=== PATIENT | female | born 1955 | race Caucasian/White ===

== ENCOUNTER 2018-06-07 00:45 | Outpatient (CLI) | payer BC, SELFPAY ==
--- NOTE | 2018-06-07 12:27 | DI.MAMMO_ITS ---
SYMPTOMS/DIAGNOSIS: SCREENING, Z12.31 MAMMOGRAM: Mammograms were interpreted according to the usual protocol including computer analysis with CAD system, tomosynthesis and C view imaging. The breast tissue is of moderate radiodensity. There is no dominant mass. On today's examination a soft tissue prominence is noted posteriorly in the lateral portion of the left breast. The finding appears to be adjacent to the chest wall and is only suggested on the craniocaudad compression spot film of the left breast. There is otherwise no evidence of a right or left breast mass. There are no suspicious calcifications. SUMMARY: When compared with the previous study, there is a question regarding interval development of a mass in the posterior portion of the left breast. The possibility of a malignancy could not be excluded in this patient and further evaluation with a craniocaudad compression spot film and ultrasound is recommended. Category 0. Breast density Category B. MQSA ASSESSMENT OF FINDINGS: Incomplete: Needs additional imaging evaluation. Category 0. Patient will receive a letter notifying them of these results. BI-RADS category B. There are scattered areas of fibroglandular density.
== END 2018-06-07 01:05 ==
PROVIDERS: PCP Family Medicine; Visit Provider Nurse Practitioner Family
DX: Z12.31 Encounter for screening mammogram for malignant neoplasm of breast (principal); R92.8 Other abnormal and inconclusive findings on diagnostic imaging of breast
CPT/HCPCS: 77063; 77067

== ENCOUNTER 2018-06-13 00:28 | Outpatient (CLI) | payer BC, SELFPAY ==
--- NOTE | 2018-06-13 14:04 | DI.COMBO_ITS ---
SYMPTOMS/DIAGNOSIS: F/U ABNORMAL MAMMO, ? DEVELOPMENT OF LEFT BREAST MASS ADDITIONAL VIEWS OF THE LEFT BREAST AND LEFT BREAST ULTRASOUND: Additional images are interpreted according to the usual protocol including tomosynthesis and 2D imaging. CC spot compression views were performed. The questioned mass appears to correspond to a portion of the pectoral muscle included on the film. Left breast ultrasound shows no evidence of a mass or cyst. Normal-appearing lymph node is noted in the left axilla. IMPRESSION: Category 1B, negative mammogram. Yearly screening mammography is recommended. SA ASSESSMENT OF FINDINGS: Negative. Category 1. Patient will receive a letter notifying them of these results. BI-RADS category B. There are scattered areas of fibroglandular density.
== END 2018-06-13 00:48 ==
PROVIDERS: PCP Nurse Practitioner Family; Visit Provider Nurse Practitioner Family
DX: Z12.31 Encounter for screening mammogram for malignant neoplasm of breast (principal); R92.8 Other abnormal and inconclusive findings on diagnostic imaging of breast; R59.0 Localized enlarged lymph nodes; N64.59 Other signs and symptoms in breast
CPT/HCPCS: 76642; 77063; 77067

== ENCOUNTER 2018-07-16 15:40 | Outpatient (REF) | payer BC, SELFPAY ==
--- NOTE | 2018-07-16 15:15 | ENDOMET_PTH ---
PATIENT: Adelaida Lundy LOC: [facility] U#:[id number] AGE/SX: 62/F ROOM: RE07/16/[address]: Ceferino Driver MD : [id number] BED: DIS: 07/16/2018 SPEC #: [id number] RECD: 07/16/18 17:58 STATUS: MELI REYamilka #: [id number] YOMAIRA: 07/16/18 15:[address]: Ceferino Driver DEPT: Surgical Specimen RECD BY: Kiara Barlow ENTERED: 07/16/18 17:59 SP TYPE: Endomet OTHR DR: Biju Adames MD Tissues: 1 - ENDOMETRIUM BX/CURRETTE 2 - CERVICAL BIOPSY Procedures: GROSS AND MICRO LEVEL 4 Comments: [id number]
== END 2018-07-16 16:00 ==
LOC: LBN 15:40
PROVIDERS: PCP Family Medicine; Visit Provider Obstetrics & Gynecology
DX: N89.8 Other specified noninflammatory disorders of vagina (principal); N85.8 Other specified noninflammatory disorders of uterus; N95.0 Postmenopausal bleeding
CPT/HCPCS: 88305; 87480; 87510; 87660

== ENCOUNTER 2018-08-06 09:27 | Outpatient (CLI) | payer BC, SELFPAY ==
[2018-08-06 13:29] LABS: HGB 13.7 g/dL (12.0-15.5); Mean Corp. HGB Concentration 34.3 g/dL (32.0-36.0); Mean Corpuscular Volume 87.5 fL (80-95); Mean Platelet Volume 9.7 fL (8.0-11.0); Platelet Count 430 x1000/uL (130-400); RBC 4.57 m/cumm (4.00-5.20); RBC Distribution Width 12.4 % (11.7-14.6); White Blood Cell Count 7.47 k/cumm (4.4-10.8)
[2018-08-06 13:36] LABS: Anion Gap 7.9 mmol/L (3-11); BUN 6 mg/dL (7-18); CO2 29.1 mmol/L (21.0-32.0); CREATININE 0.95 mg/dL (0.55-1.02); Calcium 9.3 mg/dL (8.5-10.1); Chloride 96 mmol/L (98-107); Glucose 101 mg/dL (70-100); Potassium 4.8 mmol/L (3.5-5.1); Sodium 133 mmol/L (136-145)
== END 2018-08-06 09:47 ==
PROVIDERS: PCP Family Medicine
DX: K57.92 Diverticulitis of intestine, part unspecified, without perforation or abscess without bleeding (principal); R10.9 Unspecified abdominal pain
CPT/HCPCS: 36415; 80048; 85027

== ENCOUNTER 2018-09-12 11:46 | Outpatient (CLI) | payer BC, SELFPAY ==
--- NOTE | 2018-09-12 13:10 | DI.RAD_ITS ---
SYMPTOMS/DIAGNOSIS: RECURRENT THORACIC BACK PAIN, M54.9 DORSAL SPINE: The vertebral bodies are intact. Mild degenerative changes are identified with no evidence of gross disc space narrowing. The posterior elements appear intact. The paravertebral soft tissues are unremarkable. SUMMARY: Mild DJD is demonstrated. The examination is otherwise unremarkable.
== END 2018-09-12 12:06 ==
DX: M54.6 Pain in thoracic spine (principal); M47.814 Spondylosis without myelopathy or radiculopathy, thoracic region
CPT/HCPCS: 72072

== ENCOUNTER 2019-07-08 16:48 | Outpatient (REF) | payer BC, SELFPAY ==
[2019-07-08 21:32] LABS: HCT 39.8 % (36.0-46.0); HGB 13.8 g/dL (12.0-15.5); Mean Corp. HGB Concentration 34.7 g/dL (32.0-36.0); Mean Corpuscular Hemoglobin 30.7 pg (27.0-33.0); Mean Corpuscular Volume 88.6 fL (80-95); Mean Platelet Volume 9.6 fL (8.0-11.0); Platelet Count 473 x1000/uL (130-400); RBC 4.49 m/cumm (4.00-5.20); RBC Distribution Width 12.5 % (11.7-14.6); White Blood Cell Count 6.93 k/cumm (4.4-10.8)
[2019-07-08 22:08] LABS: ALT 25 U/L (14-59); AST 28 U/L (15-37); Albumin 3.9 g/dL (3.4-5.0); Alkaline Phosphatase 50 U/L (46-116); Anion Gap 9.3 mmol/L (3-11); BUN 7 mg/dL (7-18); Bilirubin, Total 0.3 mg/dL (0.2-1.0); CO2 26.7 mmol/L (21.0-32.0); CREATININE 0.83 mg/dL (0.55-1.02); Calcium 9.1 mg/dL (8.5-10.1); Chloride 93 mmol/L (98-107); Glucose 78 mg/dL (74-106); Sodium 129 mmol/L (136-145); Total Protein 7.5 g/dL (6.4-8.2)
== END 2019-07-08 17:08 ==
LOC: NCHCN 16:48
PROVIDERS: PCP Internal Medicine; Visit Provider Internal Medicine
DX: R10.30 Lower abdominal pain, unspecified (principal)
CPT/HCPCS: 80053; 85027

== ENCOUNTER 2019-07-12 09:03 | Outpatient (REF) | payer BC, SELFPAY ==
[2019-07-12 14:44] LABS: TSH 2.92 uIU/mL (0.36-3.74)
[2019-07-12 14:49] LABS: Creatinine,Urine 52.06 mg/dL; Sodium, Urine 55 mmol/L
[2019-07-16 15:38] LABS: Osmolality Serum 283 mOsm/kg (275-295); Osmolality, Urine 260 mOsm/kg (150-1,150)
== END 2019-07-12 09:23 ==
LOC: NCHCN 09:03
PROVIDERS: PCP Internal Medicine; Visit Provider Internal Medicine
DX: E87.1 Hypo-osmolality and hyponatremia (principal); I10 Essential (primary) hypertension
CPT/HCPCS: 82533; 83935; 82565; 83930; 84300; 84443

== ENCOUNTER 2019-09-20 14:33 | Outpatient (REF) | payer BC, SELFPAY ==
[2019-09-20 21:11] LABS: ALT 29 U/L (14-59); AST 31 U/L (15-37); Albumin 4.2 g/dL (3.4-5.0); Alkaline Phosphatase 53 U/L (46-116); Anion Gap 8.7 mmol/L (3-11); BUN 10 mg/dL (7-18); Bilirubin, Total 0.5 mg/dL (0.2-1.0); CO2 28.3 mmol/L (21.0-32.0); CREATININE 0.98 mg/dL (0.55-1.02); Calcium 9.6 mg/dL (8.5-10.1); Chloride 99 mmol/L (98-107); Estimated GFR 57.51 (mL/min/1.73m2); Glucose 89 mg/dL (74-106); Potassium 5.5 mmol/L (3.5-5.1); Sodium 136 mmol/L (136-145); Total Protein 8.2 g/dL (6.4-8.2)
[2019-09-22 16:18] LABS: Beta-Hydroxybutyrate 0.5 mmol/L (<0.4)
[2019-09-25 15:34] LABS: Chlorpropamide Negative; Glimepiride Negative; Glipizide Negative; Glyburide Negative; Repaglinide Negative; Tolazamide Unable to assess ng/mL; Tolbutamide Negative
[2019-09-26 10:24] LABS: Insulin 6.1 uIU/mL (<29.0)
== END 2019-09-20 14:53 ==
LOC: NCHCN 14:33
PROVIDERS: PCP Internal Medicine; Visit Provider Nurse Practitioner Family
DX: E16.2 Hypoglycemia, unspecified (principal)
CPT/HCPCS: 80053; 80307; 82010; 83525; 84206

== ENCOUNTER 2020-12-01 12:08 | Outpatient (REF) | payer BC, SELFPAY ==
[2020-12-01 15:22] LABS: ALT 38 U/L (14-59); AST 33 U/L (15-37); Alkaline Phosphatase 55 U/L (46-116); Anion Gap 8.4 mmol/L (3-11); BUN 9 mg/dL (7-18); Bilirubin, Total 0.4 mg/dL (0.2-1.0); CO2 26.6 mmol/L (21.0-32.0); CREATININE 0.9 mg/dL (0.55-1.02); Calcium 9.4 mg/dL (8.5-10.1); Calculated LDL 125 mg/dL (<100); Chloride 100 mmol/L (98-107); Cholesterol 198 mg/dL (<200); Glucose 93 mg/dL (74-106); HDL Cholesterol 64 mg/dL (40-60); Potassium 5.5 mmol/L (3.5-5.1); Sodium 135 mmol/L (136-145); Total Protein 7.6 g/dL (6.4-8.2); Triglyceride 46 mg/dL (<150)
== END 2020-12-01 12:09 | disposition home or self-care (01) ==
LOC: NCHCN 12:08
PROVIDERS: PCP Internal Medicine; Visit Provider Nurse Practitioner Family
DX: I10 Essential (primary) hypertension (principal); E66.3 Overweight; Z00.00 Encounter for general adult medical examination without abnormal findings
CPT/HCPCS: 80053; 80061

== ENCOUNTER 2020-12-17 01:51 | Outpatient (CLI) | payer BC, SELFPAY ==
--- NOTE | 2020-12-17 11:45 | DI.MAMMO_ITS ---
Exam(s) MAMMO SCREENING EXAM: MAMMO SCREENING CLINICAL HISTORY: SCREENING, Z12.31 TECHNIQUE: Mammograms were interpreted according to the usual protocol including computer analysis w [employer] CAD system, tomosynthesis and C-view imaging. COMPARISON: 2010 through 2017 FINDINGS: The breasts are composed of mainly fatty density , Breast Density category A. No suspicious masses or suspicious microcalcifications are seen. No skin thickening or abnormal axillary lymph nodes are seen. There has been no significant change from prior exams. IMPRESSION: BI-RADS Category 1, Negative mammogram Yearly screening mammography is recommended. Breast Density - Category A, fatty density. A negative radiographic report should not delay biopsy if a dominant or clinically suspicious mass is present. Up to ten percent of cancers are not identified on mammography. A negative report may reinforce clinical impression. Adenosis and dense breasts may obscure an underlying neoplasm. False positive reports average 6 to 10%. Patient will receive a letter notifying them of these results.
== END 2020-12-17 02:11 ==
PROVIDERS: PCP Internal Medicine; Visit Provider Nurse Practitioner Family
DX: Z12.31 Encounter for screening mammogram for malignant neoplasm of breast (principal); R92.8 Other abnormal and inconclusive findings on diagnostic imaging of breast
CPT/HCPCS: 77063; 77067

== ENCOUNTER 2021-01-04 12:26 | Outpatient (REF) | payer BC, SELFPAY ==
[2021-01-04 21:02] LABS: Potassium 4.8 mmol/L (3.5-5.1)
== END 2021-01-04 12:27 | disposition home or self-care (01) ==
LOC: NCHCN 12:26
PROVIDERS: PCP Internal Medicine; Visit Provider Nurse Practitioner Family
DX: E87.5 Hyperkalemia (principal)
CPT/HCPCS: 84132

== ENCOUNTER 2021-03-31 11:18 | Outpatient (REF) | payer BC, SELFPAY ==
[2021-03-31 22:13] LABS: HCT 43.5 % (36.0-46.0); HGB 14.6 g/dL (11.2-15.7); MCH 30.2 pg (27.0-33.0); MCHC 33.6 % (32.0-36.0); MCV 89.9 fL (80-95); MPV 9.3 fL (8.0-11.0); Platelet Count 426 10^3/uL (130-400); RBC 4.84 10^6/uL (3.93-5.22); RDW 12.4 % (11.7-14.6); RDW-SD 40.7 fL; WBC 5.49 10^3/uL (4.4-10.8)
[2021-03-31 22:14] LABS: Potassium 4.8 mmol/L (3.5-5.1)
== END 2021-03-31 11:19 | disposition home or self-care (01) ==
LOC: NCHCN 11:18
PROVIDERS: PCP Internal Medicine; Visit Provider Nurse Practitioner Family
DX: E87.5 Hyperkalemia (principal); D47.3 Essential (hemorrhagic) thrombocythemia; F41.8 Other specified anxiety disorders; L40.9 Psoriasis, unspecified
CPT/HCPCS: 85027; 84132

== ENCOUNTER 2021-05-10 11:43 | Outpatient (REF) | payer BC, SELFPAY ==
[2021-05-12 12:50] LABS: COVID-19 RT-PCR UVMMC Result Negative (Negative)
== END 2021-05-10 11:44 | disposition home or self-care (01) ==
LOC: NCHCN 11:43
PROVIDERS: PCP Internal Medicine; Visit Provider Nurse Practitioner Family
DX: Z20.822 Contact with and (suspected) exposure to COVID-19 (principal); J06.9 Acute upper respiratory infection, unspecified
CPT/HCPCS: U0003

== ENCOUNTER 2021-05-17 13:56 | Outpatient (REF) | payer BC, SELFPAY ==
[2021-05-17 21:38] LABS: Abs Immature Grans 0.02 10^3/uL (0.0-0.06); Absolute Basophil Count 0.06 10^3/uL (0.0-0.2); Absolute Eosinophil Count 0.07 10^3/uL (0.0-0.7); Absolute Lymphocyte Count 1.42 10^3/uL (1.2-3.4); Absolute Monocyte Count 0.68 10^3/uL (0.1-0.8); Absolute Neutrophil Count 4.08 10^3/uL (1.2-6.7); Basophils % 0.9; Eosinophils % 1.1; HCT 42.2 % (36.0-46.0); HGB 14.3 g/dL (11.2-15.7); Immature Grans % 0.3; Lymphocytes % 22.4; MCH 30.2 pg (27.0-33.0); MCHC 33.9 % (32.0-36.0); MPV 9.6 fL (8.0-11.0); Monocytes % 10.7; Neutrophils % 64.6; Nucleated RBC 0 %; Platelet Count 419 10^3/uL (130-400); RBC 4.74 10^6/uL (3.93-5.22); RDW 12.8 % (11.7-14.6); RDW-SD 42.3 fL; WBC 6.33 10^3/uL (4.4-10.8)
[2021-05-17 21:58] LABS: Anion Gap 6.8 mmol/L (3-11); BUN 9 mg/dL (7-18); CO2 29.2 mmol/L (21.0-32.0); CREATININE 0.8 mg/dL (0.55-1.02); Chloride 97 mmol/L (98-107); Glucose 88 mg/dL (74-106); Potassium 5.1 mmol/L (3.5-5.1); Sodium 133 mmol/L (136-145)
== END 2021-05-17 13:57 | disposition home or self-care (01) ==
LOC: NCHCN 13:56
PROVIDERS: PCP Internal Medicine; Visit Provider Nurse Practitioner Family
DX: J02.9 Acute pharyngitis, unspecified (principal); R10.9 Unspecified abdominal pain; M25.551 Pain in right hip
CPT/HCPCS: 80048; 84443; 85025; 87086

== ENCOUNTER 2021-10-15 18:19 | Outpatient (REF) | payer MEDICARE, BC, SELFPAY ==
[2021-10-15 15:53] LABS: ALT 42 U/L (14-59); AST 34 U/L (15-37); Albumin 3.9 g/dL (3.4-5.0); Alkaline Phosphatase 57 U/L (46-116); Anion Gap 8.1 mmol/L (3-11); BUN 8 mg/dL (7-18); Bilirubin, Total 0.4 mg/dL (0.2-1.0); CO2 27.9 mmol/L (21.0-32.0); CREATININE 0.9 mg/dL (0.55-1.02); Calcium 8.9 mg/dL (8.5-10.1); Chloride 99 mmol/L (98-107); Glucose 95 mg/dL (74-106); Potassium 4.8 mmol/L (3.5-5.1); Sodium 135 mmol/L (136-145); Total Protein 7.5 g/dL (6.4-8.2)
== END 2021-10-15 18:20 | disposition home or self-care (01) ==
LOC: NCHCN 18:19
PROVIDERS: PCP Internal Medicine; Visit Provider Nurse Practitioner Family
DX: E22.2 Syndrome of inappropriate secretion of antidiuretic hormone (principal)
CPT/HCPCS: 80053

== ENCOUNTER 2021-10-21 19:04 | Outpatient (REF) | payer MEDICARE, BC, SELFPAY ==
[2021-10-21 20:48] LABS: Anion Gap 8.6 mmol/L (3-11); BUN 13 mg/dL (7-18); CO2 27.4 mmol/L (21.0-32.0); CREATININE 0.9 mg/dL (0.55-1.02); Calcium 9.3 mg/dL (8.5-10.1); Chloride 98 mmol/L (98-107); Glucose 87 mg/dL (74-106); Potassium 4.8 mmol/L (3.5-5.1); Sodium 134 mmol/L (136-145)
== END 2021-10-21 19:05 | disposition home or self-care (01) ==
LOC: NCHCN 19:04
PROVIDERS: PCP Internal Medicine; Visit Provider Nurse Practitioner Family
DX: E87.1 Hypo-osmolality and hyponatremia (principal)
CPT/HCPCS: 80048

== ENCOUNTER 2022-07-11 16:01 | Emergency (ER) | payer MEDICARE, BC, SELFPAY ==
[2022-07-11 16:05] VITALS: PULSE 71; RESP 18; TEMP 36.8; O2SAT 98
[2022-07-11 16:08] VITALS: BP 183/91
--- NOTE | 2022-07-11 16:30 | ED.GENADUL_ITS ---
Discharge Plan Disposition Patient Disposition: Home Condition: Improving Discharge Details Clinical Impression: Anterior shoulder dislocation Primary Care Provider: Guille James ED Provider: Nayeli Bender Home Meds and New Rx's Prescriptions: Continued melatonin 3 mg tablet 3 mg PO HS PRN ascorbate calcium (vitamin C) 500 mg tablet 500 mg PO DAILY Quercetin Complex 500-250-33 mg capsule PO ssuvzxs-uhoo-pdigr-oreg-capryl 100 mg-150 mg- 50 mg-150 mg capsule PO cholecalciferol (vitamin D3) 4,000 unit capsule 4,000 unit PO DAILY magnesium citrate 100 mg tablet 100 mg PO DAILY Probiotic 1 EACH capsule 1 ea PO DAILY gabapentin 300 mg capsule 300 mg PO HS Qty: 90 3RF bupropion HCl [Wellbutrin SR] 150 mg tablet sustained-release 12 hr 150 mg PO DAILY Qty: 90 4RF buspirone 10 mg tablet 10 mg PO BID Qty: 180 3RF Discharge Instructions Instructions: Oxycodone, Rapid Release (By mouth), Shoulder Dislocation (ED) Additional Instructions: He had a recurrent anterior shoulder dislocation of the left side. Please continue sling until reevaluated by orthopedics. Please encourage rest, ice, elevation. Use Tylenol as needed for discomfort. If this is insufficient, you may use the oxycodone as prescribed. Please do not drink alcohol or drive while using this medication and keep this in a safe place. Please call orthopedics tomorrow to schedule follow-up appointment, number listed below. Encourage hydration. You may find sleeping in a more upright position is more comfortable for you. If you develop any new or worsening symptoms please seek care urgently once again. As discussed, please limit your range of motion, in particular do not reach upward and do not lift anything. Referrals: Rich Julien MD [ [facility] STAFF PHYSICIAN] - Discharge Data Discharge Date/Time-TO BE ENTERED AT DEPARTURE: 07/11/22 19:45 Medical Decision Making Patient is a 66-year-old female, brought in by significant other, with chief complaint of left shoulder pain. She reports that yesterday she dislocated her shoulder and was able to put this back in. Had not had shoulder dislocation p rior to that. States that this evening when she was attempting to do her hair felt a large crack and felt that shoulder dislocated again. Since that time has been in excruciating pain. States that she is having some discomfort radiating into the rest of the arm but denies other injury in the arm. On exam, patient appears incredibly anxious. She is yelling and crying. is also clean anxious. Feels that she is going into shock. Patient is hemodynamically stable. Is not having any respiratory distress. She is 2+ distal pulses. No color changes noted, intact capillary refill. She does not want to move any of the arm making exam difficult. She is able to extend her fingers and flex them but movement beyond that is limited secondary to anxiety and pain. I do not note any clavicular pain or dislocation. While she feels that the shoulder is dislocated, I am not noting this on exam as there is no sulcus sign I am not able to palpate the humeral head. She indicates the h umeral neck is area of maximal discomfort. Questioning if maybe she has a fracture that is exacerbated by the provocative movement today. Will obtain x- ray imaging. Will give oxycodone to help with discomfort. I am hoping that once pain is better controlled I will be able to get a better exam on this patient. She has sensation intact over the deltoid. At this point, I do not see any indication of neurovascular compromise. Patient denies any improvement with oxycodone. We will give Tylenol and Toradol IM to help with discomfort. X-ray obtained and notable for an anterior inferior shoulder dislocation. Patient and I discussed risk/benefits, alternatives as well as expected procedural steps associated with procedural sedation and closed reduction. Dr. Conteh will be performing the procedure sedation. Patient and her voiced understanding and wished to proceed. Procedural consent was obtained. With patient on the monitor and RT at bedside, patient underwent procedural sedation with propofol the shoulder was able to be reduced with traction/countertraction. We will obtain post procedure x-ray. X-ray shows reduction of the glenohumeral joint. Neurovascular status was reevaluated. Patient has no sensory deficit over the deltoid, neurovascularly intact into the hand. Sling applied. We will give another dose of pain medication prior to discharge. Patient and I discussed that, particularly given her report of dislocations yesterday, she is at high risk of repeat injury. Advised seh continue with the sling. Encouraged LOUISA. Advised she f/u with PCP, she will call in mary AM to schedule f/u. Will continue with pain management. Advised on return precuations, particularly for neurological defict or repeat dislocation. Will continue with paihn managment, safe usage discussed. All of her questions and concerns were addressed, she is in agreement with this plan. HPI General Date/Time Provider Initiated Documentation: 07/11/22 16:15 . Limitations to Documentation: no limitations . Information obtained by: patient, family and RN notes reviewed . History of Present Illness 66 year old F presents to the emergency department with the chief complaint of left shoulder pain, described as severe and similar to prior episodes (states she injured herself in similar fashion yesterday), with intensity rated at 10. Quality is described as stabbing and aching, and is localized to the left and upper extremity. Patient extremity (toward left elbow). Patient started experiencing this minute(s) and it has been constant. Immobilization improves symptom(s), Movement worsens symptoms . Patient notes no other symptoms.. Patient did receive the following treatments prior to arrival, none Related Data Home Medications Medication Instructions Recorded Confirmed Lactobacillus acidophilus 10 1 ea PO DAILY 04/24/15 07/19/22 billion cell capsule (Probiotic) cholecalciferol (vitamin D3) 100 4,000 unit PO DAILY 05/24/18 07/19/22 mcg (4,000 unit) capsule magnesium citrate 100 mg tablet 100 mg PO DAILY 05/24/18 07/19/22 melatonin 3 mg tablet 3 mg PO HS PRN 08/06/18 07/19/22 gabapentin 300 mg capsule 300 mg PO HS #90 caps 12/04/18 07/19/22 bupropion HCl 150 mg tablet,12 hr 150 mg PO DAILY #90 tab-caps 03/18/19 07/19/22 sustained-release (Wellbutrin SR) buspirone 10 mg tablet 10 mg PO BID #180 tabs 03/18/19 07/19/22 ascorbate calcium (vitamin C) 500 500 mg PO DAILY 04/30/22 07/19/22 mg tablet tumeric 100 mg-luca 150 mg-olive cap PO 04/30/22 07/19/22 50 mg-oreg 150 mg-caprylate capsule vitamin C 500 mg-quercetin 250 cap PO 04/30/22 07/19/22 mg-bioflavonoids, citrus 33 mg capsule (Quercetin Complex) Previous Rx's Medication Instructions Recorded gabapentin 300 mg capsule 300 mg PO HS #90 caps 12/04/18 bupropion HCl 150 mg tablet,12 hr 150 mg PO DAILY #90 tab-caps 03/18/19 sustained-release (Wellbutrin SR) buspirone 10 mg tablet 10 mg PO BID #180 tabs 03/18/19 Allergies Allergy/AdvReac Type Severity Reaction Status Date / Time levofloxacin AdvReac Severe SEVERE Verified 07/19/22 15:15 MYALGIAS NSAIDS (Non-Steroidal AdvReac Mild GI Verified 07/19/22 15:15 Anti-Inflamma INTOLERANCE General Stated Complaint: Orthopedic SARAVANAN: 3 Review of Systems Constitutional Constitutional: Reports as per HPI, Denies fever(s) and Denies weakness Cardiovascular Cardiovascular: Reports as per HPI Respiratory Respiratory: Reports as per HPI and Denies cough Musculoskeletal Musculoskeletal: Reports as per HPI Integumentary/Breasts Skin/Breast: Reports as per HPI, Denies rash and Denies wounds Neurologic Neurologic: Reports as per HPI, Denies paresthesias and Denies weakness PFSH All Active Problems (Updated 07/19/22 @ 16:21 by Mat Barrera MD) Traumatic tear of right rotator cuff (Acute) Traumatic tear of left rotator cuff (Acute) Arthritis of right shoulder region (Acute) Neuropraxia of left upper extremity (Acute) Anterior shoulder dislocation (Acute 07/11/22) Foreign body finger (Acute) Tinnitus of left ear (Acute) Increased body mass index (BMI) (Chronic) GERD without esophagitis (Chronic) Abdominal pain (Chronic) Back pain (Chronic) Primary fibromyalgia syndrome (Chronic) Overweight (Chronic) Joint pain (Chronic) Intention tremor (Chronic 05/11/99) Headache (Chronic) [place]verticulosis of [place] (Chronic) [place] [facility] [place] disorder (Chronic) Anxiety (Chronic) Surgical History Cholecystectomy , Ectopic Family History Mother No problems noted. Father Seizure disorder Social History Smoking/Tobacco Use Status: Never Smoking risk assessment performed?: Yes Alcohol Intake: current Alcohol Intake frequency: 0-2 drinks per day Drug use: Never Household members: spouse Current gender identity: female What is your relationship status?: Panel score (0-1 are the most socially isolated patients): 1 Seatbelt use: always Do you feel safe at home: Yes Do you feel safe in your relationship?: Yes Female Reproductive History Menstrual Menopause type: natural History History 3 Para 2 Hx # Term Pregnancies Multiple births Hx # Pregnancies Ectopic pregnancies AB induced Hx Number of Living Children AB spontaneous Exam Const General: cooperative, healthy appearing, uncomfortable, well developed, well groomed and anxious (patient very upset, anxious, limits exam) Nutritional Appearance: average body habitus and well nourished Orientation: alert and awake Resp Effort & Inspection: normal respiratory effort, able to speak in complete sentences and no respiratory distress Cardio Rate: regular rate Rhythm: regular rhythm Skin General skin exam: no rashes or lesions noted Lesions: no lesions Rashes: no rashes Trauma: no lacerations or abrasions Neuro General: patient alert and patient awake Cognition: normal cognition Speech: speech normal Gait: normal gait Motor: muscle tone normal throughout Sensory Exam: no sensory deficits noted Extrem Left upper extremity: normal to inspection, normal capillary refill, sh oulder/upper arm Details: inspection abnormal (unable to completely palpate secondary to pain), tenderness (global pain, max anteriolateral), swelling, axillary nerve sensory function normal and abnormal ROM (unable to move at this time) Details: held in an abnormal fashion Details: in ADduction and in internal rotation; ROM limited, no lacerations, no ecchymosis, no crepitus, no penetrating wound, no deformity and no unsual warmth, elbow/forearm Details: normal to inspection, tenderness (pain from shoulder radiates down, unable to ROM or palpate well d/t pain) and distal pulses intact; no swelling, wrist Details: normal to inspection, normal vascular exam and radial pulse present; no tenderness, no swelling, ROM abnormal (will not range d/t pain, primarily in mary shoulder) and no unusual warmth and hand Details: normal to inspection, normal capillary refill, neuromotor exam normal and neurosensory exam normal; ROM limited (unable to range at this time) Psych Appearance: grossly normal and well kempt Mental Status: mental status grossly normal Speech and Movement: speech and movement normal Course Vital Signs Vital signs: Vital Signs Temperature 36.8 C 07/11/22 16:05 Pulse 71 07/11/22 16:05 Respiratory Rate 18 07/11/22 16:05 Pulse Oximetry 98 07/11/22 16:05 Temperature 36.8 C 07/11/22 16:05 Pulse 71 07/11/22 16:05 Respiratory Rate 18 07/11/22 16:05 Respiratory Effort Non-Labored 07/11/22 16:08 Blood Pressure 183/91 H 07/11/22 16:08 Pulse Oximetry 98 07/11/22 16:05 Oxygen Delivery Method Room Air 07/11/22 16:05 Oxygen Flow Rate 0 07/11/22 16:05 PAWSS Have you Been Recently Intoxicated or Drunk Within the Last 30 days?: No Have you Ever Experienced Previous Episodes of Alcohol Withdrawal?: No Have you ever Experienced Withdrawal Seizures?: No Have you ever Experienced Delirium Tremens(DT)s?: No Have you ever undergone Alcohol Rehabilitation Treatment (i.e, inpt ot outpatient treatment programs)?: No Have you ever Experienced Blackouts?: No Have you ever Combined Alcohol with other Downers within the last 90 days?: No Have you ever Combined Alcohol with any other Substance of Abuse during the last 90 days?: No Positive Blood Alcohol level on Presentation? [PCS.BAL]: No Evidence of Increased Autonomic Activity (i.e. HR>120, tremor, sweating, agitation, nausea)?: No Result: 0
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
--- NOTE | 2022-07-11 17:00 | DI.RAD_ITS ---
Exam(s) XR SHOULDER LT COMPLETE 2+V EXAM: XR SHOULDER LT COMPLETE 2+V CLINICAL HISTORY: FOSON. TECHNIQUE: 2D digital imaging was performed of the left shoulder. Three images were obtained. And Y views were obtained. COMPARISON: No exams were available for comparison FINDINGS: BONES: No acute fracture is present. No bony destructive lesion is seen. JOINTS: The left humerus is dislocated anteriorly and inferiorly relative to the glenoid. Degenerati ve changes are seen at the acromioclavicular joint. SOFT TISSUE: Normal. IMPRESSION: Anterior inferior glenohumeral dislocation. DATA REPOSITORY: RADIATION DOSE DELIVERED:
[2022-07-11] MEDS: oxyCODONE 5 MG TAB PO (17:10)
[2022-07-11] MEDS: Ketorolac 15 MG/ML VIAL IM (17:49)
[2022-07-11] MEDS: Acetaminophen 500 MG TAB 1000 MG PO (17:49)
--- NOTE | 2022-07-11 18:39 | DI.VRAD_ITS ---
PROCEDURE INFORMATION: Exam: XR Left Shoulder Exam date and time: 07/11/2022 5:58 PM Age: 66 years old Clinical indication: Other: Foosh injury TECHNIQUE: Imaging protocol: Radiologic exam of the Left shoulder. Views: 2 or more views. COMPARISON: No relevant prior studies available. FINDINGS: Bones/joints: The left humerus is dislocated anteriorly and inferiorly in relation to the glenoid. Slight deformity of the humeral head suggestive of a Hill-Sachs fracture. Degenerative Arthritis in the acromioclavicular joint. Soft tissues: Normal. IMPRESSION: Anteroinferior glenohumeral dislocation with probable Hill-Sachs impaction fracture Dictated and Authenticated by: Khushboo Napier MD. Ordering:BELINDA Tyler MD
--- NOTE | 2022-07-11 18:45 | DI.RAD_ITS ---
Exam(s) XR SHOULDER LT COMP POST REDUC EXAM: XR SHOULDER LT COMP POST REDUC CLINICAL HISTORY: post reduction shoulder. TECHNIQUE: 2D digital imaging was performed of the left shoulder. Images were obtained. AP and Y views were obtained. COMPARISON: CR,XR XR SHOULDER LT COMPLETE 2+V from 07/11/2022 FINDINGS: BONES: No acute fracture is present. No bony destructive lesion is seen. There does appear to be flat tening of the lateral aspect of the humeral head suggesting a Hill-Sachs deformity. JOINTS: There has been successful reduction of the left shoulder dislocation. Degenerative changes a re seen at the acromioclavicular joint. SOFT TISSUE: Normal. IMPRESSION: 1. Successful reduction of the left shoulder dislocation. 2. Findings of a Hill-Sachs deformity. DATA REPOSITORY: RADIATION DOSE DELIVERED:
[2022-07-11] MEDS: Propofol 200 MG/20 ML VIAL 100 MG IVP (18:54)
[2022-07-11 19:01] VITALS: BP 142/82; PULSE 64; RESP 14; O2SAT 98
--- NOTE | 2022-07-11 19:20 | DI.VRAD_ITS ---
PROCEDURE INFORMATION: Exam: XR Left Shoulder Exam date and time: 07/11/2022 6:43 PM Age: 66 years old Clinical indication: Other: Post reduction shoulder TECHNIQUE: Imaging protocol: Radiologic exam of the Left shoulder. Views: 2 or more views. COMPARISON: CR XR SHOULDER LT COMPLETE 2+V 07/11/2022 5:58 PM FINDINGS: Bones/joints: Near anatomic positioning of the glenohumeral joint. Hill-Sachs deformity redemonstrated Mild degenerative changes. Soft tissues: Normal. IMPRESSION: Near anatomic alignment. Hill-Sachs deformity redemonstrated Dictated and Authenticated by: Benigno Hummel MD. Ordering:BELINDA Tyler MD
[2022-07-11] MEDS: HYDROmorphone 2 MG/ML SYR 1 MG IVP (19:26)
[2022-07-11 19:29] VITALS: BP 126/75; PULSE 70; RESP 14; O2SAT 99
== END 2022-07-11 19:45 | disposition home or self-care (01) ==
PROVIDERS: Emergency Provider Physician Assistant; PCP Internal Medicine
DX: S43.005A Unspecified dislocation of left shoulder joint, initial encounter (principal); X58.XXXA Exposure to other specified factors, initial encounter; Y93.89 Activity, other specified
CPT/HCPCS: 23650; 73030; 96372; 96374; 96375; 99284; J1170; J1885; J2704

== ENCOUNTER 2022-07-19 15:49 | Outpatient (CLI) | payer MEDICARE, BC, SELFPAY ==
--- NOTE | 2022-07-19 15:15 | DI.RAD_ITS ---
Exam(s) XR SHOULDER RT COMPLETE 2+V EXAM: XR SHOULDER RT COMPLETE 2+V CLINICAL HISTORY: RIGHT SHOULDER PAIN. TECHNIQUE: 2D digital imaging was performed. COMPARISON: CR,XR XR SHOULDER LT COMP POST REDUC from 07/11/2022 FINDINGS: Two views: No evidence of acute fracture or dislocation or abnormal soft tissue calcifications. Subacromial spa ce does not appear diminished. AC joint exhibits mild degenerative changes. Glenohumeral joint mild degenerative changes. Bone density normal. No osseous lesions. IMPRESSION: Minimal findings. DATA REPOSITORY: RADIATION DOSE DELIVERED:
== END 2022-07-19 15:50 | disposition home or self-care (01) ==
LOC: DIORS 15:49
PROVIDERS: PCP Internal Medicine; Referring Provider Internal Medicine; Visit Provider Student in an Organized Health Care Education/Training Program
DX: M19.011 Primary osteoarthritis, right shoulder (principal); S44.92XA Injury of unspecified nerve at shoulder and upper arm level, left arm, initial encounter; S46.011A Strain of muscle(s) and tendon(s) of the rotator cuff of right shoulder, initial encounter; S46.012A Strain of muscle(s) and tendon(s) of the rotator cuff of left shoulder, initial encounter; W00.0XXA Fall on same level due to ice and snow, initial encounter
CPT/HCPCS: 99215; 73030

== ENCOUNTER 2022-08-04 01:01 | Outpatient (CLI) | payer MEDICARE, BC, SELFPAY ==
--- NOTE | 2022-08-04 14:30 | DI.DEXA_ITS ---
Exam(s) XR DEXA BONE DENSITY W/WO MUKUND EXAM: XR DEXA BONE DENSITY W/WO MUKUND CLINICAL HISTORY: MENOPAUSAL, Z78.0 TECHNIQUE: COMPARISON: No exams were available for comparison FINDINGS: Lateral Spine Image: Unremarkable. No compression deformities identified. Left hip: Total T-Score: -1.3 Total Z-Score: 0.0 T- and Z-scores: Findings are consistent with osteopenia. Lumbar Spine: Total T-Score: -1.6 Total Z-Score: 0.3 T- and Z-scores: Findings are consistent with osteopenia. IMPRESSION: No evidence of osteoporosis.
== END 2022-08-04 01:21 ==
LOC: DI 01:01
PROVIDERS: PCP Internal Medicine; Visit Provider Nurse Practitioner Family
DX: Z78.0 Asymptomatic menopausal state (principal); M85.88 Other specified disorders of bone density and structure, other site
CPT/HCPCS: 77080

== ENCOUNTER 2022-08-17 02:36 | Outpatient (RCR) | payer MEDICARE, BC, SELFPAY ==
[2022-08-17] MEDS: Cosyntropin 0.25 MG VIAL IJ (07:56)
[2022-08-17] MEDS: Normal Saline Flush 10 ML SYR IVP (07:57)
[2022-08-17 08:07] LABS: HCT 40.7 % (36.0-46.0); HGB 13.9 g/dL (11.2-15.7); MCH 30.5 pg (27.0-33.0); MCHC 34.2 % (32.0-36.0); MCV 89 fL (80-95); MPV 8.9 fL (8.0-11.0); Platelet Count 371 10^3/uL (130-400); RBC 4.56 10^6/uL (3.93-5.22); RDW 12.3 % (11.7-14.6); RDW-SD 40.5 fL; WBC 4.06 10^3/uL (4.4-10.8)
[2022-08-17 08:31] LABS: ALT 28 U/L (14-59); AST 30 U/L (15-37); Albumin 3.9 g/dL (3.4-5.0); Alkaline Phosphatase 54 U/L (46-116); Anion Gap 6.7 mmol/L (3-11); BUN 7 mg/dL (7-18); Bilirubin, Total 0.4 mg/dL (0.2-1.0); CO2 30.3 mmol/L (21.0-32.0); Calcium 9.2 mg/dL (8.5-10.1); Chloride 98 mmol/L (98-107); Estimated GFR 62.52 (mL/min/1.73m2); Glucose 85 mg/dL (74-106); Sodium 135 mmol/L (136-145); TSH (W/Ref FT4) 3.24 uIU/mL (0.36-3.74); Total Protein 7.8 g/dL (6.4-8.2); Uric Acid 3.9 mg/dL (2.6-6.0)
[2022-08-17 17:48] LABS: Cortisol (Baseline) 11 ug/dL (4-23)
== END 2022-09-09 23:59 | disposition home or self-care (01) ==
LOC: INF 02:36
PROVIDERS: Nurse Practitioner Family; PCP Internal Medicine; Visit Provider Internal Medicine
DX: E87.1 Hypo-osmolality and hyponatremia (principal)
CPT/HCPCS: 36415; 80053; 80400; 82533; 85027; 96374; 99215; 84443; 84550; J0834

== ENCOUNTER → 2022-08-17 14:11 | Outpatient (BNVA) | payer MEDICARE, BC, SELFPAY | PROVIDERS: PCP Internal Medicine; Referring Provider Internal Medicine; Visit Provider Student in an Organized Health Care Education/Training Program | DX: S46.011A Strain of muscle(s) and tendon(s) of the rotator cuff of right shoulder, initial encounter (principal); S46.012A Strain of muscle(s) and tendon(s) of the rotator cuff of left shoulder, initial encounter; S44.92XA Injury of unspecified nerve at shoulder and upper arm level, left arm, initial encounter; X58.XXXA Exposure to other specified factors, initial encounter; M24.412 Recurrent dislocation, left shoulder | CPT/HCPCS: 36415; 80053; 80400; 85027; 96374; 99215; 84443; 84550; J0834 ==

== ENCOUNTER → 2023-11-14 08:58 | Outpatient (BNVA) | payer MEDICARE, BC, SELFPAY | PROVIDERS: PCP Nurse Practitioner Family; Referring Provider Nurse Practitioner Family; Visit Provider Podiatrist | DX: G57.62 Lesion of plantar nerve, left lower limb (principal); M20.41 Other hammer toe(s) (acquired), right foot; B35.1 Tinea unguium; L60.3 Nail dystrophy; G57.61 Lesion of plantar nerve, right lower limb | CPT/HCPCS: 64455; 99214; J0702; J1100 ==

== ENCOUNTER 2023-11-21 22:13 | Outpatient (REF) | payer MEDICARE, BC, SELFPAY ==
[2023-11-21 22:00] LABS: HCT 42.9 % (36.0-46.0); HGB 14.3 g/dL (11.2-15.7); MCH 30.1 pg (27.0-33.0); MCHC 33.3 % (32.0-36.0); MCV 90 fL (80-95); MPV 9.3 fL (8.0-11.0); Platelet Count 412 10^3/uL (130-400); RBC 4.75 10^6/uL (3.93-5.22); RDW-SD 43.1 fL; WBC 5.64 10^3/uL (4.4-10.8)
[2023-11-21 22:12] LABS: ALT 30 U/L (14-59); AST 28 U/L (15-37); Albumin 4.2 g/dL (3.4-5.0); Alkaline Phosphatase 60 U/L (46-116); Anion Gap 5.9 mmol/L (3-11); BUN 8 mg/dL (7-18); Bilirubin, Total 0.5 mg/dL (0.2-1.0); CO2 30.1 mmol/L (21.0-32.0); CREATININE 0.9 mg/dL (0.55-1.02); Calcium 9.6 mg/dL (8.5-10.1); Calculated LDL 129 mg/dL (<100); Chloride 99 mmol/L (98-107); Cholesterol 222 mg/dL (<200); Estimated GFR 70.07 (mL/min/1.73m2); Glucose 86 mg/dL (74-106); HDL Cholesterol 84 mg/dL (40-60); Potassium 4.8 mmol/L (3.5-5.1); Sodium 135 mmol/L (136-145); Total Protein 7.7 g/dL (6.4-8.2); Triglyceride 49 mg/dL (<150)
== END 2023-11-21 22:14 | disposition home or self-care (01) ==
LOC: NCHCN 22:13
PROVIDERS: PCP Nurse Practitioner Family; Visit Provider Nurse Practitioner Family
DX: E87.5 Hyperkalemia (principal); D47.3 Essential (hemorrhagic) thrombocythemia; Z13.220 Encounter for screening for lipoid disorders
CPT/HCPCS: 80053; 80061; 85027

== ENCOUNTER → 2023-11-22 00:15 | Outpatient (CLI) | payer MEDICARE, BC, SELFPAY ==
--- NOTE | 2023-11-22 07:15 | DI.RAD_ITS ---
Exam(s) XR FOOT RT COMPLETE EXAM: XR FOOT RT COMPLETE CLINICAL HISTORY: R 3 jeramy,M20.41. TECHNIQUE: 2D digital imaging was performed. COMPARISON: CR XR FOOT LT COMPLETE from 11/22/2023 FINDINGS: 3 views No evidence of acute fracture or diastasis of the Lisfranc joint. There is Mingo valgus. Also mild-m oderate degenerative changes in the great toe metatarsophalangeal joint. No inferior calcaneal spur. No plantar fascia calcification. No in fights. IMPRESSION: Mild hallux valgus. DATA REPOSITORY: RADIATION DOSE DELIVERED:
--- NOTE | 2023-11-22 07:15 | DI.RAD_ITS ---
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 TECHNIQUE: 2D digital imaging was performed. COMPARISON: No exams were available for comparison FINDINGS: 3 views No evidence of fracture or diastasis of the Lisfranc joint. There are moderate degenerative changes in the great toe metatarsophalangeal joint. Also some degene rative change in the 2nd metatarsophalangeal joint. No evidence of avascular necrosis. Tarsometatar marleen joints appear unremarkable as do the other midfoot articulations. There is no inferior calcaneal spur. No enthesophytes. IMPRESSION: Degenerative changes in the 1st and 2nd metatarsophalangeal joints. DATA REPOSITORY: RADIATION DOSE DELIVERED:
== END ==
PROVIDERS: PCP Nurse Practitioner Family; Visit Provider Podiatrist
DX: M20.41 Other hammer toe(s) (acquired), right foot (principal); G57.62 Lesion of plantar nerve, left lower limb
CPT/HCPCS: 73630

== ENCOUNTER → 2023-11-29 02:53 | Outpatient (CLI) | payer MEDICARE, BC, SELFPAY ==
--- OUTSIDE RECORDS SUMMARY | 2023-11-29 02:57 | XMS_ITS | Continuity of Care Document ---
Author Name Unknown Organization [facility] Ambulatory Clinics Address [address] [place] [address] Care Team Providers Care Naval Gunfire Liaison Officer Name Role Phone EFRA ALBERTS Primary Care Physician [phone] Encounter [facility] NBR [id number] Date(s): 10/28/22 - 10/28/22 [facility] Ambulatory Clinics [address] [place], [place] [address] Encounter Diagnosis Right rotator cuff tear(Discharge Diagnosis) - 10/28/22 Anterior shoulder dislocation(Discharge Diagnosis) - 10/28/22 Left arm pain(Discharge Diagnosis) - 10/28/22 Discharge Disposition: Home or Self Care Attending Physician: Benitez Isbell MD, I Allergies, Adverse Reactions, Alerts Substance Reaction Severity Status NSAIDs Unknown Active metroNIDAZOLE Moderate Active levoFLOXacin Severe Active Functional Status 10/28/22 Other exposure to Infectious Disease Non e Medications Acidophilus Probiotic Blend 0 Refill(s) Start Date: 08/23/22 Status: Ordered buPROPion 150 mg/12 hours (SR) oral tablet, extended release 150 mg = 1 tab, Oral, Daily, 0 Refill(s) Start Date: 08/22/22 Status: Ordered busPIRone 10 mg oral tablet BID, 1 Unknown, 0 Refill(s) Start Date: 08/23/22 Status: Ordered gabapentin 300 mg oral capsule 300 mg = 1 cap, Oral, Daily, # 60 cap, 0 Refill(s) Start Date: 08/22/22 Status: Ordered magnesium citrate 125 mg oral capsule 1 Unknown, 0 Refill(s) Start Date: 08/23/22 Status: Ordered melatonin 3 mg oral tablet, disintegrating 3 mg = 1 tab, Oral, every night at bedtime, PRN as needed for insomnia, # 90 tab, 0 Refill(s) Start Date: 08/22/22 Status: Ordered MiraLax oral powder for reconstitution 0 Refill(s) Start Date: 08/23/22 Status: Ordered Turmeric 0 Refill(s) Start Date: 08/22/22 Status: Ordered Vitamin B Complex 100 0 Refill(s) Start Date: 08/23/22 Status: Ordered Vitamin C 500 mg oral tablet, chewable 500 mg = 1 tab, Chewed, Daily, # 30 tab, 0 Refill(s) Start Date: 08/22/22 Status: Ordered Vitamin D3 1000 intl units oral capsule 25 mcg = 1 cap, Oral, Daily, # 75 cap, 0 Refill(s) Start Date: 08/22/22 Status: Ordered Problem List Condition Confirmation Course Effective Dates Status H ealth Status Informant AK (actinic keratosis) Confirmed Active Anterior shoulder dislocation Confirmed Active Back pain Confirmed Active Diverticulitis of colon Confirmed Active Folliculitis Confirmed Active GERD without esophagitis Confirmed Active Headache Confirmed Active Intention tremor Confirmed Active Primary fibromyalgia syndrome Confirmed Active Right rotator cuff tear Confirmed Active Tinnitus of left ear Confirmed Active Procedures Procedure Date Related Diagnosis Body Site Status Cholecystectomy Completed Vital Signs Most recent to oldest [Reference Range]: 1 Peripheral Pulse Rate [60-100 bpm] 62 bp m (10/28/22 2:03 PM) Blood Pressure [90-140/60-90 mmHg] 144/8 0mmHg *HI* (10/28/22 2:03 PM) Weight 86.18 kg (10/28/22 2:03 PM) Weight Measured (lbs) 189.994 lb (10/28/22 2:03 PM) Height 160.02 cm (10/28/22 2:03 PM) Height/Length Measured (inches) 63 inch (10/28/22 2:03 PM) BSA Measured 1.96 m2 (10/28/22 2:03 PM) Body Mass Index 33.66 kg/m2 (10/28/22 2:03 PM) Social History Social History Type Response Tobacco Never tobacco user T obacco Use:. Sex Female Physician Outpatient Note * Akilah FERREIRA, Benitez Rodgers: PERFORM Event Display: Office Clinic Note Physician Authored Date: [id number] BRIGIDA PARIKH :1955 Age:67 years Sex:Female Visit Date:10/28/2022 Primary Care Physician: EFRA ALBERTS Chief Complaint BILATERAL SHOULDERS History of Present Illness Patient returns today, she has very complex shoulder issues.?? On the right shoulder she has a rotator cuff tear and subluxation long head of the biceps.?? We had thought about doing a repair??but the patient then sustained a dislocation of her left shoulder.?? Following a dislocation left shoulder? 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 According to the patient??she has seen some improvement??she seems to have some active motion now but still cannot raise her arm above her head??she also is now having a lot of pain in that extremity??in the deltoid bicep area.?? He is working on both strengthening and stretching the shoulder. Physical Exam Vitals & Measurements HR:??62??(Peripheral)?? BP:??144/80?? SpO2:??98%?? HT:??160.02??cm?? WT:??86.18??kg?? BMI:??33.66?? Pain Score:??3?? BSA:??1.96?? Examination left shoulder shows about 90 degrees of active elevation??I do see some firing of the deltoid with resisted abduction,??patient now has only about 150 degrees of passive elevation.?? Rotation strength is no worse than 4+ out of 5. Assessment/Plan 1.??Right rotator cuff tear??M75.101 Patient with a cuff tear on the right but at this point we can too much about this??into the left shoulder gets more functional. 2.??Anterior shoulder dislocation??S43.016A Patient with an axillary nerve palsy that does seem to be resolving,??still patient is pretty disabled??with not a lot of active elevation and with pain in the extremity,??I think at this point enough time is gone by??that we can repeat the EMGs??to be sure that there is some recovery of the nerve.?? If there is we will just have to continue to wait this out??if we do not see any recovery I wouldsend the patient to a neurosurgeon. I am also concerned that patient may be developing??a stiff left shoulder so we discussed??immediately starting to work on??stretching??so we do not get frozen shoulder. ?? Once patient gets her EMGs??I will call her on the phone??and do a TeleMed visit to discuss the next step. Referral Orders Referral Management, Medical Service: Neurology, Reason: EMG LEFT UPPER EXTREMITY, AXILLARY NERVE INJURY. DR. SAPP [facility], Start: 10/28/22 Problem List/Past Medical History Ongoing AK (actinic keratosis) Anterior shoulder dislocation Back pain Diverticulitis of colon Folliculitis GERD without esophagitis Headache Intention tremor Primary fibromyalgia syndrome Right rotator cuff tear Tinnitus of left ear Historical No qualifying data Procedure/Surgical History ???Cholecystectomy Medications Acidophilus Probiotic Blend buPROPion 150 mg/12 hours (SR) oral tablet, extended release, 150 mg= 1 tab, Oral, Daily busPIRone 10 mg oral tablet, BID gabapentin 300 mg oral capsule, 300 mg= 1 cap, Oral, Daily magnesium citrate 125 mg oral capsule melatonin 3 mg oral tablet, disintegrating, 3 mg= 1 tab, Oral, every night at bedtime, PRN MiraLax oral powder for reconstitution Turmeric Vitamin B Complex 100 Vitamin C 500 mg oral tablet, chewable, 500 mg= 1 tab, Chewed, Daily Vitamin D3 1000 intl units oral capsule, 25 mcg= 1 cap, Oral, Daily Allergies levoFLOXacin metroNIDAZOLE NSAIDs Social History Alcohol Current, Wine- Comments: GLASS OF WINE AT NIGHT Electronic Cigarette/Vaping Electronic Cigarette Use: Never. Tobacco Never tobacco user Tobacco Use:. Family History Father: History is unknown Mother: History is unknown Electronically Signed on 10/28/22 02:29 PM Benitez Isbell MD, I Patient Care team information Care Team Personnel Name: EFRA ALBERTS Position: No Access Member Role: Primary Care Physician Address: Address: [address] [address]- Care Team Related Persons Name: BENSON PARIKH Address: Home [address] [place], [place] [id number] [facility] Name: BENSON PARIKH Address: Home [address] [place], [place] [id number] [facility]
--- OUTSIDE RECORDS SUMMARY | 2023-11-29 02:57 | XMS_ITS | Continuity of Care Document ---
Author Name Unknown Organization [facility] Ambulatory Clinics Address [address] [place] [address] Care Team Providers Care Residential Support Worker Name Role Phone EFRA ALBERTS Primary Care Physician Encounter [facility] NBR [id number] Date(s): 08/09/22 - 08/09/22 [facility] Ambulatory Clinics [address] [place] [address] us Assessment and Plan Future Appointments Social History Social History Type Response Sex Female Patient Care team information Care Team Personnel Name: EFRA ALBERTS Position: No Access Member Role: Primary Care Physician Address: Address: [address] [address]- [place] Care Team Related Persons Name: BENSON PARIKH Address: Home [address] [place], [place] [id number] [facility] Name: BENSON PARIKH Address: [address] [place] [address] [facility]
--- OUTSIDE RECORDS SUMMARY | 2023-11-29 02:57 | XMS_ITS | Continuity of Care Document ---
Author Name Unknown Organization [facility] Ambulatory Clinics Address [address] [place] [address] Care Team Providers Care Front Counter Attendant Name Role Phone EFRA ALBERTS Primary Care Physician Encounter [facility] NBR [id number] Date(s): 11/08/22 - 11/08/22 [facility] Ambulatory Clinics [address] [place], [place] [address] Discharge Disposition: Home Allergies, Adverse Reactions, Alerts Substance Reaction Severity Status NSAIDs Unknown Active metroNIDAZOLE Moderate Active levoFLOXacin Severe Active Assessment and Plan Future Appointments Medications Acidophilus Probiotic Blend 0 Refill(s) Start [...] Related Diagnosis Body Site Status Cholecystectomy Completed Social History Social History Type Response Tobacco Never tobacco user T obacco Use:. Sex Female Patient Care team information Care Team Personnel Name: EFRA ALBERTS Position: No Access Member Role: Primary Care Physician Address: Address: [place] [address]- Care Team Related Persons Name: BENSON PARIKH Address: Home [address] [place] [place], [place] [id number] [facility] Name: BENSON PARIKH Address: Home [address] [place], [place] [id number] [facility]
--- OUTSIDE RECORDS SUMMARY | 2023-11-29 02:57 | XMS_ITS | Continuity of Care Document ---
Author Name Unknown Organization [facility] Ambulatory Clinics Address [address] [place] [address] Care Team Providers Care Fitter Placer Name Role Phone EFRA ALBERTS Primary Care Physician [id number] Date(s): 07/18/22 - 07/18/22 [facility] Ambulatory Clinics [address] [place] [address] [place] Assessment and Plan Future Appointments Social History Social History Type Response Sex Female Patient Care team information Personnel Name: EFRA ALBERTS Address: Address: [address] [address]
--- OUTSIDE RECORDS SUMMARY | 2023-11-29 02:57 | XMS_ITS | Continuity of Care Document ---
Author Name Unknown Organization [facility] Address [address] [place] [address] Care Team Providers Care Environmental Professional Name Role Phone EFRA ALBERTS Primary Care Physician Encounter [facility] NBR [id number] Date(s): 08/03/22 - 08/03/[address] [address]- Encounter Diagnosis Strain of muscle(s) and tendon(s) of the rotator cuff of left shoulder, initial encounter(Final) - Anterior dislocation of unspecified humerus, initial encounter(Final) - Strain of muscle(s) and tendon(s) of the rotator cuff of right shoulder, initial encounter(Final) - Discharge Disposition: Home or Self Care Attending Physician: MARTINA JON M.D. Admitting Physician: MARTINA JON M.D. Assessment and Plan Future Appointments Results Radiology Reports * Exam Date Time Procedure Performing Provider Status 08/03/22 4:10 PM MRI Shoulder w/o Contrast Left DomainU ser, Generated; Auth (Verified) Notes: (MRI Shoulder w/o Contrast Left) Reason For Exam: TRAUMATIC WEAKNESS PAIN DISLOCATION MRI Shoulder w/o Contrast Left EXAM DESCRIPTION: MRI Shoulder w/o Contrast Left 08/03/2022 INDICATION: TRAUMATIC WEAKNESS PAIN DISLOCATION TECHNIQUE: Multiplanar MRI examination of the left shoulder utilizing T1, PD and fat-suppressed T2 technique COMPARISON: None FINDINGS: Abnormal signal in the anterior aspect of the distal supraspinatus tendon near its greater tuberosity insertion consistent with tendinosis and probable partial articular surface tear involving at least 50% tendon thickness. Focal full-thickness tear in this region is difficult to exclude. No tendon retraction. No full-thickness infraspinatus or subscapularis tendon tear with intermediate signal abnormality in the distal subscapularis tendon consistent with tendinosis. Teres minor tendon insertion appears intact Mild supraspinatus muscle atrophy. No additional rotator cuff muscle atrophy or significant fatty infiltration Abnormal fluid in the subacromial/subdeltoid bursa AC joint osteoarthritic changes with joint space narrowing and inferiorly directed osteophytes. Mild fluid in the AC joint space. No significant downsloping of the acromion. Type 2 acromion. No os acromiale No significant glenohumeral joint arthritic changes. No glenohumeral joint effusion. Coracoacromial ligament appears intact. Impaction deformity involving the superolateral aspect of the humeral head with extensive regional marrow edema consistent with bone contusion and recent Hill-Sachs lesion. Additional marrow edema involving the anterior-inferior glenoid consistent with osseous Bankart lesion. Findings are suggestive of recent anterior glenohumeral joint dislocation. Glenohumeral joint alignment appears satisfactory currently Defect involving the anterior glenoid labrum suspicious for tear. Biceps anchor appears intact. Proximal aspect of the long head biceps tendon is normally situated in the bicipital groove. No intrasubstance signal abnormality to suggest tendinosis. Small amount of fluid in the proximal biceps tendon sheath. Short head biceps tendon origin appears intact. Mild edema in the supraspinatus myotendinous junction region with edema also noted involving the inferior aspect of the subscapularis muscle consistent with areas of muscle strain. IMPRESSION: Abnormal signal in the distal supraspinatus tendon near its greater tuberosity insertion consistent with tendinosis and probable partial articular surface tear. Small focal full-thickness tear without tendon retraction in this region is difficult to exclude. Mild supraspinatus muscle atrophy. Distal subscapularis tendinosis without evidence of tear. Abnormal fluid in the subacromial/subdeltoid bursa AC joint arthritic changes Hill-Sachs and Bankart lesions with regional marrow edema suggesting recent anterior glenohumeral joint dislocation. Glenohumeral joint alignment is satisfactory currently. Tear involving the anterior glenoid labrum Muscle edema consistent areas of muscle strain involving the supraspinatus myotendinous junction and inferior subscapularis muscle. JOB #: [id number] Final Signed by: Ceferino Jane MD Signed (Electronic Signature): 08/03/2022 5:03 pm * Exam Date Time Procedure Performing Provider Status 08/03/22 3:41 PM MRI Shoulder w/o Con trast Right DomainUser, Generated; Auth (Verified) Notes: (MRI Shoulder w/o Contrast Right) Reason For Exam: TRAUMATIC TEAR OF ROTATOR CUFF MRI Shoulder w/o Contrast Right EXAM DESCRIPTION: MRI Shoulder w/o Contrast Right 08/03/2022 INDICATION: TRAUMATIC TEAR OF ROTATOR CUFF TECHNIQUE: Multiplanar MRI examination of the right shoulder utilizing T1, PD and fat-suppressed T2 technique COMPARISON: None FINDINGS: Focal full-thickness tear of the supraspinatus tendon near its insertion with approximately 8 mm tendon retraction. Tear measures approximately 5 mm in AP dimension. Intermediate signal abnormality within additional portions of the supraspinatus tendon consistent with tendinosis. No full-thickness infraspinatus or subscapularis tendon tear. Thickening and intrasubstance signal abnormality in the distal subscapularis tendon consistent with tendinosis. Teres minor tendon insertion appears intact Mild supraspinatus muscle atrophy. No additional rotator cuff muscle atrophy or significant fatty infiltration Mild fluid in the subacromial/subdeltoid bursa. AC joint osteoarthritic changes with mild inferiorly directed osteophytes. Small amount of fluid in the AC joint space. No significant downsloping of the acromion. Type 1-2 acromion. No os acromiale No significant glenohumeral joint arthritic changes. No glenohumeral joint effusion. No regional marrow edema. Coracoacromial ligament appears intact Biceps anchor appears intact. Proximal aspect of the long head biceps tendon is normally situated in the bicipital groove with no intrasubstance signal abnormality to suggest tendinosis. Short head biceps tendon origin appears intact. Small defect involving the anterior glenoid labrum suspicious for tear. Glenoid labrum otherwise appears intact. No Hill-Sachs or Bankart lesion No regional muscle edema to suggest strain or myositis. IMPRESSION: Focal full-thickness tear involving the distal supraspinatus tendon with mild tendon retraction as detailed above. Findings consistent with tendinosis involving additional portions of the supraspinatus and distal subscapularis tendons. Mild supraspinatus muscle atrophy Small amount of fluid in the subacromial/subdeltoid bursa AC joint arthritic changes. Small tear involving the anterior glenoid labrum is suspected. JOB #: [id number] Final Signed by: Ceferino Jane MD Signed (Electronic Signature): 08/03/2022 3:51 pm Social History Social History Type Response Sex Female MR Shoulder - right WO contrast * Ceferino Jane MD: VERIFY, VERIFY Event Display: Report EXAM DESCRIPTION: MRI Shoulder w/o Contrast Right 08/03/2022 INDICATION: TRAUMATIC TEAR OF ROTATOR CUFF TECHNIQUE: Multiplanar MRI examination of the right shoulder utilizing T1, PD and fat-suppressed T2 technique COMPARISON: None FINDINGS: Focal full-thickness tear of the supraspinatus tendon near its insertion with approximately 8 mm tendon retraction. Tear measures approximately 5 mm in AP dimension. Intermediate signal abnormality within additional portions of the supraspinatus tendon consistent with tendinosis. No full-thickness infraspinatus or subscapularis tendon tear. Thickening and intrasubstance signal abnormality in the distal subscapularis tendon consistent with tendinosis. Teres minor tendon insertion appears intact Mild supraspinatus muscle atrophy. No additional rotator cuff muscle atrophy or significant fatty infiltration Mild fluid in the subacromial/subdeltoid bursa. AC joint osteoarthritic changes with mild inferiorly directed osteophytes. Small amount of fluid in the AC joint space. No significant downsloping of the acromion. Type 1-2 acromion. No os acromiale No significant glenohumeral joint arthritic changes. No glenohumeral joint effusion. No regional marrow edema. Coracoacromial ligament appears intact Biceps anchor appears intact. Proximal aspect of the long head biceps tendon is normally situated in the bicipital groove with no intrasubstance signal abnormality to suggest tendinosis. Short head biceps tendon origin appears intact. Small defect involving the anterior glenoid labrum suspicious for tear. Glenoid labrum otherwise appears intact. No Hill-Sachs or Bankart lesion No regional muscle edema to suggest strain or myositis. IMPRESSION: Focal full-thickness tear involving the distal supraspinatus tendon with mild tendon retraction as detailed above. Findings consistent with tendinosis involving additional portions of the supraspinatus and distal subscapularis tendons. Mild supraspinatus muscle atrophy Small amount of fluid in the subacromial/subdeltoid bursa AC joint arthritic changes. Small tear involving the anterior glenoid labrum is suspected. JOB #: [id number] Final Signed by: Ceferino Jane MD Signed (Electronic Signature): 08/03/2022 3:51 pm MR Shoulder - left WO contrast * Ceferino Jane MD: VERIFY, VERIFY Event Display: Report EXAM DESCRIPTION: MRI Shoulder w/o Contrast Left 08/03/2022 INDICATION: TRAUMATIC WEAKNESS PAIN DISLOCATION TECHNIQUE: Multiplanar MRI examination of the left shoulder utilizing T1, PD and fat-suppressed T2 technique COMPARISON: None FINDINGS: Abnormal signal in the anterior aspect of the distal supraspinatus tendon near its greater tuberosity insertion consistent with tendinosis and probable partial articular surface tear involving at least 50% tendon thickness. Focal full-thickness tear in this region is difficult to exclude. No tendon retraction. No full-thickness infraspinatus or subscapularis tendon tear with intermediate signal abnormality in the distal subscapularis tendon consistent with tendinosis. Teres minor tendon insertion appears intact Mild supraspinatus muscle atrophy. No additional rotator cuff muscle atrophy or significant fatty infiltration Abnormal fluid in the subacromial/subdeltoid bursa AC joint osteoarthritic changes with joint space narrowing and inferiorly directed osteophytes. Mild fluid in the AC joint space. No significant downsloping of the acromion. Type 2 acromion. No os acromiale No significant glenohumeral joint arthritic changes. No glenohumeral joint effusion. Coracoacromial ligament appears intact. Impaction deformity involving the superolateral aspect of the humeral head with extensive regional marrow edema consistent with bone contusion and recent Hill-Sachs lesion. Additional marrow edema involving the anterior-inferior glenoid consistent with osseous Bankart lesion. Findings are suggestive of recent anterior glenohumeral joint dislocation. Glenohumeral joint alignment appears satisfactory currently Defect involving the anterior glenoid labrum suspicious for tear. Biceps anchor appears intact. Proximal aspect of the long head biceps tendon is normally situated in the bicipital groove. No intrasubstance signal abnormality to suggest tendinosis. Small amount of fluid in the proximal biceps tendon sheath. Short head biceps tendon origin appears intact. Mild edema in the supraspinatus myotendinous junction region with edema also noted involving the inferior aspect of the subscapularis muscle consistent with areas of muscle strain. IMPRESSION: Abnormal signal in the distal supraspinatus tendon near its greater tuberosity insertion consistent with tendinosis and probable partial articular surface tear. Small focal full-thickness tear without tendon retraction in this region is difficult to exclude. Mild supraspinatus muscle atrophy. Distal subscapularis tendinosis without evidence of tear. Abnormal fluid in the subacromial/subdeltoid bursa AC joint arthritic changes Hill-Sachs and Bankart lesions with regional marrow edema suggesting recent anterior glenohumeral joint dislocation. Glenohumeral joint alignment is satisfactory currently. Tear involving the anterior glenoid labrum Muscle edema consistent areas of muscle strain involving the supraspinatus myotendinous junction and inferior subscapularis muscle. JOB #: [id number] Final Signed by: Ceferino Jane MD Signed (Electronic Signature): 08/03/2022 5:03 pm Patient Care team information Care Team Personnel Name: EFRA ALBERTS Position: No Access Member Role: Primary Care Physician Address: Address: [address] [address]- Care Team Related Persons Name: BENSON PARIKH Address: [address] [place] [address] [facility] Name: BENSON PARIKH Address: Home [address] [place] [id number] [facility]
--- OUTSIDE RECORDS SUMMARY | 2023-11-29 02:57 | XMS_ITS | Continuity of Care Document ---
Author Name Unknown Organization [facility] Ambulatory Clinics Address [address] [place] [address] Care Team Providers Care District Court Justice Name Role Phone EFRA ALBERTS Primary Care Physician [phone] Encounter [facility] [facility] NBR [id number] Date(s): 09/19/22 - 09/19/22 [facility] Ambulatory Clinics [address] [place], [place] [address] Encounter Diagnosis Neoplasm of skin(Discharge Diagnosis) - 09/15/22 AK (actinic keratosis)(Discharge Diagnosis) - 09/19/22 Folliculitis(Discharge Diagnosis) - 09/19/22 Discharge Disposition: Home or Self Care Attending Physician: Kraig Anton DO Referring Physician: EFRA ALBERTS Allergies, Adverse Reactions, Alerts Substance Reaction Severity Status NSAIDs Unknown Active metroNIDAZOLE Moderate Active levoFLOXacin Severe Active Assessment and Plan Future Appointments Medications Acidophilus Probiotic Blend 0 Refill(s) Start Date: 08/23/22 Status: Ordered buPROPion 150 mg/12 hours (SR) oral tablet, extended release 0 Refill(s) Start Date: 08/22/22 Status: Ordered [...] 0 Refill(s) Start Date: 08/23/22 Status: Ordered mupirocin 2% topical ointment 1 buck, Topical, TID, # 15 g, 0 Refill(s), Pharmacy: [id number] Start Date: 09/19/22 Status: Ordered Turmeric 0 Refill(s) Start Date: [...] Use:. Sex Female Physician Outpatient Note * Carla Kemp: MODIFY, MODIFY, MODIFY, MODIFY, MODIFY Kraig Anton, DO: PERFORM, MODIFY Kraig Anton, DO: MODIFY Event Display: Office Clinic Note Physician Authored Date: [id number] BRIGIDA PARIKH :1955 Age:66 years Sex:Female Visit Date:09/19/2022 Primary Care Physician: EFRA ALBERTS Chief Complaint Skin check History of Present Illness Patient was last seen in our office on 07/05/21 for chronic sore throat. Patient did have flexible scope done. Recommended that if her sore throat persisted for more than 3 months then we should consider CT imaging of the neck. She had neck pain as well but that was replicated in the office suggesting that it was most likely musculoskeletal. Patient did at the time want to hold off on CT. She is here today for skin check. Patient notes that about a year ago she had a horrible breakout on her lip, they thought it was shingles or herpes. She notes that it healed and then a few months later she had another breakout and she used Acyclovir. She notes that the lip is still sensitive. She does havea few spots on her back that she should like looked at. Patient does not have a family or personal history of skin cancer. Patient does have a history of sun exposure. Patient is prone to Shingles and she has had the vaccine. Review of Systems Fatigue?? Negative.?? Fever?? Negative.?? Weight Loss?? Negative.?? Snoring?? Negative.?? Hoarseness?? Negative.? Cough?? Negative.??Rashes?? Negative.?? Eczema?? Negative.?? Headaches?? Negative.?? Thyroid Problems?? Negative.? Environmental allergies?? Negative.?? Hay Fever?? Negative.?? Reflux?? Negative.?? Sleep apnea?? Negative.?? Physical Exam GENERAL APPEARANCE:??The patient is awake, alert, and oriented and in no acute distress, Appears nutritionally sound, Healthy in appearance, Voice is strong, with no stridor or stertor, Handling secretions without difficulty.?PSYCH:??affect normal, good eye contact, oriented to person, oriented to place, oriented to time.?NEURO:??CN's II-XII grossly intact, Gait is normal, The patient has endpoint nystagmus only.?HEENT:??The patient is normocephalic with a normal facies with cranial nerves 2 through 12 bilaterally equal and intact. Pupils are equal and reactive to light with extraocular movements bilaterally equal and intact. There is no proptosis or enophthalmos. ??Nasal exam within normal limits ?NECK:??There is no palpable lymphadenopathy.?HEART:??regular rate and rhythm.?LUNGS:??clear to auscultation bilaterally, no wheezes/rhonchi/rales.?SKIN:??Precancer??widespread on face??, the bright red lesions on the back represent benign,??no intranasal lesion appreciated today ?MUSCULOSKELETAL:??normal gait and station.?? Assessment/Plan 1.??Neoplasm of skin??D49.2 Ordered: mupirocin 2% topical ointment, 1 buck, Topical, TID, # 15 g, 0 Refill(s), Pharmacy: [id number] ?? 2.??AK (actinic keratosis)??L57.0 Patient and I discussed that she has many pre-cancer spots on her face that she should treat with Efudex. We discussed that these change at a very slow rate, so she can wait until fall after the sun to treat the lesions. Images were taken of the lesions and we will recheck and treat in the fall. ?? 3.??Folliculitis??L73.9 Likely recurrent of the left nasal soft triangle??with irritation, Bactroban will be provided Ordered: mupirocin 2% topical ointment, 1 buck, Topical, TID, # 15 g, 0 Refill(s), Pharmacy: [id number] ?? Follow Up Instructions Fall, [place] AK's/Efudex Problem List/Past Medical History Ongoing Anterior shoulder dislocation Back pain Diverticulitis of colon GERD without esophagitis Headache Intention tremor Primary fibromyalgia syndrome Right rotator cuff tear Tinnitus of left ear Historical No qualifying data Procedure/Surgical History ???Cholecystectomy Medications Acidophilus Probiotic Blend buPROPion 150 mg/12 hours (SR) oral tablet, extended release busPIRone 10 mg oral tablet, BID gabapentin [...] Mother: History is unknown Electronically Signed on 09/19/22 12:16 PM Kraig Anton, DO Patient Care team information Care Team Personnel Name: EFRA ALBERTS Position: No Access Member Role: Primary Care Physician Address: Address: [address] [address]- Care Team Related Persons Name: BENSON PARIKH Address: Home [address], [place] [id number] [facility] Name: BENSON PARIKH Address: Home [address], [place] [id number] [facility]
--- OUTSIDE RECORDS SUMMARY | 2023-11-29 02:57 | XMS_ITS | Continuity of Care Document ---
Author Name Unknown Organization [facility] Ambulatory Clinics Address [address] [place] [address] Care Team Providers Care Procedures Rn Name Role Phone EFRA ALBERTS Primary Care Physician Encounter [facility] [id number] Date(s): 08/23/22 - 08/23/22 [facility] Ambulatory Clinics [address] [place], [place] [address] Encounter Diagnosis Anterior shoulder dislocation(Discharge Diagnosis) - 08/23/22 Right rotator cuff tear(Discharge Diagnosis) - 08/23/22 Discharge Disposition: Home or Self Care Attending Physician: Benitez Isbell MD Allergies, Adverse Reactions, Alerts Substance Reaction Severity Status NSAIDs Unknown Active metroNIDAZOLE Moderate Active levoFLOXacin Severe Active Assessment and Plan Future Appointments Functional Status 08/23/22 Other exposure to Infectious Disease Non e [...] Effective Dates Status H ealth Status Informant Anterior shoulder dislocation Confirmed Active Back pain Confirmed Active Diverticulitis of colon Confirmed Active GERD without esophagitis Confirmed Active Headache Confirmed Active Intention tremor Confirmed Active Primary fibromyalgia syndrome Confirmed Active Right rotator cuff tear Confirmed Active Tinnitus of left ear Confirmed Active Vital Signs Most recent to oldest [Reference Range]: 1 Peripheral Pulse Rate [60-100 bpm] 71 bp m (08/23/22 12:41 PM) Blood Pressure [90-140/60-90 mmHg] 140/8 0mmHg (08/23/22 12:41 PM) Weight 86.18 kg (08/23/22 12:41 PM) Weight Measured (lbs) 189.994 lb (08/23/22 12:41 PM) Height 160.02 cm (08/23/22 12:41 PM) Height/Length Measured (inches) 63 inch (08/23/22 12:41 PM) BSA Measured 1.96 m2 (08/23/22 12:41 PM) Body Mass Index 33.66 kg/m2 (08/23/22 12:41 PM) Social History Social History Type Response Tobacco Never tobacco user T obacco Use:. Sex Female Physician Outpatient Note * Benitez Isbell MD: PERFORM Event Display: Office Clinic Note Physician Authored Date: [id number] BRIGIDA PARIKH :1955 Age:66 years Sex:Female Visit Date:08/23/2022 Primary Care Physician: EFRA ALBERTS Chief Complaint BILATERAL SHOULDER PAIN History of Present Illness Prior to the visit there was a 20-minute review of patient's prior medical records,??the MRI of theright shoulder, the MRI of the left shoulder, and her x- rays. ??The patient??is a 66-year-old female with??chief complaint of??both right and left shoulder pain and weakness. ?? With regard to the patient's right shoulder patient says she has a long history of??pain to the shoulder she says many years,??she??was told in the past she had a rotator cuff tear but did not treat this.?? She says however she continues to get pain with reaching and lifting,??she also notes some weakness to the shoulder??she has some therapy for the shoulder in the past. ?? With regard to the left shoulder the patient says??she never had a problem with the left shoulder until??the last week in June of this year,??she fell on some ice??she tried to break her fall with her left arm??had severe pain??and noted that her shoulder felt out of place,??she sat up??and try to reposition the shoulder and she says it did reduce on its own,??she??said at that point the shoulder felt much better so she did not seek medical attention??but the next day while trying to??do her hair with her left arm??the shoulder again dislocated this time she could not reduce that she had to go to the emergency department where she had a closed reduction and was placed in a sling.?? She then followed up with orthopedic department at??[facility] she had a good work-up there and ended up having??MRIs of her bilateral shoulders.?? 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 Ultimately??she wanted another opinion so she comes in today to see me,??of note sheis scheduled to have EMGs in about 3 weeks. Physical Exam Vitals & Measurements HR:??71??(Peripheral)?? BP:??140/80?? SpO2:??65%?? HT:??160.02??cm?? WT:??86.18??kg?? BMI:??33.66?? Pain Score:??2?? BSA:??1.96?? Review of studies:??MRI of the patient's right shoulder reviewed and shows a small tear of the supraspinatus and medial subluxation of long head of the biceps. MRI of the left shoulder is reviewed??and shows??what appears to be a nondisplaced bony Bankart lesion??that is quite small??question of a cartilaginous Bankart lesion??and a partial-thickness tear of the supraspinatus??as well as a questionable??medial subluxation of the long head of the biceps ? Both shoulders are examined. Range of motion of the shoulder is examined in the forward elevation, abduction, external rotation and internal rotation behind the back planes. External rotation is assessed both with the arm in neutral adduction and at 90 degrees of abduction. Similarly internal rotation is performed at 90 degrees of abduction and is compared with the contralateral side. Neer and Diego impingement signs are examined. Strength is assessed in forward elevation, abduction, externaland internal rotation planes.?Cross-arm adduction test is examined. The shoulder is systematically palpated anteriorlyin the region of the coracoid process, the anterior joint line and bicipital groove. The AC joint is palpated. The greater tuberosity is palpated. The posterior joint line is palpated. Bradford and active compression tests are performed. The supraspinatus and infraspinatus fossa are examined for signs of atrophy. Stability is test using the apprehension, relocation and Jerk Test. ? Focused exam the right shoulder shows 170 degrees of forward flexion,??there is positive Neer Diego impingement sign,??there is pain with supraspinatus isolation.?? 4+ out of 5 strength abduction, 4-5 strength external Tatian, 4+ out of 5 strength internal rotation,??no glenohumeral instability ?? Examination left shoulder does show there is some firing of the deltoid but??no question??there is some weakness to abduction,??there is 4-5 external rotation strength,??3-/5 abduction strength.??Passively I can elevate the patient 2 150 degrees but actively she can only elevate to about 80 degrees. 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 I think important the patient go through with her EMG so she will do so??and I will see her back following this??to check the status of her shoulder.?? In the meanwhile I recommend she start doing cuff strengthening with bands??to try to get some active elevation??she will avoid positions of apprehension. 2.??Right rotator cuff tear??M75.101 With regard to the right shoulder patient does have a symptomatic rotator cuff tear and subluxationlong head of the biceps??if this remains painful I think she is a good candidate??for rotator cuff repair and biceps tenodesis??but obviously she cannot do this until left shoulder is a bit more functional. Problem List/Past Medical History Ongoing Anterior shoulder dislocation Back pain Diverticulitis of colon GERD without esophagitis Headache Intention tremor Primary fibromyalgia syndrome Right rotator cuff tear Tinnitus of left ear Historical No qualifying data Medications Acidophilus Probiotic Blend buPROPion 150 mg/12 [...] Mother: History is unknown Electronically Signed on 08/23/22 01:33 PM Benitez Isbell MD Patient Care team information Care Team Personnel Name: EFRA ALBERTS Position: No Access Member Role: Primary Care Physician Address: Address: [place] [address]- Care Team Related Persons Name: BENSON PARIKH Address: Home [address], [place] [phone] [facility] Name: BENSON PARIKH Address: Home [address], [place] [phone] [facility]
--- OUTSIDE RECORDS SUMMARY | 2023-11-29 02:58 | XMS_ITS | Continuity of Care Document ---
Author Name Unknown Organization [facility] Ambulatory Clinics Address [address] [place] [address] Care Team Providers Care Platform Loader Name Role Phone EFRA ALBERTS Primary Care Physician Encounter [facility] [facility]BR [id number] Date(s): 09/16/22 - 09/16/22 [facility] Ambulatory Clinics [address] [place], [place] [address] Encounter Diagnosis Anterior shoulder dislocation(Discharge Diagnosis) - 09/16/22 Right rotator cuff tear(Discharge Diagnosis) - 09/16/22 Discharge Disposition: Home or Self Care Attending Physician: Benitez Isbell MD Allergies, Adverse Reactions, Alerts Substance Reaction Severity Status NSAIDs Unknown Active metroNIDAZOLE Moderate Active levoFLOXacin Severe Active Assessment and Plan Future Appointments Functional Status 09/16/22 Other exposure to Infectious Disease Non e [...] Range]: 1 Peripheral Pulse Rate [60-100 bpm] 65 bp m (09/16/22 2:09 PM) Blood Pressure [90-140/60-90 mmHg] 125/7 0mmHg (09/16/22 2:09 PM) Weight 86.18 kg (09/16/22 2:09 PM) Weight Measured (lbs) 189.994 lb (09/16/22 2:09 PM) Height 160.02 cm (09/16/22 2:09 PM) Height/Length Measured (inches) 63 inch (09/16/22 2:09 PM) BSA Measured 1.96 m2 (09/16/22 2:09 PM) Body Mass Index 33.66 kg/m2 (09/16/22 2:09 PM) Social History Social History Type Response Tobacco Never tobacco user T obacco Use:. Sex Female Physical therapy Note * Event Display: Physical Therapy Rehab Note Physician Outpatient Note * Benitez Isbell MD: PERFORM Event Display: Office Clinic Note Physician Authored Date: [id number] BRIGIDA PARIKH :1955 Age:66 years Sex:Female Visit Date:09/16/2022 Primary Care Physician: EFRA ALBERTS Chief Complaint BILATERAL SHOULDERS History of Present Illness Patient returns today, she has really complex shoulder issues,??on her right shoulder she has a small rotator cuff tear and subluxation of the long head of the biceps??that is??causing her symptoms. 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 In the interim she has gone to a neurologist??and had EMGs which confirmed the diagnosis. ??She really has not noted a lot of change she still cannot elevate the arm She has been going to physical therapy, she does say the right shoulder is still painful but not quite as bad.?? She remains very concerned about instability of the left shoulder Physical Exam Vitals & Measurements HR:??65??(Peripheral)?? BP:??125/70?? SpO2:??99%?? HT:??160.02??cm?? WT:??86.18??kg?? BMI:??33.66?? Pain Score:??2?? BSA:??1.96?? Studies:??The patient's EMG is reviewed and does show??axillary and musculocutaneous nerve neuropraxia. ?? Lamination left shoulder today shows patient can only elevate to about 80 degrees,??she has no worse than 4+ out of 5??internal and external rotation strength, her deltoid is firing but??is definitely weak. ?? 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 Once it does I am hopeful the patient??can just get back to her full activities without further instability??or pain??from her partial-thickness cuff tear.?? If however the nerve does not wakeup I might send her for a neurosurgery consult to see if there is??any other??options for her. 2.??Right rotator cuff tear??M75.101 With regard to the right shoulder patient's good candidate for cuff repair and biceps tenodesis??but we need to wait until left shoulder is functional. Problem List/Past Medical History Ongoing Anterior [...] Mother: History is unknown Electronically Signed on 09/16/22 02:51 PM Benitez Isbell MD Patient Care team information Care Team Personnel Name: EFRA ALBERTS Position: No Access Member Role: Primary Care Physician Address: Address: [address] [address]- Care Team Related Persons Name: BENSON PARIKH Address: Home [address], [place] [phone] [facility] Name: BENSON PARIKH Address: Home [address], [place] [phone] [facility]
--- NOTE | 2023-11-29 08:00 | DI.MAMMO_ITS ---
Exam(s) MAMMO SCREENING EXAM: MAMMO SCREENING CLINICAL HISTORY: SCREENING Z12.31 TECHNIQUE: Mammograms were interpreted according to the usual protocol including computer analysis w [employer] CAD system, tomosynthesis and C-view imaging. COMPARISON: 2014 through 2020 FINDINGS: The breasts are composed of mainly fatty density , Breast Density category A. No suspicious masses or suspicious microcalcifications are seen. No skin thickening or abnormal axillary lymph nodes are seen. There has been no significant change from prior exams. IMPRESSION: BI-RADS Category 1, Negative mammogram Yearly screening mammography is recommended. Breast Density - Category A, fatty density. A negative radiographic report should not delay biopsy if a dominant or clinically suspicious mass is present. Up to ten percent of cancers are not identified on mammography. A negative report may reinforce clinical impression. Adenosis and dense breasts may obscure an underlying neoplasm. False positive reports average 6 to 10%. Patient will receive a letter notifying them of these results.
== END ==
PROVIDERS: PCP Nurse Practitioner Family; Visit Provider Nurse Practitioner Family
DX: Z12.31 Encounter for screening mammogram for malignant neoplasm of breast (principal)
CPT/HCPCS: 77063; 77067

== ENCOUNTER → 2023-12-26 08:49 | Outpatient (BNVA) | payer MEDICARE, BC, SELFPAY | PROVIDERS: PCP Nurse Practitioner Family; Referring Provider Nurse Practitioner Family; Visit Provider Podiatrist | DX: L60.0 Ingrowing nail (principal); G57.62 Lesion of plantar nerve, left lower limb; M20.41 Other hammer toe(s) (acquired), right foot; B35.1 Tinea unguium; L60.3 Nail dystrophy | CPT/HCPCS: 99214 ==

== ENCOUNTER 2024-03-25 15:07 | Outpatient (REF) | payer MEDICARE, BC, SELFPAY ==
[2024-03-25 21:17] LABS: Abs Immature Grans 0.03 10^3/uL (0.0-0.06); Absolute Basophil Count 0.07 10^3/uL (0.0-0.2); Absolute Lymphocyte Count 1.18 10^3/uL (1.2-3.4); Absolute Monocyte Count 0.72 10^3/uL (0.1-0.8); Absolute Neutrophil Count 5.69 10^3/uL (1.2-6.7); Basophils % 0.9 %; Eosinophils % 1.3 %; HCT 41.4 % (36.0-46.0); Immature Grans % 0.4 %; Lymphocytes % 15.1 %; MCH 30.4 pg (27.0-33.0); MCHC 33.8 % (32.0-36.0); MCV 90 fL (80-95); MPV 9.2 fL (8.0-11.0); Monocytes % 9.2 %; Neutrophils % 73.1 %; Platelet Count 385 10^3/uL (130-400); RDW 13.1 % (11.7-14.6); RDW-SD 43.3 fL; WBC 7.79 10^3/uL (4.4-10.8)
[2024-03-25 21:28] LABS: ALT 29 U/L (14-59); AST 30 U/L (15-37); Alkaline Phosphatase 67 U/L (46-116); Anion Gap 7.1 mmol/L (3-11); BUN 9 mg/dL (7-18); Bilirubin, Total 0.39 mg/dL (0.2-1.0); CO2 29.9 mmol/L (21.0-32.0); CREATININE 0.8 mg/dL (0.55-1.02); Calcium 9.1 mg/dL (8.5-10.1); Chloride 100 mmol/L (98-107); Estimated GFR 80.71 (mL/min/1.73m2); Glucose 79 mg/dL (74-106); Potassium 4.5 mmol/L (3.5-5.1); Sodium 137 mmol/L (136-145); Total Protein 7.9 g/dL (6.4-8.2)
== END 2024-03-25 15:08 | disposition home or self-care (01) ==
LOC: LBN 15:07
PROVIDERS: PCP Nurse Practitioner Family; Visit Provider Nurse Practitioner Family
DX: K57.92 Diverticulitis of intestine, part unspecified, without perforation or abscess without bleeding (principal); R10.9 Unspecified abdominal pain
CPT/HCPCS: 80053; 85025

== ENCOUNTER 2024-04-28 14:50 | Outpatient (REF) | payer MEDICARE, BC, SELFPAY ==
--- OUTSIDE RECORDS SUMMARY | 2024-04-28 14:58 | XMS_ITS | Continuity of Care Document ---
Author Organization [facility] Address [address] [place] [address] Care Team Providers Care Canvas Repairer Name Role Phone EFRA ALBERTS Primary Care Physician Encounter [facility] NBR [id number] Date(s): 04/09/24 - 04/09/[address] [id number] Encounter Diagnosis Diverticulitis of large intestine without perforation or abscess without bleeding(Final) - Diarrhea, unspecified(Final) - Discharge Disposition: Home or Self Care Attending Physician: Donta Dyson MD Admitting Physician: Donta Dyson MD Referring Physician: Donta Dyson MD Allergies, Adverse Reactions, Alerts Substance Criticality Severity Reaction Reaction Severity Status quinolone antibiotics Unable to assess criticality Unknown Unknown Active NSAIDs Low criticality Mild Stomach upset Active metroNIDAZOLE Unable to assess criticality Unknown Active levoFLOXacin High criticality Moderate Myalgia Active Assessment and Plan Future Appointments Diagnostic Tests Pending * Celiac Disease Comprehensive 04/09/24 Medications Acidophilus Probiotic Blend 1 cap, Oral, Daily, 0 Refill(s) Start Date: 08/23/22 Status: Ordered buPROPion 150 mg/12 hours (SR) oral tablet, extended release 150 mg = 1 tab, Oral, Daily, 0 Refill(s) Start Date: 08/22/22 Status: Ordered busPIRone 10 mg oral tablet 10 mg = 1 tab, Oral, BID, 0 Refill(s) Start Date: 01/10/24 Status: Ordered Citrucel 2 g/19 g oral powder for reconstitution 2 g =, Oral, Daily, every afternoon, 0 Refill(s) Start Date: 01/10/24 Status: Ordered gabapentin 300 mg oral capsule 300 mg = 1 cap, Oral, every night at bedtime, # 30 cap, 0 Refill(s) Start Date: 03/26/24 Status: Ordered gabapentin 300 mg oral capsule 300 mg = 1 cap, Oral, every night at bedtime, 0 Refill(s) Start Date: 08/22/22 Status: Ordered magnesium citrate 125 mg oral capsule 125 mg = 1 cap, Oral, Daily, 0 Refill(s) Start Date: 08/23/22 Status: Ordered melatonin 3 mg oral tablet, disintegrating 3 mg = 1 tab, Oral, every night at bedtime, PRN as needed for insomnia, 0 Refill(s) Start Date: 08/22/22 Status: Ordered MiraLax oral powder for reconstitution 17 g, Oral, Daily, 0 Refill(s) Start Date: 01/10/24 Status: Ordered Turmeric 500 mg =, Oral, Daily, 0 Refill(s) Start Date: 08/22/22 Status: Ordered Vitamin B Complex 100 1 cap, Oral, Daily, 0 Refill(s) Start Date: 08/23/22 Status: Ordered Vitamin C 500 mg oral tablet, chewable 500 mg = 1 tab, Chewed, Daily, 0 Refill(s) Start Date: 08/22/22 Status: Ordered Vitamin D3 1000 intl units oral capsule 25 mcg = 1 cap, Oral, Daily, 0 Refill(s) Start Date: 08/22/22 Status: Ordered Problem List Condition Confirmation Course Effective Dates Status H ealth Status Informant Abdominal pain Confirmed Active AK (actinic keratosis) Confirmed Active Anterior shoulder dislocation 1 Confirmed Active Back pain Confirmed Active Bradycardia Confirmed Active Diarrhea Confirmed Active Diverticulitis of colon Confirmed Active Eczema Confirmed Active Essential thrombocythemia Confirmed Active Fibromyalgia Confirmed Active Folliculitis Confirmed Active GERD without esophagitis Confirmed Active Headache Confirmed Active History of kidney stone Confirmed Active HTN - Hypertension Confirmed Active IBS - Irritable bowel syndrome Confirmed Active Intention tremor Confirmed Active Lower abdominal pain Confirmed Active Primary fibromyalgia syndrome Confirmed Active Right rotator cuff tear Confirmed Active Tinnitus of left ear Confirmed Active 1bilat torn labrums etc Procedures Procedure Date Related Diagnosis Body Site Status Colonoscopy Biopsy 1 01/17/24 Comp leted Colonoscopy 06/21/15 Completed Anterior and posterior colporrhaphy Completed Cholecystectomy Completed Excision of ectopic ovarian Completed LASIK - laser assisted in si tu keratomileusis Completed 1auto-populated from documented surgical case Results Laboratory List Name Date GI Panel (BioFire) 04/09/24 Most recent to oldest [Reference Range]: 1 Adenovirus F GIP-BFire [Not Detect ed] Not Detected (04/09/24 11:40 AM) Astrovirus GIP-BFire [Not Detected] Not Detected (04/09/24 11:40 AM) Cyclospora cayetanensis GIP-BFire [Not D etected] Not Detected (04/09/24 11:40 AM) Clostridioides difficile toxin A/B -BFir [Not Detected] Not Detected (04/09/24 11:40 AM) Campylobacter GIP-BFire [Not Detected] N ot Detected (04/09/24 11:40 AM) Cryptosporidium GIP-BFire [Not Detected] Not Detected (04/09/24 11:40 AM) Entamoeba histolytica GIP-BFire [Not Det ected] Not Detected (04/09/24 11:40 AM) Enteroaggregative E. coli GIP-BFire [Not Detected] Not Detected (04/09/24 11:40 AM) Enteropathogenic E. coli GIP-BFire [Not Detected] Not Detected (04/09/24 11:40 AM) Enterotoxige E. coli LT/ST GIP-BFire [No t Detected] Not Detected (04/09/24 11:40 AM) Giardia lamblia GIP-BFire [Not Detected] Not Detected (04/09/24 11:40 AM) Norovirus GI/GII GIP-BFire [Not Detected ] Not Detected (04/09/24 11:40 AM) Plesiomonas shigelloides GIP-BFire [Not Detected] Not Detected (04/09/24 11:40 AM) Rotavirus A GIP-BioF [Not Detected] Not Detected (04/09/24 11:40 AM) Salmonella GIP-BFire [Not Detected] Not Detected (04/09/24 11:40 AM) Sapovirus GIP-BFire [Not Detected] Not D etected (04/09/24 11:40 AM) Shiga-toxin1/2-prod E.coli GIP-BFire [No t Detected] Not Detected (04/09/24 11:40 AM) Shigella/Enteroinv E. coli GIP-BFire [No t Detected] Not Detected (04/09/24 11:40 AM) Vibrio cholerae GIP-BFire [Not Detected] Not Detected (04/09/24 11:40 AM) Vibrio species GIP-BFire [Not Detected] Not Detected (04/09/24 11:40 AM) Yersinia enterocolitica GIP-BFire [Not D etected] Not Detected (04/09/24 11:40 AM) Social History Social History Type Response Tobacco Never tobacco user T obacco Use:. Sex Female Sex Representation Female (finding) Patient Care team information Care Team Personnel Name: EFRA ALBERTS Position: No Access Member Role: Primary Care Physician Address: [place] [address]- Care Team Related Persons Name: BENSON PARIKH Name: BENSON PARIKH Insurance Providers Guarantor name: BRIGIDA PARIKH Health Plan Information #: 2 Payer: [facility] Member Number: [id number] Policy Number: NA Health Plan Information #: 1 Payer: MEDICARE [facility] Member Number: [id number] Policy Number: NA
--- OUTSIDE RECORDS SUMMARY | 2024-04-28 14:58 | XMS_ITS | Encounter Summary ---
Author Organization [facility] Address [address] [place] [address] Care Team Providers Care Bench Chemist Name Role Phone Unknown, Provider Primary Care Provider Unava ilable Encounter Details Date Type Department Care Team (Late st Contact Info) Description 01/18/2024 Lab Requisition [facility] Pathology & Laboratory Medicine - [facility] [address] [place] [address] Donta Dyson MD [address] [place] [id number] Diarrhea, unspecified; Diverticulitis of large intestine without perforation or abscess without bleeding Social History Tobacco Use Types Packs/Day Years Used Date Smoking Tobacco: Never Assessed Interpersonal Safety Answer Date Record ed Physically Hurt Never 01/12/2020 Verbally Threaten Not on file 01/12/2020 Comments Unknown Sex and Gender Information Value Date Recorded Sex Assigned at Not on file Legal Sex Female 18:21 EST Gender Identity Not on file Sexual Orientation Not on file documented as of this encounter Plan of Treatment Not on file documented as of this encounter Procedures Procedure Name Priority Date/Time Associated Diagnosis Comments SURGICAL PATHOLOGY Today 01/17/2024 12 :43 EDT Diarrhea, unspecified Diverticulitis of large intestine without perforation or abscess without bleeding documented in this encounter Results * SURGICAL PATHOLOGY (01/17/2024 12:43 EDT) Note to Patient The following pathology results have been interpreted by your pathologist and may be available to you before your health provider has had the opportunity to review them. Please allow time for your provider to receive these results and explore management options, if applicable. 01/19/2024 16:43 [facility] Final Diagnosis A. COLON, RANDOM BIOPSIES: - Benign colonic mucosa with no significant pathologic change. - No evidence of microscopic colitis. 01/19/2024 16:43 [facility] Diagnosis Comment The technical component of the specimen processing was performed at the Pathology Department, [address] [place] [address] (CLIA [id number]). The professional component of the specimen evaluation (slide review and issuing of the final diagnosis) was performed at [facility], [address] [place] [address] (CLIA License Number [id number]). 01/19/2024 16:43 [facility] Attestation By the signature below, the attending physician certifies that they have 1) personally conducted a gross and/or microscopic examination of the described specimen(s), and/or personally interpreted the results of laboratory testing of the described specimen(s), and 2) personally rendered or confirmed the above diagnosis. 01/19/2024 16:43 [facility] at 1643 Clinical History Diverticulosis, IBS; clinical diagnosis code: K57.32, R19.7 01/19/2024 16:43 [facility] Gross Description A. Received in formalin labelled with proper patient identification (initials H, P) and random colon bx's are 4 adams tissues (0.2 x 0.1 x 0.1 cm to 0.5 x 0.1 x 0.1 cm). Entirely submitted in A1. SANCHEZ CLIFTON(ASCP) 01/18/2024 9:24 01/19/2024 16:43 [facility] Performing Lab [facility] 01/19/2024 16:43 [facility] Scanned Images 01/19/2024 16:43 [facility] Tissue COLON STRUCTURE / Unknown 01/17/2024 12:43 EDT 01/18/2024 8:13 EDT us Donta Dyson MD PATHOLOGY ORDERABLES Final Result [facility] [address] [place] [address] documented in this encounter Visit Diagnoses Diagnosis Diarrhea, unspecified Diverticulitis of large intestine without perforation or abscess without bleeding Diverticulitis of colon (without mention of hemorrhage) documented in this encounter Care Teams Bench Chemist Relationship Specialty Start Date End Date Unknown, Provider, PCP - General 04/16/15 documented as of this encounter
--- OUTSIDE RECORDS SUMMARY | 2024-04-28 14:58 | XMS_ITS | Referral Summary ---
Author Organization [facility] Address [address] [place] [address] Care Team Providers Care Employment Coach Name Role Phone Unknown, Provider Primary Care Provider Unava ilable Social History Tobacco Use Types Packs/Day Years Used Date Smoking Tobacco: Never Assessed Interpersonal Safety Answer Date Record ed Physically Hurt Never 01/12/2020 Verbally Threaten Not on file 01/12/2020 Comments Unknown Sex and Gender Information Value Date Recorded Sex Assigned at Not on file Legal Sex Female 18:21 EST Gender Identity Not on file Sexual Orientation Not on file Plan of Treatment Not on file Insurance MEDICARE [facility] Address: [facility] [address] [place] [address] Care Teams Employment Coach Relationship Specialty Start Date End Date Unknown, Provider, PCP - General 04/16/15
--- OUTSIDE RECORDS SUMMARY | 2024-04-28 14:58 | XMS_ITS | Continuity of Care Document ---
Author Organization [facility] Address [address] [place] [address] Care Team Providers Care Shot Core Drill Operator Name Role Phone LEXUS EFRA Primary Care Physician Encounter [facility] [facility] NBR [id number] Date(s): 01/15/24 - 01/15/24 [facility] [address] [place], [place] [address] Discharge Disposition: Home Allergies, Adverse Reactions, Alerts Substance Reaction Severity Status NSAIDs Stomach upset Mild Active metroNIDAZOLE Unknown Active levoFLOXacin Myalgia Moderate Active Assessment and Plan Future Appointments Medications Acidophilus Probiotic Blend 1 cap, Oral, [...] Date Related Diagnosis Body Site Status Colonoscopy 06/21/15 Completed Anterior and posterior colporrhaphy Completed Cholecystectomy Completed Excision of ectopic ovarian Completed LASIK - laser assisted in si tu keratomileusis Completed Social History Social History Type Response Tobacco Never tobacco user T obacco Use:. Sex Female Patient Care team information Care Team Personnel Name: EFRA ALBERTS Position: No Access Member Role: Primary Care Physician Address: Address: [id number] [place] [address] Care Team Related Persons Name: BENSON PARIKH Address: Home [address] [facility] [id number] Address: Mailing [address] [place] [id number] Name: BENSON PARIKH Address: Home [address] [place], [place] [phone] [facility]
--- OUTSIDE RECORDS SUMMARY | 2024-04-28 14:58 | XMS_ITS | Continuity of Care Document ---
Author Organization [facility] Address [address] [place] [address] Care Team Providers Care Cell Cleaner Name Role Phone EFRA HERMAN Primary Care Physician Encounter [facility] NBR [id number] Date(s): 12/19/23 - 12/19/23 [facility] [address] [place], [place] [address] Encounter Diagnosis GERD without esophagitis(Discharge Diagnosis) - 12/19/23 Diarrhea(Discharge Diagnosis) - 12/06/23 Diverticulitis of colon(Discharge Diagnosis) - 12/19/23 Discharge Disposition: Home or Self Care Attending Physician: Khushboo Vieira APRN Allergies, Adverse Reactions, Alerts Substance Reaction Severity Status NSAIDs Unknown Active metroNIDAZOLE Moderate Active levoFLOXacin Severe Active Assessment and Plan Extracted from: Title:Office Visit Limited-GI Author:Khushboo guadarrama APRN Date:12/19/23 1.??Diverticulitis of colon? ?K57.32 ??Recently for diverticulitis??with Augmentin. ??Her symptoms are improving. ??She is advancing diet as tolerated??add more fiber.?? Advised to continue the same.?? Schedule patient for colonoscopy for further evaluation to rule out colitis or neoplasia.?? See patient 2 weeks following to discuss findings and make further recommendations. Ordered: Follow-up Appointment Request [facility], *Est. 01/02/24 +/- 2 days, Future Order, after Colonoscopy, In Approximately, [facility] Booking Request [facility], 12/19/23 11:30:00 EDT, 01/17/24 10:00:00 EDT, d, diverticulitis, Diverticulitis of colon Diarrhea GERD without esophagitis, Outpatient, Colonoscopy, Primary Procedure, 30, General, 34, Donta Dyson MD, Consent to read: Colonoscopy 62627, 008... ?? 2.??Diarrhea??R19.7 ??Colonoscopy as above. ??GI bio fire ruled out??infectious source and calprotectin was normal . Ordered: Follow-up Appointment Request [facility], *Est. 01/02/24 +/- 2 days, Future Order, after Colonoscopy, In Approximately, [facility] Surgical Procedure Booking Request [facility], 12/19/23 11:30:00 EDT, 01/17/24 10:00:00 EDT, d, diverticulitis, Diverticulitis of colon Diarrhea GERD without esophagitis, Outpatient, Colonoscopy, Primary Procedure, 30, General, 34, Donta Dyson MD, Consent to read: Colonoscopy [id number], 008... ?? 3.??GERD without esophagitis??K21.9 ??Asymptomatic at this time. ??Continue to monitor. Ordered: Follow-up Appointment Request [facility], *Est. 01/02/24 +/- 2 days, Future Order, after Colonoscopy, In Approximately, [facility] Surgical Procedure Booking Request [facility], 12/19/23 11:30:00 EDT, 01/17/24 10:00:00 EDT, d, diverticulitis, Diverticulitis of colon Diarrhea GERD without esophagitis, Outpatient, Colonoscopy, Primary Procedure, 30, General, 34, Donta Dyson MD, Consent to read: Colonoscopy [id number], 008... ?? Voice recognition software utilized which may result in minor technician biological health error. Future Appointments Functional Status 12/19/23 Other exposure to Infectious Disease Non e Medications Acidophilus Probiotic Blend 0 Refill(s) Start Date: 08/23/22 Status: Ordered buPROPion 150 mg/12 hours (SR) oral tablet, extended release 150 mg = 1 tab, Oral, Daily, 0 Refill(s) Start Date: 08/22/22 Status: Ordered gabapentin 300 mg oral capsule [...] 0 Refill(s) Start Date: 08/22/22 Status: Ordered Turmeric 0 Refill(s) Start Date: [...] dislocation Confirmed Active Back pain Confirmed Active Diarrhea Confirmed Active Diverticulitis of colon Confirmed Active Folliculitis Confirmed Active GERD without esophagitis Confirmed Active Headache Confirmed Active Intention tremor Confirmed Active Lower abdominal pain Confirmed Active Primary fibromyalgia syndrome Confirmed Active Right rotator cuff tear Confirmed Active Tinnitus of left ear Confirmed Active Procedures Procedure Date Related Diagnosis Body Site Status Colonoscopy 06/21/15 Completed Cholecystectomy Completed Vital Signs Most recent to oldest [Reference Range]: 1 Temperature Temporal Artery [36-38 Deg C ] 36.5 Deg C (12/19/23 10:57 AM) Apical Heart Rate [60-100 bpm] 70 bpm (12/19/23 10:57 AM) Blood Pressure [90-140/60-90 mmHg] 114/7 1mmHg (12/19/23 10:57 AM) Mean Arterial Pressure, Cuff [65-140 mmH g] 85 mmHg (12/19/23 10:57 AM) Weight 87.5 kg (12/19/23 10:57 AM) Weight Measured (lbs) 192.904 lb (12/19/23 10:57 AM) Weight Dosing 87.500 kg (12/19/23 10:57 AM) Social History Social History Type Response Tobacco Never tobacco user T obacco Use:. Sex Female Physician Outpatient Note * Khushboo Vieira APRN: PERFORM Event Display: Office Clinic Note Physician Authored Date: [id number] BRIGIDA PARIKH :1955 Age:68 years Sex:Female Visit Date:12/19/2023 Primary Care Physician: EFRA HERMAN Chief Complaint diverticulosis follow up History of Present Illness Patient is a??68-year-old female follow-up??of Efra Herman??with a history of diverticulitis??over the last few years.?Colonoscopy she has had??at least 3 episodes??of diverticulitis??treated withAugmentin??which??generally respond within a few days.?Did complete course of Augmentin and feels better. ??Continues to have some gas and bloating. ??Has been advancing her diet??and adding more fiber. ??Stools are still??loose which is her baseline.?Denies melena or hematochezia.?? She has regained her weight loss.?? Denies any pyrosis or dyspepsia.?? Denies nausea or vomiting. ?? She is status post repair of rectocele and cystocele??[address] Valdez.? She is status post repair of rectocele and cystocele??[address] Valdez.? Labs: -12/05/2023??calprotectin 17, GI bio fire??normal. ?? Colonoscopy: -8 years ago??at [facility] on 06/22/2015 which showed left-sided diverticulosis.? Imaging:?? -CT??scan??of the abdomen pelvis with IV contrast on 12/02/2023??showed a small right lobe liver cyst. Status post??cholecystectomy with dilated right intrahepatic duct,??a left adrenal adenoma,??fluid-filled loops of small bowel without inflammatory changes??with air-fluid levels??with distended small bowel,??and the??sigmoid colon there is mural thickening and pericolonic inflammatory changes aswell as rectal prolapse.? The patient has no first-degree relatives with colorectal cancer??or inflammatory bowel disease Review of Systems General: Well-nourished well-developed female??in no acute distress. HEENT: Head is normocephalic, trachea midline, and no cervical lymphadenopathy. Respiratory: Respirations are even and unlabored. ??Lungs are clear to auscultation. Cardiovascular: Regular rate and rhythm with S1 and S2. Abdomen: Positive bowel sounds x4 quadrants, no masses, no guarding, no tenderness. ??No hepatosplenomegaly. ??Abdomen is soft. Skin: Warm, dry, and pink. Neurological: Alert and oriented x3, speech is clear and gait is steady. Psychological: Pleasant, calm and cooperative. Physical Exam Vitals & Measurements T:??36.5?C ??(Temporal Artery)?? HR:??70??(Apical)?? BP:??114/71?? SpO2:??98%?? WT:??87.5??kg?? General: Well-nourished well-developed female??in no acute distress. HEENT: Head is normocephalic, trachea midline, and no cervical lymphadenopathy. Respiratory: Respirations are even and unlabored. ??Lungs are clear to auscultation. Cardiovascular: Regular rate and rhythm with S1 and S2. Abdomen: Positive bowel sounds x4 quadrants, no masses, no guarding, no tenderness. ??No hepatosplenomegaly. ??Abdomen is soft. Skin: Warm, dry, and pink. Neurological: Alert and oriented x3, speech is clear and gait is steady. Psychological: Pleasant, calm and cooperative. Assessment/Plan 1.??Diverticulitis of colon??K57.32 ??Recently for diverticulitis??with Augmentin. ??Her symptoms are improving. ??She is advancing diet as tolerated??add more fiber.?? Advised to continue the same.?? Schedule patient for colonoscopy for further evaluation to rule out colitis or neoplasia.?? See patient 2 weeks following to discuss findings and make further recommendations. Ordered: Follow-up Appointment Request [facility], *Est. 01/02/24 +/- 2 days, Future Order, after Colonoscopy, In Approximately, [facility] Surgical Procedure Booking Request [facility], 12/19/23 11:30:00 EDT, 01/17/24 10:00:00 EDT, d, diverticulitis, Diverticulitis of colon Diarrhea GERD without esophagitis, Outpatient, Colonoscopy, Primary Procedure, 30, General, 34, Donta Dyson MD, Consent to read: Colonoscopy [id number], 008... ?? 2.??Diarrhea??R19.7 ??Colonoscopy as above. ??GI bio fire ruled out??infectious source and calprotectin was normal . Ordered: Follow-up Appointment Request [email or web address], *Est. 01/02/24 +/- 2 days, Future Order, after Colonoscopy, In [facility], [facility] Procedure Booking Request [facility], 12/19/23 11:30:00 EDT, 01/17/24 10:00:00 EDT, d, diverticulitis, Diverticulitis of colon Diarrhea GERD without esophagitis, Outpatient, Colonoscopy, Primary Procedure, 30, General, 34, Donta Dyson MD, Consent to read: Colonoscopy [id number], 008... ?? 3.??GERD without esophagitis??K21.9 ??Asymptomatic at this time. ??Continue to monitor. Ordered: Follow-up Appointment Request [email or web address], *Est. 01/02/24 +/- 2 days, Future Order, after Colonoscopy, In Approximately, [facility] Procedure Booking Request [facility], 12/19/23 11:30:00 EDT, 01/17/24 10:00:00 EDT, d, diverticulitis, Diverticulitis of colon Diarrhea GERD without esophagitis, Outpatient, Colonoscopy, Primary Procedure, , [facility], 34, Donta Dyson MD, Consent to read: Colonoscopy [id number], 008... ?? Voice recognition software utilized which may result in minor technician biological health error. Problem List/Past Medical History Ongoing Abdominal pain AK (actinic keratosis) Anterior shoulder dislocation Back pain Diarrhea Diverticulitis of colon Folliculitis GERD without esophagitis Headache Intention tremor Lower abdominal pain Primary fibromyalgia syndrome Right rotator cuff tear Tinnitus of left ear Historical No qualifying data Medications Acidophilus Probiotic Blend buPROPion 150 mg/12 hours (SR) oral tablet, extended release, 150 mg= 1 tab, Oral, Daily gabapentin 300 mg oral capsule, 300 mg= 1 cap, Oral, Daily magnesium citrate 125 mg oral capsule melatonin 3 mg oral tablet, disintegrating, 3 mg= 1 tab, Oral, every night at bedtime, PRN Turmeric Vitamin B Complex 100 Vitamin C 500 mg oral tablet, chewable, 500 mg= 1 tab, Chewed, Daily Vitamin D3 1000 intl units oral capsule, 25 mcg= 1 cap, Oral, Daily Allergies levoFLOXacin metroNIDAZOLE NSAIDs Electronically Signed on 12/19/2023 11:32 EDT Khushboo Vieira APRN Patient Care team information Care Team Personnel Name: EFRA HERMAN Position: No Access Member Role: Primary Care Physician Address: Address: [address] [address]- Care Team Related Persons Name: BENSON PARIKH Address: Home [address] [facility] [id number] Address: Mailing [address] [place], [place] [phone] Name: BENSON PARIKH Address: Home [address] [place], [place] [id number] [facility]
--- OUTSIDE RECORDS SUMMARY | 2024-04-28 14:58 | XMS_ITS | Continuity of Care Document ---
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 Encounter Diagnosis Abdominal pain(Discharge Diagnosis) - 04/23/24 Irregular bowel habits(Discharge Diagnosis) - 04/23/24 IBS - Irritable bowel syndrome(Discharge Diagnosis) - 04/23/24 Diverticulitis of colon(Discharge Diagnosis) - 04/23/24 Discharge Disposition: Home or Self Care Attending Physician: Khushboo Vieira APRN Allergies, Adverse Reactions, Alerts Substance Criticality Severity Reaction Reaction Severity Status quinolone antibiotics Unable to assess criticality Unknown Unknown Active NSAIDs Low criticality Mild Stomach upset Active metroNIDAZOLE Unable to assess criticality Unknown Active levoFLOXacin High criticality Moderate Myalgia Active Assessment and Plan Extracted from: Title:Office Visit Note-GI Author:Khushboo Vieira APRN Date:04/23/24 1.??Abdominal pain??R10.9 ??Patient given??assurance that GI BioFire, celiac panel, calprotectin and colonoscopy were??all unremarkable.?? She has been treated for??diverticulitis with Augmentin??seen on CTs.?? Given this and irregular bowels I suspect irritable bowel syndrome with mixed features. 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 ??We discussed??pathophysiology.?? Suggested trial of Cymbalta however patient has had side effects and did not want to try. ??Given her age??I would not recommend a tricyclic antidepressant.?? Dicyclomine was not beneficial.?? Will refer patient to [facility] [place] for??urgent evaluation if able??for further evaluation and treatment.?? Patient is agreeable with this plan of care??they are frustrated by the lack of??results??showing any significant findings??and her ongoing symptoms. 2.??Irregular bowel habits??R19.8 ??As above. ??Recommend high-fiber diet as??needed. ??Caution it can cause bloating.?? Continues a probiotic??as it may or may not be beneficial.?? Can use dicyclomine if needed.?? Can use MiraLAX 17 g 8 ounces of fluid daily for??constipation.?? Follow-up as needed. 3.??IBS - Irritable bowel syndrome??K58.9 ??As above. 4.??Diverticulitis of colon??K57.32 As above.?? Has had multiple episodes. ??Last was treated has ongoing symptoms despite normal??colonoscopy and colonoscopy ruling out colitis. ??Diverticulosis seen.?? Patient given reassurance.?? Suggest high-fiber diet as tolerated.?? Referral to [facility] [place] for further evaluation and treatment. This was a 45-minute visit spent discussing the clinical issues, counseling the patient, reviewing her medical records, answering multiple questions and preparing this??note. ?? Voice recognition software utilized which may result in minor head strength and conditioning coach error. ?? Future Appointments Medications Acidophilus Probiotic Blend 1 [...] 0 Refill(s) Start Date: 01/10/24 Status: Ordered dicyclomine 10 mg oral capsule 10 mg = 1 cap, Oral, BID, Take 1 capsule twice daily as needed for abdominal pain., # 60 cap, 0 Refill(s), Pharmacy: [facility], 159, cm, 04/09/24 9:37:00 EDT, Height, 86.8, kg, 04/09/24 9:38:00 EDT, Weight Dosing Start Date: 04/17/24 Stop Date: 05/17/24 Status: Ordered gabapentin 300 mg oral capsule [...] 0 Refill(s) Start Date: 01/10/24 Status: Ordered Vitamin B Complex 100 1 [...] ealth Status Informant Abdominal pain Confirmed Active Abdominal pain Confirmed Active AK (actinic keratosis) [...] syndrome Confirmed Active Intention tremor Confirmed Active Irregular bowel habits Confirmed Active Lower abdominal pain Confirmed Active [...] keratomileusis Completed 1auto-populated from documented surgical case Vital Signs Most recent to oldest [Reference Range]: 1 Peripheral Pulse Rate [60-100 bpm] 83 bp m (04/23/24 3:03 PM) Blood Pressure [90-120/60-80 mmHg] 132/8 8mmHg *HI* (04/23/24 3:03 PM) Mean Arterial Pressure, Cuff [65-140 mmH g] 103 mmHg (04/23/24 3:03 PM) Weight 86.0 kg (04/23/24 3:03 PM) Weight Measured (lbs) 189.597 lb (04/23/24 3:03 PM) Weight Dosing 86.000 kg (04/23/24 3:03 PM) [place] Body Weight Calculated 51.476 kg (04/23/24 3:03 PM) Height 159 cm (04/23/24 3:03 PM) Height/Length Measured (inches) 62.6 inc h (04/23/24 3:03 PM) BSA Measured 1.95 m2 (04/23/24 3:03 PM) Body Mass Index 34.02 kg/m2 (04/23/24 3:03 PM) Social History Social History Type Response Tobacco Never tobacco user T obacco Use:. Sex Female Sex Representation Female (finding) Physician Outpatient Note * Khushboo Vieira APRN: PERFORM Event Display: Office Clinic Note Physician Authored Date: [id number] BRIGIDA PARIKH :1955 Age:68 years Sex:Female Visit Date:04/23/2024 Primary Care Physician: EFRA HERMAN Chief Complaint following up diverticulitis and ongoing abdominal pain History of Present Illness Patient is a 68-year-old female here today at request of Efra Herman APRN??For history of diverticulitis??. ??She is an established patient today for follow-up of??Worsening abdominal pain??.??Patient has had a few episodes of diarrhea reticulitis of the last few years. ? er first episode of diverticulitis was in 2017 treated as an outpatient.?? Second episode was in 2018 and again treated as an outpatient.?? Third episode was??in November of this year. ??This was again treated as an outpatient with Augmentin??with resolution of symptoms after couple of days. ? Patient presents to the??[place] [facility] on 03/26/2024??complaining of a change in her usual pain.?? This episode the pain was more diffuse??but??patient reports??tenderness in the left lower quadrant when examined. ??She is found to have an elevated white count 11.3,??and CT scan showing??colonic thic kening??with??pericolonic stranding and diverticula??in the sigmoid colon. ??She was again treated with Augmentin for 7 days.?? Patient has not had??as speedy recovery.?? She has completed 10 days ofAugmentin??but still complains of??loose stools, [place] 7??with decreased abdominal pain. ??She ishaving nocturnal bowel movements.?? She denies fevers. ?? Patient called??a few days ago complaining of worsening abdominal pain. ??She was advised to stop dicyclomine 10 mg??up to 4 times daily as prescribed.?? She has tried this without relief.?? She continues to complain of??sensation of??her bowels stopping??after doing physical activity or during thenight she has to massage her middle abdomen and then??the remaining of her about her abdomen duringthe night??to relieve the pain.?? Usually is relieved??after massage and sitting on the toilet to pass flatulence.?? Her appetite is less.?? She states??that??when she has the pain is severe and causes her to have nausea and diaphoresis. ??Complains of bloating. ??She has tried a low FODMAP diet, high and low fiber diets without relief.?? She does not feel that anything seems to make this better or worse.?? Is moving her bowels daily. ??Sometimes she has constipation and sometimes she has diarrhea.?? Use the MiraLAX if needed.?? Is fearful that she will have an obstruction. ?? She has tried Cymbalta in the past for fibromyalgia pain??and states she had diarrhea,??changes in her skin and??dysphagia.?? She refuses to be on this again though it helped her mood. ?? She is frustrated by her GI symptoms. ?? Patient underwent cholecystectomy??in her 30s??and has??had loose stools intermittently since that time. ??She was diagnosed with irritable bowel syndrome with alternating constipation and diarrhea??even before her cholecystectomy.?? She reports??baseline??crampy abdominal pain during defecation but relieved following defecation.?? Patient has been on??fiber and MiraLAX??on the recommendation of Dr. Montes De Oca??since prior to her rectocele repair??3 years ago??and was advised??by Dr. Valdez to continue MiraLAX to avoid constipation.?? Patient is fearful of becoming constipated??and would prefer to have stools on the looser side. ?? /GILabs: -12/05/2023??calprotectin 17, GI bio fire??normal. ?? Imaging:?? -CT??scan??of the abdomen pelvis with IV contrast on 12/02/2023??showed a small right lobe liver cyst. Status post??cholecystectomy with dilated right intrahepatic duct,??a left adrenal adenoma,??fluid-filled loops of small bowel without inflammatory changes??with air-fluid levels??with distended small bowel,??and the??sigmoid colon there is mural thickening and pericolonic inflammatory changes aswell as rectal prolapse.?? -CT scan of the abdomen pelvis with IV contrast on 03/26/2024 showed??colonic mural thickening, diverticula in the sigmoid colon, and pericolonic stranding ?? Colonoscopy: - 01/17/2024 for recurrent diverticulitis??but the patient had return to??her??baseline.??This showedsigmoid diverticulosis without inflammatory changes.?? Biopsies of the right and left colon to exclude microscopic colitis.? The patient has no first-degree relatives with colorectal cancer??or inflammatory bowel disease Review of Systems Pertinent positives and negatives are discussed in HPI. Physical Exam Vitals & Measurements HR:??83??(Peripheral)?? BP:??132/88?? SpO2:??95%?? HT:??159??cm?? WT:??86.0??kg?? BMI:??34.02?? BSA:??1.95?? General: Well-nourished well-developed female??in no acute distress. HEENT: Head is normocephalic, trachea midline, and no cervical lymphadenopathy. Respiratory: Respirations are even and unlabored. ??Lungs are clear to auscultation. Cardiovascular: Regular rate and rhythm with S1 and S2. Abdomen: Positive bowel sounds x4 quadrants, no masses, no guarding, generalzied tenderness. ??No hepatosplenomegaly. ??Abdomen is soft. Skin: Warm, dry, and pink. Neurological: Alert and oriented x3, speech is clear and gait is steady. Psychological: Pleasant, calm and cooperative. Assessment/Plan 1.??Abdominal pain??R10.9 ??Patient given??assurance that GI BioFire, celiac panel, calprotectin and colonoscopy were??all unremarkable.?? She has been treated for??diverticulitis with Augmentin??seen on CTs.?? Given this andirregular bowels I suspect irritable bowel syndrome with mixed features. 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 ??We discussed??pathophysiology.?? Suggested trial of Cymbalta however patient has had side effects and did not want to try. ??Given her age??I would not recommend a tricyclic antidepressant.??Dicyclomine was not beneficial.?? Will refer patient to [facility] [place] [place] for??urgent evaluation if able??for further evaluation and treatment.?? Patient is agreeable with this plan of care??they are frustrated by the lack of??results??showing any significant findings??and her ongoing symptoms. 2.??Irregular bowel habits??R19.8 ??As above. ??Recommend high-fiber diet as??needed. ??Caution it can cause bloating.?? Continues a probiotic??as it may or may not be beneficial.?? Can use dicyclomine if needed.?? Can use MiraLAX 17g 8 ounces of fluid daily for??constipation.?? Follow-up as needed. 3.??IBS - Irritable bowel syndrome??K58.9 ??As above. 4.??Diverticulitis of colon??K57.32 As above.?? Has had multiple episodes. ??Last was treated has ongoing symptoms despite normal??colonoscopy and colonoscopy ruling out colitis. ??Diverticulosis seen.?? Patient given reassurance.?? Suggest high-fiber diet as tolerated.?? Referral to [facility] [place] [place] for further evaluation and treatment. This was a 45-minute visit spent discussing the clinical issues, counseling the patient, reviewing her medical records, answering multiple questions and preparing this??note. ?? Voice recognition software utilized which may result in minor head strength and conditioning coach error. Problem List/Past Medical History Ongoing Abdominal pain Abdominal pain AK (actinic keratosis) Anterior shoulder dislocation Back pain Bradycardia Diarrhea Diverticulitis of colon Eczema Essential thrombocythemia Fibromyalgia Folliculitis GERD without esophagitis Headache History of kidney stone HTN - Hypertension IBS - Irritable bowel syndrome Intention tremor Irregular bowel habits Lower abdominal pain Primary fibromyalgia syndrome Right rotator cuff tear Tinnitus of left ear Historical No qualifying data Procedure/Surgical History ???Colonoscopy Biopsy (01/17/2024)???Colonoscopy (06/22/2015)???Anterior and posterior colporrhaphy???Cholecystectomy???Excision of ectopic ovarian ???LASIK - laser assisted in situ keratomileusis Medications Acidophilus Probiotic Blend, 1 cap, Oral, Daily buPROPion 150 mg/12 hours (SR) oral tablet, extended release, 150 mg= 1 tab, Oral, Daily busPIRone 10 mg oral tablet, 10 mg= 1 tab, Oral, BID Citrucel 2 g/19 g oral powder for reconstitution, 2 g, Oral, Daily dicyclomine 10 mg oral capsule, 10 mg= 1 cap, Oral, BID gabapentin 300 mg oral capsule, 300 mg= 1 cap, Oral, every night at bedtime magnesium citrate 125 mg oral capsule, 125 mg= 1 cap, Oral, Daily melatonin 3 mg oral tablet, disintegrating, 3 mg= 1 tab, Oral, every night at bedtime, PRN MiraLax oral powder for reconstitution, 17 g, Oral, Daily Vitamin B Complex 100, 1 cap, Oral, Daily Vitamin C 500 mg oral tablet, chewable, 500 mg= 1 tab, Chewed, Daily Vitamin D3 1000 intl units oral capsule, 25 mcg= 1 cap, Oral, Daily Allergies levoFLOXacin??(Myalgia) NSAIDs??(Stomach upset) metroNIDAZOLE quinolone antibiotics??(Unknown) Social History Alcohol Current, Wine- Comments: GLASS OF WINE AT NIGHT Electronic Cigarette/Vaping Electronic Cigarette Use: Never. Substance Use Never Tobacco Never tobacco user Tobacco Use:. Family History Father: History is unknown Mother: History is unknown Electronically Signed on 04/23/2024 16:21 EST Khushboo Vieira APRN Patient Care team information Care Team Personnel Name: EFRA HERMAN Position: No Access Member Role: Primary Care Physician Address: [place] [address]- Care Team Related Persons Name: BENSON PARIKH Name: BENSON PARIKH Insurance Providers Guarantor name: BRIGIDA PARIKH Health Plan Information #: 1 Payer: [employer] [facility] Member Number: [id number] Policy Number: NA Health Plan Information #: 2 Payer: [facility] Member Number: [id number] Policy Number: NA
--- OUTSIDE RECORDS SUMMARY | 2024-04-28 14:58 | XMS_ITS | Continuity of Care Document ---
Author Organization [facility] Ambulatory Clinics Address [address] [place] [address] Care Team Providers Care Chef & Owner Name Role Phone EFRA HERMAN Primary Care Physician [phone] Encounter [facility] NBR [id number] Date(s): 04/09/24 - 04/09/24 [facility] Ambulatory [facility] [address] [place], [place] [address] Encounter Diagnosis Diverticulitis of colon(Discharge Diagnosis) - 04/09/24 Diarrhea(Discharge Diagnosis) - 04/09/24 Discharge Disposition: Home or Self Care Attending Physician: Donta Dyson MD Allergies, Adverse Reactions, Alerts Substance Criticality Severity Reaction Reaction Severity Status quinolone antibiotics Unable to assess criticality Unknown Unknown Active NSAIDs Low criticality Mild Stomach upset Active metroNIDAZOLE Unable to assess criticality Unknown Active levoFLOXacin High criticality Moderate Myalgia Active Assessment and Plan Extracted from: Title:Office Visit Note-gi Author:Donta soliz MD Date:04/09/24 1.??Diverticulitis of colon? ?K57.32 ??Patient has had a total of 4??episodes of diverticulitis.?? What is different is that she had 2 episodes??within??a 4-month period,??both of which treated as an outpatient.?? She has had a slower recovery??with??a change in her??abdominal pain which is more diffuse??and she continues to have??diarrhea.?? Question??antibiotic??associated diarrhea??from Augmentin??versus??C. difficile diarrhea.?? I will contact patient with stool results and recommendations.?? Patient is fearful of taking antidiarrheals??due to??fear of constipation. Ordered: Celiac Disease Comprehensive LC, Blood, Routine, 04/09/24, Once, Lab Collect, Diverticulitis of colon Diarrhea, Order for future visit GI Panel (BioFire), Stool, Routine Collect, 04/09/24, Once, Lab Collect, Diverticulitis of colon Diarrhea, Order for future visit ?? 2.??Diarrhea??R19.7 ??See above.?? I will contact patient with??stool results.?? Patient has not had??testing for celiac disease in the past.?? Check celiac panel today.?? Patient will follow-up in 4 weeks. Ordered: Celiac Disease Comprehensive LC, Blood, Routine, 04/09/24, Once, Lab Collect, Diverticulitis of colon Diarrhea, Order for future visit GI Panel (BioFire), Stool, Routine Collect, 04/09/24, Once, Lab Collect, Diverticulitis of colon Diarrhea, Order for future visit ?? Voice recognition software utilized which may result in minor metal sprayer protective coating errors. Future Appointments Medications Acidophilus Probiotic Blend 1 [...] Range]: 1 Peripheral Pulse Rate [60-100 bpm] 58 bp m *LOW* (04/09/24 9:37 AM) Blood Pressure [90-120/60-80 mmHg] 138/8 8mmHg *HI* (04/09/24 9:37 AM) Mean Arterial Pressure, Cuff [65-140 mmH g] 105 mmHg (04/09/24 9:37 AM) Weight 86.8 kg (04/09/24 9:37 AM) Weight Measured (lbs) 191.361 lb (04/09/24 9:37 AM) Weight Dosing 86.800 kg (04/09/24 9:37 AM) [place] Body Weight Calculated 51.476 kg (04/09/24 9:37 AM) Height 159 cm (04/09/24 9:37 AM) Height/Length Measured (inches) 62.6 inc h (04/09/24 9:37 AM) BSA Measured 1.96 m2 (04/09/24 9:37 AM) Body Mass Index 34.33 kg/m2 (04/09/24 9:37 AM) Social History Social History Type Response Tobacco Never tobacco user T obacco Use:. Sex Female Sex Representation Female (finding) Physician Outpatient Note * Donta Dyson MD: PERFORM Event Display: Office Clinic Note Physician Authored Date: [id number] BRIGIDA PARIKH :1955 Age:68 years Sex:Female Visit Date:04/09/2024 Primary Care Physician: EFRA HERMAN Chief Complaint Recurrent diverticulitis. History of Present Illness Follow-up visit for this??68-year-old female follow-up??of Efra Herman??with a history of diverticulitis??over the last few years.?Her first episode of diverticulitis was in 2016 treated as an outpatient.?? Second episode was in 2018 and again treated as an outpatient.?? Third episode was??in November of this year. ??This was again treated as an outpatient with Augmentin??with resolution of symptoms after couple of days. ??She underwent colonoscopy??on 01/17/2024 for recurrent diverticulitis??but the patient had return to??her??baseline.??This showed sigmoid diverticulosis without inflammatory changes.?? Biopsies of the right and left colon to exclude microscopic colitis.?? The patient presentsto the??[facility] on 03/26/2024??complaining of a change in her usual pain.?? This episode the pain was more diffuse??but??patient reports??tenderness in the left lower quadrant when examined. ??She is found to have an elevated white count 11.3,??and CT scan showing??colonic thickening??with??pericolonic stranding and diverticula??in the sigmoid colon. ??She was again treated with Augmentin for 7 days.?? Patient has not had??as speedy recovery.?? She has completed 10 days of Augmentin??but still complains of??loose stools, Stanton 7??with decreased abdominal pain. ??She is having nocturnalbowel movements.?? She denies fevers. ?? Patient underwent cholecystectomy??in her 30s??and has??had loose stools intermittently since that time. ??She was diagnosed with irritable bowel syndrome with alternating constipation and diarrhea??even before her cholecystectomy.?? She reports??baseline??crampy abdominal pain during defecationbut relieved following defecation.?? Patient has been on??fiber and MiraLAX??on the recommendation of Dr. Montes De Oca??since prior to her rectocele repair??3 years ago??and was advised??by Dr. Valdez to continue MiraLAX to avoid constipation.?? Patient is fearful of becoming constipated??and would prefer to have stools on the looser side. ? Labs: -12/05/2023??calprotectin 17, GI bio fire??normal. ? Imaging:?? -CT??scan??of the abdomen pelvis with IV contrast on 12/02/2023??showed a small right lobe liver cyst. Status post??cholecystectomy with dilated right intrahepatic duct,??a left adrenal adenoma,??fluid-filled loops of small bowel without inflammatory changes??with air-fluid levels??with distended small bowel,??and the??sigmoid colon there is mural thickening and pericolonic inflammatory changes aswell as rectal prolapse.? CT scan of the abdomen pelvis with IV contrast on 03/26/2024 showed??colonic mural thickening, diverticula in the sigmoid colon, and pericolonic stranding ?? The patient has no first-degree relatives with colorectal cancer??or inflammatory bowel disease Physical Exam Vitals & Measurements HR:??58??(Peripheral)?? BP:??138/88?? SpO2:??95%?? HT:??159??cm?? WT:??86.8??kg?? BMI:??34.33?? BSA:??1.96?? Well-developed well-nourished white female no acute distress Lungs: Clear to auscultation bilaterally Heart: Regular rhythm S1-S2 Abdomen: Normoactive bowel sounds, soft, nontender, no mass organomegaly Assessment/Plan 1.??Diverticulitis of colon??K57.32 ??Patient has had a total of 4??episodes of diverticulitis.?? What is different is that she had 2 episodes??within??a 4-month period,??both of which treated as an outpatient.?? She has had a slower recovery??with??a change in her??abdominal pain which is more diffuse??and she continues to have??diarrhea.?? Question??antibiotic??associated diarrhea??from Augmentin??versus??C. difficile diarrhea.??I will contact patient with stool results and recommendations.?? Patient is fearful of taking antidiarrheals??due to??fear of constipation. Ordered: Celiac Disease Comprehensive LC, Blood, Routine, 04/09/24, Once, Lab Collect, Diverticulitis of colon Diarrhea, Order for future visit GI Panel (BioFire), Stool, Routine Collect, 04/09/24, Once, Lab Collect, Diverticulitis of colon Diarrhea, Order for future visit ?? 2.??Diarrhea??R19.7 ??See above.?? I will contact patient with??stool results.?? Patient has not had??testing for celiac disease in the past.?? Check celiac panel today.?? Patient will follow-up in 4 weeks. Ordered: Celiac Disease Comprehensive LC, Blood, Routine, 04/09/24, Once, Lab Collect, Diverticulitis of colon Diarrhea, Order for future visit GI Panel (BioFire), Stool, Routine Collect, 04/09/24, Once, Lab Collect, Diverticulitis of colon Diarrhea, Order for future visit ?? Voice recognition software utilized which may result in minor metal sprayer protective coating errors. Future Orders Celiac Disease Comprehensive LC, Blood, Routine, 04/09/24, Once, Lab Collect, Diverticulitis of colon Diarrhea, Order for future visit GI Panel (BioFire), Stool, Routine Collect, 04/09/24, Once, Lab Collect, Diverticulitis of colon Diarrhea, Order for future visit Problem List/Past Medical History Ongoing Abdominal pain AK (actinic keratosis) Anterior shoulder dislocation Back pain Bradycardia Diarrhea Diverticulitis of colon Eczema Essential thrombocythemia Fibromyalgia Folliculitis GERD without esophagitis Headache History of kidney stone HTN - Hypertension IBS - Irritable bowel syndrome Intention tremor Lower abdominal pain Primary fibromyalgia [...] powder for reconstitution, 2 g, Oral, Daily gabapentin 300 mg oral capsule, 300 mg= 1 cap, Oral, every night at bedtime gabapentin 300 mg oral capsule, 300 mg= 1 cap, Oral, every night at bedtime magnesium citrate 125 mg oral capsule, 125 mg= 1 cap, Oral, Daily melatonin 3 mg oral tablet, disintegrating, 3 mg= 1 tab, Oral, every night at bedtime, PRN MiraLax oral powder for reconstitution, 17 g, Oral, Daily Turmeric, 500 mg, Oral, Daily Vitamin B Complex 100, 1 [...] Mother: History is unknown Electronically Signed on 04/09/2024 10:09 EDT Donta Dyson MD Patient Care team information Care Team Personnel Name: EFRA HERMAN Position: No Access Member Role: Primary Care Physician Address: [address] Care Team Related Persons Name: BENSON PARIKH Name: BENSON PARIKH Insurance Providers Guarantor name: BRIGIDA PARIKH Health Plan Information #: 1 Payer: MEDICARE [employer]ESS [facility] Member Number: [id number] Policy Number: NA Health Plan Information #: 2 Payer: [facility] Member Number: [id number] Policy Number: NA
--- OUTSIDE RECORDS SUMMARY | 2024-04-28 14:58 | XMS_ITS | Clinical Summary ---
Author Organization [facility] Address [address] [place] [id number] Care Team Providers Care Transmitter Operator Name Role Phone Unknown, Provider Primary Care [...] Orientation Not on file Plan of Treatment Health Maintenance Due Date Last Done Comments Hepatitis C Screen 1955 Fall Risk Screening 2021 COVID-19 Vaccine (2023-25 season) 2024 RSV Immunization ( o r 60+ Years) (1 - 1-dose 75+ series) 10/06/2031 [place] [id number] [facility] Care Teams Transmitter Operator Relationship Specialty Start Date End Date Unknown, Provider, PCP - General 04/16/15
--- OUTSIDE RECORDS SUMMARY | 2024-04-28 14:58 | XMS_ITS | Continuity of Care Document ---
Author Organization [facility] Address [address] [place] [address] Care Team Providers Care Cylinder Inspector And Tester Name Role Phone EFRA ALBERTS Primary Care Physician Encounter [facility] NBR [id number] Date(s): 03/26/24 - 03/26/[address] [address] Encounter Diagnosis Sigmoid diverticulitis(Discharge Diagnosis) - 03/26/24 Diverticulitis of large intestine without perforation or abscess without bleeding(Final) - Discharge Disposition: Home f/u External Provider Attending Physician: Radha Barnett MD Admitting Physician: Radha Barnett MD Allergies, Adverse Reactions, Alerts Substance Criticality Severity Reaction Reaction Severity Status quinolone antibiotics Unable to assess criticality Unknown Unknown Active NSAIDs Low criticality Mild Stomach upset Active metroNIDAZOLE Unable to assess criticality Unknown Active levoFLOXacin High criticality Moderate Myalgia Active Assessment and Plan Extracted from: Title:ED Provider Note Author:Nicho Croft Date:03/26/24 Assessment/Plan 1.??Sigmoid diverticulitis??K57.32 ??Patient is offered ongoing pain management however she has declined this at this time. She will continue her antibiotics as prescribed by urgent care She will follow-up??with??her primary care and her GI specialist as needed. ??If she has any question concerns or new symptoms she will return to the emergency department. ?? Orders: Discharge Patient, 03/26/24 19:57:00 EDT, Home Independently Patient Education Diverticulitis Follow Up With When Contact Information Follow-up with your primary care Within 1 week Additional Instructions: Follow-up with your primary care as needed, they will be able to reevaluate if necessary Return to ED if concerns ?? Medications Acidophilus Probiotic Blend 1 cap, Oral, Daily, 0 Refill(s) Start Date: 08/23/22 Status: Ordered amoxicillin-clavulanate 875 mg-125 mg oral tablet 1 tab, Oral, every 12 hr, X 7 days, # 14 tab, 0 Refill(s), 04/02/24 5:27:00 PM CDT Start Date: 03/26/24 Stop Date: 04/02/24 Status: Ordered buPROPion 150 mg/12 hours (SR) [...] 0 Refill(s) Start Date: 08/22/22 Status: Ordered Mental Status 03/26/24 Eye Opening Response [place] Spontaneous ly Best Motor Response [place] Obeys comman ds Problem List Condition Confirmation Course Effective Dates [...] surgical case Results Laboratory List Name Date CBC w/ Diff 03/26/24 Comprehensive Metabolic Panel (CMP) 03/12 11/02 Automated Diff 03/26/24 Most recent to oldest [Reference Range]: 1 WBC [4.8-10.8 K/mcL] 11.3 K/mcL *HI* (03/26/24 6:54 PM) RBC [4.20-5.40 Million/mcL] 4.73 Million /mcL (03/26/24 6:54 PM) Neutro Auto [42.2-75.2 %] 76.4 % *HI* (03/26/24 6:54 PM) Lymph Auto [20.5-51.1 %] 11.8 % *LOW* (03/26/24 6:54 PM) Thurston Auto [1.7-9.3 %] 10.5 % *HI* (03/26/24 6:54 PM) Basophil Auto [0.0-0.8 %] 0.5 % (03/26/24 6:54 PM) BUN [7-25 mg/dL] 7 mg/dL (03/26/24 6:54 PM) Glucose Level [70-109 mg/dL] 106 mg/dL (03/26/24 6:54 PM) Potassium Level [3.5-5.1 mmol/L] 4.0 mmo l/L (03/26/24 6:54 PM) Baso Absolute [0.0-0.2 K/mcL] 0.1 K/mcL (03/26/24 6:54 PM) MCV [81.0-99.0 fL] 90.5 fL (03/26/24 6:54 PM) AST [13-39 IntlUnit/L] 27 IntlUnit/L (03/26/24 6:54 PM) ALT [7-52 IntlUnit/L] 16 IntlUnit/L 1 (03/26/24 6:54 PM) MCHC [32.0-37.0 g/dL] 33.6 g/dL (03/26/24 6:54 PM) Osmolality [275-295 mOsm/kg] 257 mOsm/kg *LOW* (03/26/24 6:54 PM) Sodium Level [136-145 mmol/L] 129 mmol/L *LOW* (03/26/24 6:54 PM) Lymph Absolute [1.2-3.4 K/mcL] 1.3 K/mcL (03/26/24 6:54 PM) Hct [37.0-47.0 %] 42.9 % (03/26/24 6:54 PM) Calcium Level [8.6-10.3 mg/dL] 9.4 mg/dL (03/26/24 6:54 PM) Thurston Absolute [0.1-0.6 K/mcL] 1.2 K/mcL *HI* (03/26/24 6:54 PM) Albumin Level [3.5-5.7 g/dL] 4.5 g/dL (03/26/24 6:54 PM) Protein Total [6.4-8.9 g/dL] 8.4 g/dL (03/26/24 6:54 PM) MCH [27.0-31.0 pg] 30.4 pg (03/26/24 6:54 PM) Neutro Absolute [1.4-6.5 K/mcL] 8.6 K/mc L *HI* (03/26/24 6:54 PM) Bilirubin Total [0.3-1.0 mg/dL] 0.8 mg/d L (03/26/24 6:54 PM) Hgb [12.0-16.0 g/dL] 14.4 g/dL (03/26/24 6:54 PM) Alk Phos [34-104 IntlUnit/L] 56 IntlUnit /L (03/26/24 6:54 PM) MPV [7.4-10.4 fL] 7.4 fL (03/26/24 6:54 PM) Platelets [130-400 K/mcL] 391 K/mcL (03/26/24 6:54 PM) CO2 [21-31 mmol/L] 27 mmol/L (03/26/24 6:54 PM) Eos Absolute [0.0-0.2 K/mcL] 0.1 K/mcL (03/26/24 6:54 PM) Chloride Level [98-107 mmol/L] 96 mmol/L *LOW* (03/26/24 6:54 PM) RDW-CV [11.5-14.5 %] 13.3 % (03/26/24 6:54 PM) A/G Ratio [1.0-2.5 g/dL] 1.2 g/dL (03/26/24 6:54 PM) BUN/Creat Ratio [8.0-20.0] 8.8 (03/26/24 6:54 PM) Globulin [2.3-3.5 g/dL] 3.9 g/dL *HI* (03/26/24 6:54 PM) Creatinine Level [0.60-1.20 mg/dL] 0.80 mg/dL (03/26/24 6:54 PM) Anion Gap [3.0-12.0] 6.0 (03/26/24 6:54 PM) Eos, Auto [0.00-3.00 %] 0.80 % (03/26/24 6:54 PM) eGFR CKD-EPI [>=60 mL/min/1.73 m2] 81 mL /min/1.73 m2 (03/26/24 6:54 PM) 1Result Comment: SLIGHT HEMOLYSIS Radiology Reports * Exam Date Time Procedure Performing Provider Status 03/26/24 7:[address] Abdomen and Pelvi s w/ Contrast Rudy Virk (Verified) Notes: (CT Abdomen and Pelvis w/ Contrast) Reason For Exam: abd pain CT Abdomen and Pelvis w/ Contrast PROCEDURE INFORMATION: Exam: CT Abdomen And Pelvis With Contrast Exam date and time: 03/26/2024 6:58 PM Age: 68 years old Clinical indication: Abdominal pain; Generalized; Additional info: Abd pain TECHNIQUE: Imaging protocol: Computed tomography of the abdomen and pelvis with contrast. Radiation optimization: All CT scans at this facility use at least one of these dose optimization techniques: automated exposure control; mA and/or kV adjustment per patient size (includes targeted exams where dose is matched to clinical indication); or iterative reconstruction. Contrast material: ISOVUE 300; Contrast volume: 100 ml; Contrast route: INTRAVENOUS (IV); COMPARISON: CT ABD/PELVIS W CONTRAST 12/02/2023 12:47 AM FINDINGS: Liver: Normal. No mass. Gallbladder and biliary ducts: Gallbladder is absent Pancreas: Normal. No ductal dilation. Spleen: Normal. No splenomegaly. Adrenal glands: Normal. No mass. Kidneys and ureters: Normal. No hydronephrosis. Stomach and bowel: Again seen is colonic wall thickening with diverticuli in stranding of pericolonic fat in sigmoid colon. Appendix: No evidence of appendicitis. Intraperitoneal space: Unremarkable. No free air. No significant fluid collection. Vasculature: Unremarkable. No abdominal aortic aneurysm. Lymph nodes: Unremarkable. No enlarged lymph nodes. Urinary bladder: Unremarkable as visualized. Reproductive: Unremarkable as visualized. Bones/joints: Unremarkable. No acute fracture. Soft tissues: Unremarkable. IMPRESSION: Recurrent or residual distal sigmoid colonic diverticulitis again noted THIS DOCUMENT HAS BEEN ELECTRONICALLY SIGNED BY MIGUEL ÁNGEL SHRE MD on 03/26/2024 07:46 PM Final Signed by: Miguel Ángel Sher MD Signed (Electronic Signature): 03/26/2024 7:46 pm Vital Signs Most recent to oldest [Reference Range]: 1 2 Temperature Tympanic [36.6-38.1 Deg C] 3 6.5 Deg C *LOW* (03/26/24 6:21 PM) Peripheral Pulse Rate [60-100 bpm] 67 bp m (03/26/24 7:30 PM) 75 bpm (03/26/24 6:21 PM) Respiratory Rate [12-24 br/min] 18 br/mi n (03/26/24:30 PM) 18 br/min (03/26/24:21 PM) Blood Pressure [90-120/60-80 mmHg] 142/7 8mmHg *HI* (03/26/24:30 PM) 165/78mmHg *HI* (03/26/24: PM) Mean Arterial Pressure, Cuff [65-140 mmH g] 99 mmHg (03/26/24:30 PM) 107 mmHg (03/26/24:21 PM) Weight 86 kg (03/26/24: PM) Weight Dosing 86.000 kg (03/26/24: PM) Height 159 cm (03/26/24: PM) Body Mass Index 34.02 kg/m2 (03/26/24: PM) Social History Social History Type Response Tobacco Never tobacco user T obacco Use:. Sex Female Sex Representation Female (finding) Hospital Discharge Instructions Patient Education 03/26/2024 18:58:08 Diverticulitis Diverticulitis Diverticulitis is infection or inflammation of small pouches (diverticula) in the colon that form due to a condition called diverticulosis. Diverticula can trap stool (feces) and bacteria, causing infection and inflammation. Diverticulitis may cause severe stomach pain and diarrhea. It may lead to tissue damage in the colon that causes bleeding or blockage. The diverticula may also burst (rupture) and cause infected stool to enter other areas of the abdomen. What are the causes? This condition is caused by stool becoming trapped in the diverticula, which allows bacteria to grow in the diverticula. This leads to inflammation and infection. What increases the risk? You are more likely to develop this condition if you have diverticulosis. The risk increases if you: ??? Are overweight or obese. ??? Do not get enough exercise. ??? Drink alcohol. ??? Use tobacco products. ??? Eat a diet that has a lot of red meat such as beef, pork, or dimas. ??? Eat a diet that does not include enough fiber. High-fiber foods include fruits, vegetables, beans, nuts, and whole grains. ??? Are over 40 years of age. What are the signs or symptoms? Symptoms of this condition may include: ??? Pain and tenderness in the abdomen. The pain is normally located on the left side of the abdomen, but it may occur in other areas. ??? Fever and chills. ??? Nausea. ??? Vomiting. ??? Cramping. ??? Bloating. ??? Changes in bowel routines. ??? Blood in your stool. How is this diagnosed? This condition is diagnosed based on: ??? Your medical history. ??? A physical exam. ??? Tests to make sure there is nothing else causing your condition. These tests may include: ??? Blood tests. ??? Urine tests. ??? CT scan of the abdomen. How is this treated? Most cases of this condition are mild and can be treated at home. Treatment may include: ??? Taking vpvc-jro-qtfslcc pain medicines. ??? Following a clear liquid diet. ??? Taking antibiotic medicines by mouth. ??? Resting. More severe cases may need to be treated at a hospital. Treatment may include: ??? Not eating or drinking. ??? Taking prescription pain medicine. ??? Receiving antibiotic medicines through an IV. ??? Receiving fluids and nutrition through an IV. ??? Surgery. When your condition is under control, your health care provider may recommend that you have a colonoscopy. This is an exam to look at the entire large intestine. During the exam, a lubricated, bendable tube is inserted into the anus and then passed into the rectum, colon, and other parts of the large intestine. A colonoscopy can show how severe your diverticula are and whether something else may be causing your symptoms. Follow these instructions at home: Medicines ??? Take kdjx-nos-zqxsuow and prescription medicines only as told by your health care provider. These include fiber supplements, probiotics, and stool softeners. ??? If you were prescribed an antibiotic medicine, take it as told by your health care provider. Donot stop taking the antibiotic even if you start to feel better. ??? Ask your health care provider if the medicine prescribed to you requires you to avoid driving or using machinery. Eating and drinking ??? Follow a full liquid diet or another diet as directed by your health care provider. ??? After your symptoms improve, your health care provider may tell you to change your diet. He or she may recommend that you eat a diet that contains at least 25 grams (25 g) of fiber daily. Fiber makes it easier to pass stool. Healthy sources of fiber include: ??? Berries. One cup contains 4???8 grams of fiber. ??? Beans or lentils. One-half cup contains 5???8 grams of fiber. ??? Green vegetables. One cup contains 4 grams of fiber. ??? Avoid eating red meat. General instructions ??? Do not use any products that contain nicotine or tobacco, such as cigarettes, e-cigarettes, andchewing tobacco. If you need help quitting, ask your health care provider. ??? Exercise for at least 30 minutes, 3 times each week. You should exercise hard enough to raise your heart rate and break a sweat. ??? Keep all follow-up visits as told by your health care provider. This is important. You may needto have a colonoscopy. Contact a health care provider if: ??? Your pain does not improve. ??? Your bowel movements do not return to normal. Get help right away if: ??? Your pain gets worse. ??? Your symptoms do not get better with treatment. ??? Your symptoms suddenly get worse. ??? You have a fever. ??? You vomit more than one time. ??? You have stools that are bloody, black, or tarry. Summary ??? Diverticulitis is infection or inflammation of small pouches (diverticula) in the colon that form due to a condition called diverticulosis. Diverticula can trap stool (feces) and bacteria, causing infection and inflammation. ??? You are at higher risk for this condition if you have diverticulosis and you eat a diet that does not include enough fiber. ??? Most cases of this condition are mild and can be treated at home. More severe cases may need bridget treated at a hospital. ??? When your condition is under control, your health care provider may recommend that you have an exam called a colonoscopy. This exam can show how severe your diverticula are and whether something else may be causing your symptoms. ??? Keep all follow-up visits as told by your health care provider. This is important. This information is not intended to replace advice given to you by your health care provider. Make sure you discuss any questions you have with your health care provider. Document Revised: 03/09/2020 Document Reviewed: 03/09/2020 [employer] Patient Education ?? 2022 [employer] Follow Up Care 03/26/2024 18:12:03 With:Follow-up with your primary care Address: When:1 week Comments:Follow-up with your primary care as needed, they will be able to reevaluate if necessaryReturn to ED if concerns Physician Emergency department Note * SANCHEZ Croft: PERFORM Event Display: ED Note Physician Authored Date: [id number] BRIGIDA PARIKH :1955 Age:68 years Sex:Female Visit Date:03/26/2024 Primary Care Physician: EFRA ALBERTS Basic Information Time Seen: SANCHEZ Croft / 03/26/2024 18:12 Chief Complaint pt here with 2 days LLQ abd pain with now diffused abd pain 02/19. Pt states hx diverticulitis. pt states she saw urgent care yesterday and was places on augmentin. pt states she is not feeling better. several bouts of diarrhea. denies blood in stool. History Of Present Illness: Patient is a 68-year-old female presents to the emergency department having been seen yesterday??atthe express care in [place] and given Augmentin for presumed diverticulitis. ??She has had this multiple times and feels that it was the same.?? Over the timeframe of yesterday to today she has had increasing pain??and it has spread now to the bilateral pelvic region and she feels that she needs a imaging to rule out abscess or further??issue. ??Patient has had no fever??but has had some chills. ??She has been??nauseous without vomiting is having limited bowel movements but notes that this is her normal is having no difficulty with urination. Review of Systems: See HPI Physical Exam Vitals & Measurements T:??36.5?C ??(Tympanic)?? HR:??67??(Peripheral)?? RR:??18?? BP:??142/78?? SpO2:??100%?? HT:??159??cm?? WT:??86??kg?? BMI:??34.02?? Pain Score:??9?? O2 Therapy:??Room air?? Patient alert oriented age-appropriate well-nourished nontoxic Normocephalic atraumatic Neck supple nontender EOM intact, PERRLA, sclera nonicteric Clear to auscultation bilaterally Regular rate and rhythm no murmurs Abdominal exam reveals normal bowel sounds, mild lower abdominal tenderness,??negative rebound, negative CVA tenderness Appropriate mood and affect Medical Decision Making: While here in the emergency department he??labs were repeated there is a??slight elevation of her white count of 11.6. ??Her sodium is slightly low 129. ??She would like to do nothing about either ofthese.?? Her CT scan shows persistent??diverticulitis without abscess or concern Patient will be discharged as below. Procedure No Qualifying Data Assessment/Plan 1.??Sigmoid diverticulitis??K57.32 ??Patient is offered ongoing pain management however she has declined this at this time. She will continue her antibiotics as prescribed by urgent care She will follow-up??with??her primary care and her GI specialist as needed. ??If she has any question concerns or new symptoms she will return to the emergency department. Orders: Discharge Patient, 03/26/24 19:57:00 EDT, Home Independently Patient Education Diverticulitis Follow Up With When Contact Information Follow-up with your primary care Within 1 week Additional Instructions: Follow-up with your primary care as needed, they will be able to reevaluate if necessary Return to ED if concerns Medication Reconciliation Changed buPROPion (buPROPion 150 mg/12 hours (SR) oral tablet, extended release)1 tab Oral (given by mouth)every day. ?? busPIRone (busPIRone 10 mg oral tablet)1 tab Oral (given by mouth) 2 times a day. ?? Unchanged amoxicillin-clavulanate (amoxicillin-clavulanate 875 mg-125 mg oral tablet)1 tab Oral (given by mouth) every 12 hours for 7 Days. ?? ascorbic acid (Vitamin C 500 mg oral tablet, chewable)1 tab Chewed every day. ?? cholecalciferol (Vitamin D3 1000 intl units oral capsule)1 Capsules Oral (given by mouth) every day. ?? gabapentin (gabapentin 300 mg oral capsule)1 Capsules Oral (given by mouth) every night at bedtime. ?? gabapentin (gabapentin 300 mg oral capsule)1 Capsules Oral (given by mouth) every night at bedtime. ?? lactobacillus acidophilus (Acidophilus Probiotic Blend)1 Capsules Oral (given by mouth) every day. ?? magnesium citrate (magnesium citrate 125 mg oral capsule)1 Capsules Oral (given by mouth) every day. ?? melatonin (melatonin 3 mg oral tablet, disintegrating)1 tab Oral (given by mouth) every night at bedtime as needed as needed for insomnia. ?? methylcellulose (Citrucel 2 g/19 g oral powder for reconstitution)2 Gram Oral (given by mouth) every day. every afternoon. ?? multivitamin (Vitamin B Complex 100)1 Capsules Oral (given by mouth) every day. ?? polyethylene glycol 3350 (MiraLax oral powder for reconstitution)17 Gram Oral (given by mouth) every day. ?? turmeric (Turmeric)500 Milligrams Oral (given by mouth) every day. 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 Substance Use Never Tobacco Never tobacco user Tobacco Use:. Family History Father: History is unknown Mother: History is unknown Diagnostic Results CT Abdomen and Pelvis w/ Contrast 03/26/2024 19:[address] Abdomen and Pelvis w/ Contrast ?? 03/26/24 18:58:22 PROCEDURE INFORMATION: Exam: CT Abdomen And Pelvis With Contrast Exam date and time: 03/26/2024 6:58 PM Age: 68 years old Clinical indication: Abdominal pain; Generalized; Additional info: Abd pain ?? TECHNIQUE: Imaging protocol: Computed tomography of the abdomen and pelvis with contrast. Radiation optimization: All CT scans at this facility use at least one of these dose optimization techniques: automated exposure control; mA and/or kV adjustment per patient size (includes targeted exams where dose is matched to clinical indication); or iterative reconstruction. Contrast material: ISOVUE 300; Contrast volume: 100 ml; Contrast route: INTRAVENOUS (IV); ?? COMPARISON: CT ABD/PELVIS W CONTRAST 12/02/2023 12:47 AM ?? FINDINGS: Liver: Normal. No mass. Gallbladder and biliary ducts: Gallbladder is absent Pancreas: Normal. No ductal dilation. Spleen: Normal. No splenomegaly. Adrenal glands: Normal. No mass. Kidneys and ureters: Normal. No hydronephrosis. Stomach and bowel: Again seen is colonic wall thickening with diverticuli in stranding of pericolonic fat in sigmoid colon. Appendix: No evidence of appendicitis. ?? Intraperitoneal space: Unremarkable. No free air. No significant fluid collection. Vasculature: Unremarkable. No abdominal aortic aneurysm. Lymph nodes: Unremarkable. No enlarged lymph nodes. Urinary bladder: Unremarkable as visualized. Reproductive: Unremarkable as visualized. Bones/joints: Unremarkable. No acute fracture. Soft tissues: Unremarkable. ?? IMPRESSION: Recurrent or residual distal sigmoid colonic diverticulitis again noted ? THIS DOCUMENT HAS BEEN ELECTRONICALLY SIGNED BY MIGUEL ÁNGEL SHER MD on 03/26/2024 07:46 PM ?? Signed By: Miguel Ángel Sher MD Lab Results CBC and Differential?? LATEST RESULTS?? HISTORICAL RESULTS?? WBC?? 03/26/24 18:54?? 11.3 ??High?? 12/02/23?? 9.8?? RBC?? 03/26/24 18:54?? 4.73?? 12/02/23?? 4.34?? Hgb?? 03/26/24 18:54?? 14.4?? 12/02/23?? 13.6?? Hct?? 03/26/24 18:54?? 42.9?? 12/02/23?? 38.9?? MCV?? 03/26/24 18:54?? 90.5?? 12/02/23?? 89.7?? MCH?? 03/26/24 18:54?? 30.4?? 12/02/23?? 31.3 ??High?? MCHC?? 03/26/24 18:54?? 33.6?? 12/02/23?? 34.9?? RDW-CV?? 03/26/24 18:54?? 13.3?? 12/02/23?? 13.3?? Platelets?? 03/26/24 18:54?? 391?? 12/02/23?? 359?? MPV?? 03/26/24 18:54?? 7.4?? 12/02/23?? 7.2 ??Low?? Neutro Auto?? 03/26/24 18:54?? 76.4 ??High?? 12/02/23?? 74.7?? Lymph Auto?? 03/26/24 18:54?? 11.8 ??Low?? 12/02/23?? 12.9 ??Low?? Thurston Auto?? 03/26/24 18:54?? 10.5 ??High?? 12/02/23?? 10.4 ??High?? Eos, Auto?? 03/26/24 18:54?? 0.80?? 12/02/23?? 1.30?? Basophil Auto?? 03/26/24 18:54?? 0.5?? 12/02/23?? 0.7?? Neutro Absolute?? 03/26/24 18:54?? 8.6 ??High?? 12/02/23?? 7.3 ??High?? Lymph Absolute?? 03/26/24 18:54?? 1.3?? 12/02/23?? 1.3?? Thurston Absolute?? 03/26/24 18:54?? 1.2 ??High?? 12/02/23?? 1.0 ??High?? Eos Absolute?? 03/26/24 18:54?? 0.1?? 12/02/23?? 0.1?? Baso Absolute?? 03/26/24 18:54?? 0.1?? 12/02/23?? 0.1? Routine Chemistry?? LATEST RESULTS?? HISTORICAL RESULTS?? Sodium Level?? 03/26/24 18:54?? 129 ??Low?? 12/02/23?? 132 ??Low?? Potassium Level?? 03/26/24 18:54?? 4.0?? 12/02/23?? 3.7?? Chloride Level?? 03/26/24 18:54?? 96 ??Low?? 12/02/23?? 98?? CO2?? 03/26/24 18:54?? 27?? 12/02/23?? 27?? Alk Phos?? 03/26/24 18:54?? 56?? 12/02/23?? 46?? AST?? 03/26/24 18:54?? 27?? 12/02/23?? 23?? ALT?? 03/26/24 18:54?? 16?? 12/02/23?? 16?? BUN?? 03/26/24 18:54?? 7?? 12/02/23?? 7?? Glucose Level?? 03/26/24 18:54?? 106?? 12/02/23?? 101?? Creatinine Level?? 03/26/24 18:54?? 0.80?? 12/02/23?? 0.80?? BUN/Creat Ratio?? 03/26/24 18:54?? 8.8?? 12/02/23?? 8.8?? eGFR CKD-EPI?? 03/26/24 18:54?? 81?? 12/02/23?? 81?? Calcium Level?? 03/26/24 18:54?? 9.4?? 12/02/23?? 9.3?? Protein Total?? 03/26/24 18:54?? 8.4?? 12/02/23?? 7.7?? Albumin Level?? 03/26/24 18:54?? 4.5?? 12/02/23?? 4.1?? Globulin?? 03/26/24 18:54?? 3.9 ??High?? 12/02/23?? 3.6 ??High?? A/G Ratio?? 03/26/24 18:54?? 1.2?? 12/02/23?? 1.1?? Bilirubin Total?? 03/26/24 18:54?? 0.8?? 12/02/23?? 0.8?? Anion Gap?? 03/26/24 18:54?? 6.0?? 12/02/23?? 7.0?? Osmolality?? 03/26/24 18:54?? 257 ??Low?? 12/02/23?? 263 ??Low? Electronically Signed on 03/26/2024 21:35 EDT SANCHEZ Croft Emergency department Discharge instructions * SANCHEZ Croft: PERFORM Event Display: ED Discharge Information Authored Date: [id number] BRIGIDA PARIKH :1955 Age:68 years Sex:Female Visit Date:03/26/2024 Primary Care Physician: EFRA ALBERTS Discharge Instructions We would like to thank you for allowing us to assist you with your healthcare needs. The following includes patient education materials and information regarding your injury/illness. Diagnosis from Today's Visit Sigmoid diverticulitis Discharge Vitals Temperature??(Tympanic) 97.7 ??F (36.5 ??C) Heart Rate??(Peripheral) 67 Respiratory Rate?? 18 Blood Pressure?? 142/78?? SpO2?? 100% Height?? 62.60 in (159 cm) Weight?? 189.63 lb (86 kg) BMI?? 34.02 Allergies levoFLOXacin??(Myalgia) NSAIDs??(Stomach upset) metroNIDAZOLE quinolone antibiotics??(Unknown) What to Do Next Instructions from Your Care Team Take medications as prescribed Follow-up with your GI specialist as needed Return for any nausea vomiting??fever or other concerning findings You Need to Schedule the Following Appointments Follow Up with??Follow-up with your primary care When:??Within 1 week Why: Follow-up with your primary care as needed, they will be able to reevaluate if necessary Return to ED if concerns You were treated today on an emergency basis; it may be rucker to contact your primary care provider to notify them of your visit today. You may have been referred to your regular doctor or a specialist, please follow up as instructed. If your condition worsens or you can't get in to see the doctor, contact the Emergency Department. Medications What How Much When Instructions Next Dose Changed buPROPion (buPROPion 150 mg/ 12 hours (SR) oral tablet, extended release) 1 tab Oral (given by mouth) Every day Changed busPIRone (busPIRone 10 mg oral tablet) 1 tab Oral (given by mouth) 2 times a day Unchanged amoxicillin-clavulanate (amoxicillin-clavulanate 875 mg-125 mg oral tablet) 1 tab Oral (given by mouth) Every 12 hours Duration: 7 Days Unchanged ascorbic acid (Vitamin C 500 mg oral tablet, chewable) 1 tab Chewed Every day Unchanged cholecalciferol (Vitamin D3 1000 intl units oral capsule) 1 Capsules Oral (given by mouth) Every day Unchanged gabapentin (gabapentin 300 mg oral capsule) 1 Capsules Oral (given by mouth) Every night at bedtime Unchanged gabapentin (gabapentin 300 mg oral capsule) 1 Capsules Oral (given by mouth) Every night at bedtime Unchanged lactobacillus acidophilus (Acidophilus Probiotic Blend) 1 Capsules Oral (given by mouth) Every day Unchanged magnesium citrate (magnesium citrate 125 mg oral capsule) 1 Capsules Oral (given by mouth) Every day Unchanged melatonin (melatonin 3 mg oral tablet, disintegrating) 1 tab Oral (given by mouth) Every night at bedtime as needed for as needed for insomnia Unchanged methylcellulose (Citrucel 2 g/ 19 g oral powder for reconstitution) 2 Gram Oral (given by mouth) Every day every afternoon ?? Unchanged multivitamin (Vitamin B Complex 100) 1 Capsules Oral (given by mouth) Every day Unchanged polyethylene glycol 3350 (MiraLax oral powder for reconstitution) 17 Gram Oral (given by mouth) Every day Unchanged turmeric (Turmeric) 500 Milligrams Oral (given by mouth) Every day [employer] Diverticulitis Diverticulitis is infection or inflammation of small pouches (diverticula) in the colon that form due to a condition called diverticulosis. Diverticula can trap stool (feces) and bacteria, causing infection and inflammation. Diverticulitis may cause severe stomach pain and diarrhea. It may lead to tissue damage in the colon that causes bleeding or blockage. The diverticula may also burst (rupture) and cause infected stool to enter other areas of the abdomen. What are the causes? This condition is caused by stool becoming trapped in the diverticula, which allows bacteria to grow in the diverticula. This leads to inflammation and infection. What increases the risk? You are more likely to develop this condition if you have diverticulosis. The risk increases if you: ? Are overweight or obese. ? Do not get enough exercise. ? Drink alcohol. ? Use tobacco products. ? Eat a diet that has a lot of red meat such as beef, pork, or dimas. ? Eat a diet that does not include enough fiber. High-fiber foods include fruits, vegetables, beans, nuts, and whole grains. ? Are over 40 years of age. What are the signs or symptoms? Symptoms of this condition may include: ? Pain and tenderness in the abdomen. The pain is normally located on the left side of the abdomen, but it may occur in other areas. ? Fever and chills. ? Nausea. ? Vomiting. ? Cramping. ? Bloating. ? Changes in bowel routines. ? Blood in your stool. How is this diagnosed? This condition is diagnosed based on: ? Your medical history. ? A physical exam. ? Tests to make sure there is nothing else causing your condition. These tests may include: ? Blood tests. ? Urine tests. ? CT scan of the abdomen. How is this treated? Most cases of this condition are mild and can be treated at home. Treatment may include: ? Taking [id number] pain medicines. ? Following a clear liquid diet. ? Taking antibiotic medicines by mouth. ? Resting. More severe cases may need to be treated at a hospital. Treatment may include: ? Not eating or drinking. ? Taking prescription pain medicine. ? Receiving antibiotic medicines through an IV. ? Receiving fluids and nutrition through an IV. ? Surgery. When your condition is under control, your health care provider may recommend that you have a colonoscopy. This is an exam to look at the entire large intestine. During the exam, a lubricated, bendable tube is inserted into the anus and then passed into the rectum, colon, and other parts of the large intestine. A colonoscopy can show how severe your diverticula are and whether something else may be causing your symptoms. Follow these instructions at home: Medicines ? Take cwhi-wec-rrnvjdb and prescription medicines only as told by your health care provider. These include fiber supplements, probiotics, and stool softeners. ? If you were prescribed an antibiotic medicine, take it as told by your health care provider. Do notstop taking the antibiotic even if you start to feel better. ? Ask your health care provider if the medicine prescribed to you requires you to avoid driving or using machinery. Eating and drinking ? Follow a full liquid diet or another diet as directed by your health care provider. ? After your symptoms improve, your health care provider may tell you to change your diet. He or she may recommend that you eat a diet that contains at least 25 grams (25 g) of fiber daily. Fiber makesit easier to pass stool. Healthy sources of fiber include: ? Berries. One cup contains 4???8 grams of fiber. ? Beans or lentils. One-half cup contains 5???8 grams of fiber. ? Green vegetables. One cup contains 4 grams of fiber. ? Avoid eating red meat. General instructions ? Do not use any products that contain nicotine or tobacco, such as cigarettes, e- cigarettes, and chewing tobacco. If you need help quitting, ask your health care provider. ? Exercise for at least 30 minutes, 3 times each week. You should exercise hard enough to raise your heart rate and break a sweat. ? Keep all follow-up visits as told by your health care provider. This is important. You may need to have a colonoscopy. Contact a health care provider if: ? Your pain does not improve. ? Your bowel movements do not return to normal. Get help right away if: ? Your pain gets worse. ? Your symptoms do not get better with treatment. ? Your symptoms suddenly get worse. ? You have a fever. ? You vomit more than one time. ? You have stools that are bloody, black, or tarry. Summary ? Diverticulitis is infection or inflammation of small pouches (diverticula) in the colon that form due to a condition called diverticulosis. Diverticula can trap stool (feces) and bacteria, causing infection and inflammation. ? You are at higher risk for this condition if you have diverticulosis and you eat a diet that does not include enough fiber. ? Most cases of this condition are mild and can be treated at home. More severe cases may need to be treated at a hospital. ? When your condition is under control, your health care provider may recommend that you have an examcalled a colonoscopy. This exam can show how severe your diverticula are and whether something elsemay be causing your symptoms. ? Keep all follow-up visits as told by your health care provider. This is important. This information is not intended to replace advice given to you by your health care provider. Make sure you discuss any questions you have with your health care provider. Document Revised: 03/09/2020 Document Reviewed: 03/09/2020 [employer] Patient Education ?? 2022 [employer] Tests Performed Radiology CT Abdomen and Pelvis w/ Contrast 03/26/2024 19:47 EDT Lab Test Name Test Result Date/Time WBC 11.3 K/mcL 03/26/2024 18:54 EDT RBC 4.73 Million/mcL 03/26/2024 18:54 EDT Hgb 14.4 g/dL 03/26/2024 18:54 EDT Hct 42.9 % 03/26/2024 18:54 EDT MCV 90.5 fL 03/26/2024 18:54 EDT MCH 30.4 pg 03/26/2024 18:54 EDT MCHC 33.6 g/dL 03/26/2024 18:54 EDT RDW-CV 13.3 % 03/26/2024 18:54 EDT Platelets 391 K/mcL 03/26/2024 18:54 EDT MPV 7.4 fL 03/26/2024 18:54 EDT Neutro Auto 76.4 % 03/26/2024 18:54 EDT Lymph Auto 11.8 % 03/26/2024 18:54 EDT Thurston Auto 10.5 % 03/26/2024 18:54 EDT Eos, Auto 0.80 % 03/26/2024 18:54 EDT Basophil Auto 0.5 % 03/26/2024 18:54 EDT Neutro Absolute 8.6 K/mcL 03/26/2024 18:54 EDT Lymph Absolute 1.3 K/mcL 03/26/2024 18:54 EDT [place] Absolute 1.2 K/mcL 03/26/2024 18:54 EDT Eos Absolute 0.1 K/mcL 03/26/2024 18:54 EDT Baso Absolute 0.1 K/mcL 03/26/2024 18:54 EDT Sodium Level 129 mmol/L 03/26/2024 18:54 EDT Potassium Level 4.0 mmol/L 03/26/2024 18:54 EDT Chloride Level 96 mmol/L 03/26/2024 18:54 EDT CO2 27 mmol/L 03/26/2024 18:54 EDT Alk Phos 56 IntlUnit/L 03/26/2024 18:54 EDT AST 27 IntlUnit/L 03/26/2024 18:54 EDT ALT 16 IntlUnit/L 03/26/2024 18:54 EDT BUN 7 mg/dL 03/26/2024 18:54 EDT Glucose Level 106 mg/dL 03/26/2024 18:54 EDT Creatinine Level 0.80 mg/dL 03/26/2024 18:54 EDT BUN/Creat Ratio 8.8 03/26/2024 18:54 EDT eGFR CKD-EPI 81 mL/min/1.73 m2 03/26/2024 18:54 EDT Calcium Level 9.4 mg/dL 03/26/2024 18:54 EDT Protein Total 8.4 g/dL 03/26/2024 18:54 EDT Albumin Level 4.5 g/dL 03/26/2024 18:54 EDT Globulin 3.9 g/dL 03/26/2024 18:54 EDT A/G Ratio 1.2 g/dL 03/26/2024 18:54 EDT Bilirubin Total 0.8 mg/dL 03/26/2024 18:54 EDT Anion Gap 6.0 03/26/2024 18:54 EDT Osmolality 257 mOsm/kg 03/26/2024 18:54 EDT Patient/Personal Computer Specialist Signature Patient Name:BRIGIDA PARIKH I have received this information and my questions have been answered. Patient/Personal Computer Specialist Name: Patient/Personal Computer Specialist Signature: Relationship to Patient: Witness Name/Signature: Date: Electronically Signed on: 03/26/2024 19:58 EDTSigned by: Patient Care team information Care Team Personnel Name: EFRA ALBERTS Position: No Access Member Role: Primary Care Physician Address: [address] Care Team Related Persons Name: BENSON PARIKH Name: BENSON PARIKH Insurance Providers Guarantor name: BRIGIDA PARIKH Health Plan Information #: 2 Payer: [employer] [facility] Member Number: [id number] Policy Number: NA Health Plan Information #: 1 Payer[facility] Member Number: [id number] Policy Number: [id number]
--- OUTSIDE RECORDS SUMMARY | 2024-04-28 14:58 | XMS_ITS | Continuity of Care Document ---
Author Organization [facility] Address [address] [place] [id number] Care Team Providers Care Computer Engineering Technologist Name Role Phone EFRA ALBERTS Primary Care Physician Encounter [facility]TT[facility]_[id number] FIN NBR [id number] Date(s): 01/17/24 - 01/17/[address] [phone] [phone] Encounter Diagnosis Diverticulitis of colon(Discharge Diagnosis) - 01/17/24 Diarrhea(Discharge Diagnosis) - 01/17/24 Discharge Disposition: Home f/u Internal Provider Attending Physician: Donta Dyson MD Admitting Physician: Donta Dyson MD Referring Physician: Donta Dyson MD Allergies, Adverse Reactions, Alerts Substance Reaction Severity Status NSAIDs Stomach upset Mild Active metroNIDAZOLE Unknown Active levoFLOXacin Myalgia Moderate Active Assessment and Plan Extracted from: Title:H & P Author:Donta Dyson MD Terence e:01/17/24 1.??Diverticulitis of colon? ?K57.32 ??Colonoscopy today. 2.??Diarrhea??R19.7 ??Rule out colitis. Orders: sodium chloride 0.9% flush, 10 mL, IV Flush, Injection, every 8 hr, First Dose: 01/17/24 7:00:00 EDT, Routine sodium chloride 0.9% flush, 10 mL, IV Flush, Injection, As Directed, First Dose: 01/17/24 6:48:00 EDT, Physician Stop, Routine Sodium Chloride 0.9% 1,000 mL, Total Volume (mL): 1,000, 1,000 mL, Soln-IV, IV, 50 mL/hr, Start Date: 01/17/24 6:48:00 EDT, 86 kg, Populate Charting Weight From Order, 1.96, m2 Blood Glucose Monitoring POC RE, 01/17/24 6:48:00 EDT, Stop date 01/17/24 6:48:00 EDT Diet Order, 01/17/24 6:48:00 EDT, Regular Discharge Patient, 01/17/24 6:48:00 EDT, Discharge when stable per anesthesia criteria Discharge Patient, 01/17/24 6:48:00 EDT, Discharge when stable per SDS criteria Discharge Patient Instructions, Call or come to emergency department if vomiting blood or having black bowel movements, rectal bleeding or passing blood clots Discharge Patient Instructions, Call or come to emergency department if having unusual pain or severe abdominal pain Discharge Patient Instructions, Avoid alcohol, tranquilizers, sleeping pills, or cold medicines for 24 hours Discharge Patient Instructions, You should not be responsible for the care of others Discharge Patient Instructions, You may experience some gas cramps and abdominal bloating Discharge Patient Instructions, Do not sign any contracts, make any major decisions, or drive or operate machinery for 24 hours Discharge Patient Instructions, Passing gas rectally and belching is normal Discharge Patient Instructions, Cramping and abdominal bloating should subside in 1 hour or so Discharge Patient Instructions, Call with any additional questions or concerns Discharge Patient Instructions, Call or come to emergency department for fever greater than 100 ??F Discharge Patient Instructions, Call or come to emergency department chest pain, or shortness of breath Discharge Patient Instructions, Call or come to emergency department for dizziness Discharge Patient Instructions, It is important that a responsible adult drive you home today Discharge Patient Instructions, You may resume your normal activity in 24 hours Discharge Patient Instructions, A light first meal may feel better in your stomach Obtain consent, 01/17/24 6:48:00 EDT, Constant Order, 01/17/24 6:48:00 EDT Peripheral IV Insertion, 01/17/24 6:48:00 EDT Saline Lock Convert From IV, 01/17/24 6:48:00 EDT, Stop date 01/17/24 6:48:00 EDT Vital Signs, 01/17/24 6:48:00 EDT, Stop date 01/17/24 6:48:00 EDT, As needed Vital Signs, 01/17/24 6:48:00 EDT, Once, Stop date 01/17/24 6:48:00 EDT Vital Signs, 01/17/24 6:48:00 EDT, Stop date 01/17/24 6:48:00 EDT, Routine Future Appointments Medications Acidophilus Probiotic Blend 1 [...] recent to oldest [Reference Range]: 1 2 3 Temperature Temporal Artery [36-38 Deg C] 36.3 Deg C (01/17/24 12:54 PM) 36.1 Deg C (01/17/24 12:09 PM) Temperature Temporal Artery (DegF) [97.3-100 Deg F] 97.34 Deg F (01/17/24 12:54 PM) Peripheral Pulse Rate [60-100 bpm] 57 bpm *LOW* (01/17/24 1:16 PM) 65 bpm (01/17/24 1:15 PM) 64 bpm (01/17/24 1:00 PM) Respiratory Rate [12-24 br/min] 16 br/min (01/17/24 1:16 PM) 16 br/min (01/17/24 1:15 PM) 16 br/min (01/17/24 12:54 PM) Blood Pressure [90-140/60-90 mmHg] 108/64mmHg (01/17/24 1:15 PM) 107/69mmHg (01/17/24 1:00 PM) 99/66mmHg (01/17/24 12:54 PM) Mean Arterial Pressure, Cuff [65-140 mmHg] 79 mmHg (01/17/24 1:15 PM) 82 mmHg (01/17/24 1:00 PM) 77 mmHg (01/17/24 12:54 PM) Mean Arterial Pressure Cuff 81 mmHg (01/17/24 1:00 PM) 78 mmHg (01/17/24 12:54 PM) Blood Pressure Location Left arm (01/17/24 1:16 PM) Left arm (01/17/24 1:15 PM) Left arm (01/17/24 12:54 PM) Blood Pressure Method Automatic (01/17/24 1:16 PM) Automatic (01/17/24 1:15 PM) Automatic (01/17/24 12:54 PM) Weight 86 kg (01/10/24 4:20 PM) Weight Dosing 86.000 kg (01/10/24 4:20 PM) Height 160 cm (01/10/24 4:20 PM) Social History Social History Type Response Tobacco Never tobacco user T obacco Use:. Sex Female Hospital Discharge Instructions Patient Education 01/17/2024 12:01:29 Diverticulosis Diverticulosis Diverticulosis is a condition that develops when small pouches (diverticula) form in the wall of the large intestine (colon). The colon is where water is absorbed and stool (feces) is formed. The pouches form when the inside layer of the colon pushes through weak spots in the outer layers of the colon. You may have a few pouches or many of them. The pouches usually do not cause problems unless they become inflamed or infected. When this happens, the condition is called diverticulitis. What are the causes? The cause of this condition is not known. What increases the risk? The following factors may make you more likely to develop this condition: ??? Being older than age 60. Your risk for this condition increases with age. Diverticulosis is rare among people younger than age 30. By age 80, many people have it. ??? Eating a low-fiber diet. ??? Having frequent constipation. ??? Being overweight. ??? Not getting enough exercise. ??? Smoking. ??? Taking futf-abg-dildkhw pain medicines, like aspirin and ibuprofen. ??? Having a family history of diverticulosis. What are the signs or symptoms? In most people, there are no symptoms of this condition. If you do have symptoms, they may include: ??? Bloating. ??? Cramps in the abdomen. ??? Constipation or diarrhea. ??? Pain in the lower left side of the abdomen. How is this diagnosed? Because diverticulosis usually has no symptoms, it is most often diagnosed during an exam for othercolon problems. The condition may be diagnosed by: ??? Using a flexible scope to examine the colon (colonoscopy). ??? Taking an X-ray of the colon after dye has been put into the colon (barium enema). ??? Having a CT scan. How is this treated? You may not need treatment for this condition. Your health care provider may recommend treatment toprevent problems. You may need treatment if you have symptoms or if you previously had diverticulitis. Treatment may include: ??? Eating a high-fiber diet. ??? Taking a fiber supplement. ??? Taking a live bacteria supplement (probiotic). ??? Taking medicine to relax your colon. Follow these instructions at home: Medicines ??? Take owmr-xfy-qoydqzu and prescription medicines only as told by your health care provider. ??? If told by your health care provider, take a fiber supplement or probiotic. Constipation prevention Your condition may cause constipation. To prevent or treat constipation, you may need to: ??? Drink enough fluid to keep your urine pale yellow. ??? Take qraw-ead-mlcqjwp or prescription medicines. ??? Eat foods that are high in fiber, such as beans, whole grains, and fresh fruits and vegetables. ??? Limit foods that are high in fat and processed sugars, such as fried or sweet foods. General instructions ??? Try not to strain when you have a bowel movement. ??? Keep all follow-up visits as told by your health care provider. This is important. Contact a health care provider if you: ??? Have pain in your abdomen. ??? Have bloating. ??? Have cramps. ??? Have not had a bowel movement in 3 days. Get help right away if: ??? Your pain gets worse. ??? Your bloating becomes very bad. ??? You have a fever or chills, and your symptoms suddenly get worse. ??? You vomit. ??? You have bowel movements that are bloody or black. ??? You have bleeding from your rectum. Summary ??? Diverticulosis is a condition that develops when small pouches (diverticula) form in the wall of the large intestine (colon). ??? You may have a few pouches or many of them. ??? This condition is most often diagnosed during an exam for other colon problems. ??? Treatment may include increasing the fiber in your diet, taking supplements, or taking medicines. This information is not intended to replace advice given to you by your health care provider. Make sure you discuss any questions you have with your health care provider. Document Revised: 12/26/2019 Document Reviewed: 12/26/2019 [employer] Patient Education ?? 2022 [employer] 01/17/2024 12:01:28 Colonoscopy, Adult, Care After Colonoscopy, Adult, Care After The following information offers guidance on how to care for yourself after your procedure. Your health care provider may also give you more specific instructions. If you have problems or questions, contact your health care provider. What can I expect after the procedure? After the procedure, it is common to have: ??? A small amount of blood in your stool for 24 hours after the procedure. ??? Some gas. ??? Mild cramping or bloating of your abdomen. Follow these instructions at home: Eating and drinking ??? Drink enough fluid to keep your urine pale yellow. ??? Follow instructions from your health care provider about eating or drinking restrictions. ??? Resume your normal diet as told by your health care provider. Avoid heavy or fried foods that are hard to digest. Activity ??? Rest as told by your health care provider. ??? Avoid sitting for a long time without moving. Get up to take short walks every 1???2 hours. This is important to improve blood flow and breathing. Ask for help if you feel weak or unsteady. ??? Return to your normal activities as told by your health care provider. Ask your health care provider what activities are safe for you. Managing cramping and bloating ??? Try walking around when you have cramps or feel bloated. ??? If directed, apply heat to your abdomen as told by your health care provider. Use the heat source that your health care provider recommends, such as a moist heat pack or a heating pad. ??? Place a towel between your skin and the heat source. ??? Leave the heat on for 20???30 minutes. ??? Remove the heat if your skin turns bright red. This is especially important if you are unable to feel pain, heat, or cold. You have a greater risk of getting burned. General instructions ??? If you were given a sedative during the procedure, it can affect you for several hours. Do not drive or operate machinery until your health care provider says that it is safe. ??? For the first 24 hours after the procedure: ??? Do not sign important documents. ??? Do not drink alcohol. ??? Do your regular daily activities at a slower pace than normal. ??? Eat soft foods that are easy to digest. ??? Take ehfb-odq-ygqhjvv and prescription medicines only as told by your health care provider. ??? Keep all follow-up visits. This is important. Contact a health care provider if: ??? You have blood in your stool 2???3 days after the procedure. Get help right away if: ??? You have more than a small spotting of blood in your stool. ??? You have large blood clots in your stool. ??? You have swelling of your abdomen. ??? You have nausea or vomiting. ??? You have a fever. ??? You have increasing pain in your abdomen that is not relieved with medicine. These symptoms may be an emergency. Get help right away. Call 911. ??? Do not wait to see if the symptoms will go away. ??? Do not drive yourself to the hospital. Summary ??? After the procedure, it is common to have a small amount of blood in your stool. You may also have mild cramping and bloating of your abdomen. ??? If you were given a sedative during the procedure, it can affect you for several hours. Do not drive or operate machinery until your health care provider says that it is safe. ??? Get help right away if you have a lot of blood in your stool, nausea or vomiting, a fever, or increased pain in your abdomen. This information is not intended to replace advice given to you by your health care provider. Make sure you discuss any questions you have with your health care provider. Document Revised: 01/19/2022 Document Reviewed: 01/19/2022 Else[employer] Patient Education ?? 2022 [employer] Discharge instructions * Aimee Lucero: PERFORM Event Display: Discharge Instructions Authored Date: [id number] BRIGIDA PARIKH :1955 Age:68 years Sex:Female Visit Date:01/17/2024 Primary Care Physician: EFRA ALBERTS [facility] Discharge Instructions We would like to thank you for allowing us to assist you with your healthcare needs. The following includes patient education materials and information regarding your injury/illness. Your Next Steps Discharge Orders Discharge Patient Instructions, You may experience some gas cramps and abdominal bloating Discharge Patient Instructions, Cramping and abdominal bloating should subside in 1 hour or so Discharge Patient Instructions, Passing gas rectally and belching is normal Discharge Patient Instructions, A light first meal may feel better in your stomach Discharge Patient Instructions, You may resume your normal activity in 24 hours Discharge Patient Instructions, It is important that a responsible adult drive you home today Discharge Patient Instructions, Do not sign any contracts, make any major decisions, or drive or operate machinery for 24 hours Discharge Patient Instructions, You should not be responsible for the care of others Discharge Patient Instructions, Avoid alcohol, tranquilizers, sleeping pills, or cold medicines for24 hours Discharge Patient Instructions, Call or come to emergency department if having unusual pain or severe abdominal pain Discharge Patient Instructions, Call or come to emergency department if vomiting blood or having black bowel movements, rectal bleeding or passing blood clots Discharge Patient Instructions, Call or come to emergency department for dizziness Discharge Patient Instructions, Call or come to emergency department chest pain, or shortness of breath Discharge Patient Instructions, Call or come to emergency department for fever greater than 100 ??F Discharge Patient Instructions, Call with any additional questions or concerns Scheduled Future Appointments Monday 1:30 PM EDT ?? With: Khushboo Vieira APRN Where: [facility] Gastroenterology Status: Confirmed Medications What How Much When Instructions Next Dose Unchanged ascorbic acid (Vitamin C 500 mg oral tablet, chewable) 1 tab Chewed Every day Unchanged buPROPion (buPROPion 150 mg/ 12 hours (SR) oral tablet, extended release) 1 tab Oral (given by mouth) Every day Unchanged busPIRone (busPIRone 10 mg oral tablet) 1 tab Oral (given by mouth) 2 times a day Unchanged cholecalciferol (Vitamin D3 1000 intl [...] Milligrams Oral (given by mouth) Every day Your Summary Your Care Team Admitting Physician - Donta Dyson MD Attending Physician - Donta Dyson MD Primary Care Physician - EFRA ALBERTS Referring Physician - Donta Dyson MD Your Diagnosis Diverticulitis of colon Diarrhea Problems Ongoing - Any problem that you are currently receiving treatment for. Abdominal pain AK (actinic keratosis) Anterior shoulder dislocation Back pain Bradycardia Diarrhea Diverticulitis of colon Eczema Essential thrombocythemia Fibromyalgia Folliculitis GERD without esophagitis Headache History of kidney stone HTN - Hypertension IBS - Irritable bowel syndrome Intention tremor Lower abdominal pain Primary fibromyalgia syndrome Right rotator cuff tear Tinnitus of left ear Procedures Performed ???Colonoscopy Biopsy (01/17/2024)???Anterior and posterior colporrhaphy???Excision of ectopic ovarian ???LASIK - laser assisted in situ keratomileusis Discharge Vitals Temperature??(Temporal Artery) 97.3 ??F (36.3 ??C) Heart Rate??(Peripheral) 64 Respiratory Rate?? 16 Blood Pressure?? 107/69?? SpO2?? 100% Allergies levoFLOXacin??(Myalgia) NSAIDs??(Stomach upset) metroNIDAZOLE Education [employer] Diverticulosis Diverticulosis is a condition that develops when small pouches (diverticula) form in the wall of the large intestine (colon). The colon is where water is absorbed and stool (feces) is formed. The pouches form when the inside layer of the colon pushes through weak spots in the outer layers of the colon. You may have a few pouches or many of them. The pouches usually do not cause problems unless they become inflamed or infected. When this happens, the condition is called diverticulitis. What are the causes? The cause of this condition is not known. What increases the risk? The following factors may make you more likely to develop this condition: ? Being older than age 60. Your risk for this condition increases with age. Diverticulosis is rare among people younger than age 30. By age 80, many people have it. ? Eating a low-fiber diet. ? Having frequent constipation. ? Being overweight. ? Not getting enough exercise. ? Smoking. ? Taking okkv-ejm-hjgzdre pain medicines, like aspirin and ibuprofen. ? Having a family history of diverticulosis. What are the signs or symptoms? In most people, there are no symptoms of this condition. If you do have symptoms, they may include: ? Bloating. ? Cramps in the abdomen. ? Constipation or diarrhea. ? Pain in the lower left side of the abdomen. How is this diagnosed? Because diverticulosis usually has no symptoms, it is most often diagnosed during an exam for othercolon problems. The condition may be diagnosed by: ? Using a flexible scope to examine the colon (colonoscopy). ? Taking an X-ray of the colon after dye has been put into the colon (barium enema). ? Having a CT scan. How is this treated? You may not need treatment for this condition. Your health care provider may recommend treatment toprevent problems. You may need treatment if you have symptoms or if you previously had diverticulitis. Treatment may include: ? Eating a high-fiber diet. ? Taking a fiber supplement. ? Taking a live bacteria supplement (probiotic). ? Taking medicine to relax your colon. Follow these instructions at home: Medicines ? Take jtos-owu-sinmkmm and prescription medicines only as told by your health care provider. ? If told by your health care provider, take a fiber supplement or probiotic. Constipation prevention Your condition may cause constipation. To prevent or treat constipation, you may need to: ? Drink enough fluid to keep your urine pale yellow. ? Take clwr-owu-phjygpx or prescription medicines. ? Eat foods that are high in fiber, such as beans, whole grains, and fresh fruits and vegetables. ? Limit foods that are high in fat and processed sugars, such as fried or sweet foods. General instructions ? Try not to strain when you have a bowel movement. ? Keep all follow-up visits as told by your health care provider. This is important. Contact a health care provider if you: ? Have pain in your abdomen. ? Have bloating. ? Have cramps. ? Have not had a bowel movement in 3 days. Get help right away if: ? Your pain gets worse. ? Your bloating becomes very bad. ? You have a fever or chills, and your symptoms suddenly get worse. ? You vomit. ? You have bowel movements that are bloody or black. ? You have bleeding from your rectum. Summary ? Diverticulosis is a condition that develops when small pouches (diverticula) form in the wall of the large intestine (colon). ? You may have a few pouches or many of them. ? This condition is most often diagnosed during an exam for other colon problems. ? Treatment may include increasing the fiber in your diet, taking supplements, or taking medicines. This information is not intended to replace advice given to you by your health care provider. Make sure you discuss any questions you have with your health care provider. Document Revised: 12/26/2019 Document Reviewed: 12/26/2019 [employer] Patient Education ?? 2023 [employer]. Colonoscopy, Adult, Care After The following information offers guidance on how to care for yourself after your procedure. Your health care provider may also give you more specific instructions. If you have problems or questions, contact your health care provider. What can I expect after the procedure? After the procedure, it is common to have: ? A small amount of blood in your stool for 24 hours after the procedure. ? Some gas. ? Mild cramping or bloating of your abdomen. Follow these instructions at home: Eating and drinking ? Drink enough fluid to keep your urine pale yellow. ? Follow instructions from your health care provider about eating or drinking restrictions. ? Resume your normal diet as told by your health care provider. Avoid heavy or fried foods that are hard to digest. Activity ? Rest as told by your health care provider. ? Avoid sitting for a long time without moving. Get up to take short walks every 1???2 hours. This isimportant to improve blood flow and breathing. Ask for help if you feel weak or unsteady. ? Return to your normal activities as told by your health care provider. Ask your health care provider what activities are safe for you. Managing cramping and bloating ? Try walking around when you have cramps or feel bloated. ? If directed, apply heat to your abdomen as told by your health care provider. Use the heat source that your health care provider recommends, such as a moist heat pack or a heating pad. ? Place a towel between your skin and the heat source. ? Leave the heat on for 20???30 minutes. ? Remove the heat if your skin turns bright red. This is especially important if you are unable to feel pain, heat, or cold. You have a greater risk of getting burned. General instructions ? If you were given a sedative during the procedure, it can affect you for several hours. Do not drive or operate machinery until your health care provider says that it is safe. ? For the first 24 hours after the procedure: ? Do not sign important documents. ? Do not drink alcohol. ? Do your regular daily activities at a slower pace than normal. ? Eat soft foods that are easy to digest. ? Take ibri-lmg-tnsmpkm and prescription medicines only as told by your health care provider. ? Keep all follow-up visits. This is important. Contact a health care provider if: ? You have blood in your stool 2???3 days after the procedure. Get help right away if: ? You have more than a small spotting of blood in your stool. ? You have large blood clots in your stool. ? You have swelling of your abdomen. ? You have nausea or vomiting. ? You have a fever. ? You have increasing pain in your abdomen that is not relieved with medicine. These symptoms may be an emergency. Get help right away. Call 911. ? Do not wait to see if the symptoms will go away. ? Do not drive yourself to the hospital. Summary ? After the procedure, it is common to have a small amount of blood in your stool. You may also have mild cramping and bloating of your abdomen. ? If you were given a sedative during the procedure, it can affect you for several hours. Do not drive or operate machinery until your health care provider says that it is safe. ? Get help right away if you have a lot of blood in your stool, nausea or vomiting, a fever, or increased pain in your abdomen. This information is not intended to replace advice given to you by your health care provider. Make sure you discuss any questions you have with your health care provider. Document Revised: 01/19/2022 Document Reviewed: 01/19/2022 [employer] Patient Education ?? 2022 [employer] Patient/Endband Sizer Signature Patient Name:BRIGIDA PARIKH I have received this information and my questions have been answered. Patient/Endband Sizer Name: Patient/Endband Sizer Signature: Relationship to Patient: Witness Name/Signature: Date: Electronically Signed on: 01/17/2024 13:09 EDTSigned by:PARESH History and physical note * Donta Dyson MD: PERFORM Event Display: History and Physical Authored Date: [id number] BRIGIDA PARIKH :1955 Age:68 years Sex:Female Visit Date:01/17/2024 Primary Care Physician: EFRA ALBERTS History of Present Illness 68-year-old female??at average risk for colorectal cancer??with??chronic intermittent diarrhea attributed to IBS,??and??3 episodes of diverticulitis??in the last??few years. ??She is currently at [facility]. Physical Exam Obese white female no acute distress Lungs: Clear to auscultation bilaterally Heart: Regular rhythm S1-S2 Abdomen: Soft nontender Assessment/Plan 1.??Diverticulitis of colon??K57.32 ??Colonoscopy today. 2.??Diarrhea??R19.7 ??Rule out colitis. Orders: sodium chloride 0.9% flush, 10 mL, IV Flush, Injection, every 8 hr, First Dose: 01/17/24 7:00:00 EDT, Routine sodium chloride 0.9% flush, 10 mL, IV Flush, Injection, As Directed, First Dose: 01/17/24 6:48:00 EDT, Physician Stop, Routine Sodium Chloride 0.9% 1,000 mL, Total Volume (mL): 1,000, 1,000 mL, Soln-IV, IV, 50 mL/hr, Start Date: 01/17/24 6:48:00 EDT, 86 kg, Populate Charting Weight From Order, 1.96, m2 Blood Glucose Monitoring POC RE, 01/17/24 6:48:00 EDT, Stop date 01/17/24 6:48:00 EDT Diet Order, 01/17/24 6:48:00 EDT, Regular Discharge Patient, 01/17/24 6:48:00 EDT, Discharge when stable per anesthesia criteria Discharge Patient, 01/17/24 6:48:00 EDT, Discharge when stable per SDS criteria Discharge Patient Instructions, Call or come to emergency department if vomiting blood or having black bowel movements, rectal bleeding or passing blood clots Discharge Patient Instructions, Call or come to emergency department if having unusual pain or severe abdominal pain Discharge Patient Instructions, Avoid alcohol, tranquilizers, sleeping pills, or cold medicines for24 hours Discharge Patient Instructions, You should not be responsible for the care of others Discharge Patient Instructions, You may experience some gas cramps and abdominal bloating Discharge Patient Instructions, Do not sign any contracts, make any major decisions, or drive or operate machinery for 24 hours Discharge Patient Instructions, Passing gas rectally and belching is normal Discharge Patient Instructions, Cramping and abdominal bloating should subside in 1 hour or so Discharge Patient Instructions, Call with any additional questions or concerns Discharge Patient Instructions, Call or come to emergency department for fever greater than 100 ??F Discharge Patient Instructions, Call or come to emergency department chest pain, or shortness of breath Discharge Patient Instructions, Call or come to emergency department for dizziness Discharge Patient Instructions, It is important that a responsible adult drive you home today Discharge Patient Instructions, You may resume your normal activity in 24 hours Discharge Patient Instructions, A light first meal may feel better in your stomach Obtain consent, 01/17/24 6:48:00 EDT, Constant Order, 01/17/24 6:48:00 EDT Peripheral IV Insertion, 01/17/24 6:48:00 EDT Saline Lock Convert From IV, 01/17/24 6:48:00 EDT, Stop date 01/17/24 6:48:00 EDT Vital Signs, 01/17/24 6:48:00 EDT, Stop date 01/17/24 6:48:00 EDT, As needed Vital Signs, 01/17/24 6:48:00 EDT, Once, Stop date 01/17/24 6:48:00 EDT Vital Signs, 01/17/24 6:48:00 EDT, Stop date 01/17/24 6:48:00 EDT, Routine Problem List/Past Medical History Ongoing Abdominal pain [...] Historical No qualifying data Procedure/Surgical History ???Colonoscopy (06/22/2015)???Anterior and posterior colporrhaphy???Cholecystectomy???Excision of ectopic ovarian ???LASIK - laser assisted in situ keratomileusis Medications Inpatient Sodium Chloride 0.9% 1,000 mL, 1000 mL, IV sodium chloride 0.9% flush, 10 mL, IV Flush, every 8 hr sodium chloride 0.9% flush, 10 mL, IV Flush, As Directed Home Acidophilus Probiotic Blend, 1 cap, Oral, Daily [...] Oral, Daily Allergies levoFLOXacin??(Myalgia) NSAIDs??(Stomach upset) metroNIDAZOLE Social History Alcohol Current, Wine- Comments: GLASS OF WINE AT NIGHT Electronic Cigarette/Vaping Electronic Cigarette Use: Never. Substance Use Never Tobacco Never tobacco user Tobacco Use:. Family History Father: History is unknown Mother: History is unknown Electronically Signed on 01/17/2024 12:02 EDT Donta Dyson MD Patient Care team information Care Team Personnel Name: EFRA ALBERTS Position: No Access Member Role: Primary Care Physician Address: Address: [id number] [place] [address] Care Team Related Persons Name: BENSON PARIKH Address: Home [address] [id number] Address: Mailing [address] [place] [phone] Name: BENSON PARIKH Address: Home [address] [place], [place] [phone] [facility]
--- OUTSIDE RECORDS SUMMARY | 2024-04-28 14:58 | XMS_ITS | Continuity of Care Document ---
Author Organization [facility] Address [address] [place] [id number] Care Team Providers Care Emg Technician Name Role Phone EFRA ALBERTS Primary Care Physician Encounter [facility] NBR [id number] Date(s): 12/05/23 - 12/05/[address] [address]- Encounter Diagnosis Diverticulitis of large intestine without perforation or abscess without bleeding(Final) - Discharge Disposition: Home or Self Care Attending Physician: Donta Dyson MD Admitting Physician: Donta Dyson MD Allergies, Adverse Reactions, Alerts Substance Reaction Severity Status NSAIDs Unknown Active metroNIDAZOLE Moderate Active levoFLOXacin Severe Active Assessment and Plan Future Appointments Diagnostic Tests Pending * Calprotectin, Fecal LC 12/05/23 Medications Acidophilus Probiotic Blend 0 Refill(s) Start Date: 08/23/22 Status: Ordered buPROPion 150 mg/12 hours (SR) oral tablet, extended release 150 mg = 1 tab, Oral, Daily, 0 Refill(s) Start Date: 08/22/22 Status: Ordered dicyclomine 10 mg oral capsule 10 mg = 1 cap, Oral, QID, Take 1 tablet by mouth 30 minutes before meals and before bed as needed for diarrhea and abdominal pain, # 120 cap, 1 Refill(s), Pharmacy: [facility] #[id number], 160, cm, 12/02/23 0:28:00 EDT, Height, 88.2, kg, 12/05/23 14:01:00 EDT, Weight Dosing Start Date: 12/06/23 Stop Date: 02/04/24 Status: Ordered gabapentin 300 mg oral capsule [...] Site Status Colonoscopy 06/21/15 Completed Cholecystectomy Completed Results Laboratory List Name Date GI Panel ([facility]) 12/05/23 Most recent to oldest [Reference Range]: 1 Adenovirus F 40/41 GIP-[facility] [Not Detect ed] Not Detected (12/05/23 4:00 PM) Astrovirus GIP-[facility] [Not Detected] Not Detected (12/05/23 4:00 PM) Cyclospora cayetanensis GIP-[facility] [Not D etected] Not Detected (12/05/23 4:00 PM) Clostridioides difficile toxin A/B -BFir [Not Detected] Not Detected (12/05/23 4:00 PM) Campylobacter GIP-[facility] [Not Detected] N ot Detected (12/05/23 4:00 PM) Cryptosporidium GIP-[facility] [Not Detected] Not Detected (12/05/23 4:00 PM) Entamoeba histolytica [facility]IP[facility] [Not Det ected] Not Detected (12/05/23 4:00 PM) Enteroaggregative E. coli GIP-[facility] [Not Detected] Not Detected (12/05/23 4:00 PM) Enteropathogenic E. coli GIP-[facility] [Not Detected] Not Detected (12/05/23 4:00 PM) Enterotoxige E. coli LT/ST [facility]IP-[facility] [No t Detected] Not Detected (12/05/23 4:00 PM) Giardia lamblia GIP-[facility] [Not Detected] Not Detected (12/05/23 4:00 PM) Norovirus GI/GII [facility]IP-[facility] [Not Detected ] Not Detected (12/05/23 4:00 PM) Plesiomonas shigelloides GIP-[facility] [Not Detected] Not Detected (12/05/23 4:00 PM) Rotavirus A GIP-BioF [Not Detected] Not Detected (12/05/23 4:00 PM) Salmonella GIP-BFire [Not Detected] Not Detected (12/05/23 4:00 PM) Sapovirus GIP-[facility] [Not Detected] Not D etected (12/05/23 4:00 PM) Shiga-toxin1/2-prod E.coli GIP-[facility] [No t Detected] Not Detected (12/05/23 4:00 PM) Shigella/Enteroinv E. coli GIP-[facility] [No t Detected] Not Detected (12/05/23 4:00 PM) Vibrio cholerae GIP-[facility] [Not Detected] Not Detected (12/05/23 4:00 PM) Vibrio species GIP-[facility] [Not Detected] Not Detected (12/05/23 4:00 PM) Yersinia enterocolitica GIP-[facility] [Not D etected] Not Detected (12/05/23 4:00 PM) Social History Social History Type Response Tobacco Never tobacco user T obacco Use:. Sex Female Patient Care team information Care Team Personnel Name: EFRA ALBERTS Position: No Access Member Role: Primary Care Physician Address: Address: [address] [address]- [place] Care Team Related Persons Name: BENSON PARIKH Address: Home [address] [place] [phone] Address: Mailing [address] [place] [phone] Name: BENSON PARIKH Address: Home [address] [place] [phone] [facility]
--- OUTSIDE RECORDS SUMMARY | 2024-04-28 14:58 | XMS_ITS | Continuity of Care Document ---
Author Organization [facility] Ambulatory Clinics Address [address] [place] [address] Care Team Providers Care Heavy Duty Custodian Name Role Phone EFRA HERMAN Primary Care Physician Encounter [facility] NBR [id number] Date(s): 12/05/23 - 12/05/23 [facility] Ambulatory Clinics [address] [place], [place] [address] Encounter Diagnosis Diverticulitis of colon(Discharge Diagnosis) - 12/05/23 Diarrhea(Discharge Diagnosis) - 12/05/23 Lower abdominal pain(Discharge Diagnosis) - 12/05/23 Discharge Disposition: Home or Self Care Attending Physician: Donta Dyson MD Referring Physician: EFRA HERMAN Allergies, Adverse Reactions, Alerts Substance Reaction Severity Status NSAIDs Unknown Active metroNIDAZOLE Moderate Active levoFLOXacin Severe Active Assessment and Plan Extracted from: Title:Office Visit Note-gi Author:Donta soliz MD Date:12/05/23 1.??Diverticulitis of colon? ?K57.32 ??Question diverticulitis??versus??left-sided colitis.?? Rule out infectious etiologies.?? Continue Augmentin 875 mg for now.?? I will contact patient with stool study results and recommendations.?? If negative??for infection??continue??Augmentin??to complete the intended course??for??diverticulitis.?? Colonoscopy to be scheduled??to exclude colitis versus neoplasm??given that??her last colonoscopy??was in 2016??at which time she was asymptomatic.?? Episodes of diverticulitis??have been over the last??3 years. Ordered: Calprotectin, Fecal LC, Stool, Routine Collect, 12/05/23, Once, Lab Collect, Print Label, Diverticulitis of colon Diarrhea Lower abdominal pain, Order for future visit GI Panel (BioFire), Stool, Routine Collect, 12/05/23, Once, Lab Collect, Print Label, Diverticulitis of colon Diarrhea Lower abdominal pain, Order for future visit ?? 2.??Diarrhea??R19.7 ??See above. Ordered: Calprotectin, Fecal LC, Stool, Routine Collect, 12/05/23, Once, Lab Collect, Print Label, Diverticulitis of colon Diarrhea Lower abdominal pain, Order for future visit GI Panel (BioFire), Stool, Routine Collect, 12/05/23, Once, Lab Collect, Print Label, Diverticulitis of colon Diarrhea Lower abdominal pain, Order for future visit ?? 3.??Lower abdominal pain??R10.30 ??Patient advised to avoid??anticholinergic agents such as??antidiarrheal agents??given the possibility of??infectious gastroenteritis.?? She is currently holding??Citrucel.?? No need for MiraLAX at this time.?? Patient may use a heating pad as needed. Ordered: Calprotectin, Fecal LC, Stool, Routine Collect, 12/05/23, Once, Lab Collect, Print Label, Diverticulitis of colon Diarrhea Lower abdominal pain, Order for future visit GI Panel (BioFire), Stool, Routine Collect, 12/05/23, Once, Lab Collect, Print Label, Diverticulitis of colon Diarrhea Lower abdominal pain, Order for future visit ?? Voice recognition software utilized which may result in minor securities clerk errors. Future Appointments Functional Status 12/05/23 Recent Travel History No recent travel Other exposure to Infectious Disease Non e [...] pain, # 120 cap, 1 Refill(s), Pharmacy: [facility] #[id number], 160, cm, 12/02/23 0:28:00 EDT, Height, [...] Condition Confirmation Course Effective Dates Status H ealt Status Informant AK (actinic keratosis) Confirmed Active [...] Most recent to oldest [Reference Range]: 1 Apical Heart Rate [60-100 bpm] 66 bpm (12/05/23 1:54 PM) Blood Pressure [90-140/60-90 mmHg] 140/9 0mmHg (12/05/23 1:54 PM) Mean Arterial Pressure, Cuff [65-140 mmH g] 107 mmHg (12/05/23 1:54 PM) Weight 88.2 kg (12/05/23 1:54 PM) Weight Measured (lbs) 194.447 lb (12/05/23 1:54 PM) Weight Dosing 88.200 kg (12/05/23 1:54 PM) Social History Social History Type Response Tobacco Never tobacco user T obacco Use:. Sex Female Physician Outpatient Note * Donta Dyson MD: PERFORM Event Display: Office Clinic Note Physician Authored Date: [id number] BRIGIDA PARIKH Jayden :1955 Age:68 years Sex:Female Visit Date:12/05/2023 Primary Care Physician: EFRA HERMAN Chief Complaint Atypical episode of diverticulitis History of Present Illness Initial visit for this 68-year-old female patient??of Efra Herman??with a history of diverticulitis??over the last few years.?? The patient has no first-degree relatives with colorectal cancer??or inflammatory bowel disease??and underwent??screening colonoscopy 8 years ago??at [facility] on 06/22/2015which showed left-sided diverticulosis.?? Since that time she has had at least 3 episodes??of diverticulitis??treated with Augmentin??which??generally respond within a few days.?For that reason she has been taking MiraLAX and Citrucel on a daily basis??to facilitate bowel movements. ??She reports??baseline??stool appears??small,??pencil??shaped??formed stool. ??Last week patient had??lower abdominal pain??that was??involving??a wider area??than??her typical symptoms.?? Patient also had??nonbloody??watery stools??multiple times throughout the day and night.?? CT scan??of the abdomen pelvis with IV contrast on 12/02/2023??showed a small right lobe liver cyst, status post??cholecystectomy with dilated right intrahepatic duct,??a left adrenal adenoma,??fluid-filled loops of small bowel without inflammatory changes??with air-fluid levels??with distended small bowel,??and the??sigmoid colonthere is mural thickening and pericolonic inflammatory changes as well as rectal prolapse.?? She isstatus post repair of rectocele and cystocele??[address] Valdez.?? Her last bowel movement this morning was??loose??and urgent.?? She feels distended.?? She denies fevers or chills.?? She is accompanied by her .?? In the emergency room her CBC was normal??as were her liver enzymes.??Patient states that this episode feels different than prior episodes. ??She was initially treated with Augmentin 875 mg 3 times daily??which??was reduced to??twice daily??when the patient called her primary care physician for clarification??of the dose.?? Patient states that she is usually asymptomatic by this time??but continues to feel bloated??and has the above symptoms. Review of Systems Pertinent positives and negatives documented in the HPI. Physical Exam Vitals & Measurements HR:??66??(Apical)?? BP:??140/90?? SpO2:??98%?? WT:??88.2??kg?? Well-developed well-nourished white female no acute distress Lungs: Clear to auscultation bilaterally Heart: Regular rhythm S1-S2 Abdomen: Hypoactive bowel sounds,??nondistended,??mild diffuse tenderness??without peritoneal signs, no masses??organomegaly Assessment/Plan 1.??Diverticulitis of colon??K57.32 ??Question diverticulitis??versus??left-sided colitis.?? Rule out infectious etiologies.?? ContinueAugmentin 875 mg for now.?? I will contact patient with stool study results and recommendations.?? If negative??for infection??continue??Augmentin??to complete the intended course??for??diverticulitis.?? Colonoscopy to be scheduled??to exclude colitis versus neoplasm??given that??her last colonoscopy??was in 2016??at which time she was asymptomatic.?? Episodes of diverticulitis??have been over the last??3 years. Ordered: Calprotectin, Fecal LC, Stool, Routine Collect, 12/05/23, Once, Lab Collect, Print Label, Diverticulitis of colon Diarrhea Lower abdominal pain, Order for future visit GI Panel (Bio[facility]), Stool, Routine Collect, 12/05/23, Once, Lab Collect, Print Label, Diverticulitis of colon Diarrhea Lower abdominal pain, Order for future visit ?? 2.??Diarrhea??R19.7 ??See above. Ordered: Calprotectin, Fecal LC, Stool, Routine Collect, 12/05/23, Once, Lab Collect, Print Label, Diverticulitis of colon Diarrhea Lower abdominal pain, Order for future visit GI Panel (BioFire), Stool, Routine Collect, 12/05/23, Once, Lab Collect, Print Label, Diverticulitis of colon Diarrhea Lower abdominal pain, Order for future visit ?? 3.??Lower abdominal pain??R10.30 ??Patient advised to avoid??anticholinergic agents such as??antidiarrheal agents??given the possibility of??infectious gastroenteritis.?? She is currently holding??Citrucel.?? No need for MiraLAX at this time.?? Patient may use a heating pad as needed. Ordered: Calprotectin, Fecal LC, Stool, Routine Collect, 12/05/23, Once, Lab Collect, Print Label, Diverticulitis of colon Diarrhea Lower abdominal pain, Order for future visit GI Panel (BioFire), Stool, Routine Collect, 12/05/23, Once, Lab Collect, Print Label, Diverticulitis of colon Diarrhea Lower abdominal pain, Order for future visit ?? Voice recognition software utilized which may result in minor securities clerk errors. Future Orders Calprotectin, Fecal LC, Stool, Routine Collect, 12/05/23, Once, Lab Collect, Print Label, Diverticulitis of colon Diarrhea Lower abdominal pain, Order for future visit GI Panel (BioFire), Stool, Routine Collect, 12/05/23, Once, Lab Collect, Print Label, Diverticulitis of colon Diarrhea Lower abdominal pain, Order for future visit Problem List/Past Medical History Ongoing AK (actinic keratosis) Anterior shoulder dislocation Back pain Diarrhea Diverticulitis of colon Folliculitis GERD without esophagitis Headache Intention tremor Lower abdominal pain Primary fibromyalgia syndrome Right rotator cuff tear Tinnitus of left ear Historical No qualifying data Procedure/Surgical History ???Colonoscopy (06/22/2015)???Cholecystectomy Medications Acidophilus Probiotic Blend buPROPion 150 mg/12 [...] Mother: History is unknown Electronically Signed on 12/05/2023 14:32 EDT Donta Dyson MD Patient Care team information Care Team Personnel Name: EFRA HERMAN Position: No Access Member Role: Primary Care Physician Address: Address: [id number] [place] [address] Care Team Related Persons Name: BENSON PARIKH Address: Home [address] [facility] [phone] Address: Mailing [address] [place] [phone] Name: BENSON PARIKH Address: Home [address] [place], [place] [phone] [facility]
--- OUTSIDE RECORDS SUMMARY | 2024-04-28 14:58 | XMS_ITS | Continuity of Care Document ---
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 Name Role Phone EFRA ALBERTS Primary Care Physician Encounter [facility] FIN NBR [id number] Date(s): 12/02/23 - 12/02/[address] [phone]- [place] Encounter Diagnosis Acute diverticulitis(Discharge Diagnosis) - 12/02/23 Discharge Disposition: Home or Self Care Attending Physician: Donta Soriano DO Admitting Physician: Donta Soriano DO Referring Physician: Donta Soriano DO Allergies, Adverse Reactions, Alerts Substance Reaction Severity Status NSAIDs Unknown Active metroNIDAZOLE Moderate Active levoFLOXacin Severe Active Medications Acidophilus Probiotic Blend 0 Refill(s) Start [...] Start Date: 08/22/22 Status: Ordered Mental Status 12/02/23 Eye Opening Response Celine Spontaneous ly Best Verbal Response Grubbs Oriented Best Motor Response Grubbs Obeys comman ds Grubbs Coma Score 15 Problem List Condition Confirmation Course Effective Dates [...] Related Diagnosis Body Site Status Cholecystectomy Completed Results Laboratory List Name Date CBC w/ Diff 12/02/23 Comprehensive Metabolic Panel (CMP) 12/01 Lipase Level 12/02/23 Urinalysis Microscopic 12/02/23 Urinalysis with Micro if Indicated and C ulture if Indicated 12/02/23 Automated Diff 12/02/23 Most recent to oldest [Reference Range]: 1 WBC [4.8-10.8 K/mcL] 9.8 K/mcL (12/02/23 12:43 AM) RBC [4.20-5.40 Million/mcL] 4.34 Million /mcL (12/02/23 12:43 AM) Neutro Auto [42.2-75.2 %] 74.7 % (12/02/23 12:43 AM) Lymph Auto [20.5-51.1 %] 12.9 % *LOW* (12/02/23 12:43 AM) Meade Auto [1.7-9.3 %] 10.4 % *HI* (12/02/23 12:43 AM) Basophil Auto [0.0-0.8 %] 0.7 % (12/02/23 12:43 AM) BUN [7-25 mg/dL] 7 mg/dL (12/02/23 12:43 AM) UA Color [Yellow] Yellow (12/02/23 12:43 AM) UA WBC [0-3] 4-6 *ABN* (12/02/23 12:43 AM) Glucose Level [70-109 mg/dL] 101 mg/dL (12/02/23 12:43 AM) Potassium Level [3.5-5.1 mmol/L] 3.7 mmo l/L (12/02/23 12:43 AM) Baso Absolute [0.0-0.2 K/mcL] 0.1 K/mcL (12/02/23 12:43 AM) MCV [81.0-99.0 fL] 89.7 fL (12/02/23 12:43 AM) UA Urobilinogen [0.2] 0.2 (12/02/23 12:43 AM) UA Bili [Negative] Negative (12/02/23 12: AM) UA Ketones [Negative] Negative (12/02/23 12:43 AM) AST [13-39 IntlUnit/L] 23 IntlUnit/L (12/02/23:43 AM) ALT [7-52 IntlUnit/L] 16 IntlUnit/L (12/02/23 12:43 AM) MCHC [32.0-37.0 g/dL] 34.9 g/dL (12/02/23 12:43 AM) Osmolality [275-295 mOsm/kg] 263 mOsm/kg *LOW* (12/02/23 12:43 AM) Sodium Level [136-145 mmol/L] 132 mmol/L *LOW* (12/02/23 12:43 AM) UA RBC [0-3] None Seen (12/02/23:43 AM) UA Leuk Est [Negative] Small *ABN* (12/02/23 12:43 AM) Lymph Absolute [1.2-3.4 K/mcL] 1.3 K/mcL (12/02/23 12:43 AM) UA Nitrite [Negative] Negative (12/02/23 12:43 AM) UA Glucose [Negative] Negative (12/02/23 12:43 AM) Hct [37.0-47.0 %] 38.9 % (12/02/23 12:43 AM) UA Bacteria [None Seen] 1+ *ABN* (12/02/23 12:43 AM) Lipase Level [11-82 unit/L] 30 unit/L 1 (12/02/23 12:43 AM) Calcium Level [8.6-10.3 mg/dL] 9.3 mg/dL (12/02/23 12:43 AM) Meade Absolute [0.1-0.6 K/mcL] 1.0 K/mcL *HI* (12/02/23 12:43 AM) Albumin Level [3.5-5.7 g/dL] 4.1 g/dL (12/02/23 12:43 AM) Protein Total [6.4-8.9 g/dL] 7.7 g/dL (12/02/23 12:43 AM) UA Protein [Negative] Negative (12/02/23:43 AM) MCH [27.0-31.0 pg] 31.3 pg *HI* (12/02/23 12:43 AM) Neutro Absolute [1.4-6.5 K/mcL] 7.3 K/mc L *HI* (12/02/23 12:43 AM) Bilirubin Total [0.3-1.0 mg/dL] 0.8 mg/d L (12/02/23 12:43 AM) Hgb [12.0-16.0 g/dL] 13.6 g/dL (12/02/23 12:43 AM) Alk Phos [34-104 IntlUnit/L] 46 IntlUnit /L (12/02/23 12:43 AM) UA Blood [Negative] Negative (12/02/23 12:43 AM) MPV [7.4-10.4 fL] 7.2 fL *LOW* (12/02/23 12:43 AM) UA Spec Grav [1.001-1.030] 1.010 (12/02/23 12:43 AM) Platelets [130-400 K/mcL] 359 K/mcL (12/02/23 12:43 AM) CO2 [21-31 mmol/L] 27 mmol/L (12/02/23 12:43 AM) Eos Absolute [0.0-0.2 K/mcL] 0.1 K/mcL (12/02/23 12:43 AM) UA Squam Epithelial [0-3] 0-3 (12/02/23 12:43 AM) UA pH [5.00-9.00] 7.00 (12/02/23 12:43 AM) UA Renal Epithelial [None Seen] 0-3 *ABN* (12/02/23 12:43 AM) UA Appear [Clear] Clear (12/02/23 12:43 AM) Chloride Level [98-107 mmol/L] 98 mmol/L (12/02/23 12:43 AM) RDW-CV [11.5-14.5 %] 13.3 % (12/02/23 12:43 AM) A/G Ratio [1.0-2.5 g/dL] 1.1 g/dL (12/02/23 12:43 AM) BUN/Creat Ratio [8.0-20.0] 8.8 (12/02/23 12:43 AM) Globulin [2.3-3.5 g/dL] 3.6 g/dL *HI* (12/02/23 12:43 AM) Slide Review Not Indicated (12/02/23 12:43 AM) UA Culture Ind?. [No] Yes (12/02/23 12:43 AM) Urine Srce Clean Catch (12/02/23 12:43 AM) Creatinine Level [0.60-1.20 mg/dL] 0.80 mg/dL (12/02/23 12:43 AM) Anion Gap [3.0-12.0] 7.0 (12/02/23 12:43 AM) Eos, Auto [0.00-3.00 %] 1.30 % (12/02/23 12:43 AM) eGFR CKD-EPI [>=60 mL/min/1.73 m2] 81 mL /min/1.73 m2 (12/02/23 12:43 AM) 1Interpretive Data: N-voksmf-k-benzoquinone imine (meabolite of Acetaminophen) will generate erroneously low lipase results in samples for patients that have taken toxic doses of acetaminophen. Orders for Microbiology Reports Name Date Urine Culture 12/02/23 Microbiology Reports TEST:Urine Culture STATUS:Order in Progress BODY SITE: SOURCE:Urine COLLECTED DATE/TIME:12/02/23 12:43 AM PRELIMINARY REPORT No growth first am read Radiology Reports * Exam Date Time Procedure Performing Provider Status 12/02/23 12:[address] Abdomen and Pelvi s w/ Contrast Sobia Merrill; Auth (Verified) Notes: (CT Abdomen and Pelvis w/ Contrast) Reason For Exam: LLQ Abdominal Pain CT Abdomen and Pelvis w/ Contrast PROCEDURE INFORMATION: Exam: CT Abdomen And Pelvis With Contrast Exam date and time: 12/02/2023 12:47 AM Age: 68 years old Clinical indication: Abdominal pain; Localized; Left lower quadrant (llq); Additional info: Llq abdominal pain TECHNIQUE: Imaging protocol: Computed tomography of the abdomen and pelvis with contrast. Radiation optimization: All CT scans at this facility use at least one of these dose optimization techniques: automated exposure control; mA and/or kV adjustment per patient size (includes targeted exams where dose is matched to clinical indication); or iterative reconstruction. Contrast material: [id number]; Contrast volume: 100 ml; Contrast route: INTRAVENOUS (IV); COMPARISON: CT ABD/PELVIS W CONTRAST 07/10/2019 5:23 PM FINDINGS: Lungs: The lungs are normal. Pleural spaces: There is no evidence of pneumothorax. There are no pleural effusions present. Heart: The cardiac structures are normal. Liver: Low-attenuation lesion within the right liver lobe likely represents a small hepatic cyst. Gallbladder and biliary ducts: There has been a cholecystectomy Mild right intrahepatic biliary dilatation present. Pancreas: The pancreas is normal. Spleen: The spleen is normal. Adrenal glands: Small 6 mm low-attenuation mass within the lateral limb of the left adrenal gland likely representing a small adenoma. The adrenal glands are otherwise normal. Kidneys and ureters: Nonobstructing calculus present within lower pole of the left kidney. Stomach and bowel: There are diffuse fluid filled loops of small bowel and colon with scattered air fluid levels. The bowel loops are mildly distended. No associated bowel wall thickening or inflammatory changes. No evidence of obstruction. Findings most consistent with diffuse enterocolitis. There is more focal moderate to severe inflammatory bowel wall thickening involving the sigmoid colon. There is bowel wall edema. There is adjacent inflammatory change seen within the peritoneal fat and mesentery. This likely represents acute colitis. An underlying mass is not excluded. There appears to be a bnuo-vr-kivwrquf degree of rectal prolapse. Appendix: There is no evidence of appendicitis. Intraperitoneal space: Small amount of free fluid present within the dependent portion of the pelvis. No evidence of free air within the abdomen or pelvis. Vasculature: The abdominal aorta and iliac arteries are tortuous which may represent long-standing hypertension.The aorta demonstrates mild atherosclerotic calcification. The arterial peripheral vasculature demonstrates diffuse mild atherosclerotic calcification. The inferior venacava appears normal.The portal, mesenteric and splenic veins are patent. Lymph nodes: Unremarkable. No enlarged lymph nodes. Urinary bladder: The bladder is normal. Reproductive: The uterus is normal. Bones/joints: The skeletal structures and soft tissues show no evidence of fracture or other acute processes. The thoracolumbar spine demonstrates moderate degenerative changes at multiple levels. Soft tissues: The extra-abdominal soft tissues are normal. IMPRESSION: 1. There is a more focal moderate to severe inflammatory bowel wall thickening involving the sigmoid colon. There is bowel wall edema. There is adjacent inflammatory change seen within the peritoneal fat and mesentery. This likely represents acute colitis. An underlying mass is not excluded. 2. There are diffuse fluid filled loops of small bowel and colon with scattered air fluid levels. The bowel loops are mildly distended. No associated bowel wall thickening or inflammatory changes. No evidence of obstruction. Findings most consistent with diffuse enterocolitis. 3. Small amount of free fluid present within the dependent portion of the pelvis. 4. There appears to be a dkqv-ns-urozozre degree of rectal prolapse. COMMENTS: Consistent with the [employer]'s Incidental Findings Committee white paper (J Am Kg Radiol 2017): Any incidental adrenal lesion less than 1 cm is likely benign. No follow-up imaging is recommended for these lesions per consensus recommendations based on imaging criteria. Further lab evaluation could be pursued if warranted based on clinical findings. THIS DOCUMENT HAS BEEN ELECTRONICALLY SIGNED BY NAHOMY BORJA MD on 12/02/2023 02:33 AM Final Signed by: Nahomy Borja MD Signed (Electronic Signature): 12/02/2023 2:33 am Vital Signs Most recent to oldest [Reference Range]: 1 2 3 Temperature Temporal Artery [36-38 Deg C] 36 Deg C (12/02/23 12:28 AM) Peripheral Pulse Rate [60-100 bpm] 63 bpm (12/02/23 2:30 AM) 67 bpm (12/02/23 2:00 AM) 63 bpm (12/02/23 1:30 AM) Respiratory Rate [12-24 br/min] 18 br/min (12/02/23 12:28 AM) Blood Pressure [90-140/60-90 mmHg] 137/75mmHg (12/02/23 2:30 AM) 137/69mmHg (12/02/23 2:00 AM) 151/73mmHg *HI* (12/02/23 1:30 AM) Mean Arterial Pressure, Cuff [65-140 mmHg] 96 mmHg (12/02/23 2:30 AM) 108 mmHg (12/02/23 12:28 AM) Weight 86 kg (12/02/23 12:28 AM) Weight Dosing 86.000 kg (12/02/23 12:28 AM) Height 160 cm (12/02/23 12:28 AM) Body Mass Index 33.59 kg/m2 (12/02/23 12:28 AM) Social History Social History Type Response Tobacco Never tobacco user T obacco Use:. Sex Female Hospital Discharge Instructions Patient Education 12/02/2023 03:16:57 Diverticulitis Diverticulitis Diverticulitis is infection or inflammation [...] at home. Treatment may include: ??? Taking qclf-jaf-orunwzh pain medicines. ??? Following a clear liquid [...] these instructions at home: Medicines ??? Take tycm-deq-zuleyed and prescription medicines only as told by [...] provider. Document Revised: 03/09/2020 Document Reviewed: 03/09/2020 [employer] Patient Education ?? 2022 [employer]. Follow Up Care 12/02/2023 00:10:13 With:Prashant Yeager MD Address: [facility] [address] [place], [place] [id number]- When:1 to 2 weeks Comments:Thank you for visiting the emergency department today. ??Based on our evaluation it has been determined??that you have acute diverticulitis.?? Here are some instructions to help manage the condition at home:1. ??Hydration: Drink plenty of clear fluids such as water, oral rehydration solutions??(Body Armor drink line, Pedialyte, water-mixed??with Gatorade), clear broths, and electrolyte drinks through the dehydration.?? Small frequent sips are recommended especially if vomiting is present.2. ??Diet:??Begin with??bland, rret-pj-qmpuxe foods??such as rice, bananas, toast, applesauce (brat diet)??for the next??48-hours. ??Avoid??fatty, spicy or heavy foods for the next??several days.3. ??Rest:??Get plenty of rest to aid in the recovery process.4. ??Medications:?continue the Augmentin as previously prescribed twice daily for the next 10 days. ??Encouraged to take this medication with probiotics.?? For pain control I recommend Tylenol 1000 mg every 4 hours not to exceed 4000 mg in 24 hoursAs well as 800 mg ibuprofen every 6 hours??with food.5. ??Isolation:??If the patient is a child??keep him home from school or daycare until symptoms have resolved for at least 24 hours to help prevent spreading the infection to others. ??If the patient??is an adult??it is similarly important??to??stay away from contact with others until symptoms have resolved for least 24 hours??to help prevent spreading infection to others.6. ??Infection control:??Practice good hand hygiene, and disinfect surfaces and items that may have come into contact with a virus to prevent spreading infection to others .7.?? Follow-up: If symptoms persist or worsen??or if you have concerns about dehydration please seek medical attention promptly. ??Follow-up with your??primary care provider??within a week as necessary.Please feel free to contact us or your primary care health professional if you have any additional questions or concerns.?? Wishing you a speedy recovery. Emergency department Discharge instructions * Donta Soriano DO: PERFORM Event Display: ED Discharge Information Authored Date: [id number] BRIGIDA PARIKH :1955 Age:68 years Sex:Female Visit Date:12/02/2023 Primary Care Physician: EFRA ALBERTS Discharge Instructions We would like to thank you for allowing us to assist you with your healthcare needs. The following includes patient education materials and information regarding your injury/illness. Diagnosis from Today's Visit Acute diverticulitis Discharge Vitals Temperature??(Temporal Artery) 96.8 ??F (36 ??C) Heart Rate??(Peripheral) 63 Respiratory Rate?? 18 Blood Pressure?? 137/75?? SpO2?? 96% Height?? 62.99 in (160 cm) Weight?? 189.63 lb (86 kg) BMI?? 33.59 Allergies levoFLOXacin metroNIDAZOLE NSAIDs What to Do Next You Need to Schedule the Following Appointments Follow Up with??Prashant Yeager MD When:??Within 1 to 2 weeks Why: Thank you for visiting the emergency department today. ??Based on our evaluation it has been determined??that you have acute diverticulitis.?? Here are some instructions to help manage the condition at home: ?? 1. ??Hydration: Drink plenty of clear fluids such as water, oral rehydration solutions??(Body Armordrink line, Pedialyte, water-mixed??with Gatorade), clear broths, and electrolyte drinks through the dehydration.?? Small frequent sips are recommended especially if vomiting is present. ?? 2. ??Diet:??Begin with??bland, nyfa-mw-nfztsa foods??such as rice, bananas, toast, applesauce (bratdiet)??for the next??48-hours. ??Avoid??fatty, spicy or heavy foods for the next??several days. ?? 3. ??Rest:??Get plenty of rest to aid in the recovery process. ?? 4. ??Medications:?continue the Augmentin as previously prescribed twice daily for the next 10 days. ??Encouraged to take this medication with probiotics.?? For pain control I recommend Tylenol 1000 mg every 4 hours not to exceed 4000 mg in 24 hours As well as 800 mg ibuprofen every 6 hours??with food. ?? 5. ??Isolation:??If the patient is a child??keep him home from school or daycare until symptoms have resolved for at least 24 hours to help prevent spreading the infection to others. ??If the patient??is an adult??it is similarly important??to??stay away from contact with others until symptoms haveresolved for least 24 hours??to help prevent spreading infection to others. ?? 6. ??Infection control:??Practice good hand hygiene, and disinfect surfaces and items that may havecome into contact with a virus to prevent spreading infection to others. ?? 7.?? Follow-up: If symptoms persist or worsen??or if you have concerns about dehydration please seek medical attention promptly. ??Follow-up with your??primary care provider??within a week as necessary. ?? Please feel free to contact us or your primary care health professional if you have any additional questions or concerns.?? Wishing you a speedy recovery. Where: [facility] [address] [place] [address]- You were treated today on an emergency [...] Oral (given by mouth) Every day Unchanged cholecalciferol (Vitamin D3 1000 intl units oral capsule) 1 Capsules Oral (given by mouth) Every day Unchanged gabapentin (gabapentin 300 mg oral capsule) 1 Capsules Oral (given by mouth) Every day Unchanged lactobacillus acidophilus (Acidophilus Probiotic Blend) Unchanged magnesium citrate (magnesium citrate 125 mg oral capsule) 1 Unknown ?? Unchanged melatonin (melatonin 3 mg oral tablet, disintegrating) 1 tab Oral (given by mouth) Every night at bedtime as needed for as needed for insomnia Unchanged multivitamin (Vitamin B Complex 100) Unchanged polyethylene glycol 3350 (MiraLax oral powder for reconstitution) Unchanged turmeric (Turmeric) Education Materials Diverticulitis Diverticulitis is infection or [...] at home. Treatment may include: ? Taking dzco-wcg-zkcaipf pain medicines. ? Following a clear liquid [...] these instructions at home: Medicines ? Take wmcx-xxy-egvijde and prescription medicines only as told by [...] provider. Document Revised: 03/09/2020 Document Reviewed: 03/09/2020 [employer] Patient Education ?? 2022 [employer] Tests Performed Radiology CT Abdomen and Pelvis w/ Contrast 12/02/2023 02:33 EDT Medications and Immunizations Administered Given Sodium Chloride 0.9%, 1000 mL, Medication Bolus acetaminophen, 1000 mg, IV Piggyback ondansetron, 4 mg, IV Push Lab Test Name Test Result Date/Time WBC 9.8 K/mcL 12/02/2023 00:43 EDT RBC 4.34 Million/mcL 12/02/2023 00:43 EDT Hgb 13.6 g/dL 12/02/2023 00:43 EDT Hct 38.9 % 12/02/2023 00:43 EDT MCV 89.7 fL 12/02/2023 00:43 EDT MCH 31.3 pg 12/02/2023 00:43 EDT MCHC 34.9 g/dL 12/02/2023 00:43 EDT RDW-CV 13.3 % 12/02/2023 00:43 EDT Platelets 359 K/mcL 12/02/2023 00:43 EDT MPV 7.2 fL 12/02/2023 00:43 EDT Neutro Auto 74.7 % 12/02/2023 00:43 EDT Lymph Auto 12.9 % 12/02/2023 00:43 EDT Meade Auto 10.4 % 12/02/2023 00:43 EDT Eos, Auto 1.30 % 12/02/2023 00:43 EDT Basophil Auto 0.7 % 12/02/2023 00:43 EDT Neutro Absolute 7.3 K/mcL 12/02/2023 00:43 EDT Lymph Absolute 1.3 K/mcL 12/02/2023 00:43 EDT Meade Absolute 1.0 K/mcL 12/02/2023 00:43 EDT Eos Absolute 0.1 K/mcL 12/02/2023 00:43 EDT Baso Absolute 0.1 K/mcL 12/02/2023 00:43 EDT Slide Review Not Indicated 12/02/2023 00:43 EDT Sodium Level 132 mmol/L 12/02/2023 00:43 EDT Potassium Level 3.7 mmol/L 12/02/2023 00:43 EDT Chloride Level 98 mmol/L 12/02/2023 00:43 EDT CO2 27 mmol/L 12/02/2023 00:43 EDT Alk Phos 46 IntlUnit/L 12/02/2023 00:43 EDT AST 23 IntlUnit/L 12/02/2023 00:43 EDT ALT 16 IntlUnit/L 12/02/2023 00:43 EDT BUN 7 mg/dL 12/02/2023 00:43 EDT Glucose Level 101 mg/dL 12/02/2023 00:43 EDT Creatinine Level 0.80 mg/dL 12/02/2023 00:43 EDT BUN/Creat Ratio 8.8 12/02/2023 00:43 EDT eGFR CKD-EPI 81 mL/min/1.73 m2 12/02/2023 00:43 EDT Calcium Level 9.3 mg/dL 12/02/2023 00:43 EDT Protein Total 7.7 g/dL 12/02/2023 00:43 EDT Albumin Level 4.1 g/dL 12/02/2023 00:43 EDT Globulin 3.6 g/dL 12/02/2023 00:43 EDT A/G Ratio 1.1 g/dL 12/02/2023 00:43 EDT Bilirubin Total 0.8 mg/dL 12/02/2023 00:43 EDT Anion Gap 7.0 12/02/2023 00:43 EDT Lipase Level 30 unit/L 12/02/2023 00:43 EDT Osmolality 263 mOsm/kg 12/02/2023 00:43 EDT Urine Srce Clean Catch 12/02/2023 00:43 EDT UA Color YELLOW. 12/02/2023 00:43 EDT UA Appear CLEAR. 12/02/2023 00:43 EDT UA Glucose NEGATIVE 12/02/2023 00:43 EDT UA Bili NEGATIVE 12/02/2023 00:43 EDT UA Ketones NEGATIVE 12/02/2023 00:43 EDT UA Spec Grav 1.010 12/02/2023 00:43 EDT UA Blood NEGATIVE 12/02/2023 00:43 EDT UA pH 7.00 12/02/2023 00:43 EDT UA Protein NEGATIVE 12/02/2023 00:43 EDT UA Urobilinogen 0.2 12/02/2023 00:43 EDT UA Nitrite NEGATIVE 12/02/2023 00:43 EDT UA Leuk Est SMALL Clinitek 12/02/2023 00:43 EDT UA Culture Ind?. Yes 12/02/2023 00:43 EDT UA WBC 4-6 12/02/2023 00:43 EDT UA RBC None Seen 12/02/2023 00:43 EDT UA Squam Epithelial 0-3 12/02/2023 00:43 EDT UA Renal Epithelial 0-3 12/02/2023 00:43 EDT UA Bacteria 1+ 12/02/2023 00:43 EDT Patient/Certified Addiction Counselor Signature Patient Name:BRIGIDA PARIKH I have received this information and my questions have been answered. Patient/Certified Addiction Counselor Name: Patient/Certified Addiction Counselor Signature: Relationship to Patient: Witness Name/Signature: Date: Electronically Signed on: 12/02/2023 04:27 EDTSigned by:CLARK Soriano, DO: PERFORM Event Display: ED Discharge Information Authored Date: [id number] BRIGIDA PARIKH :1955 Age:68 years Sex:Female Visit Date:12/02/2023 Primary Care Physician: EFRA ALBERTS Discharge Instructions We would like to thank you for allowing us to assist you with your healthcare needs. The following includes patient education materials and information regarding your injury/illness. Diagnosis from Today's Visit Acute diverticulitis Discharge Vitals Temperature??(Temporal Artery) 96.8 ??F (36 ??C) Heart Rate??(Peripheral) 63 Respiratory Rate?? 18 Blood Pressure?? 137/75?? SpO2?? 96% Height?? 62.99 in (160 cm) Weight?? 189.63 lb (86 kg) BMI?? 33.59 Allergies levoFLOXacin metroNIDAZOLE NSAIDs What to Do Next You Need to Schedule the Following Appointments Follow Up with??PCP - DIVERTICULITIS When:??Within 1 to 2 weeks, only if needed Why: Thank you for visiting the emergency department today. ??Based on our evaluation it has been determined??that you have acute diverticulitis.?? Here are some instructions to help manage the condition at home: ?? 1. ??Hydration: Drink plenty of clear fluids such as water, oral rehydration solutions??(Body Armordrink line, Pedialyte, water-mixed??with Gatorade), clear broths, and electrolyte drinks through the dehydration.?? Small frequent sips are recommended especially if vomiting is present. ?? 2. ??Diet:??Begin with??bland, citl-mx-jlkcdl foods??such as rice, bananas, toast, applesauce (bratdiet)??for the next??48-hours. ??Avoid??fatty, spicy or heavy foods for the next??several days. ?? 3. ??Rest:??Get plenty of rest to aid in the recovery process. ?? 4. ??Medications:?continue the Augmentin as previously prescribed twice daily for the next 10 days. ??Encouraged to take this medication with probiotics.?? For pain control I recommend Tylenol 1000 mg every 4 hours not to exceed 4000 mg in 24 hours As well as 800 mg ibuprofen every 6 hours??with food. ? 5. ??Isolation:??If the patient is a child??keep him home from school or daycare until symptoms have resolved for at least 24 hours to help prevent spreading the infection to others. ??If the patient??is an adult??it is similarly important??to??stay away from contact with others until symptoms haveresolved for least 24 hours??to help prevent spreading infection to others. ?? 6. ??Infection control:??Practice good hand hygiene, and disinfect surfaces and items that may havecome into contact with a virus to prevent spreading infection to others. ?? 7.?? Follow-up: If symptoms persist or worsen??or if you have concerns about dehydration please seek medical attention promptly. ??Follow-up with your??primary care provider??within a week as necessary. ?? Please feel free to contact us or your primary care health professional if you have any additional questions or concerns.?? Wishing you a speedy recovery. You were treated today on an emergency [...] Oral (given by mouth) Every day Unchanged cholecalciferol (Vitamin D3 1000 intl units oral capsule) 1 Capsules Oral (given by mouth) Every day Unchanged gabapentin (gabapentin 300 mg oral capsule) 1 Capsules Oral (given by mouth) Every day Unchanged lactobacillus acidophilus (Acidophilus Probiotic Blend) Unchanged magnesium citrate (magnesium citrate 125 mg oral capsule) 1 Unknown ?? Unchanged melatonin (melatonin 3 mg oral tablet, disintegrating) 1 tab Oral (given by mouth) Every night at bedtime as needed for as needed for insomnia Unchanged multivitamin (Vitamin B Complex 100) Unchanged polyethylene glycol 3350 (MiraLax oral powder for reconstitution) Unchanged turmeric (Turmeric) Education Materials Diverticulitis Diverticulitis is infection or [...] at home. Treatment may include: ? Taking [id number] pain medicines. ? Following a clear liquid [...] these instructions at home: Medicines ? Take [id number] and prescription medicines only as told by [...] provider. Document Revised: 03/09/2020 Document Reviewed: 03/09/2020 [employer] Patient Education ?? 2022 [employer] Tests Performed Radiology CT Abdomen and Pelvis w/ Contrast 12/02/2023 02:33 EDT Medications and Immunizations Administered Given Sodium Chloride 0.9%, 1000 mL, Medication Bolus acetaminophen, 1000 mg, IV Piggyback ondansetron, 4 mg, IV Push Lab Test Name Test Result Date/Time WBC 9.8 K/mcL 12/02/2023 00:43 EDT RBC 4.34 Million/mcL 12/02/2023 00:43 EDT Hgb 13.6 g/dL 12/02/2023 00:43 EDT Hct 38.9 % 12/02/2023 00:43 EDT MCV 89.7 fL 12/02/2023 00:43 EDT MCH 31.3 pg 12/02/2023 00:43 EDT MCHC 34.9 g/dL 12/02/2023 00:43 EDT RDW-CV 13.3 % 12/02/2023 00:43 EDT Platelets 359 K/mcL 12/02/2023 00:43 EDT MPV 7.2 fL 12/02/2023 00:43 EDT Neutro Auto 74.7 % 12/02/2023 00:43 EDT Lymph Auto 12.9 % 12/02/2023 00:43 EDT Meade Auto 10.4 % 12/02/2023 00:43 EDT Eos, Auto 1.30 % 12/02/2023 00:43 EDT Basophil Auto 0.7 % 12/02/2023 00:43 EDT Neutro Absolute 7.3 K/mcL 12/02/2023 00:43 EDT Lymph Absolute 1.3 K/mcL 12/02/2023 00:43 EDT Meade Absolute 1.0 K/mcL 12/02/2023 00:43 EDT Eos Absolute 0.1 K/mcL 12/02/2023 00:43 EDT Baso Absolute 0.1 K/mcL 12/02/2023 00:43 EDT Slide Review Not Indicated 12/02/2023 00:43 EDT Sodium Level 132 mmol/L 12/02/2023 00:43 EDT Potassium Level 3.7 mmol/L 12/02/2023 00:43 EDT Chloride Level 98 mmol/L 12/02/2023 00:43 EDT CO2 27 mmol/L 12/02/2023 00:43 EDT Alk Phos 46 IntlUnit/L 12/02/2023 00:43 EDT AST 23 IntlUnit/L 12/02/2023 00:43 EDT ALT 16 IntlUnit/L 12/02/2023 00:43 EDT BUN 7 mg/dL 12/02/2023 00:43 EDT Glucose Level 101 mg/dL 12/02/2023 00:43 EDT Creatinine Level 0.80 mg/dL 12/02/2023 00:43 EDT BUN/Creat Ratio 8.8 12/02/2023 00:43 EDT eGFR CKD-EPI 81 mL/min/1.73 m2 12/02/2023 00:43 EDT Calcium Level 9.3 mg/dL 12/02/2023 00:43 EDT Protein Total 7.7 g/dL 12/02/2023 00:43 EDT Albumin Level 4.1 g/dL 12/02/2023 00:43 EDT Globulin 3.6 g/dL 12/02/2023 00:43 EDT A/G Ratio 1.1 g/dL 12/02/2023 00:43 EDT Bilirubin Total 0.8 mg/dL 12/02/2023 00:43 EDT Anion Gap 7.0 12/02/2023 00:43 EDT Lipase Level 30 unit/L 12/02/2023 00:43 EDT Osmolality 263 mOsm/kg 12/02/2023 00:43 EDT Urine Srce Clean Catch 12/02/2023 00:43 EDT UA Color YELLOW. 12/02/2023 00:43 EDT UA Appear CLEAR. 12/02/2023 00:43 EDT UA Glucose NEGATIVE 12/02/2023 00:43 EDT UA Bili NEGATIVE 12/02/2023 00:43 EDT UA Ketones NEGATIVE 12/02/2023 00:43 EDT UA Spec Grav 1.010 12/02/2023 00:43 EDT UA Blood NEGATIVE 12/02/2023 00:43 EDT UA pH 7.00 12/02/2023 00:43 EDT UA Protein NEGATIVE 12/02/2023 00:43 EDT UA Urobilinogen 0.2 12/02/2023 00:43 EDT UA Nitrite NEGATIVE 12/02/2023 00:43 EDT UA Leuk Est SMALL Clinitek 12/02/2023 00:43 EDT UA Culture Ind?. Yes 12/02/2023 00:43 EDT UA WBC 4-6 12/02/2023 00:43 EDT UA RBC None Seen 12/02/2023 00:43 EDT UA Squam Epithelial 0-3 12/02/2023 00:43 EDT UA Renal Epithelial 0-3 12/02/2023 00:43 EDT UA Bacteria 1+ 12/02/2023 00:43 EDT Patient/Certified Addiction Counselor Signature Patient Name:BRIGIDA PARIKH I have received this information and my questions have been answered. Patient/Certified Addiction Counselor Name: Patient/Certified Addiction Counselor Signature: Relationship to Patient: Witness Name/Signature: Date: Electronically Signed on: 12/02/2023 04:18 EDTSigned by:CLARK Patient Care team information Care Team Personnel Name: EFRA ALBERTS Position: No Access Member Role: Primary Care Physician Address: Address: [address] [address]- [place] Care Team Related Persons Name: BENSON PARIKH Address: Home [address] [place], [place] [id number] [facility] Name: BENSON PARIKH Address: Home [address] [place], [id number] Address: [address] [place], [place] [id number]
--- OUTSIDE RECORDS SUMMARY | 2024-04-28 14:59 | XMS_ITS | Encounter Summary ---
Author Organization [place] [address] Care Team Providers Care Certified Driver Examiner Name Role Phone Bakari Delgado MD Primary Care Provider [phone] Reason for Visit * Reason Comments Post Lasik 8 months s/p LASIK O U Encounter Details Date Type Department Care Team (Late st Contact Info) Description 12/20/2010 10:45 AM EDT Office Visit [facility] [place] [address] Shun Canales MD [facility] [place] [address] Myopia (Primary Dx); Vitreous floaters Discharge Disposition: Home Social History Tobacco Use Types Packs/Day Years Used Date Smoking Tobacco: Never Assessed Sex and Gender Information Value Date Recorded Sex Assigned at Not on file Gender Identity Not on file Sexual Orientation Not on file documented as of this encounter Progress Notes * Shun Canales MD - 12/20/2010 11:42 AM EDT Adelaida Lundy is 8 months status post LASIK OU. Doing well. Floater OS, no signs macular or peripheral retinal pathology - Artificial tears prn - Safety reviewed - Follow up 4 months final LASIK check/refract documented in this encounter Nursing Notes * 12/20/2010 10:45 AM EDT >> MEHREEN HERNADEZ, ELIZABETH Mon Dec 20, 2010 11:22 AM Description:Patient presents with: Post Lasik - 8 months s/p LASIK OU Location: left eye Duration: 3 months Rapidity of Onset:unknown Condition:No Change Pain:none Associated Symptoms: Pt states vision very good. Since the spring has become aware of a dot with acircle around it similar to a bulls eye, OS only. States not a floater, does not move. Always noticed above and right of center vision States very distinct, does not come and go. Denies any photopsia documented in this encounter Plan of Treatment Upcoming Encounters Date Type Department Care Team (Late st Contact Info) Description 04/29/2024 12:00 PM EST TH Visit (TeleHealth) [place] [address] Lesli Rodriguez PA [facility] [place] [address] documented as of this encounter Visit Diagnoses Diagnosis Myopia- Primary Vitreous floaters Other vitreous opacities documented in this encounter Care Teams Certified Driver Examiner Relationship Specialty Start Date End Date Bakari Delgado MD [address] [place] [address] PCP - General 05/04/10 06/18/15 documented as of this encounter
--- OUTSIDE RECORDS SUMMARY | 2024-04-28 14:59 | XMS_ITS | Encounter Summary ---
Author Organization [facility] Address [address] [place] [address] Care Team Providers Care Legislative Advocate Name Role Phone Unavailable Primary Care Provider Unavailabl e Encounter Details Date Type Department Care Team (Late st Contact Info) Description 07/30/2002 Results Only [facility] [address] [place] [address] Annie Tran, [address] [place] [address] Social History Tobacco Use Types Packs/Day Years Used Date Smoking Tobacco: Never Assessed Comments Unknown Sex and Gender Information Value Date Recorded Sex Assigned at Not on file Legal Sex Female 18:21 EST Gender Identity Not on file Sexual Orientation Not on file documented as of this encounter Plan of Treatment Not on file documented as of this encounter Procedures Procedure Name Priority Date/Time Associated Diagnosis Comments CYTOPATHOLOGY Routine 07/30/2002 0:00 EST documented in this encounter Results * CYTOPATHOLOGY (07/30/2002 0:00 EST) Pathology Report: CYTOPATHOLOGY REPORT Reports generated via electronic interface contain original data; however they are lacking the format of the original report. Caution should be taken when reading/interpreti ng unformatted reports. Name: ? ADELAIDA LUNDY ? Accession #: ? [id number] : ? 1955 (Age: 46) ??F ?Collect Date: ? 07/30/2002 Location: ? [facility] ? Receive Date: ? 08/01/2002 Provider: ?ANNIE TRAN TABLE GAMES DUAL RATE SUPERVISOR Copy to: ? Specimen/Source: ?ThinPrep Pap Test, Cervix/Endocervix Last Menstrual Period: ? 07/01/02 Previous Gynecologic Pathology: ? ASC-US: ? SPECIMEN ADEQUACY ? Satisfactory for Evaluation - transformation zone component present GENERAL CATEGORIZATION ? Negative for Intraepithelial Lesion or Malignancy ? Document reviewed and electronically signed by: ? Dee Lentz, SCT(ASCP) ? Report Date: ??08/02/2002 16:35 End of Report [facility] 07/30/2002 08/01/2002 us Annie Tran TABLE GAMES DUAL RATE SUPERVISOR PATHOLOGY ORDERABLES Final R esult [facility] GAR[facility] [address] [place] [address] documented in this encounter Visit Diagnoses Not on filedocumented in this encounter
--- OUTSIDE RECORDS SUMMARY | 2024-04-28 14:59 | XMS_ITS | Encounter Summary ---
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 Name Role Phone Yadi Steel MD Primary Care Provider [phone] Reason for Referral * Consultation (Routine) - Authorized Specialty Diagnoses / Procedures Referred By Christin herbert Referred To Contact General Surgery Diagnoses Diverticulitis of large intestine without perforation or abscess without bleeding Titus Sagastume MD [facility] [place] [address] [facility] [place], [place] Gen Surgery [address] [place] [address] Referral ID Status Reason Start Date Expiration Date Visits Requested Visits Authorized [id number] Authorized Consult, Test & Treat 04/28/2024 04/28/2025 1 1 Reason for Visit * Reason Comments Abdominal Pain Encounter Details Date Type Department Care Team (Late st Contact Info) Description 04/27/2024 7:28 PM EST - 04/28/2024 3:23 AM EST [place] [address] Titus Sagastume MD [facility] [place] [address] Lower abdominal pain; Diverticulitis of large intestine without perforation or abscess without bleeding Discharge Disposition: Home Social History Tobacco Use Types Packs/Day Years Used Date Smoking Tobacco: Never Smokeless Tobacco: Never Alcohol Use Standard Drinks/Week Comments Yes 14 (1 standard drink = 0.6 oz pu re alcohol) DH IPV Inpatient Questions Answer Date Recorded Does Anyone Try to Keep You From Having Contact with Others or Doing Things Outside Your Home? no 04/28/2024 Feels Threatened by Someone no 04/12 Feels Unsafe at Home or Work/School no 04/28/2024 Physical Signs of Abuse Present no 04/28/2024 Sex and Gender Information Value Date Recorded Sex Assigned at Not on file Gender Identity Not on file Sexual Orientation Not on file documented as of this encounter Last Filed Vital Signs Vital Sign Reading Time Taken Comments Blood Pressure 118/47 04/28/2024 1:00 AM EST Pulse 91 04/27/2024 7:25 PM EST Temperature 36.6 ??C (97.9 ??F) 04/28/2024 1:00 AM ES T Respiratory Rate 17 04/28/2024 1:00 AM EST Oxygen Saturation 95% 04/28/2024 1:00 AM EST Inhaled Oxygen Concentration - - Weight 83.9 kg (185 lb) 04/27/2024 7:25 PM EST Height 160 cm (5' 3) 04/27/2024 7:25 PM EST Body Mass Index 32.77 04/27/2024 7:25 PM EST documented in this encounter Discharge Instructions * Discharge Instructions* Titus Sagastume MD - 04/28/2024 1:21 AM EST You were seen in the emergency department for crampy severe abdominal pain. Our workup was consistent with diverticulitis. We had the surgical team evaluate you and they did not think that there was any kind of acute intervention that was warranted. In your situation, we would typically treat this with 2 weeks of antibiotics and a clear liquid diet followed by a low residue diet advancing as tolerated. You already have an appointment with [facility] gastroenterology tomorrow which you should keep. I have put in a referral to the colorectal surgery team and they should see you in the general surgery clinic on a date to be determined. I would expect your pain to continue for the next few days as the inflammation goes down. You can take acetaminophen or ibuprofen as directed on the bottle. Wediscussed opiates and both agreed that we would like to try to avoid those. However, if your pain is excruciating and you need to be reevaluated either here or at an emergency department closer to your house to get your pain under control then please do so. * Attachments The following attachments cannot be sent through Care Everywhere. * Diverticulitis (Pakistani) * Clear Liquid Diet: General Info (Pakistani) * Low-Fiber Diet (Pakistani) documented in this encounter Medications at Time of Discharge Medication Sig Dispensed Refills Start Date End Date amoxicillin-clavulanat e (Augmentin) 875-125 mg tablet Take 1 tablet by mouth 3 times daily for 14 days. 42 tablet 04/28/2024 05/12/2024 baclofen (LIORESAL) 5 mg Tablet Take 5 mg by mouth as needed. 12/27/2018 buPROPion SR (Wellbutrin SR) 150 mg tablet sustained-release 12 hr Take 150 mg by mouth Daily. 11/04/2018 busPIRone (BUSPAR) 10 mg Tablet Take 10 mg by mouth Twice daily. 12/21/2018 gabapentin (Neurontin) 300 mg Capsule Take 300 mg by mouth nightly. 12/04/2018 melatonin 1 mg Tablet Take 3 mg by mouth nightly. methocarbamoL (Robaxin) 500 mg Tablet Take 500 mg by mouth as needed. 06/18/2019 polyethylene glycol (Miralax) 17 gram/dose Powder Take 17 g by mouth Daily. lactobacillus rhamnosus, GG, (CULTURELLE) 10 billion cell Capsule Take 1 capsule by mouth Daily. magnesium citrate 125 mg Capsule Take 150 mg by mouth daily. cholecalciferol, Vitamin D3, 25 mcg (1,000 unit) Capsule Take 1,000 Units by mouth daily. acarbose (PRECOSE) 25 mg Tablet Take 1 tablet with breakfast as needed. 30 tablet 10/08/2019 documented as of this encounter ED Notes * Shila Byrd RN - 04/28/2024 1:42 AM EST Discharged in improved / stable condition. Cannula removed, procedure tolerated, and completeness checked. AVS given. Encouraged to ask questions and seek clarifications. Reviewed doctor's advise with the the pt. Reiterated follow-up to ED if symptoms persist or worsen. Left ED ambulatory * Titus Sagastume MD - 04/28/2024 1:26 AM EST Obtained in signout with a plan to follow-up general surgery recommendations. They recommended no acute surgical intervention. I had a long discussion with the patient regarding her plan and after much [id number] we came up with a plan to attempt a prolonged course of outpatient Augmentin, 14 days, which is longer than her previous course that she says was unsuccessful at treating her last bout of diverticulitis. Unfortunately, she has a significant intolerance to metronidazole so I was unable to give her any other regimens that include that. She was worried about recurrence of her abdominal pain but willing to attempt discharge with follow-up tomorrow with GI, an appointment that had already been set up. I put an order to colorectal surgery and recommended she go to both the GI appointment and the colorectal surgery appointment when it gets scheduled. All questions answered. Titus Sagastume MD 04/28/24 0516 * Jose Espinoza PA - 04/27/2024 7:39 PM EST ED Provider Note HPI: Adelaida Lundy is a 68 y.o. female with history of irregular bowel habits, IBS, diverticulitis, who presents to the Emergency Department for evaluation of diffuse lower abdominal pain. Patient reports that she has had 3 years of difficulties with her bowels after having rectocele and vaginocele repair surgery. Patient reports that this summer for the past few months she has been having worsening progressive symptoms. Patient reports that she is having frequent sensation of needing to have a bowel movement and only being able to pass a small amount of stool. Patient reports that she was recently diagnosed with diverticulitis which was recurrent and was on Augmentin. Patient reports that she has been following extensively with outpatient GI but over the past month she has had progressive worsening symptoms including worsening abdominal pain, occultly having bowel movements, body aches, fatigue, subjective fevers and chills. Patient states that over the past 9 days her symptoms have been debilitating. Patient reports that she has had an extensive GI workup without clear etiology and was referred to GI here and has an appointment on Monday but could not take her symptoms any longer so presented here today for evaluation. Patient reports that she has been taking MiraLAX Bentyl without relief. Patient has been trying high-fiber brat diet. Patient had normal colonoscopy. Patient had GI BioFire, celiac panel, calprotectin and colonoscopy which were all unremarkable. Patient deniesany nausea, vomiting, melena, bright red blood in her stool. Patient History is obtained by patient, chart review. ROS as per HPI Vitals: ED Triage Vitals [04/27/241924] BP: (!) 150/94 Heart Rate: 91 Resp: n/a Temp: 37.8 ??C (100 ??F) Temp src: Tympanic SpO2: 100 % O2 Device: RA O2 Flow Rate (L/min): n/a Physical Exam Vitals and nursing note reviewed. Constitutional: General: She is not in acute distress. Appearance: She is well-developed. She is not diaphoretic. HENT: Head: Normocephalic and atraumatic. Nose: Nose normal. Mouth/Throat: Mouth: Mucous membranes are moist. Eyes: General: Right eye: No discharge. Left eye: No discharge. Conjunctiva/sclera: Conjunctivae normal. Neck: Trachea: Phonation normal. Cardiovascular: Rate and Rhythm: Normal rate and regular rhythm. Heart sounds: Normal heart sounds. No murmur heard. Pulmonary: Effort: Pulmonary effort is normal. No respiratory distress. Breath sounds: Normal breath sounds. No wheezing or rales. Abdominal: Palpations: Abdomen is soft. Tenderness: There is generalized abdominal tenderness and tenderness in the left lower quadrant. There is guarding (Voluntary). There is no rebound. Musculoskeletal: Cervical back: Full passive range of motion without pain, normal range of motion and neck supple. Skin: General: Skin is warm and dry. Neurological: Mental Status: She is alert and oriented to person, place, and time. Ddx: Gastritis, PUD, GERD, Colitis, Inflammatory Bowel Disease, Food borne Illness, Diverticulitis,Pancreatitis, Gallbladder Disease, Bowel Obstruction, Ischemia, Kidney Stone, Appendicitis ED Course: I have reviewed labs and imaging, images and available reports, and they are significant for: CT Abdomen & Pelvis w Contrast Final Result 1. Long segment sigmoid diverticulitis and proctitis without perforation nor abscess. 2. Mural heterogeneous enhancement and nodular thickening at the low rectum is concerning for a mass lesion and consideration for direct visualization to rule out malignancy is recommended. 3. Ascending colitis. Thank you for letting us participate in the care of this patient. If you are a health care provider and have any questions regarding this report, please contact the number below. For patients who have questions please contact the health palliative care specialist that requested your imaging first. Electronically signed by: Elba Kitchen MD, [facility] ([phone]), at 04/27/2024 10:02 PM ED Course as of 04/27/242215 Sat Apr 27, 20242022 White Blood Cell(!): 14.89 2022 Hemoglobin: 14.2 2022 Platelet(!): 386 2051 Magnesium(!): 0.68 2051 Albumin: 4.0 2051 Aspartate Aminotransferase: 19 2051 Alanine Aminotransferase: 13 2051 Bilirubin, Total: 0.5 2051 Bilirubin, Direct: <0.2 2051 Glucose: 91 2051 Creatinine(!): 0.67 2051 Sodium(!): 133 2051 Potassium: 3.8 2051 Chloride(!): 95 2051 Carbon Dioxide: 27 2051 Calcium: 9.[address] Abdomen & Pelvis w Contrast IMPRESSION 1. Long segment sigmoid diverticulitis and proctitis without perforation nor abscess. 2. Mural heterogeneous enhancement and nodular thickening at the low rectum is concerning for a mass lesion and consideration for direct visualization to rule out malignancy is recommended. 3. Ascending colitis. Procedures Assessment and Plan: 68 y.o. female with recurrent diverticulitis. Patient slightly hypertensive, borderline febrile, not tachycardic, not hypoxic. Patient with diffuse lower abdominal tenderness to palpation with voluntary guarding. Patient appears somewhat unwell. Reviewed outpatient GI workup in the media tab which has been reassuring patient has been previously treated for diverticulitis on but has not had any symptom improvement. Blood work here shows leukocytosis of 14.89, slight hypomagnesemia, patient given IV fluids, Toradol. CT abdomen pelvis here shows long segment sigmoid diverticulitis and proctitis without perforation or abscess. There is some enhancement concerning for mass lesion with recommendation for direct visualization. There is ascending colitis. Given that patient is having recurrent diverticulitis feel that she needs additional workup and management will discuss with general surgery. Patient signed out to the evening attending pending general surgery evaluation and final disposition. Did this case involve critical care? No Jose Espinoza PA 04/27/242215 documented in this encounter Plan of Treatment Upcoming Encounters Date Type Department Care Team (Late st Contact Info) Description 04/29/2024 12:00 PM EST TH Visit (TeleHealth) [place] [address] Lesli Rodriguez PA [facility] [place] [address] Scheduled Referrals Name Type Priority Associated Diagnoses Orde r Schedule Referral to Colorectal Surgery Outpatient Referral Routine Diverticulitis of large intestine without perforation or abscess without bleeding Ordered: 04/28/2024 documented as of this encounter Procedures Procedure Name Priority Date/Time Associated Diagnosis Comments URINALYSIS WITH REFLEX CULTURE STAT 04/28/2024 12:30 AM EST LACTATE, WHOLE BLOOD POC Routine 04/27/2024 11:[address] ABDOMEN AND PELVIS W CONTRAST STAT 04/27/2024 9:04 PM EST SCAN, PERIPHERAL BLOOD STAT 04/27/2024 7:43 PM EST CBC (WITH DIFF) STAT 04/27/2024 7:43 PM EST MAGNESIUM STAT Add-On 04/27/2024 7:43 PM EST LIPASE STAT Add-On 04/27/2024 7:43 PM EST HEPATIC FUNCTION PANEL STAT Add-On 04/27/2024 7:43 PM EST BASIC METABOLIC PANEL STAT 04/27/2024 7:43 PM EST documented in this encounter Results * (ABNORMAL) Urinalysis with reflex Culture (04/28/2024 12:30 AM EST) Glucose, Urine Dipstick Negative Negative 04/28/2024 12:46 AM [facility] Protein, Urine Dipstick Negative Negative 04/28/2024 12:46 AM [facility] Bilirubin, Urine Dipstick Negative Negative 04/28/2024 12:46 AM [facility] Comment:Clinical correlation required for positive Urine Bilirubin results as false positive may occur with some drugs and drug related products. If a false positive is suspected a serum total bilirubin should be considered if clinically indicated. Urobilinogen, Urine Dipstick Normal Normal, 0.2 mg/dL, 1.0 mg/dL 04/28/2024 12:46 AM [facility] pH, Urine (dipstick) 7.0 5.0 - 8.0 04/28/2024 12:46 AM [facility] Blood, Urine Dipstick Negative Negative 04/28/2024 12:46 AM [facility] Ketone, Urine Dipstick 15 mg/dL(A) Negative 04/28/2024 12:46 AM [facility] Nitrite, Urine Dipstick Negative Negative 04/28/2024 12:46 AM [facility] Leukocytes, Urine Dipstick Negative Negative 04/28/2024 12:46 AM [facility] Specific [place]cas Urine Automated >=1.030(H) 1.005 - 1.030 04/28/2024 12:46 AM [facility] Appearance, Urine Dipstick Clear Clear 04/28/2024 12:46 AM [facility] Color, Urine Dipstick Yellow Yellow, Dark Yellow 04/28/2024 12:46 AM [facility] CULTURE ADDED? 04/28/2024 12:46 AM EST [facility] Urine URINE SPECIMEN OBTAINED BY CLEAN CATCH PROCEDURE / Unknown Non Blood Collection / Unknown 04/28/2024 12:30 AM EST 04/28/2024 12:39 AM EST Titus Sagastume MD URINE ORDERABLES Performing Organization Address [facility]/ZIP Co de Phone Number [facility] [place] [address] * Lactate Whole Blood POC (04/27/2024 11:32 PM EST) Lactate, Whole Blood 1.0 0.5 - 2.2 mmol/L 04/27/2024 11:33 PM EST [facility] Blood VENOUS BLOOD SPECIMEN / Unknown 04/27/2024 11:32 PM EST 04/27/2024 11:33 PM EST Titus Sagastume MD POINT OF CARE TEST O RDERABLES Performing Organization Address [facility]/ZIP Co de Phone Number [facility] [place] [address] * CT Abdomen & Pelvis w Contrast (04/27/2024 9:04 PM EST) WORKSTATION ID [id number] RAD Anatomical Region Laterality Modality Abdomen, Pelvis Computed Tomogra phy Impressions 04/27/2024 10:02 PM EST 1. ??Long segment sigmoid diverticulitis and proctitis without perforation nor abscess. 2. ??Mural heterogeneous enhancement and nodular thickening at the low rectum is concerning for a mass lesion and consideration for direct visualization to rule out malignancy is recommended. 3. ??Ascending colitis. Thank you for letting us participate in the care of this patient. ??If you are a health care provider and have any questions regarding this report, please contact the number below. ??For patients who have questions please contact the health palliative care specialist that requested your imaging first. ? Electronically signed by: Elba Kitchen MD, [facility] ([phone]), at 04/27/2024 10:02 PM Narrative 04/27/2024 10:02 PM EST EXAMINATION: CT ABDOMEN AND PELVIS W CONTRAST CLINICAL HISTORY: abdominal pain, concern for diverticulitis TECHNIQUE: Helical CT of the abdomen and pelvis following the intravenous administration of contrast. 108 cc Omnipaque 350. Oral contrast was not administered. COMPARISON: July 10, 2019 FINDINGS: Lower chest: No consolidation or pleural effusion Liver: 8mm right liver lobe cyst. Focal fatty infiltration at the falciform ligament Bile ducts: Stable mild intrahepatic biliary dilation not unanticipated status post cholecystectomy Gallbladder: Absent Pancreas: Normal attenuation without ductal dilatation. Spleen: Normal. Adrenals: Normal. Kidneys: Normal. Urinary Bladder: Normal. Vasculature: No abdominal aortic aneurysm. Patent renal, portal and hepatic veins. Lymph Nodes: No enlarged lymph nodes. Bowel: Stomach collapsed. Normal caliber small bowel. Thickened cecum and ascending colon. Diverticulosis. Long segment recto sigmoid mural thickening and heterogeneous enhancement with mural heterogeneous enhancement and nodular thickening at the low rectum. Peritoneum and retroperitoneum: No free air. Pericolonic congestion at the rectosigmoid colon. No ascites. Abdominal wall: No muscular asymmetry Reproductive organs: Normal contours Osseous structures: No suspicious lesions. Procedure Note Elba Kitchen MD - 04/27/2024 EXAMINATION: CT ABDOMEN AND PELVIS W CONTRAST CLINICAL HISTORY: abdominal pain, concern for diverticulitis TECHNIQUE: Helical CT of the abdomen and pelvis following theintravenous administration of contrast. 108 cc Omnipaque 350. Oral contrast was not administered. COMPARISON: July 10, 2019 FINDINGS: Lower chest: No consolidation or pleural effusion Liver: 8mm right liver lobe cyst. Focal fatty infiltration at thefalciform ligament Bile ducts: Stable mild intrahepatic biliary dilation not unanticipatedstatus post cholecystectomy Gallbladder: Absent Pancreas: Normal attenuation without ductal dilatation. Spleen: Normal. Adrenals: Normal. Kidneys: Normal. Urinary Bladder: Normal. Vasculature: No abdominal aortic aneurysm. Patent renal, portal andhepatic veins. Lymph Nodes: No enlarged lymph nodes. Bowel: Stomach collapsed. Normal caliber small bowel. Thickened cecumand ascending colon. Diverticulosis. Long segment recto sigmoid muralthickening and heterogeneous enhancement with mural heterogeneous enhancement andnodular thickening at the low rectum. Peritoneum and retroperitoneum: No free air. Pericolonic congestion atthe rectosigmoid colon. No ascites. Abdominal wall: No muscular asymmetry Reproductive organs: Normal contours Osseous structures: No suspicious lesions. IMPRESSION 1. Long segment sigmoid diverticulitis and proctitis without perforationnor abscess. 2. Mural heterogeneous enhancement and nodular thickening at the lowrectum is concerning for a mass lesion and consideration for direct visualization torule out malignancy is recommended. 3. Ascending colitis. Thank you for letting us participate in the care of this patient. If youare a health care provider and have any questions regarding this report,please contact the number below. For patients who have questions please contactthe health palliative care specialist that requested your imaging first. Electronically signed by: Elba Kitchen MD, [facility]([phone]), at 04/27/2024 10:02 PM Curtis [place] III, MD IM CT ORDERABLES * (ABNORMAL) Scan, Peripheral Blood (04/27/2024 7:43 PM EST) RBC Morphology Normal 04/27/2024 8:43 PM [facility] Platelet Estimate Increased( A) Normal 04/27/2024 8:43 PM [facility] Platelet Clumps Present(A) (none) 04/27/2024 8:43 PM [facility] WBC MORPHOLOGY See Comment(A) (none) 04/27/2024 8:43 PM [facility] Comment:Vacuolated Grans Blood VENOUS BLOOD SPECIMEN / Unknown Venipuncture / Unknown 04/27/2024 7:43 PM EST 04/27/2024 7:47 PM EST Titus Sagastume MD HEMATOLOGY ORDERABLE S [facility] [place] [address] * (ABNORMAL) Magnesium (04/27/2024 7:43 PM EST) Magnesium 0.68(L) 0.69 - 1.07 mMol/L 04/27/2024 8:32 PM EST [facility] Blood VENOUS BLOOD SPECIMEN / Unknown Venipuncture / Unknown 04/27/2024 7:43 PM EST 04/27/2024 7:47 PM EST Curtis [place] III, MD CHEMISTRY ORDERABL ES Performing Organization Address City/[facility]/ZIP Co de Phone Number [facility] [place] [address] * Hepatic Function Panel (04/27/2024 7:43 PM EST) Albumin 4.0 3.2 - 5.2 g/dL 04/27/2024 8:32 PM EST [facility] Aspartate Aminotransferase 19 <=30 unit/L 04/27/2024 8:32 PM [facility] Alanine Aminotransferase 13 0 - 30 unit/L 04/27/2024 8:32 PM EST [facility] Alkaline Phosphatase 58 35 - 105 unit/L 04/27/2024 8:32 PM [facility] Bilirubin, Total 0.5 <=1.3 mg/dL 04/27/2024 8:32 PM EST [facility] Bilirubin, Direct <0.2 0.0 - 0.3 mg/dL 04/27/2024 8:32 PM EST [facility] Protein, Total 7.7 6.1 - 8.0 g/dL 04/27/2024 8:32 PM EST [facility] Blood VENOUS BLOOD SPECIMEN / Unknown Venipuncture / Unknown 04/27/2024 7:43 PM EST 04/27/2024 7:47 PM EST Curtis [place] III, MD CHEMISTRY ORDERABL ES Performing Organization Address City/[facility]/ZIP Co de Phone Number [facility] [place] [address] * Lipase (04/27/2024 7:43 PM EST) Lipase 23 0 - 60 unit/L 04/27/2024 8:32 PM [facility] Blood VENOUS BLOOD SPECIMEN / Unknown Venipuncture / Unknown 04/27/2024 7:43 PM EST 04/27/2024 7:47 PM EST Curtis [place] III, MD CHEMISTRY ORDERABL ES Performing Organization Address [facility] Co de Phone Number [facility] [place] [address] * (ABNORMAL) Basic Metabolic Panel (04/27/2024 7:43 PM EST) Glucose 91 65 - 199 mg/dL 04/27/2024 8:32 PM [facility] Comment:Glucose Concentratio n >=200 mg/dL plus symptoms is consistent with Diabetes Mellitus. Blood Urea Nitrogen 4(L) 8 - 18 mg/dL 04/27/2024 8:32 PM [facility] Creatinine 0.67(L) 0.70 - 1.20 mg/dL 04/27/2024 8:32 PM [facility] Sodium 133(L) 135 - 145 mMol/L 04/27/2024 8:32 PM [facility] Potassium 3.8 3.5 - 5.0 mMol/L 04/27/2024 8:32 PM [facility] Chloride 95(L) 98 - 107 mMol/L 04/27/2024 8:32 PM [facility] Carbon Dioxide 27 22 - 31 mMol/L 04/27/2024 8:32 PM [facility] Anion Gap 11 5 - 15 mMol/L 04/27/2024 8:32 PM EST [facility] Calcium 9.1 8.5 - 10.5 mg/dL 04/27/2024 8:32 PM EST [facility] Est Glomerular Filtration Rate - Female 96 mL/min/1. 73 m?? 04/27/2024 8:32 PM EST [facility] Comment: This patient's estimated GFR was calculated using the 2020 CKD-EPI equation. The estimated GFR can vary from the measured GFR by up to 30% in the absence of rapidly changing kidney function. Assessment of the estimated GFR is not appropriate when creatinine concentrations are rapidly changing. For clinical situations in which a more precise estimate of GFR is necessary, consider alternative methods of GFR estimation such as a 24-hour urine creatinine clearance. Assignment of CKD stage 1 - 5 for patients with an eGFR near the transition point between stages may be based on clinical assessment of muscle mass and symptoms in addition to eGFR. Link: eGFR Calculator [employer] Blood VENOUS BLOOD SPECIMEN / Unknown Venipuncture / Unknown 04/27/2024 7:43 PM EST 04/27/2024 7:47 PM EST Titus Sagastume MD CHEMISTRY ORDERABLES [facility] [place] [address] * (ABNORMAL) CBC (with Diff) (04/27/2024 7:43 PM EST) White Blood Cell 14.89(H) 4.00 - 9.50 x10(3)/mc L 04/27/2024 8:43 PM EST [facility] Red Blood Cell 4.74 4.00 - 5.21 x10(6)/mc L 04/27/2024 8:43 PM [facility] Hemoglobin 14.2 11.7 - 15.5 g/dL 04/27/2024 8:43 PM [facility] Hematocrit 40.9 35.7 - 45.8 % 04/27/2024 8:43 PM [facility] Mean Cell Volume 86.3 82.6 - 94.4 fL 04/27/2024 8:43 PM [facility] Mean Cell Hemoglobin 30.0 27.1 - 32.0 pg 04/27/2024 8:43 PM [facility] Mean Cell Hemoglobin Concentration 34.7 31.7 - 35.0 g/dL 04/27/2024 8:43 PM [facility] Platelet 386(H) 145 - 357 x10(3)/mc L 04/27/2024 8:43 PM [facility] Mean Platelet Volume 9.1 7.6 - 12.9 fL 04/27/2024 8:43 PM [facility] RDW Standard Deviation 39.1 37.0 - 46.0 fL 04/27/2024 8:43 PM [facility] RDW coefficient of variation 12.3 11.5 - 14.1 % 04/27/2024 8:43 PM [facility] NRBC% auto 0.0 % 04/27/2024 8:43 PM [facility] NRBC Absolute <0.01 <0.01 x10(3)/mc L 04/27/2024 8:43 PM [facility] Neutrophil % 78.1 % 04/27/2024 8:43 PM [facility] Comment:This is an appended report. These results have been appended to a previously preliminary verified report. Neutrophil Absolute (ANC) - Automated 11.63(H) 1.70 - 6.10 x10(3)/mc L 04/27/2024 8:43 PM [facility] Comment:This is an appended report. These results have been appended to a previously preliminary verified report. Lymph % 7.1 % 04/27/2024 8:43 PM [facility] Comment:This is an appended report. These results have been appended to a previously preliminary verified report. Lymph Absolute 1.05 0.90 - 3.20 x10(3)/mc L 04/27/2024 8:43 PM [facility] Comment:This is an appended report. These results have been appended to a previously preliminary verified report. Monocyte % 12.4 % 04/27/2024 8:43 PM [facility] Comment:This is an appended report. These results have been appended to a previously preliminary verified report. Monocyte Absolute 1.85(H) 0.30 - 0.90 x10(3)/mc L 04/27/2024 8:43 PM [facility] Comment:This is an appended report. These results have been appended to a previously preliminary verified report. Eos % 1.7 % 04/27/2024 8:43 PM [facility] Comment:This is an appended report. These results have been appended to a previously preliminary verified report. Eos Absolute 0.25 0.00 - 0.40 x10(3)/mc L 04/27/2024 8:43 PM [facility] Comment:This is an appended report. These results have been appended to a previously preliminary verified report. Basophil % 0.4 % 04/27/2024 8:43 PM [facility] Comment:This is an appended report. These results have been appended to a previously preliminary verified report. Baso Absolute 0.06 0.00 - 0.10 x10(3)/mc L 04/27/2024 8:43 PM [facility] Comment:This is an appended report. These results have been appended to a previously preliminary verified report. Immature Gran % 0.3 % 8:43 PM [facility] Comment:This is an appended report. These results have been appended to a previously preliminary verified report. Immature Gran Absolute 0.05(H) 0.00 - 0.04 x10(3)/mc L 04/27/2024 8:43 PM [facility] Comment:This is an appended report. These results have been appended to a previously preliminary verified report. Blood VENOUS BLOOD SPECIMEN / Unknown Venipuncture / Unknown 04/27/2024 7:43 PM EST 04/27/2024 7:47 PM EST Titus Sagastume MD [place] [address] documented in this encounter Visit Diagnoses Diagnosis Lower abdominal pain Abdominal pain, other specified site Diverticulitis of large intestine without perforation or abscess without bleeding Diverticulitis of colon (without mention of hemorrhage) Diverticulitis of large intestine without perforation or abscess without bleeding Diverticulitis of colon (without mention of hemorrhage) documented in this encounter Administered Medications Inactive Administered Medications - up to 3 most recent administrations Medication Order MAR Action Action Date Dose Rate Site acetaminophen (Ofirmev) (1,000 mg/100 mL) infusion 1,000 mg 1,000 mg, Intravenous, at 400 mL/hr, Administer over 15 Minutes, ONCE, 1 dose, On 04/28/24 at 0005, - Maximum dose of acetaminophen is 4,000 mg from all sources in 24 hours. - Unless otherwise specified, when ordered PRN for pain, acetaminophen should be given first if other PRN pain medications are ordered., STAT, Is ketorolac (Toradol) IV contraindicated? Yes / Already had it, Can this patient tolerate oral medications or suppositories? No Given 04/28/2024 12:05 AM EST 1,000 mg 400 mL/hr iohexoL (Omnipaque) (350 mg/mL) solution 0-200 mL 0-200 mL, Intravenous, ONCE PRN, 1 dose, Starting on 04/27/24 at 2104, Until 04/27/24 at 2104, Per Protocol, Warning Vesicant/Irritant Medication , Radiology Contrast, Routine Given 04/27/2024 9:04 PM EST 108 mLs ketorolac (Toradol) (15 mg/mL) injection 15 mg 15 mg, Intravenous, ONCE, 1 dose, On 04/27/24 at 1945, STAT Given 04/27/2024 7:45 PM EST 15 mg lactated Ringers 1,000 mL IV bolus Intravenous, ONCE, 1 dose, On 04/27/24 at 1955 New Bag 04/27/2024 7:55 PM EST magnesium sulfate 2 g in sterile water 50 mL infusion 2 g, Intravenous, ONCE, 1 dose, On 04/27/24 at 2105, Administer over 120 Minutes New Bag 04/27/2024 10:41 PM EST 2 g 25 mL/hr piperacillin-tazobactam (Zosyn) 4.5 g vial attach to sodium chloride 0.9% 100 mL Mini-Bag Plus 4.5 g, Intravenous, ONCE, 1 dose, On 04/27/24 at 2220, Administer over 0.5 Hours, Warning Vesicant/Irritant Medication Per coke oven mason labeling, do not administer or Y-site with lactated ringers., Indication for (Active or Suspected): GI/Intra-abdominal New Bag 04/28/2024 12:07 AM EST 4.5 g 200 mL/hr documented in this encounter Active and Recently Administered Medications Times are shown in EST. Scheduled Medication Order 04/26/2024 04/27/2024 04/28/2024 acetaminophen (Ofirmev) (1,000 mg/100 mL) infusion 1,000 mg (COMPLETED) 1,000 mg, Intravenous, at 400 mL/hr, Administer over 15 Minutes, ONCE, 1 dose, On 04/28/24 at 0005, - Maximum dose of acetaminophen is 4,000 mg from all sources in 24 hours. - Unless otherwise specified, when ordered PRN for pain, acetaminophen should be given first if other PRN pain medications are ordered., STAT, Is ketorolac (Toradol) IV contraindicated? Yes / Already had it, Can this patient tolerate oral medications or suppositories? No 0005 (Given - Provid er: Shila Byrd RN) ketorolac (Toradol) (15 mg/mL) injection 15 mg (COMPLETED) 15 mg, Intravenous, ONCE, 1 dose, On 04/27/24 at 1945, STAT 1945 (Given - Provider: Trace Garduno NRP) lactated Ringers 1,000 mL IV bolus (COMPLETED) Intravenous, ONCE, 1 dose, On 04/27/24 at 1955 1954 (New Bag - Provider: Tracee Cortez RN) 0028 (Stopped - Provider: Shila Byrd RN) magnesium sulfate 2 g in sterile water 50 mL infusion (COMPLETED) 2 g, Intravenous, ONCE, 1 dose, On 04/27/24 at 2105, Administer over 120 Minutes 2241 (New Bag - Provider: Tracee Cortez, FACUNDO) 0041 (Stopped - Provider: Shila Byrd, FACUNDO) piperacillin-tazobactam (Zosyn) 4.5 g vial attach to sodium chloride 0.9% 100 mL Mini-Bag Plus (COMPLETED) 4.5 g, Intravenous, ONCE, 1 dose, On 04/27/24 at 2220, Administer over 0.5 Hours, Warning Vesicant/Irritant Medication Per coke oven mason labeling, do not administer or Y-site with lactated ringers., Indication for (Active or Suspected): GI/Intra-abdominal 0007 (New Bag - Provider: Tracee Cortez, FACUNDO)0037 (Stopped - Provider: Tracee Cortez RN) PRN Medication Order 04/26/2024 04/27/2024 04/28/2024 iohexoL (Omnipaque) (350 mg/mL) solution 0-200 mL (COMPLETED) 0-200 mL, Intravenous, ONCE PRN, 1 dose, Starting on 04/27/24 at 2104, Until 04/27/24 at 2104, Per Protocol, Warning Vesicant/Irritant Medication , Radiology Contrast, Routine 2103 (Given - Provider: Alexia Valdivia) documented in this encounter Care Teams Deer Farmer Relationship Specialty Start Date End Date Yadi Steel MD [address] [place] [address] PCP - General Family Medicine 12/04/23 documented as of this encounter
--- OUTSIDE RECORDS SUMMARY | 2024-04-28 14:59 | XMS_ITS | Encounter Summary ---
Author Organization [facility] Address [facility] [place] [address] Care Team Providers Care Pocket Closer Name Role Phone Bakari Delgado MD Primary Care Provider [phone] Encounter Details Date Type Department Care Team (Late st Contact Info) Description 08/19/2010 11:00 AM EST Office Visit [facility] [place] [address] Shun Canales MD [facility] [place] [address] Discharge Disposition: Home Social History Tobacco Use Types Packs/Day Years Used Date Smoking Tobacco: Never Assessed Sex and Gender Information Value Date Recorded Sex Assigned at Not on file Gender Identity Not on file Sexual Orientation Not on file documented as of this encounter Plan of Treatment Upcoming Encounters Date Type Department Care Team (Late st Contact Info) Description 04/29/2024 12:00 PM EST TH Visit (TeleHealth) [place] [address] Lesli Rodriguez PA [facility] [place] [address] documented as of this encounter Visit Diagnoses Not on filedocumented in this encounter Care Teams Pocket Closer Relationship Specialty Start Date End Date Bakari Delgado MD [address] [place] [address] PCP - General 05/04/10 06/18/15 documented as of this encounter
--- OUTSIDE RECORDS SUMMARY | 2024-04-28 14:59 | XMS_ITS | Encounter Summary ---
Author Organization [facility] Address [facility] [place] [address] Care Team Providers Care Licensed Midwife Name Role Phone Bakari Delgado MD Primary Care Provider [phone] Encounter Details Date Type Department Care Team (Late st Contact Info) Description 05/17/2010 11:15 AM EST Office Visit [facility] [place] [address] Shun Canales MD [facility] [place] [address] Discharge Disposition: Home Social History Tobacco Use [...] PM EST TH Visit (TeleHealth) [place] [address] Lesli Rodriguez PA [facility] [place] [address] documented as of this encounter Visit Diagnoses Not on filedocumented in this encounter Care Teams Licensed Midwife Relationship Specialty Start Date End Date Bakari Delgado MD [address] [place] [address] PCP - General 05/04/10 06/18/15 documented as of this encounter
--- OUTSIDE RECORDS SUMMARY | 2024-04-28 14:59 | XMS_ITS | Encounter Summary ---
Author Organization [facility] Address [address] [place] [address] Care Team Providers Care Photonics Technician Name Role Phone Unknown, Provider Primary Care Provider Unava ilable Encounter Details Date Type Department Care Team (Late st Contact Info) Description 07/12/2019 Lab Requisition [facility] Pathology & Laboratory Medicine - [address] [address] Unknown, Provider, Social History Tobacco Use Types Packs/Day Years [...] Procedure Name Priority Date/Time Associated Diagnosis Comments HOLD SST Routine 07/12/2019 21:44 EST HOLD SST Routine 07/12/2019 21:44 EST OSMOLALITY Routine 07/12/2019 8:15 EST CORTISOL Routine 07/12/2019 8:15 EST documented in this encounter Results * HOLD SST (07/12/2019 21:44 EST) Hold Hold 07/12/2019 22:45 EST [facility] Blood VENOUS BLOOD / Unknown 07/12/2019 21:44 EST 07/12/2019 21:44 EST us Provider Unknown LAB INFO SERVICE AND SUPPORT & PHONE RESULT Final Result [facility] [address] [place] [address] * HOLD SST (07/12/2019 21:44 EST) Hold Hold 07/12/2019 22:45 EST [facility] Blood VENOUS BLOOD / Unknown 07/12/2019 21:44 EST 07/12/2019 21:44 EST us Provider Unknown MD LAB INFO SERVICE AND SUPPORT & PHONE RESULT Final Result Performing Organization Address [facility]/ZIP Co de Phone Number [facility] [address] [place] [address] * OSMOLALITY (07/12/2019 8:15 EST) Osmolality, Serum 07/16/2019 15:45 EST [facility] Comment: Disregard previous result. ??Result was from a urine sample labeled as as serum. This is a corrected result. Previous result was 264 mOsm/kg on 07/12/2019 at 2220 EST Blood VENOUS BLOOD / Unknown 07/12/2019 8:15 EST 07/12/2019 21:41 EST us Provider Unknown CHEMISTRY & BLOOD GAS ORDERA BLES Edited Result - Final Performing Organization Address [facility] Co de Phone Number [facility] [address] [place] [address] * CORTISOL (07/12/2019 8:15 EST) Cortisol 07/16/2019 15:45 EST [facility] Comment: Disregard previous result. ??Result was from a urine sample labeled as as serum. This is a corrected result. Previous result was 25 ug/dL on 07/12/2019 at 2230 EST Blood VENOUS BLOOD / Unknown 07/12/2019 8:15 EST 07/12/2019 21:41 EST us Provider Unknown CHEMISTRY & BLOOD GAS ORDERA BLES Edited Result - Final Performing Organization Address [facility] Co de Phone Number [facility] [address] [place] [address] documented in this encounter Visit Diagnoses Not on filedocumented in this encounter Care Teams Photonics Technician Relationship Specialty Start Date End Date Unknown, Provider, PCP - General 04/16/15 documented as of this encounter
--- OUTSIDE RECORDS SUMMARY | 2024-04-28 14:59 | XMS_ITS | Encounter Summary ---
Author Organization [facility] [place] [address] Care Team Providers Care Manager Monitoring Name Role Phone Bakari Delgado MD Primary Care Provider [phone] Encounter Details Date Type Department Care Team (Latest Contact Info) Description 04/10/2013 9:55 AM EDT - 04/10/2013 11:59 PM EDT Hospital Encounter XRay at [address] [place] [address] CL[address], DR [facility] Discharge Disposition: Home Social History Tobacco Use Types Packs/Day Years Used Date Smoking Tobacco: Never Assessed Sex and Gender Information Value Date Recorded Sex Assigned at Not on file Gender Identity Not on file Sexual Orientation Not on file documented as of this encounter Medications at Time of Discharge Medication Sig Dispensed Refills Start Date End Date DULOXETINE HCL (CYMBALTA ORAL) 08/27/2010 06/22/2015 documented as of this encounter Plan of Treatment Upcoming Encounters Date Type Department Care Team (Late st Contact Info) Description 04/29/2024 12:00 PM EST TH Visit (TeleHealth) [place] [phone] Lesli Rodriguez PA [facility] [place] [address] documented as of this encounter Visit Diagnoses Not on filedocumented in this encounter Care Teams Manager Monitoring Relationship Specialty Start Date End Date Bakari Delgado MD [address] [place] [address] PCP - General 05/04/10 06/18/15 documented as of this encounter
--- OUTSIDE RECORDS SUMMARY | 2024-04-28 14:59 | XMS_ITS | Encounter Summary ---
Author Organization [facility] Address [facility] [place] [address] Care Team Providers Care Employee Operations Examiner Name Role Phone Catracho Perea MD Primary Care Provider [phone] Reason for Visit * Auth/Cert - Closed Specialty Diagnoses / Procedures Referred By Christin t Referred To Contact Diagnoses 10 yr surv from 2003 Procedures PRO COLONOSCOPY, DIAGNOSTIC COLONOSCOPY, DIAGNOSTIC Referral ID Status Reason Start Date Expiration Date Visits Re quested Visits Authorized [id number] Closed 1 1 Encounter Details Date Type Department Care Team (Late st Contact Info) Description 06/22/2015 11:00 AM EST - 06/22/2015 11:45 AM EST [place] [address] Venice Meyer MD [facility] [place] [address] COLONOSCOPY, DIAGNOSTIC (WRVU 3.26) Social History Tobacco Use Types Packs/Day Years Used Date Smoking Tobacco: Never Smokeless Tobacco: Never Alcohol Use Standard Drinks/Week Comments Yes 14 (1 standard drink = 0.6 oz pu re alcohol) Sex and Gender Information Value Date Recorded Sex Assigned at Not on file Gender Identity Not on file Sexual Orientation Not on file documented as of this encounter Last Filed Vital Signs Vital Sign Reading Time Taken Comments Blood Pressure 113/67 06/22/2015 11:59 AM EST Pulse 62 06/22/2015 11:59 AM EST Temperature - - Respiratory Rate 18 06/22/2015 11:59 AM EST Oxygen Saturation 95% 06/22/2015 11:59 AM EST Inhaled Oxygen Concentration - - Weight 102.1 kg (225 lb) 06/22/2015 10:13 AM EST Height 162.6 cm (5' 4) 06/22/2015 10:13 AM EST Body Mass Index 38.62 06/22/2015 10:13 AM EST documented in this encounter Discharge Instructions * Discharge Instructions* Gina Tapia RN - 06/22/2015 11:59 AM EST Please call [phone] before 5pm with problems, questions or concerns, after 5pm call the Hospital at [phone] and ask to speak to the Sign Poster account consultant and the contour band saw operator vertical will contact that person for you. Discharge instructions reviewed with patient who expresses understanding. You may have received medications before and/or during your procedure which effects your judgement and reaction time. Do not drive, operate machinery, drink alcoholic beverages or make important decisions for 24 hours. Be careful on stairs as you may be unsteady on your feet. You may eat a regular diet as tolerated. Do not smoke if you are alone. IV site: Slight redness or tenderness is normal, you can use a warm compress if you would like. If tenderness and/or redness increase or if foul drainage occurs, please contact your Doctor. * Attachments The following attachments cannot be sent through Care Everywhere. * COLONOSCOPY : POST-OP (WOLOF) documented in this encounter Medications at Time of Discharge Medication Sig Dispensed Refills Start Date End Date Red Yeast Rice Extract 600 mg Capsule Take by mouth daily. 10/07 lactobacillus rhamnosus, GG, (CULTURELLE) 10 billion cell Capsule Take 1 capsule by mouth daily. 10/08/2019 documented as of this encounter H&P Notes * Venice Meyer MD - 06/22/2015 11:27 AM EST Gastroenterology and Hepatology Pre-Procedure History and Physical Exam Procedure: Colonoscopy: Indication: screening Patient Active Problem List Diagnosis Code ??? Myopia, left eye H52.10 ??? Astigmatism, unspecified left eye H52.209 EXAM: HEENT: Airway examined, oropharynx clear Mallampati Score: II (soft palate, uvula, fauces visible) LUNGS: Clear to auscultation HEART: Regular rate and rhythm, normal S1, S2 ABDOMEN: Normal bowel sounds, soft, non tender, non distended, A/P Proceed with the planned endoscopic procedure. ASA 2 - Patient with mild systemic disease with no functional limitations Sedation Plan: moderate (conscious sedation) Risks and benefits of the procedure explained to the patient. Consent signed. documented in this encounter Plan of Treatment Upcoming Encounters Date Type Department Care Team (Late st Contact Info) Description 04/29/2024 12:00 PM EST TH Visit (TeleHealth) [place] [address] Lesli Rodriguez PA [facility] [place] [address] documented as of this encounter Procedures Procedure Name Priority Date/Time Associated Diagnosis Comments COLONOSCOPY, DIAGNOSTIC (WRVU 3.26) 06/22/2015 11:31 AM EST 10 yr surv from 2002 documented in this encounter Visit Diagnoses Not on filedocumented in this encounter Administered Medications Inactive Administered Medications - up to 3 most recent administrations Medication Order MAR Action Action Date Dose Rate Site fentaNYL 50 mcg/mL multi-dose injection ONCE PRN, Starting on Mon06/22/15 at 1133, Until Mon06/22/15 at 1226, Intra-Operative (Intra-Procedure), Routine Given 06/22/2015 11:36 AM EST 50 mcg Given 06/22/2015 11:33 AM EST 50 mcg lactated ringers infusion 100 mL/hr, Intravenous, CONTINUOUS, Starting on Mon06/22/15 at 1030, Until Mon06/22/15 at 1226, Endoscopy (Day of Procedure) New Bag 06/22/2015 10:25 AM EST 100 mL/hr 100 mL/hr midazolam (PF) (VERSED) 1 mg/mL multi-dose injection ONCE PRN, Starting on Mon06/22/15 at 1133, Until Mon06/22/15 at 1226, Intra-Operative (Intra-Procedure), Routine Given 06/22/2015 11:36 AM EST 1 mg Given 06/22/2015 11:33 AM EST 1 mg documented in this encounter Active and Recently Administered Medications Times are shown in EST. Continuous Medication Order 06/20/2015 06/21/2015 06/22/2015 lactated ringers infusion (CANCELED) 100 mL/hr, Intravenous, CONTINUOUS, Starting on Mon06/22/15 at 1030, Until Mon06/22/15 at 1226, Endoscopy (Day of Procedure) 1025 (New Bag - Prov ider: Hiram Angel, FACUNDO) PRN Medication Order 06/20/2015 06/21/2015 06/22/2015 fentaNYL 50 mcg/mL multi-dose injection (CANCELED) ONCE PRN, Starting on Mon06/22/15 at 1133, Until Mon06/22/15 at 1226, Intra-Operative (Intra-Procedure), Routine 1133 (Given - Provid er: Martina Estrada RN)1136 (Given - Provider: Martina Estrada RN) midazolam (PF) (VERSED) 1 mg/mL multi-dose injection (CANCELED) ONCE PRN, Starting on Mon06/22/15 at 1133, Until Mon06/22/15 at 1226, Intra-Operative (Intra-Procedure), Routine 1133 (Given - Provid er: Martina Estrada RN)1136 (Given - Provider: Martina Estrada RN) documented in this encounter Care Teams Employee Operations Examiner Relationship Specialty Start Date End Date Catracho Perea MD [address] [place] [address] PCP - General Family Medicine 06/19/15 07/09/19 documented as of this encounter
--- OUTSIDE RECORDS SUMMARY | 2024-04-28 14:59 | XMS_ITS | Encounter Summary ---
Author Organization [facility] Address [address] [place] [address] Care Team Providers Care Appraiser Boats And Marine Name Role Phone Unknown, Provider MD Primary Care Provider Unava ilable Encounter Details Date Type Department Care Team (Late st Contact Info) Description 07/16/2019 Lab Requisition [facility] Pathology & [place] [address] Unknown, Provider, Social History Tobacco Use Types [...] Procedure Name Priority Date/Time Associated Diagnosis Comments OSMOLALITY Routine 07/12/2019 8:15 EST OSMOLALITY, URINE Routine 07/12/2019 8:15 EST CORTISOL Routine 07/12/2019 8:15 EST documented in this encounter Results * OSMOLALITY, URINE (07/12/2019 8:15 EST) Osmolality, Urine 260 150-1,150 mOsm/kg 07/16/2019 15:34 EST [facility] Urine URINE SPECIMEN OBTAINED BY CLEAN CATCH PROCEDURE / Unknown 07/12/2019 8:15 EST 07/16/2019 14:27 EST us Provider Unknown MD URINALYSIS ORDERABLES Final Result [facility] [address] [place] [address] * OSMOLALITY (07/12/2019 8:15 EST) Osmolality, Serum 283 275 - 295 mOsm/kg 07/16/2019 15:34 EST [facility] Blood VENOUS BLOOD / Unknown 07/12/2019 8:15 EST 07/16/2019 14:27 EST us Provider Unknown CHEMISTRY & BLOOD GAS ORDERA BLES Final Result Performing Organization Address [facility] de Phone Number [facility] [address] [place] [address] * CORTISOL (07/12/2019 8:15 EST) Cortisol 11 See Note ug/dL 07/16/2019 16:24 EST [facility] Comment: NOTE: Reference Ranges (from OCD IFU): Collected Before 10:00 AM: ??4 - 23 ug/dL Collected After 5:00 PM: ?2 - 14 ug/dL The results of this assay can be falsely elevated due to the consumption of Biotin. Blood VENOUS BLOOD / Unknown 07/12/2019 8:15 EST 07/16/2019 14:27 EST us Provider Unknown CHEMISTRY & BLOOD GAS ORDERA BLES Final Result Performing Organization Address [facility] de Phone Number [facility] [address] [place] [address] documented in this encounter Visit Diagnoses Not on filedocumented in this encounter Care Teams Appraiser Boats And Marine Relationship Specialty Start Date End Date Unknown, Provider, PCP - General 04/16/15 documented as of this encounter
--- OUTSIDE RECORDS SUMMARY | 2024-04-28 14:59 | XMS_ITS | Encounter Summary ---
Author Organization [facility] [place] [address] [place] [address] Care Team Providers Care Analytical Lead Name Role Phone Bakari Delgado MD Primary Care Provider [phone] Encounter Details Date Type Department Care Team (Late st Contact Info) Description 08/27/2010 [place] [phone] Kraig Lorenz PA [address] [place] [address] Social History Tobacco Use Types Packs/Day Years [...] PM EST TH Visit (TeleHealth) [place] [address] Lesli Rodriguez PA [facility] [place] [address] documented as of this encounter Procedures Procedure Name Priority Date/Time Associated Diagnosis Comments XR CHEST PA AND LATERAL Routine 08/27/2010 10:18 AM EDT documented in this encounter Results * XR CHEST ROUTINE PA & LATERAL (08/27/2010 10:18 AM EDT) Anatomical Region Laterality Modality Chest N/A Radiographic Isadora ging 08/27/2010 10:1 8 AM EDT Impressions 08/27/2010 2:06 PM EDT IMPRESSION: No pneumonia or other significant abnormality. Narrative 08/27/2010 2:06 PM EDT PA AND LATERAL CHEST, AUGUST 27, 2010: ?? CLINICAL INDICATION: ??Shortness of breath, cough. Question pneumonia. ?? COMPARISON: ??No comparisons. ?? FINDINGS: ??The lungs are clear. The heart size is normal. No pleural effusion or other significant abnormality is seen. ?? Procedure Note Trace German MD - 08/27/2010 PA AND LATERAL CHEST, AUGUST 27, 2010: CLINICAL INDICATION: Shortness of breath, cough. Question pneumonia. COMPARISON: No comparisons. FINDINGS: The lungs are clear. The heart size is normal. No pleuraleffusion or other significant abnormality is seen. IMPRESSION IMPRESSION: No pneumonia or other significant abnormality. Kraig BRADFORD IMG DX ORDERABLES documented in this encounter Visit Diagnoses Not on filedocumented in this encounter Care Teams Analytical Lead Relationship Specialty Start Date End Date Bakari Delgado MD [address] [place] [address] PCP - General 05/04/10 06/18/15 documented as of this encounter
--- OUTSIDE RECORDS SUMMARY | 2024-04-28 14:59 | XMS_ITS | Encounter Summary ---
Author Organization [facility] Address [facility] [place] [address] Care Team Providers Care Continuous Still Operator Name Role Phone Jeannette Herman APRN Primary Care Provider [phone] Encounter Details Date Type Department Care Team (Late st Contact Info) Description 05/11/2006 Orders Only Dermatology at [place] [address] [facility] [place] [address] Blake Malave MD [address] [facility] [place] [address] Social History Tobacco Use Types Packs/Day Years [...] PM EST TH Visit (TeleHealth) [place] [address] Lesli Rodriguez PA [facility] [place] [address] documented as of this encounter Procedures Procedure Name Priority Date/Time Associated Diagnosis Comments SURGICAL PATHOLOGY REPORT Routine 05/11/2006 5:34 PM EST documented in this encounter Results * Surgical Pathology Report (05/11/2006 5:34 PM EST) Surgical Pathology Report [id number] ? Location: The signing pathologist has (i) examined the relevant preparation(s) for the specimen(s) and (ii) rendered or confirmed the diagnosis(es). . ?Pathology Surgical Pathology Final Report Clinical Information Specimen Submitted: A - Lt submandibular chin: ??excision. Clinical History: Mole. Clinical Diagnosis: Nevus. Gross Description Labeled/Fixative: ? Labeled with the patient's name, formalin. Qty/Size/Weight: ?One, 0.7 x 0.5 x 0.2 cm. Tissue Description: ?? Received is an ovoid, adams-brown skin excision with ?scant, black hair. Sections/Processi ng: ??Trisected. ??(T1) ??aje/RR Microscopic Description Slides reviewed, microscopic description not recorded. Diagnosis Skin, left submandibular chin, excision: 1 - Dermal nevus, focally involving peripheral margin 05/15/06 PAS 05/15/06 Verified by: ? Laura Emmanuel ?Pathologist/Jah matopathologist ?(Electronic Signature) The attending pathologist whose signature appears on this report has reviewed all diagnostic slides and has edited the gross and/or microscopic portion of the report in rendering the final pathologic diagnosis. [facility] 05/11/2006 5:34 PM EST Blake Malave MD PATHOLOGY/CYTOLOGY Susana [facility] documented in this encounter Visit Diagnoses Not on filedocumented in this encounter Care Teams Continuous Still Operator Relationship Specialty Start Date End Date Jeannette Herman APRN [address] [place] [address] PCP - General Family Medicine 09/14/22 12/03/23 documented as of this encounter
--- OUTSIDE RECORDS SUMMARY | 2024-04-28 14:59 | XMS_ITS | Encounter Summary ---
Author Organization [facility] Address [facility] [place] [address] Care Team Providers Care Oracle Drm Consultant Name Role Phone Yadi Steel MD Primary Care Provider [phone] Encounter Details Date Type Department Care Team (Latest Contact Info) Description 04/28/2024 Travel Social History Tobacco Use Types Packs/Day Years Used Date Smoking Tobacco: Never Smokeless Tobacco: Never Alcohol Use Standard Drinks/Week Comments Yes 14 (1 standard drink = 0.6 oz pu re alcohol) IPV Inpatient Questions Answer Date Recorded Does [...] PM EST TH Visit (TeleHealth) [place] [address] Lesli Rodriguez PA [facility] [address] documented as of this encounter Visit Diagnoses Not on filedocumented in this encounter Care Teams Oracle Drm Consultant Relationship Specialty Start Date End Date Yadi Steel MD [address] [place] [address] PCP - General Family Medicine 12/04/23 documented as of this encounter
--- OUTSIDE RECORDS SUMMARY | 2024-04-28 14:59 | XMS_ITS | Encounter Summary ---
Author Organization [facility] Address [address] [place] [address] Care Team Providers Care Plodder Operator Name Role Phone Unavailable Primary Care Provider Unavailabl e Encounter Details Date Type Department Care Team (Late st Contact Info) Description 08/09/2004 Results Only [facility] - Maple conversion [address] [place] [address] Annie Tran, [address] [place] [address] Social History Tobacco Use Types [...] Priority Date/Time Associated Diagnosis Comments CYTOPATHOLOGY Routine 08/09/2004 0:00 EST documented in this encounter Results * CYTOPATHOLOGY (08/09/2004 0:00 EST) Pathology Report: CYTOPATHOLOGY REPORT Reports generated via electronic interface contain original data; however they are lacking the format of the original report. Caution should be taken when reading/interpreti ng unformatted reports. Name: ? ADELAIDA LUNDY ? Accession #: ? [id number] : ? 1955 (Age: 48) ??F ?Collect Date: ? 08/09/2004 Location: ? [facility] ? Receive Date: ? 08/11/2004 Provider: ?ANNIE TRAN SOLAR ENERGY SYSTEMS DESIGNER Copy to: ? Specimen/Source: ?ThinPrep Pap Test, Cervix/Endocervix Last Menstrual Period: ? 07/19/04 Previous Gynecologic Pathology: ? ASC-US: Other: ? Additional clinical information: Paps negative in HPVA - HPV testing requested if ASC-US on the current ThinPrep Pap test. ? SPECIMEN ADEQUACY ? Satisfactory for Evaluation - transformation zone component present GENERAL CATEGORIZATION ? Negative for Intraepithelial Lesion or Malignancy ? Document reviewed and electronically signed by: ? SOSA Gordillo(ASCP) ? Report Date: ??08/16/2004 10:35 End of Report RUSH GARZA 08/09/2004 08/11/2004 us Annie Tran SOLAR ENERGY SYSTEMS DESIGNER PATHOLOGY ORDERABLES Final R esult RUSH GARZA [address] [place] [address] documented in this encounter Visit Diagnoses Not on filedocumented in this encounter
--- OUTSIDE RECORDS SUMMARY | 2024-04-28 14:59 | XMS_ITS | Encounter Summary ---
Author Organization [facility] Address [facility] [place] [address] Care Team Providers Care Cashier Wrapper Name Role Phone Bakari Delgado MD Primary Care Provider [phone] Encounter Details Date Type Department Care Team (Late st Contact Info) Description 12/17/2010 Abstract [place] [address] Radha Palmer RN Myopia, left eye; Astigmatism, unspecified left eye Social History Tobacco Use Types Packs/Day Years [...] PM EST TH Visit (TeleHealth) [place] [address] Lesli Rodriguez PA [facility] [place] [address] documented as of this encounter Visit Diagnoses Diagnosis Myopia, left eye Myopia Astigmatism, unspecified left eye Astigmatism, unspecified documented in this encounter Care Teams Cashier Wrapper Relationship Specialty Start Date End Date Bakari Delgado MD [address] [place] [address] PCP - General 05/04/10 06/18/15 documented as of this encounter
--- OUTSIDE RECORDS SUMMARY | 2024-04-28 14:59 | XMS_ITS | Encounter Summary ---
[place] [address] Care Team Providers Care Hot Mill Observer Name Role Phone Jeannette Herman APRN Primary Care Provider [phone] Reason for Referral * Consultation (Routine) - Closed Specialty Diagnoses / Procedures Referred By Christin herbert Referred To Contact Orthopaedics Diagnoses Shoulder pain, unspecified chronicity, unspecified laterality BILAT SHOULDER PAIN DISCUSS GUIDED INTRA ARTICULAR KETOROLAC INJECTIONS Jeannette Herman APRN [address] [place] [address] [facility] [address] [place] [phone] Referral ID Status Reason Start Date Expiration Date V isits Requested Visits Authorized [id number] Closed Consult, Test & Treat PCP Updated and/or Approved 08/02/2023 01/31/2024 6 6 Encounter Details Date Type Department Care Team (Latest Contact Info) Description 08/07/2023 Transcribe Orders eDH Incoming Referrals [phone] Jeannette Herman APRN [address] [place] [address] Shoulder pain, unspecified chronicity, unspecified laterality Social History Tobacco Use Types Packs/Day Years [...] PM EST TH Visit (TeleHealth) [place] [address] Lesli Rodriguez PA [facility] [address] Scheduled Referrals Name Type Priority Associated Diagnoses Orde r Schedule Referral to Orthopaedics Outpatient Referral Routine Shoulder pain, unspecified chronicity, unspecified laterality Ordered: 08/07/2023 documented as of this encounter Visit Diagnoses Diagnosis Shoulder pain, unspecified chronicity, unspecified laterality documented in this encounter Care Teams Hot Mill Observer Relationship Specialty Start Date End Date Jeannette Herman APRN [address] [place] [address] PCP - General Family Medicine 09/14/22 12/03/23 documented as of this encounter
--- OUTSIDE RECORDS SUMMARY | 2024-04-28 14:59 | XMS_ITS | Encounter Summary ---
Author Organization [facility] [address] [place] [address] Care Team Providers Care Clinical Account Specialist Name Role Phone Unknown Primary Care Provider Unavailabl e Encounter Details Date Type Department Care Team (Late st Contact Info) Description 08/03/2022 12:05 AM EST Ancillary Procedure Radiology Library at [facility], [place] [address] Zacarias Corrales MD [facility] [place] [address] Social History Tobacco Use Types Packs/Day Years [...] PM EST TH Visit (TeleHealth) Gastroenterology at [facility] [place] [address] Lesli Rodriguez PA [facility] [place] [address] documented as of this encounter Procedures Procedure Name Priority Date/Time Associated Diagnosis Comments FILM LIBRARY STORAGE ONLY MR SHOULDER Routine 08/03/2022 12:05 AM EST documented in this encounter Results * Film Library- Storage Only MR Shoulder (08/03/2022 12:05 AM EST) Narrative SOFÍA CHAVARRIA - 08/21/2023 9:59 PM EDT This exam is auto-finalizing. It's purpose is for storage only. Zacarias Corrales MD IMG FILM LIBRARY ORD ERABLES Performing Organization Address City/State/[facility] Co de Phone Number DEON [place], [place] documented in this encounter Visit Diagnoses Not on filedocumented in this encounter Care Teams Clinical Account Specialist Relationship Specialty Start Date End Date Unknown None PCP - General 12/15/20 09/13/22 documented as of this encounter
--- OUTSIDE RECORDS SUMMARY | 2024-04-28 14:59 | XMS_ITS | Encounter Summary ---
Author Organization [facility] Address [facility] [place] [address] Care Team Providers Care Mold Filler And Drainer Name Role Phone Bakari Delgado MD Primary Care Provider [phone] Encounter Details Date Type Department Care Team (Late st Contact Info) Description 08/27/2010 9:27 AM EDT - 08/27/2010 11:05 AM EDT [place] [address] Heladio Hameed MD [facility] [place] [address] Discharge Disposition: Home Social History Tobacco Use [...] PM EST TH Visit (TeleHealth) [place] [address] Lesli Rodriguez PA [facility] [place] [address] documented as of this encounter Visit Diagnoses Not on filedocumented in this encounter Care Teams Mold Filler And Drainer Relationship Specialty Start Date End Date Bakari Delgado MD [address] [place] [address] PCP - General 05/04/10 06/18/15 documented as of this encounter
--- OUTSIDE RECORDS SUMMARY | 2024-04-28 14:59 | XMS_ITS | Encounter Summary ---
[place] [address] Care Team Providers Care Safety Equipment Testing Specialist Name Role Phone Jeannette Herman APRN Primary Care Provider [phone] Reason for Referral * Consultation (Routine) - Denied Specialty Diagnoses / Procedures Referred By Christin herbert Referred To Contact Endocrinology Diagnoses Hyponatremia Hyperkalemia SIADH (syndrome of inappropriate ADH production) Jeannette Herman APRN [address] [place] [address] [facility] [address] [place] [phone] Referral ID Status Reason Start Date Expiration Date V isits Requested Visits Authorized [id number] Denied Consult, Test & Treat PCP Updated and/or Approved 09/14/2022 09/14/2023 12 0 Encounter Details Date Type Department Care Team (Latest Contact Info) Description 09/14/2022 Transcribe Orders eDH Incoming Referrals [phone] Jeannette Herman APRN [address] [place], [place] [id number] Hyponatremia; Hyperkalemia; SIADH (syndrome of inappropriate ADH production) Social History Tobacco Use Types Packs/Day Years [...] PM EST TH Visit (TeleHealth) [place] [address] Lesli Rodriguez PA [facility] [place] [address] Scheduled Referrals Name Type Priority Associated Diagnoses Orde r Schedule Referral to Endocrinology Outpatient Referral Routine Hyponatremia Hyperkalemia SIADH (syndrome of inappropriate ADH production) Ordered: 09/14/2022 documented as of this encounter Visit Diagnoses Diagnosis Hyponatremia Hyposmolality and/or hyponatremia Hyperkalemia Hyperpotassemia 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
--- OUTSIDE RECORDS SUMMARY | 2024-04-28 14:59 | XMS_ITS | Encounter Summary ---
Author Organization [facility] Address [facility] [place] [address] Care Team Providers Care Associate Name Role Phone Jeannette Herman APRN Primary Care Provider [phone] Encounter Details Date Type Department Care Team (Latest Contact Info) Description 09/08/2023 Travel Social History Tobacco Use Types Packs/Day [...] PM EST TH Visit (TeleHealth) [place] [address] Lesli Rodriguez PA [facility] [place] [address] documented as of this encounter Visit Diagnoses Not on filedocumented in this encounter Care Teams Associate Relationship Specialty Start Date End Date Jeannette Herman APRN [address] [place] [address] PCP - General Family Medicine 09/14/22 12/03/23 documented as of this encounter
--- OUTSIDE RECORDS SUMMARY | 2024-04-28 14:59 | XMS_ITS | Encounter Summary ---
Author Organization [facility] Address [address] [place] [address] Care Team Providers Care Plastic Surgery Manager Name Role Phone Unavailable Primary Care Provider Unavailabl e Encounter Details Date Type Department Care Team (Late st Contact Info) Description 03/27/2006 Results Only [facility] - Maple conversion [address] [place] [address] Annie Tran, [address] [place] [address] Social History Tobacco Use Types [...] Priority Date/Time Associated Diagnosis Comments CYTOPATHOLOGY Routine 03/27/2006 0:00 EDT documented in this encounter Results * CYTOPATHOLOGY (03/27/2006 0:00 EDT) Pathology Report: CYTOPATHOLOGY REPORT Reports generated via electronic interface contain original data; however they are lacking the format of the original report. Caution should be taken when reading/interpreti ng unformatted reports. Name: ? ADELAIDA LUNDY ? Accession #: ? [id number] : ? 1955 (Age: 50) ??F ?Collect Date: ? 03/27/2006 Location: ? [facility] ? Receive Date: ? 03/28/2006 Provider: ?ANNIE TRAN OVEN BAKER Copy to: ? Specimen/Source: ?ThinPrep Pap Test, Cervix/Endocervix, processed on [employer] ThinPrep Imaging System, with manual evaluation Last Menstrual Period: ? 03/12/06 Previous Gynecologic Pathology: ? ASC-US: Other: ? HPVA - HPV testing requested if ASC-US on the current ThinPrep Pap test. ? SPECIMEN ADEQUACY ? Satisfactory for Evaluation - transformation zone component present GENERAL CATEGORIZATION ? Negative for Intraepithelial Lesion or Malignancy ? Document reviewed and electronically signed by: ? Lola Lisa, SOSA(ASCP) ? Report Date: ??04/03/2006 07:40 End of Report RUSH GARZA 03/27/2006 03/28/2006 us Annie Tran OVEN BAKER PATHOLOGY ORDERABLES Final R esult RUSH GARZA [address] [place] [address] documented in this encounter Visit Diagnoses Not on filedocumented in this encounter
--- OUTSIDE RECORDS SUMMARY | 2024-04-28 14:59 | XMS_ITS | Encounter Summary ---
Author Organization [facility] Address [facility] [place] [address] Care Team Providers Care Furniture Technician Name Role Phone Bakari Delgado MD Primary Care Provider [phone] Encounter Details Date Type Department Care Team (Late st Contact Info) Description 05/11/2010 3:45 PM EST Office Visit [facility] [place] [address] Shun Canales MD [facility] [place] [address] Social History Tobacco Use Types Packs/Day Years [...] PM EST TH Visit (TeleHealth) [place] [address] Lesli Rodriguez PA [facility] [place] [address] documented as of this encounter Visit Diagnoses Not on filedocumented in this encounter Care Teams Furniture Technician Relationship Specialty Start Date End Date Bakari Delgado MD [address] [place] [address] PCP - General 05/04/10 06/18/15 documented as of this encounter
--- OUTSIDE RECORDS SUMMARY | 2024-04-28 14:59 | XMS_ITS | Encounter Summary ---
Author Organization [facility] [place] [address] Care Team Providers Care Case Operator Name Role Phone Yadi Steel MD Primary Care Provider [phone] Reason for Referral * Consultation (Urgent) - Authorized Specialty Diagnoses / Procedures Referred By Christin herbert Referred To Contact Gastroenterology Diagnoses Abdominal pain, unspecified abdominal location HX OF DIVERTICULITIS AND IBS. RECENT NORMAL CALPROTECTIN, COLO W/ COLITIS BX NEG, CELIAC PANEL NEG. DOES NOT TOLERATE CYMBALTA. ONGOING ABD PAIN AND IRREGULAR BOWELS. DICYCLOMINE HAS NOT BEEN EFFECTIVE. Khushboo Vieira APRN [address] [place] [address] [facility] [place] [address] [place] [address] Referral ID Status Reason Start Date Expiration Date Visits Requested Visits Authorized [id number] Authorized Consult, Test & Treat PCP Updated and/or Approved 10/21/2024 6 6 Encounter Details Date Type Department Care Team ([facility] st Contact Info) Description 04/24/2024 Transcribe Orders eDH Incoming Referrals [phone] Khushboo Vieira APRN [address] [place] [address] Abdominal pain, unspecified abdominal location Social History Tobacco Use Types Packs/Day Years [...] EST TH Visit (TeleHealth) [place] [address] Lesli Rodriguez PA [facility] [place] [address] Scheduled Referrals Name Type Priority Associated Diagnoses Order Schedule Referral to Gastroenterology Outpatient Referral Urgent Abdominal pain, unspecified abdominal location Ordered: 04/24/2024 documented as of this encounter Visit Diagnoses Diagnosis Abdominal pain, unspecified abdominal location documented in this encounter Care Teams Case Operator Relationship Specialty Start Date End Date Yadi Steel MD [address] [place] [address] PCP - General Family Medicine 12/04/23 documented as of this encounter
--- OUTSIDE RECORDS SUMMARY | 2024-04-28 14:59 | XMS_ITS | Encounter Summary ---
Author Organization [facility] Address [address] [place] [address] Care Team Providers Care Airline Pilot Name Role Phone Unavailable Primary Care Provider Unavailabl e Encounter Details Date Type Department Care Team (Late st Contact Info) Description 07/28/2009 Orders Only [facility] Laboratory Services - [facility] [place] [place] [address] [place], [place] [id number] Annie Tran, [facility] [address] [place] [address] [place] [address] Social History Tobacco Use Types [...] Procedure Name Priority Date/Time Associated Diagnosis Comments HPV DETECTION, HIGH RISK TYPES Routine 07/28/2009 8:37 EST CYTOPATHOLOGY Routine 07/28/2009 0:00 EST documented in this encounter Results * HUMAN PAPILLOMA VIRUS DNA TEST (07/28/2009 8:37 EST) Specimen Description Cervix, ThinPrep vial [facility] Result Negative for HPV types 16, 18, 31, 33, 35, 39, 45, 51, 52, 56, 58, 59, and 68. [facility] Report Status Final 08/04/2009 [facility] 07/28/2009 8:37 EST 07/31/2009 8:37 EST us Annie Tran PARTS AND SERVICE MANAGER MICROBIOLOGY - GENERAL ORDER HANNA Final Result [facility] [address] [place] [id number] * CYTOPATHOLOGY (07/28/2009 0:00 EST) Pathology Report: CYTOPATHOLOGY REPORT ? Reports generated via electronic interface contain original data; ? however they are lacking the format of the original report. ? Caution should be taken when reading/interpreti ng unformatted reports. ? Name: ? ADELAIDA LUNDY ? Accession #: ? [id number] ? : ? 1955 (Age: 53) ??F ?Collect Date: ? 07/28/2009 ? Location: ? [facility] ? Receive Date: ? 07/29/2009 ? Provider: ?ANNIE JAZZMINE PARTS AND SERVICE MANAGER ? Copy to: ? Specimen/Source: ?Pap Test, Cervix/Endocervix, ThinPrep Imaging System ? with manual evaluation ? Last Menstrual Period: ? 2/8/10 ? Previous Gynecologic Pathology: ? ASC-US: 7/98 ? Other: ? HPVDX - HPV testing requested regardless of diagnosis on current ThinPrep Pap ?? test. ? SPECIMEN ADEQUACY ? Satisfactory for Evaluation ? - transformation zone component present ? GENERAL CATEGORIZATION ? Negative for Intraepithelial Lesion or Malignancy ? Document reviewed and electronically signed by: ? Dee Lentz, SCT(ASCP) ? Report Date: ??07/30/2009 15:49 ? End of Report ? [facility] 07/28/2009 07/29/2009 us Annie Tran PARTS AND SERVICE MANAGER PATHOLOGY ORDERABLES Final R esult [facility] [address] [place] [address] documented in this encounter Visit Diagnoses Not on filedocumented in this encounter
--- OUTSIDE RECORDS SUMMARY | 2024-04-28 14:59 | XMS_ITS | Encounter Summary ---
Author Organization [facility] Address [facility] [place] [address] Care Team Providers Care Weigh Boss Name Role Phone Catracho Perea MD Primary Care Provider [phone] Reason for Visit * Auth/Cert - Closed Specialty Diagnoses / Procedures Referred By Christin t Referred To Contact Diagnoses 10 yr surv from 2003 Procedures PRO COLONOSCOPY, DIAGNOSTIC COLONOSCOPY, DIAGNOSTIC Referral ID Status Reason Start Date Expiration Date Visits Re quested Visits Authorized [id number] Closed 1 1 Encounter Details Date Type Department Care Team (Latest Contact Info) Description 06/22/2015 9:40 AM EST - 06/22/2015 12:26 PM EST Hospital En[place] [address] Venice Meyer MD [facility] [place] [address] Discharge Disposition: Home Social History Tobacco Use [...] - 06/22/2015 11:59 AM EST Please call [phone] before 5pm with problems, questions or concerns, after 5pm call the Hospital at [phone] and ask to speak to the Data Processing Operator neon tube pumper and the head up operator helper will contact that person for you. Discharge [...] through Care Everywhere. * COLONOSCOPY : POST-OP (UPPER SORBIAN) documented in this encounter Medications at Time [...] PM EST TH Visit (TeleHealth) [place] [address] Lesli Rodriguez PA [facility] [place] [address] documented as of this encounter Procedures Procedure Name Priority Date/Time Associated Diagnosis Comments COLONOSCOPY, DIAGNOSTIC (WRVU 3.26) 06/22/2015 11:31 AM EST 10 yr surv from 2002 documented in this encounter Visit Diagnoses Not on filedocumented in this encounter Administered Medications Inactive Administered Medications - up to 3 most recent administrations Medication Order MAR Action Action Date Dose Rate Site lactated ringers infusion 100 mL/hr, Intravenous, CONTINUOUS, Starting on Mon06/22/15 at 1030, Until Mon06/22/15 at 1226, Endoscopy (Day of Procedure) New Bag 06/22/2015 10:25 AM EST 100 mL/hr 100 mL/hr documented in this encounter Active and Recently Administered Medications Times are shown in EST. Continuous Medication Order 06/20/2015 06/21/2015 06/22/2015 lactated ringers infusion (CANCELED) 100 mL/hr, Intravenous, CONTINUOUS, Starting on Mon06/22/15 at 1030, Until Mon06/22/15 at 1226, Endoscopy (Day of Procedure) 1025 (New Bag - Prov ider: Hiram Angel RN) PRN Medication Order 06/20/2015 06/21/2015 06/22/2015 [id number] [...] RN) documented in this encounter Care Teams Weigh Boss Relationship Specialty Start Date End Date Catracho Perea MD [address] [place] [address] PCP - General Family Medicine 06/19/15 07/09/19 documented as of this encounter
--- OUTSIDE RECORDS SUMMARY | 2024-04-28 14:59 | XMS_ITS | Encounter Summary ---
Author Organization [facility] Address [facility] [place] [address] Care Team Providers Care Spanish Medical Interpreter Name Role Phone Jeannette Herman APRN Primary Care Provider [phone] Encounter Details Date Type Department Care Team (Late st Contact Info) Description 04/27/2006 Orders Only Dermatology at [place] [address] [facility] [place] [address] Blake Malave MD [address] [facility] [place] [address] Social History Tobacco Use Types Packs/Day Years [...] PM EST TH Visit (TeleHealth) [place] [address] Lesli Rodriguez PA [facility] [place] [address] documented as of this encounter Procedures Procedure Name Priority Date/Time Associated Diagnosis Comments SURGICAL PATHOLOGY REPORT Routine 04/27/2006 8:41 PM EST documented in this encounter Results * Surgical Pathology Report (04/27/2006 8:41 PM EST) Surgical Pathology Report [id number] ? Location: The signing pathologist has (i) examined the relevant preparation(s) for the specimen(s) and (ii) rendered or confirmed the diagnosis(es). . ?Pathology Surgical Pathology Final Report Clinical Information Specimen Submitted: A - (L) dorsal forearm: 4 mm punch. Clinical History: Changing mole. Clinical Diagnosis: Nilson K /lentigo. Gross Description Labeled/Fixativ e: ? L dorsal forearm, formalin. Qty/Size/Weight : ?Single punch, 0.4 cm, brown. Sections/Proces sing: ??Bisected. ??(T1) ??[facility]/SNS Microscopic Description Slides reviewed, microscopic description not recorded. Diagnosis Left dorsal forearm, punch biopsy: ??Lentigo with some features of pigmented seborrheic keratosis. CR-0 04/28/06 ALEX 04/28/06 Verified by: ? Bhupinder Nair MD ?Dermatopathol ogist ?(Electronic Signature) The attending pathologist whose signature appears on this report has reviewed all diagnostic slides and has edited the gross and/or microscopic portion of the report in rendering the final pathologic diagnosis. JOSEMANUEL TAPIA 04/27/2006 8:41 PM EST Blake Malave MD PATHOLOGY/CYTOLOGY O RDERABLES JOSEMANUEL TAPIA documented in this encounter Visit Diagnoses Not on filedocumented in this encounter Care Teams Spanish Medical Interpreter Relationship Specialty Start Date End Date Jeannette Herman APRN [address] [place] [address] PCP - General Family Medicine 09/14/22 12/03/23 documented as of this encounter
--- OUTSIDE RECORDS SUMMARY | 2024-04-28 14:59 | XMS_ITS | Encounter Summary ---
Author Organization [facility] Address [address] [place] [address] Care Team Providers Care Building And Construction Manager Name Role Phone Unknown, Provider Primary Care Provider Unava ilable Encounter Details Date Type Department Care Team (Late st Contact Info) Description 05/08/2017 Results Only [facility] [phone] Annie Tran, [address] [place] [address] Social History Tobacco Use Types [...] Procedure Name Priority Date/Time Associated Diagnosis Comments PAP TEST- RESULT ONLY Routine 05/08/2017 0:00 EST documented in this encounter Results * PAP TEST- RESULT ONLY (05/08/2017 0:00 EST) Pathology Report: CYTOPATHOLOGY REPORT Reports generated via electronic interface contain original data; however they are lacking the format of the original report. Caution should be taken when reading/interpreti ng unformatted reports. Name: ? ADELAIDA LUNDY ? Accession #: ? [id number] ? : ? 1955 (Age: 61) ??F ?Collect Date: ? 05/08/2017 ? Location: ? [facility] ? Receive Date: ? 05/09/2017 ? Provider: ANNIE TRAN FIELD PIPE LINES SUPERVISOR Copy to: NIKKI FERNANDEZ MD ? Final Report SPECIMEN ADEQUACY ? Satisfactory for Evaluation - transformation zone component present GENERAL CATEGORIZATION ? Negative for Intraepithelial Lesion or Malignancy ?? Last Menstrual Period: 2012 Specimen/Source: ??Pap Test, Cervix, ThinPrep Imaging System with manual evaluation Document reviewed and electronically signed by: ? Berhane Norwood, JOSE RAFAEL(ASCP) ? Report ??Date: 05/17/2017 11:44 HPV with Pap Test ? Date Ordered: ? 05/17/2017 ? Status: ?? Signed Out ?Date Complete: ? 05/19/2017 ? By: ??System Interface ? Date Reported: ? 05/19/2017 ? Interpretation RESULT: Negative for HPV. No E6 or E7 mRNA is detected from HPV types 16,18,31,33,35, 39,45,51,52,56,58, 59,66, and 68 by office worker mediated amplification. Comments Document reviewed and electronically signed by: ? System Interface ? Report date: 05/19/2017 By the signature above, the attending physician certifies that he/she has personally conducted a gross and/or microscopic examination of the described specimens and rendered or confirmed the above diagnosis. End of Report [facility] 05/08/2017 05/09/2017 us Annie Tran FIELD PIPE LINES SUPERVISOR PATHOLOGY ORDERABLES Final R esult [facility] [address] [place] [address] documented in this encounter Visit Diagnoses Not on filedocumented in this encounter Care Teams Building And Construction Manager Relationship Specialty Start Date End Date Unknown, Provider, PCP - General 04/16/15 documented as of this encounter
--- OUTSIDE RECORDS SUMMARY | 2024-04-28 14:59 | XMS_ITS | Encounter Summary ---
Author Organization [facility] Address [address] [place] [address] Care Team Providers Care Online Advertising Analyst Name Role Phone Unknown, Provider Primary Care Provider Unava ilable Encounter Details Date Type Department Care Team (Late st Contact Info) Description 09/21/2019 Lab Requisition [facility] Pathology & Laboratory Medicine - [address] [address] Unknown, Provider, Social History Tobacco Use Types [...] Procedure Name Priority Date/Time Associated Diagnosis Comments BETA HYDROXYBUTYRATE Routine 09/20/2019 8:15 EDT INSULIN Routine 09/20/2019 8:15 EDT documented in this encounter Results * (ABNORMAL) BETA HYDROXYBUTYRATE (09/20/2019 8:15 EDT) Beta Hydroxybutyrate 0.5(H) <0.4 mmol/L 09/22/2019 16:14 EDT [facility] Blood VENOUS BLOOD / Unknown 09/20/2019 8:15 EDT 09/22/2019 15:58 EDT us Provider Unknown CHEMISTRY & BLOOD GAS ORDERA BLES Final Result [facility] [address] [place] [address] * INSULIN (09/20/2019 8:15 EDT) Insulin 6.1 <29.0 uIU/mL 09/26/2019 10:19 EDT [facility] Comment: Displayed Reference Range applies to fasting specimens only. Blood VENOUS BLOOD / Unknown 09/20/2019 8:15 EDT 09/22/2019 15:58 EDT us Provider Unknown CHEMISTRY & BLOOD GAS ORDERA BLES Final Result [facility] [address] [place] [address] documented in this encounter Visit Diagnoses Not on filedocumented in this encounter Care Teams Online Advertising Analyst Relationship Specialty Start Date End Date Unknown, Provider, PCP - General 04/16/15 documented as of this encounter
--- OUTSIDE RECORDS SUMMARY | 2024-04-28 14:59 | XMS_ITS | Encounter Summary ---
Author Organization [facility] Address [facility] [place] [address] Care Team Providers Care Recruitment Coordinator Name Role Phone Bakari Delgado MD Primary Care Provider Encounter Details Date Type Department Care Team (Late st Contact Info) Description 04/07/2013 External Results XRay at [address] [place] [phone] Catracho Perea MD [address] [place], [place] [id number] Social History Tobacco Use Types Packs/Day Years [...] PM EST TH Visit (TeleHealth) Gastroenterology at [facility] [place] [place] [address] Lesli Rodriguez PA [facility] [place] [place] [address] documented as of this encounter Procedures Procedure Name Priority Date/Time Associated Diagnosis Comments MRI/MRA SCAN Routine 03/28/2013 documented in this encounter Results * Scan Doc: MRI/MRA (03/28/2013) Anatomical Region Laterality Modality Other Catracho Perea MD MEDIA MGR SCAN EXT O RDR/RSLT documented in this encounter Visit Diagnoses Not on filedocumented in this encounter Care Teams Recruitment Coordinator Relationship Specialty Start Date End Date Bakari Delgado MD [address] [place] [address] PCP - General 05/04/10 06/18/15 documented as of this encounter
--- OUTSIDE RECORDS SUMMARY | 2024-04-28 14:59 | XMS_ITS | Encounter Summary ---
Author Organization [facility] Address [facility] [place] [address] Care Team Providers Care Podiatric Assistant Name Role Phone Bakari Delgado MD Primary Care Provider [phone] Encounter Details Date Type Department Care Team (Late st Contact Info) Description 04/10/2013 [place] [address] Catracho Preea MD [address] [place], [place] [id number] Social History Tobacco Use Types Packs/Day Years [...] PM EST TH Visit (TeleHealth) [place] [phone] Lesli Rodriguez PA [facility] [place] [address] documented as of this encounter Procedures Procedure Name Priority Date/Time Associated Diagnosis Comments REQUEST FOR 2ND READ MR HEAD Routine 04/10/2013 10:13 AM EDT documented in this encounter Results * Request for 2nd read MR Head (04/10/2013 10:13 AM EDT) Anatomical Region Laterality Modality Other 04/10/2013 10:1 3 AM EDT Narrative 04/10/2013 1:15 PM EDT Examination OUTSIDE MR HEAD Clinical History DIFFUSE TINGLING, TREMORS. ?CLEMYELINATING PROCESS?; BODY PART BEING EXAMINED,HEAD; MODALITY OF EXAM,MRI; I BELIEVE A REINTERP OF THIS EXAM MAY ALTER CARE OF PT,YES; Comparison 01/11/2006. Technique MRI of the brain performed without the use of intravenous contrast on 03/28/2013 at [facility]. Findings The ventricles remain normal in size and contour. ??There are scattered, small areas of T2 prolongation in the white matter of both cerebral hemispheres, including periventricular and juxtacortical lesions. ??These are nonspecific in appearance, and the majority of the lesions appear unchanged compared to the prior study, allowing for differences in technique. ??A few of the white matter lesions, however, are more conspicuous on the current exam than on the prior (though some of this may be related to quality of the available images). ??In particular, a left parietal lesion (series 7, image 13), and right frontal lesions (series 7, image 13) are not definitely seen on the previous study. ?? There is no evidence of restricted diffusion. ??No infratentorial lesions are identified. ??The sagittal T2 weighted images do not clearly demonstrate lesions in the corpus callosum. ??The posterior fossa, and the craniocervical junction are normal. ??Major intracranial flow voids appear normal. ??There is no mass, mass effect or shift. ??Pituitary, and skull base are normal. Impression Scattered, small areas of T2 prolongation in the white matter of both cerebral hemispheres. ??The majority of these are not changed compared to the prior exam. ?? This is a nonspecific finding often attributed to small vessel ischemic change, though the differential could include sequela of prior injury, or demyelination in the right clinical setting. Procedure Note Titus Villegas MD - 04/10/2013 Examination OUTSIDE MR HEAD Clinical History DIFFUSE TINGLING, TREMORS. ?CLEMYELINATING PROCESS?; BODY PART BEING EXAMINED,HEAD; MODALITY OF EXAM,MRI; I BELIEVE A REINTERP OF THIS EXAM MAY ALTER CARE OF PT,YES; Comparison 01/11/2006. Technique MRI of the brain performed without the use of intravenous contrast on 03/28/2013 at [facility]. Findings The ventricles remain normal in size and contour. There are scattered,small areas of T2 prolongation in the white matter of both cerebral hemispheres, including periventricular and juxtacortical lesions. These arenonspecific in appearance, and the majority of the lesions appear unchanged compared tothe prior study, allowing for differences in technique. A few of the whitematter lesions, however, are more conspicuous on the current exam than on theprior (though some of this may be related to quality of the available images).In particular, a left parietal lesion (series 7, image 13), and right frontal lesions (series 7, image 13) are not definitely seen on the previousstudy. There is no evidence of restricted diffusion. No infratentorial lesionsare identified. The sagittal T2 weighted images do not clearly demonstratelesions in the corpus callosum. The posterior fossa, and the craniocervicaljunction are normal. Major intracranial flow voids appear normal. There is nomass, mass effect or shift. Pituitary, and skull base are normal. Impression Scattered, small areas of T2 prolongation in the white matter of bothcerebral hemispheres. The majority of these are not changed compared to the priorexam. This is a nonspecific finding often attributed to small vessel ischemicchange, though the differential could include sequela of prior injury, ordemyelination in the right clinical setting. Catracho Perea MD IMG OUTSIDE INTERPRE TATION ORDERABLES documented in this encounter Visit Diagnoses Not on filedocumented in this encounter Care Teams Podiatric Assistant Relationship Specialty Start Date End Date Bakari Delgado MD [address] [place] [address] PCP - General 05/04/10 06/18/15 documented as of this encounter
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
--- OUTSIDE RECORDS SUMMARY | 2024-04-28 14:59 | XMS_ITS | Encounter Summary ---
Author Organization [facility] Address [address] [place] [address] Care Team Providers Care Heel Stainer Name Role Phone Unavailable Primary Care Provider Unavailabl e Encounter Details Date Type Department Care Team (Late st Contact Info) Description 05/01/2001 Results Only [facility] [address] [place] [address] Annie Tran, [address] [place] [address] Social History Tobacco Use Types [...] Priority Date/Time Associated Diagnosis Comments CYTOPATHOLOGY Routine 05/01/2001 0:00 EST documented in this encounter Results * CYTOPATHOLOGY (05/01/2001 0:00 EST) Pathology Report: CYTOPATHOLOGY REPORT Reports generated via electronic interface contain original data; however they are lacking the format of the original report. Caution should be taken when reading/interpreti ng unformatted reports. Name: ? ADELAIDA LUNDY ? Accession #: ? [id number] : ? 1955 (Age: 45) ??F ?Collect Date: ? 05/01/2001 Location: ? [facility] ? Receive Date: ? 05/07/2001 Provider: ?ANNIE TRAN MUSIC STORE MANAGER Copy to: ? Specimen/Source: ?ThinPrep Pap Test, Cervix/Endocervix Last Menstrual Period: ? 04/22/01 Previous Gynecologic Pathology: ? ASC-US: Other: ? Additional clinical information: Pap wnl ? SPECIMEN ADEQUACY ? Satisfactory for evaluation. GENERAL CATEGORIZATION ? Within Normal Limits ? Document reviewed and electronically signed by: ? JOSE RAFAEL Wynne(ASCP) ? Report Date: ??05/14/2001 13:22 End of Report [facility] 05/01/2001 05/07/2001 us Annie Tran MUSIC STORE MANAGER PATHOLOGY ORDERABLES Final R esult [facility] [address] [place] [address] documented in this encounter Visit Diagnoses Not on filedocumented in this encounter
--- OUTSIDE RECORDS SUMMARY | 2024-04-28 14:59 | XMS_ITS | Encounter Summary ---
Author Organization [facility] Address [address] [place] [address] Care Team Providers Care Senior Solutions Engineer Name Role Phone Unknown, Provider Primary Care Provider Unava ilable Encounter Details Date Type Department Care Team (Late st Contact Info) Description 08/17/2022 Lab Requisition [facility] Pathology & Laboratory Medicine - [facility] [address] [place] [address] Outr Resulting Lab, Provider Social History Tobacco Use Types Packs/Day Years [...] Procedure Name Priority Date/Time Associated Diagnosis Comments CORTISOL, STIMULATION BASELINE Routine 08/17/2022 7:40 EST documented in this encounter Results * CORTISOL, STIMULATION BASELINE (08/17/2022 7:40 EST) Cortisol Stimulation, Baseline 11 4 - 23 ug/dL 08/17/2022 17:44 EST [facility] Comment: NOTE: The results of this assay can be falsley elevated due to the consumption of Biotin. Blood VENOUS BLOOD / Unknown 08/17/2022 7:40 EST 08/17/2022 16:53 EST us Provider Outr Resulting Lab CHEMISTRY & BLOOD GA S ORDERABLES Final Result [facility] [address] [place] [address] documented in this encounter Visit Diagnoses Not on filedocumented in this encounter Care Teams Senior Solutions Engineer Relationship Specialty Start Date End Date Unknown, Provider, PCP - General 04/16/15 documented as of this encounter
--- OUTSIDE RECORDS SUMMARY | 2024-04-28 14:59 | XMS_ITS | Encounter Summary ---
Author Organization [facility] Address [facility] [place] [address] Care Team Providers Care Pigment Supplier Name Role Phone Mainor Jansen Primary Care Provider [phone] Reason for Visit * Consultation (Routine) - Specialty Diagnoses / Procedures Referred By Christin herbert Referred To Contact Endocrinology Diagnoses Hypoglycemia, unspecified HYPOGLYCEMIA Akosua Jimenez APRN [address] [place] [address] [facility] [address] [place] [phone] Referral ID Status Reason Start Date Expiration Date V isits Requested Visits Authorized [id number] Consult, Test & Treat [facility] PCP Updated and/or Approved 09/30/2019 09/29/2020 6 6 Encounter Details Date Type Department Care Team (Late st Contact Info) Description 10/08/2019 1:30 PM EDT TH Visit (TeleHealth) [place] [address] Ean Taylor MD [facility] [place] [address] Marisa Vivas MD [facility] [place] [address] Hypoglycemia Social History Tobacco Use Types Packs/Day Years Used Date Smoking Tobacco: Never Smokeless Tobacco: Never Alcohol Use Standard Drinks/Week Comments Yes 14 (1 standard drink = 0.6 oz pu re alcohol) Sex and Gender Information Value Date Recorded Sex Assigned at Not on file Gender Identity Not on file Sexual Orientation Not on file documented as of this encounter Progress Notes * Marisa Vivas CW - 10/08/2019 1:30 PM EDT Subjective: Patient ID: Adelaida Lundy is a 64 y.o. female. This visit was conducted via telephone given the current COVID-19 pandemic, to which pt consented verbally prior to the beginning of the visit. HPI Adelaida Lundy is a 64 y/o female with a past medical hx significant for fibromyalgia, IBS, anxiety/MDD, GERD, diverticulitis(4-5 bouts in past 1 year requiring hospital stays/augmentin) presenting in referral from Akosua Jimenez APRN for discussion related to hypOglycemia. Adelaida reports that she has had a few events 3 in the past 6 years- she could tell something waswrong due to experience with and diabetic dog. Tested herself and it was low went away with eating. In September, she started noticing it got bad. It seems to be more frequent in the afternoon. Her fasting BG is 92 or 90. For a few days, checked BG after the first event due to fears she may not feel it. After breakfast bounces up to 155 an hour after eating then it starts going down to normal quickly, by 1PM, notices the low BG symptoms. Symptoms include weakness, shakiness, nausea, sometimes headache that is low grade. No confusion, per se. First time she checked it, sx were rather extreme after going outside to work, was 54. 15-20 minutes was up to 69-70, had yogurt and didn't bother her again.Early to mid-afternoon. At this point, she plans to eat something at noon or 1PM before leaving the house. If she does that, she seems to be controlling it okay. Small, frequent meals. Doesn't have them overnight. Has not had any gastric bypass procedure/gastric sleeve. Did have cholecystectomy. Following that, had issues with certain foods. Cannot drink dark soda/hot dogs. Has noticed that she does sometimes have rapid development of diarrhea after eating a meal with a portion of the food in the stool. Shira chan miralax/metamucil. Lost some weight recently 10-15 lbs, had a weird illness in August around the - low BG seemed to start after that.No liver disease in patient or in family. Standard breakfast is whole grain toast, cranberry juice or OJ in glass of H20, 3 oz of juice mixed in with 16 oz glass, has to have certain amount of h20 or will get constipated. In the past has not talked with sofa back upholsterer, has researched on the Internet.PCP suggested acarbose it has not been tried yet, was hesitant to try it due to fearof constipation. 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 baclofen (LIORESAL) 5 mg Tablet, Take 5 mg by mouth as needed., Disp: , Rfl: ??? buPROPion SR (Wellbutrin SR) 150 mg tablet sustained-release 12 hr, Take 150 mg by mouth Daily., Disp: , Rfl: ??? busPIRone (BUSPAR) 10 mg Tablet, Take 10 mg by mouth Twice daily., Disp: , Rfl: ??? gabapentin (Neurontin) 300 mg Capsule, Take 300 mg by mouth nightly., Disp: , Rfl: ??? magnesium citrate 125 mg Capsule, Take 150 mg by mouth daily., Disp: , Rfl: ??? cholecalciferol, Vitamin D3, 25 mcg (1,000 unit) Capsule, Take 1,000 Units by mouth daily., Disp: , Rfl: ??? melatonin 1 mg Tablet, Take 3 mg by mouth nightly., Disp: , Rfl: ??? methocarbamoL (Robaxin) 500 mg Tablet, Take 500 mg by mouth as needed., Disp: , Rfl: ??? polyethylene glycol (Miralax) 17 gram/dose Powder, Take 17 g by mouth Daily., Disp: , Rfl: ??? lactobacillus rhamnosus, GG, (CULTURELLE) 10 billion cell Capsule, Take 1 capsule by mouth Daily., Disp: , Rfl: ??? acarbose (PRECOSE) 25 mg Tablet, Take 1 tablet with breakfast as needed., Disp: 30 tablet, Rfl:0 Review of Systems As per HPI, has lost 10-15 lbs recently Has significant constipation predominant IBD, both diarrhea and constipation regularly Otherwise as per HPI Objective: Physical Exam Pt not examined as this is a telephone encounter. Vitals 07/09/2019 Weight (Luxembourger) 216 lbs Weight (Metric) 97.977 kg 06/2019: CT Abdomen/Pelvis: Liver: Indeterminate 5 mm hypodense lesion seen posteriorly in the RIGHT lobe. No other hepatic lesions are noted. Bile ducts: Nondilated. Gallbladder: Postcholecystectomy Pancreas: Normal attenuation without ductal dilatation. Spleen: Normal. Adrenals: Normal. Kidneys: Symmetric renal enhancement. No renal masses. No renal collecting system obstruction bilaterally Urinary Bladder: Normal. ?? Labs: 07/12/2019 0815 fasting cortisol 11microg/dL, glucose 78, sodium 129mmol/L, K+4.0 mmol/L, 09/20/2019: a little after 0800, fasting BOHB 0.5 (normal <0.4 mmol/L), insulin 6.1uIU/mL, hypoglycemic agent screen negative includingsylfonylureas - fingerstick that AM was 92--test 89 TSH 2.92 uIU/mL Assessment and Plan: Ms. Adelaida Lundy is a very pleasant 64 y/o female with a past medical hx significant for irritable bowel syndrome and diverticulitis (several recent bouts as per HPI), GERD presenting in referral from her primary care provider for discussion related to post-prandial hypOglycemia. Adelaida has experienced infrequent symptoms suggestive of hypoglycemia for roughly 6 years. However, following a recent illness, after which Adelaida lost roughly 10-15 lbs, the episodes began to increase in frequency. In particular, Adelaida describes that her symptoms occur around 6458-3237 following breakfast comprised of whole wheat toast and 3oz of juice in H20. Symptoms include weakness, tremulousness, nausea, and a mild headache. With a small carbohydrate load, the symptoms resolve. Adelaida has never undergone gastric bypass surgery. Several labs have been obtained to narrow the differential diagnosis. A morning cortisol level was obtained at 0800 in the end of June which definitively excludes adrenal insufficiency. A fasting BOHB was just a touch elevated as would be expected in the starving state, suggestive that fatty acid metabolism in the liver is intact. A fasting insulin level of 6.1uIU/mL with a concomitant BG level in the high 80s-90s is suggestive of some degree of insulin resistance, but not inappropriately elevated suggestive of an insulinoma. Additionally, weight gain would be expected in the setting of aninsulinoma as insulin is an anabolic hormone. A sulfonylurea screen was negative and as mentioned pr eviously, pt has never undergone gastric bypass. Adelaida does not have a history of liver disease. A CT recently was normal with respect to pancreas anatomy; I discussed the fact that upper endoscopies with ultrasounds/biopsies are used in the initial workup of insulinoma. Frequent, high protein low carb meals may help prevent the hypoglycemia from occurring. Adelaida is interested in trying acarbose to delay hydrolysis of ingested carbohydrates. I did warn her that this medication can lead to increased flatulence, abdominal pain, and diarrhea. If this occurs, Adelaidaknows that she should stop the medication. #functional post-prandial hypOglycemia likely secondary to insulin resistance -lowest BG was 54 per glucometer -encourage frequent high protein, low carb meals -adrenal insufficiency definitively ruled out with normal AM cortisol level -fasting BOHB/insulin levels are not suggestive of insulinoma, do suggest a low level of insulin resistance -CT is not the modality of choice to definitively rule out insulinoma; EUS with bx is (not necessary at this time) -trial of acarbose 25mg appropriate, may experience GI sx that are intolerable due to this at whichpoint it should be discontinued -would be helpful to obtain BG level <55 with concomitant insulin/c-peptide/BOHB levels should episode recur Case discussed with staff Safety Lead, Ean Taylor MD. Adelaida is aware that I expect her to reach out to us following use of the acarbose to let us know if it is working well. Her PCP SANCHEZ Callaway may refill this med. If the episodes worsen or fail to improve, please let us know. Marisa Vivas MD PGY-5 [facility] [place] [facility] Fellow Pager #[phone] * Ean Taylor MD - 10/08/2019 1:30 PM EDT I reviewed this patient with Dr Vivas . I reviewed the spaulding portions of the history and reviewed pertinent lab data. I was involved in all medical decision making and agree with this plan. I agree withthe trial of acarbose. In the absenc eof a surgical cause, these runs of postprandial hypoglycemia are often transient and acarbose is not needed longterm. documented in this encounter Plan of Treatment Upcoming Encounters Date Type Department Care Team (Late st Contact Info) Description 04/29/2024 12:00 PM EST TH Visit (TeleHealth) [place] [address] Lesli Rodriguez PA [facility] [place] [address] documented as of this encounter Visit Diagnoses Diagnosis Hypoglycemia Hypoglycemia, unspecified documented in this encounter Care Teams Pigment Supplier Relationship Specialty Start Date End Date Mainor Jansen PA PCP - General General Internal Medicine 09/30/1912/14 documented as of this encounter
--- OUTSIDE RECORDS SUMMARY | 2024-04-28 14:59 | XMS_ITS | Encounter Summary ---
Author Organization [facility] Address [facility] [place] [address] Care Team Providers Care Carbon Paper Interleafer Name Role Phone Bakari Delgado MD Primary Care Provider [phone] Encounter Details Date Type Department Care Team (Late st Contact Info) Description 06/21/2010 11:00 AM EST Office Visit [facility] [place] [address] Shun Canales MD [facility] [address] Discharge Disposition: Home Social History Tobacco Use [...] PM EST TH Visit (TeleHealth) [place] [address] Lesli Rodriguez PA [facility] [place] [address] documented as of this encounter Visit Diagnoses Not on filedocumented in this encounter Care Teams Carbon Paper Interleafer Relationship Specialty Start Date End Date Bakari Delgado MD [address] [place] [address] PCP - General 05/04/10 06/18/15 documented as of this encounter
--- OUTSIDE RECORDS SUMMARY | 2024-04-28 14:59 | XMS_ITS | Encounter Summary ---
[place] [address] Care Team Providers Care Business Development Recruiter Name Role Phone Yadi Steel MD Primary Care Provider [phone] Reason for Referral * Consultation (Urgent) - Authorized Specialty Diagnoses / Procedures Referred By Contac t Referred To Contact Gastroenterology Diagnoses Diverticulosis of large intestine without diverticulitis Yadi Steel MD [address] [place] [address] [facility] [address] [address] Referral ID Status Reason Start Date Expiration Date Visits Requested Visits Authorized [id number] Authorized Consult, Test & Treat PCP Updated and/or Approved 12/04/2023 06/04/2024 6 6 Encounter Details Date Type Department Care Team (Latest Contact Info) Description 12/04/2023 Transcribe Orders eDH Incoming Referrals [phone] Yadi Steel MD [address] [place], [place] [id number] Diverticulosis of large intestine without diverticulitis Social History Tobacco Use Types Packs/Day Years [...] PM EST TH Visit (TeleHealth) [place] [address] Lesli Rodriguez PA [facility] [place] [address] Scheduled Referrals Name Type Priority Associated Diagnoses Orde r Schedule Referral to Gastroenterology Outpatient Referral Urgent Diverticulosis of large intestine without diverticulitis Ordered: 12/04/2023 documented as of this encounter Visit Diagnoses Diagnosis Diverticulosis of large intestine without diverticulitis Diverticulosis of colon (without mention of hemorrhage) documented in this encounter Care Teams Business Development Recruiter Relationship Specialty Start Date End Date Yadi Steel MD [address] [place] [address] PCP - General Family Medicine 12/04/23 documented as of this encounter
--- OUTSIDE RECORDS SUMMARY | 2024-04-28 14:59 | XMS_ITS | Encounter Summary ---
Author Organization [facility] Address [facility] [place] [address] Care Team Providers Care Endoscopic Technician Name Role Phone Unavailable Primary Care Provider Unavailabl e Encounter Details Date Type Department Care Team (Late st Contact Info) Description 04/30/2010 10:30 AM EST Surgical Consult [facility] [place] [address] Shun Canales MD [facility] [place] [address] Social History Tobacco Use Types Packs/Day Years [...] PM EST TH Visit (TeleHealth) [place] [address] Lesli Rodriguez PA [facility] [address] documented as of this encounter Visit Diagnoses Not on filedocumented in this encounter
--- OUTSIDE RECORDS SUMMARY | 2024-04-28 14:59 | XMS_ITS | Encounter Summary ---
Author Organization [facility] Address [facility] [place] [address] Care Team Providers Care Car Framer Name Role Phone Bakari Delgado MD Primary Care Provider [phone] Encounter Details Date Type Department Care Team (Late st Contact Info) Description 05/10/2010 2:00 PM EST Procedure visit [facility] [place] [address] Shun Canales MD [facility] [place] [address] Social History Tobacco Use Types Packs/Day Years [...] PM EST TH Visit (TeleHealth) [place] [address] Lesli Rodriguez PA [facility] [place] [address] documented as of this encounter Visit Diagnoses Not on filedocumented in this encounter Care Teams Car Framer Relationship Specialty Start Date End Date Bakari Delgado MD [address] [place] [address] PCP - General 05/04/10 06/18/15 documented as of this encounter
--- OUTSIDE RECORDS SUMMARY | 2024-04-28 14:59 | XMS_ITS | Encounter Summary ---
Author Organization [facility] [place] [address] Care Team Providers Care Anthropological Linguist Name Role Phone Guille James MD Primary Care Provider Reason for Referral * Diagnostic Test (Routine) - Closed Specialty Diagnoses / Procedures Referred By Contac t Referred To Contact Radiology Diagnoses Abdominal pain, lower Procedures CT Abdomen & Pelvis w Contrast Guille James MD [address] [place] [address] [facility] [place] [address] Referral ID Status Reason Start Date Expiration Date V isits Requested Visits Authorized [id number] Closed Specialty Service Requested 07/09/2019 09/06/2019 1 1 Reason for Visit * Diagnostic Test (Routine) - Closed Specialty Diagnoses / Procedures Referred By Contac t Referred To Contact Radiology Diagnoses Abdominal pain, lower Procedures CT Abdomen & Pelvis w Contrast Guille James MD [address] [place] [address] [facility] [place] [address] Referral ID Status Reason Start Date Expiration Date V isits Requested Visits Authorized [id number] Closed Specialty Service Requested 07/09/2019 09/06/2019 1 1 Encounter Details Date Type Department Care Team (Latest Contact Info) Description 07/10/2019 3:07 PM EST - 07/10/2019 11:59 PM EST Hospital [place] [address] Guille James MD [address] [place] [address] Abdominal pain, lower Discharge Disposition: Home Social History Tobacco Use [...] Sig Dispensed Refills Start Date End Date baclofen (LIORESAL) 5 mg Tablet Take 5 mg by mouth as needed. 12/27/2018 buPROPion SR (Wellbutrin SR) 150 mg tablet sustained-release 12 hr Take 150 mg by mouth Daily. 11/04/2018 busPIRone (BUSPAR) 10 mg Tablet Take 10 mg by mouth Twice daily. 12/21/2018 gabapentin (Neurontin) 300 mg Capsule Take 300 mg by mouth nightly. 12/04/2018 methocarbamoL (Robaxin) 500 mg Tablet Take 500 mg by mouth as needed. 06/18/2019 Red Yeast Rice Extract 600 mg Capsule Take by mouth daily. 10/07 lactobacillus rhamnosus, GG, (CULTURELLE) 10 billion cell Capsule Take 1 capsule by mouth daily. 10/08/2019 documented as of this encounter Plan of Treatment Upcoming Encounters Date Type Department Care Team (Late st Contact Info) Description 04/29/2024 12:00 PM EST TH Visit (TeleHealth) [place] [address] Lesli Rodriguez PA [facility] [place] [address] documented as of this encounter Procedures Procedure Name Priority Date/Time Associated Diagnosis Comments CT ABDOMEN AND PELVIS W CONTRAST Routine 07/10/2019 5:38 PM EST Abdominal pain, lower documented in this encounter Results * CT Abdomen & Pelvis w Contrast (07/10/2019 5:38 PM EST) Anatomical Region Laterality Modality Abdomen, Pelvis Computed Tomogra phy Impressions 07/10/2019 6:12 PM EST No acute findings. No visible etiology for patient's symptoms. Indeterminate 5 mm hepatic hypodense lesion. Recommend ultrasound for further evaluation. Possibly a cyst versus hemangioma Thank you for letting us participate in the care of this patient. For questions regarding this report, please contact the number below. ? Narrative 07/10/2019 6:12 PM EST EXAMINATION: CT ABDOMEN AND PELVIS W CONTRAST CLINICAL HISTORY: Lower abdominal pain TECHNIQUE: Helical CT of the abdomen and pelvis was performed following the intravenous administration of contrast. 112 cc of Omnipaque 350. Oral contrast was administered. COMPARISON: None FINDINGS: Lower chest: Normal. Liver: Indeterminate 5 mm hypodense lesion seen posteriorly in the RIGHT lobe. No other hepatic lesions are noted. Bile ducts: Nondilated. Gallbladder: Postcholecystectomy Pancreas: Normal attenuation without ductal dilatation. Spleen: Normal. Adrenals: Normal. Kidneys: Symmetric renal enhancement. No renal masses. No renal collecting system obstruction bilaterally Urinary Bladder: Normal. Vasculature: No aneurysm. Lymph Nodes: No enlarged lymph nodes. Bowel: No small bowel obstruction. No areas of abnormal small bowel wall thickening. The terminal ileum is normal. The appendix is not visualized, however, no RIGHT lower quadrant inflammatory changes. No colonic wall thickening to suggest a colitis. No diverticulitis. Peritoneum and mesentery: No ascites, free air, or loculated fluid collection. No mesenteric inflammation. Abdominal wall: Normal. Reproductive organs: Normal. Osseous structures: No suspicious lesions. Procedure Note Isidoro Genao MD - 07/10/2019 EXAMINATION: CT ABDOMEN AND PELVIS W CONTRAST CLINICAL HISTORY: Lower abdominal pain TECHNIQUE: Helical CT of the abdomen and pelvis was performed followingthe intravenous administration of contrast. 112 cc of Omnipaque 350. Oralcontrast was administered. COMPARISON: None FINDINGS: Lower chest: Normal. Liver: Indeterminate 5 mm hypodense lesion seen posteriorly in the RIGHTlobe. No other hepatic lesions are noted. Bile ducts: Nondilated. Gallbladder: Postcholecystectomy Pancreas: Normal attenuation without ductal dilatation. Spleen: Normal. Adrenals: Normal. Kidneys: Symmetric renal enhancement. No renal masses. No renalcollecting system obstruction bilaterally Urinary Bladder: Normal. Vasculature: No aneurysm. Lymph Nodes: No enlarged lymph nodes. Bowel: No small bowel obstruction. No areas of abnormal small bowel wall thickening. The terminal ileum is normal. The appendix is notvisualized, however, no RIGHT lower quadrant inflammatory changes. No colonic wall thickening to suggest a colitis. No diverticulitis. Peritoneum and mesentery: No ascites, free air, or loculated fluidcollection. No mesenteric inflammation. Abdominal wall: Normal. Reproductive organs: Normal. Osseous structures: No suspicious lesions. IMPRESSION No acute findings. No visible etiology for patient's symptoms. Indeterminate 5 mm hepatic hypodense lesion. Recommend ultrasound forfurther evaluation. Possibly a cyst versus hemangioma Thank you for letting us participate in the care of this patient. Forquestions regarding this report, please contact the number below. Guille James MD IM CT ORDERABLES documented in this encounter Visit Diagnoses Diagnosis Abdominal pain, lower Abdominal pain, other specified site documented in this encounter Administered Medications Inactive Administered Medications - up to 3 most recent administrations Medication Order MAR Action Action Date Dose Rate Site iohexol (OMNIPAQUE) 350 mg/mL solution 0-200 mL 0-200 mL, Intravenous, ONCE PRN, 1 dose, Starting on Mon07/10/19 at 1735, Until Mon07/10/19 at 1736, Per Protocol, Warning Vesicant/Irritant Medication , Radiology Contrast, Routine Given 07/10/2019 5:36 PM EST 112 mLs iohexol (OMNIPAQUE) 350 mg/mL solution 0-50 mL 0-50 mL, Oral, ONCE PRN, 1 dose, Starting on Mon07/10/19 at 1722, Until Mon07/10/19 at 1736, Per Protocol, Warning Vesicant/Irritant Medication , Radiology Contrast, Routine Given 07/10/2019 5:36 PM EST 50 mLs documented in this encounter Care Teams Anthropological Linguist Relationship Specialty Start Date End Date Guille James MD [address] [place] [address] PCP - General Internal Medicine 07/10/19 09/29/19 documented as of this encounter
--- OUTSIDE RECORDS SUMMARY | 2024-04-28 14:59 | XMS_ITS | Clinical Summary ---
Author Organization [facility] Address [facility] [place] [address] Care Team Providers Care Termite Control Technician Name Role Phone Yadi Steel MD Primary Care Provider [phone] Allergies Active Allergy Reactions Criticality Noted Date Comments Metronidazole Hcl 10/08/2019 Levofloxacin 10/08/2019 Knee pain Medications Medication Sig Dispensed Refills Start Date End Date Status baclofen (LIORESAL) 5 mg Tablet Take 5 mg by mouth as needed. 12/27/2018 Active buPROPion SR (Wellbutrin SR) 150 mg tablet sustained-release 12 hr Take 150 mg by mouth Daily. 11/04/2018 Active busPIRone (BUSPAR) 10 mg Tablet Take 10 mg by mouth Twice daily. 12/21/2018 Active gabapentin (Neurontin) 300 mg Capsule Take 300 mg by mouth nightly. 12/04/2018 Active melatonin 1 mg Tablet Take 3 mg by mouth nightly. Active methocarbamoL (Robaxin) 500 mg Tablet Take 500 mg by mouth as needed. 06/18/2019 Active polyethylene glycol (Miralax) 17 gram/dose Powder Take 17 g by mouth Daily. Active lactobacillus rhamnosus, GG, (CULTURELLE) 10 billion cell Capsule Take 1 capsule by mouth Daily. Active magnesium citrate 125 mg Capsule Take 150 mg by mouth daily. Active cholecalciferol, Vitamin D3, 25 mcg (1,000 unit) Capsule Take 1,000 Units by mouth daily. Active acarbose (PRECOSE) 25 mg Tablet Take 1 tablet with breakfast as needed. 30 tablet 10/08/2019 Active Additional Information Patient not taking.Reported on 09/08/2023 amoxicillin-clavul anate (Augmentin) 875-125 mg tablet Take 1 tablet by mouth 3 times daily for 14 days. 42 tablet 04/28/2024 05/12/2024 Active Active Problems Problem Noted Date Diagnosed Date Diverticulitis of large inte lanie without perforation or abscess without bleeding 04/28/2024 Diarrhea 04/27/2024 Diverticulitis of colon 04/27/2024 GERD without esophagitis 04/27/2024 HTN (hypertension) 04/27/2024 Irregular bowel habits 04/27/2024 Irritable bowel syndrome 04/27/2024 Lower abdominal pain 04/27/2024 Fibromyalgia 04/27/2024 Essential thrombocythemia 04/27/2024 Myopia, left eye 12/17/2010 Overview (12/17/2010): Myopia with astigmatism OS Astigmatism, unspecified left eye 12/17/2010 Overview (12/17/2010): Myopia with astigmatism OS Encounters Date Type Department Care Team Description 04/28/2024 Travel 04/27/2024 7:28 PM EST - 04/28/2024 3:23 AM EST [place] [address] Titus Sagastume MD Lower abdominal pain; Diverticulitis of large intestine without perforation or abscess without bleeding Discharge Disposition: Home 04/24/2024 Transcribe Orders eDH Incoming Referrals [phone] Khushboo Vieira, CAITY Abdominal pain, unspecified abdominal location from Last 3 Months Immunizations Name Administration Dates Next Due Influenza Vaccine, Whole 04/05/2006,04/11/2005 Td Adult (not absorbed) 09/29/2004 Social History Tobacco Use Types Packs/Day Years [...] on file Sexual Orientation Not on file Last Filed Vital Signs Vital Sign Reading [...] Mass Index 32.77 04/27/2024 7:25 PM EST Plan of Treatment Upcoming Encounters Date Type Department Care Team (Late st Contact Info) Description 04/29/2024 12:00 PM EST TH Visit (TeleHealth) [place] [address] Lesli Rodriguez PA [facility] [place] [address] Health Maintenance Due Date Last Done Comments CT Colonography 1955 FIT DNA 1955 FIT 1955 Sigmoidoscopy 1955 Hepatitis C Screening 1974 Lipid Screening 1974 Breast Cancer Share Decision Needed 1996 Breast Cancer screening 1996 Tetanus/Diphtheria/Pertussis Vaccines (1 - Tdap) 09/30/2004 09/29/2004 Zoster vaccine (1 of 2) 2006 Advance Directive 10/06/2011 Bone Density Scan 2021 Pneumoccocal Vaccine: 65+ (1 of 1 - PCV) 2021 Covid-19 Vaccine (1 - season) 2024 Influenza (Flu) vaccine (1 o f 1 - Influenza standard series) 02/11/2024 04/05/2006, 04/11/2005 Colonoscopy 06/22/2025 06/22/2015, 06/12, 08/26/2002 (See prior EHR) Colorectal Cancer Screening 06/22/2025 Sigmoidoscopy (10 year) with FIT yearly 06/22/2025 06/22/2015, 06/22/2015 Diabetes Screening (HgbA1C o r Glucose) 04/27/2027 04/27/2024 Procedures Procedure Name Priority Date/Time Associated Diagnosis Comments URINALYSIS WITH REFLEX CULTURE STAT 04/28/2024 12:30 AM EST LACTATE, WHOLE BLOOD POC Routine 04/27/2024 11:[address] ABDOMEN AND PELVIS W CONTRAST STAT 04/27/2024 9:04 PM EST SCAN, PERIPHERAL BLOOD STAT 04/27/2024 7:43 PM EST MAGNESIUM STAT Add-On 04/27/2024 7:43 PM EST HEPATIC FUNCTION PANEL STAT Add-On 04/27/2024 7:43 PM EST LIPASE STAT Add-On 04/27/2024 7:43 PM EST BASIC METABOLIC PANEL STAT 04/27/2024 7:43 PM EST CBC (WITH DIFF) STAT 04/27/2024 7:43 PM EST LAB SCAN 04/09/2024 12:[address] SCAN (SCAN) 03/26/2024 12:00 AM EDT LAB SCAN 03/25/2024 12:00 AM EDT COLONOSCOPY Routine 06/22/2015 11:37 AM EST from Last 3 Months or Most Recently Relevant to Health Maintenance Results * (ABNORMAL) Urinalysis with reflex Culture (04/28/2024 12:30 AM [facility]) Glucose, Urine Dipstick Negative Negative 04/28/2024 12:46 AM [facility] Protein, Urine Dipstick Negative Negative 04/28/2024 12:46 AM [facility] Bilirubin, Urine Dipstick Negative Negative 04/28/2024 12:46 AM [facility] Comment:Clinical correlation required for positive Urine Bilirubin results as false positive may occur with some drugs and drug related products. If a false positive is suspected a serum total bilirubin should be considered if clinically indicated. Urobilinogen, Urine Dipstick Normal Normal, 0.2 mg/dL, 1.0 mg/dL 04/28/2024 12:46 AM [facility] pH, Urine (dipstick) 7.0 5.0 - 8.0 04/28/2024 12:46 AM [facility] Blood, Urine Dipstick Negative Negative 04/28/2024 12:46 AM [facility] Ketone, Urine Dipstick 15 mg/dL(A) Negative 04/28/2024 12:46 AM [facility] Nitrite, Urine Dipstick Negative Negative 04/28/2024 12:46 AM [facility] Leukocytes, Urine Dipstick Negative Negative 04/28/2024 12:46 AM [facility] Specific Cook Urine Automated >=1.030(H) 1.005 - 1.030 04/28/2024 12:46 AM [facility] Appearance, Urine Dipstick Clear Clear 04/28/2024 12:46 AM [facility] Color, Urine Dipstick Yellow Yellow, Dark Yellow 04/28/2024 12:46 AM [facility] CULTURE ADDED? 04/28/2024 12:46 AM [facility] Urine URINE SPECIMEN OBTAINED BY CLEAN CATCH PROCEDURE / Unknown Non Blood Collection / Unknown 04/28/2024 12:30 AM EST 04/28/2024 12:39 AM EST Titus Sagastume MD URINE ORDERABLES Performing Organization Address [facility]/ZIP Co de Phone Number [facility] [place] [address] * Lactate Whole Blood POC (04/27/2024 11:32 PM EST) Pathologist [employer] Lactate, Whole Blood 1.0 0.5 - 2.2 mmol/L 04/27/2024 11:33 PM EST [facility] Blood VENOUS BLOOD SPECIMEN / Unknown 04/27/2024 11:32 PM EST 04/27/2024 11:33 PM EST Titus Sagastume MD POINT OF CARE TEST O RDERABLES Performing Organization Address [facility] de Phone Number [facility] [place] [address] * CT Abdomen & Pelvis w Contrast (04/27/2024 9:04 PM EST) Pathologist [employer] WORKSTATION ID [id number] DH RAD Anatomical Region Laterality Modality Abdomen, Pelvis [...] who have questions please contact the health day care aide that requested your imaging first. ? Electronically signed by: Elba Kitchen MD, [facility] ([phone]), at 04/27/2024 10:02 PM Narrative 04/27/2024 10:02 [...] patients who have questions please contactthe health day care aide that requested your imaging first. Electronically signed by: Elba Kitchen MD, [facility]([phone]), at 04/27/2024 10:02 PM Curtis London III, MD IMG CT ORDERABLES * (ABNORMAL) Scan, Peripheral Blood (04/27/2024 7:43 PM EST) RBC Morphology Normal 04/27/2024 8:43 PM EST [facility] Platelet Estimate Increased( A) Normal 04/27/2024 8:43 PM EST [facility] Platelet Clumps Present(A) (none) 04/27/2024 8:43 PM EST [facility] WBC MORPHOLOGY See Comment(A) (none) 04/27/2024 8:43 PM EST [facility] Comment:Vacuolated Grans Blood VENOUS BLOOD SPECIMEN / Unknown Venipuncture / Unknown 04/27/2024 7:43 PM EST 04/27/2024 7:47 PM EST Titus Sagastume MD HEMATOLOGY ORDERABLE S [facility] [place] [address] * (ABNORMAL) CBC (with Diff) (04/27/2024 7:43 PM EST) White Blood Cell 14.89(H) 4.00 - 9.50 x10(3)/mc L 04/27/2024 8:43 PM [facility] Red Blood Cell 4.74 4.00 - 5.21 x10(6)/mc L 04/27/2024 8:43 PM [facility] Hemoglobin 14.2 11.7 - 15.5 g/dL 04/27/2024 8:43 PM [facility] Hematocrit 40.9 35.7 - 45.8 % 04/27/2024 8:43 PM [facility] Mean Cell Volume 86.3 82.6 - 94.4 fL 04/27/2024 8:43 PM [facility] Mean Cell Hemoglobin 30.0 27.1 - 32.0 pg 04/27/2024 8:43 PM [facility] Mean Cell Hemoglobin Concentration 34.7 31.7 - 35.0 g/dL 04/27/2024 8:43 PM [facility] Platelet 386(H) 145 - 357 x10(3)/mc L 04/27/2024 8:43 PM [facility] Mean Platelet Volume 9.1 7.6 - 12.9 fL 04/27/2024 8:43 PM [facility] RDW Standard Deviation 39.1 37.0 - 46.0 fL 04/27/2024 8:43 PM [facility] RDW coefficient of variation 12.3 11.5 - 14.1 % 04/27/2024 8:43 PM [facility] NRBC% auto 0.0 % 04/27/2024 8:43 PM [facility] NRBC Absolute <0.01 <0.01 x10(3)/mc L 04/27/2024 8:43 PM [facility] Neutrophil % 78.1 % 04/27/2024 8:43 PM [facility] Comment:This is an appended report. These results have been appended to a previously preliminary verified report. Neutrophil Absolute (ANC) - Automated 11.63(H) 1.70 - 6.10 x10(3)/mc L 04/27/2024 8:43 PM [facility] Comment:This is an appended report. These results have been appended to a previously preliminary verified report. Lymph % 7.1 % 04/27/2024 8:43 PM [facility] Comment:This is an appended report. These results have been appended to a previously preliminary verified report. Lymph Absolute 1.05 0.90 - 3.20 x10(3)/mc L 04/27/2024 8:43 PM [facility] Comment:This is an appended report. These results have been appended to a previously preliminary verified report. Monocyte % 12.4 % 04/27/2024 8:43 PM [facility] Comment:This is an appended report. These results have been appended to a previously preliminary verified report. Monocyte Absolute 1.85(H) 0.30 - 0.90 x10(3)/mc L 04/27/2024 8:43 PM [facility] Comment:This is an appended report. These results have been appended to a previously preliminary verified report. Eos % 1.7 % 04/27/2024 8:43 PM [facility] Comment:This is an appended report. These results have been appended to a previously preliminary verified report. Eos Absolute 0.25 0.00 - 0.40 x10(3)/mc L 04/27/2024 8:43 PM [facility] Comment:This is an appended report. These results have been appended to a previously preliminary verified report. Basophil % 0.4 % 04/27/2024 8:43 PM [facility] Comment:This is an appended report. These results have been appended to a previously preliminary verified report. Baso Absolute 0.06 0.00 - 0.10 x10(3)/mc L 04/27/2024 8:43 PM [facility] Comment:This is an appended report. These results have been appended to a previously preliminary verified report. Immature Gran % 0.3 % 8:43 PM EST [facility] Comment:This is an appended report. These results have been appended to a previously preliminary verified report. Immature Gran Absolute 0.05(H) 0.00 - 0.04 x10(3)/mc L 04/27/2024 8:43 PM EST [facility] Comment:This is an appended report. These results have been appended to a previously preliminary verified report. Blood VENOUS BLOOD SPECIMEN / Unknown Venipuncture / Unknown 04/27/2024 7:43 PM EST 04/27/2024 7:47 PM EST Ttius Sagastume MD HEMATOLOGY ORDERABLE S Performing Organization Address City/[facility]/ZIP Co de Phone Number [facility] [place] [address] * (ABNORMAL) Magnesium (04/27/2024 7:43 PM EST) Magnesium 0.68(L) 0.69 - 1.07 mMol/L 04/27/2024 8:32 PM EST [facility] Blood VENOUS BLOOD SPECIMEN / Unknown Venipuncture / Unknown 04/27/2024 7:43 PM EST 04/27/2024 7:47 PM EST Curtis London III, MD CHEMISTRY ORDERABL ES Performing Organization Address City/[facility]/ZIP Co de Phone Number [facility] [place] [address] * Lipase (04/27/2024 7:43 PM EST) Lipase 23 0 - 60 unit/L 04/27/2024 8:32 PM EST [facility] Blood VENOUS BLOOD SPECIMEN / Unknown Venipuncture / Unknown 04/27/2024 7:43 PM EST 04/27/2024 7:47 PM EST Curtis London III, MD CHEMISTRY ORDERABL ES Performing Organization Address [facility] Co de Phone Number [facility] [place] [address] * Hepatic Function Panel (04/27/2024 7:43 PM EST) [facility] Albumin 4.0 3.2 - 5.2 g/dL 04/27/2024 8:32 PM EST [facility] Aspartate Aminotransferase 19 <=30 unit/L 04/27/2024 8:32 PM EST [facility] Alanine Aminotransferase 13 0 - 30 unit/L 04/27/2024 8:32 PM EST [facility] Alkaline Phosphatase 58 35 - 105 unit/L 04/27/2024 8:32 PM EST [facility] Bilirubin, Total 0.5 <=1.3 mg/dL 04/27/2024 8:32 PM [facility] Bilirubin, Direct <0.2 0.0 - 0.3 mg/dL 04/27/2024 8:32 PM EST [facility] Protein, Total 7.7 6.1 - 8.0 g/dL 04/27/2024 8:32 PM EST [facility] Blood VENOUS BLOOD SPECIMEN / Unknown Venipuncture / Unknown 04/27/2024 7:43 PM EST 04/27/2024 7:47 PM EST Curtis London III, MD CHEMISTRY ORDERABL ES Performing Organization Address [facility]/ZIP Co de Phone Number [facility] [place] [address] * (ABNORMAL) Basic Metabolic Panel (04/27/2024 7:43 PM EST) Pathologist [facility] Glucose 91 65 - 199 mg/dL 04/27/2024 8:32 PM EST [facility] Comment:Glucose Concentratio n >=200 mg/dL plus symptoms is consistent with Diabetes Mellitus. Blood Urea Nitrogen 4(L) 8 - 18 mg/dL 04/27/2024 8:32 PM [facility] Creatinine 0.67(L) 0.70 - 1.20 mg/dL 04/27/2024 8:32 PM [facility] Sodium 133(L) 135 - 145 mMol/L 04/27/2024 8:32 PM [facility] Potassium 3.8 3.5 - 5.0 mMol/L 04/27/2024 8:32 PM [facility] Chloride 95(L) 98 - 107 mMol/L 04/27/2024 8:32 PM [facility] Carbon Dioxide 27 22 - 31 mMol/L 04/27/2024 8:32 PM [facility] Anion Gap 11 5 - 15 mMol/L 04/27/2024 8:32 PM [facility] Calcium 9.1 8.5 - 10.5 mg/dL 04/27/2024 8:32 PM [facility] Est Glomerular Filtration Rate - Female 96 mL/min/1. 73 m?? 04/27/2024 8:32 PM [facility] Comment: This patient's estimated GFR [...] PM EST Titus Sagastume MD CHEMISTRY ORDERABLES [facility] [place] [address] * Scan Doc: Lab (04/09/2024 12:00 AM EDT) Only the most recent of2 resultswithin the time period is included. Narrative 04/09/2024 12:00 AM EDT Ordered by an unspecified provider. Scanning Provider MEDIA MGR SCAN EXT O RDR/RSLT * Scan Doc: CT Scan (03/26/2024 12:00 AM EDT) Anatomical Region Laterality Modality Other Narrative 03/26/2024 12:00 AM EDT Ordered by an unspecified provider. Scanning Provider MEDIA MGR SCAN EXT O RDR/RSLT * COLONOSCOPY (06/22/2015 11:37 AM EST) COLONOSCOPY [facility] Endoscopy Patient Name: Adelaida Lundy ? Procedure Date: 06/22/2015 11:37 AM ? Date of : 1955 ? Age: 59 ? Order #: [id number] ? Procedure: ? Colonoscopy Indications: ? Screening for colorectal malignant ? neoplasm Providers: ? Venice Meyer MD, Martina Estrada RN, ? Alex Coello, Director Of Pharmacy Referring MD: ?Bakari Delgado MD, Catracho Coleman ? MD Eliazar Medicines: ? Midazolam 2 mg IV, Fentanyl 100 ? micrograms IV Complications: ? No immediate complications. Procedure: ? Pre-Anesthesia Assessment: ? - Prior to the procedure, a History ? and Physical was performed, and ? patient medications, allergies and ? sensitivities were reviewed. The ? patient's tolerance of previous ? anesthesia was reviewed. ? - The risks and benefits of the ? procedure and the sedation options ? and risks were discussed with the ? patient. All questions were answered ? and informed consent was obtained. ? The procedure, indications, benefits, ? risks and alternatives were explained ? to the patient. Specifically ? discussed were potential ? complications including, but not ? limited to, bleeding, perforation, ? infection, missing a cancer, and ? adverse medication reactions. The ? patient was placed in the left ? lateral decubitus position, and a ? digital rectal exam was performed. ? The Colonoscope was inserted in the ? anus and under direct visualization, ? advanced to the terminal ileum. ? Careful inspection was made as the ? colonoscope was withdrawn. The ? colonoscopy was performed without ? difficulty. The patient tolerated the ? procedure well. The quality of the ? bowel preparation was excellent. ? Findings: ? Multiple small-mouthed diverticula were found in the ? sigmoid colon and in the descending colon. ? The exam was otherwise without abnormality. ? Impression: ?- Diverticulosis in the sigmoid colon ? and in the descending colon. ? - The examination was otherwise ? normal. ? - No specimens collected. Recommendation: ?- Repeat colonoscopy in 10 years for ? screening purposes. ? Venice Meyer MD 06/22/2015 11:53 AM This report has been signed electronically. Number of Addenda: 0 Note Initiated On: 06/22/2015 11:37 AM PROVATION 06/22/2015 11:3 7 AM EST Bakari Delgado III, MD GENERAL SURGICA L ORDERABLES PROVATION from Last 3 Months or Most Recently Relevant to Health Maintenance Care Teams Termite Control Technician Relationship Specialty Start Date End Date Yadi Steel MD [address] [place], [place] [id number] PCP - General Family Medicine 12/04/23
--- OUTSIDE RECORDS SUMMARY | 2024-04-28 14:59 | XMS_ITS | Encounter Summary ---
Author Organization [facility] Address [address] [place] [address] Care Team Providers Care Brazer Helper Induction Name Role Phone Unavailable Primary Care Provider Unavailabl e Encounter Details Date Type Department Care Team (Late st Contact Info) Description 04/06/2007 Results Only [facility] [address] [place] [address] Annie Tran, [address] [place] [address] Social History Tobacco Use Types [...] Priority Date/Time Associated Diagnosis Comments CYTOPATHOLOGY Routine 04/06/2007 0:00 EDT documented in this encounter Results * CYTOPATHOLOGY (04/06/2007 0:00 EDT) Pathology Report: CYTOPATHOLOGY REPORT Reports generated via electronic interface contain original data; however they are lacking the format of the original report. Caution should be taken when reading/interpreti ng unformatted reports. Name: ? ADELAIDA LUNDY ? Accession #: ? [id number] : ? 1955 (Age: 51) ??F ?Collect Date: ? 04/06/2007 Location: ? [facility] ? Receive Date: ? 04/06/2007 Provider: ?ANNIE TRAN TEACHER ASST Copy to: ? Specimen/Source: ?ThinPrep Pap Test, Cervix/Endocervix, processed on [employer] ThinPrep Imaging System, with manual evaluation Last Menstrual Period: ? 04/06/07 Previous Gynecologic Pathology: ? ASC-US: Other: ? HPVA - HPV testing requested if ASC-US on the current ThinPrep Pap test. ? SPECIMEN ADEQUACY ? Satisfactory for Evaluation - transformation zone component present GENERAL CATEGORIZATION ? Negative for Intraepithelial Lesion or Malignancy ? Document reviewed and electronically signed by: ? Shelbi Brink, CT(ASCP) ? Report Date: ??04/12/2007 12:57 End of Report [facility] 04/06/2007 04/06/2007 us Annie Tran TEACHER ASST PATHOLOGY ORDERABLES Final R esult [facility] [address] [place] [address] documented in this encounter Visit Diagnoses Not on filedocumented in this encounter
--- OUTSIDE RECORDS SUMMARY | 2024-04-28 14:59 | XMS_ITS | Encounter Summary ---
Author Organization [facility] Address [address] [place] [address] Care Team Providers Care Cafeteria Cashier Name Role Phone Unknown, Provider Primary Care Provider Unava ilable Encounter Details Date Type Department Care Team (Late st Contact Info) Description 08/17/2022 Lab Requisition [facility] Pathology & Laboratory Medicine - [facility] [address] [place] [address] Outr Resulting Lab, Provider Social History Tobacco [...] Priority Date/Time Associated Diagnosis Comments CORTISOL, STIMULATION 30 MINUTE Routine 08/17/2022 8:30 EST documented in this encounter Results * CORTISOL, STIMULATION 30 MINUTE (08/17/2022 8:30 EST) Cortisol Stimulation, 30 min. 17 See Note ug/dL 08/17/2022 17:48 EST [facility] Comment: NOTE: Expected Ranges for ACTH (Cortisol) Stimulation Test: Peak Concentrations at 30 - 60 minutes Minimal response: ??A cortisol value of >=18 ug/dL at the Baseline, 30 min, or 60 min sample is consistent with normal adrenal function. The results of this assay can be falsley elevated due to the consumption of Biotin. Blood VENOUS BLOOD / Unknown 08/17/2022 8:30 EST 08/17/2022 16:53 EST us Provider Outr Resulting Lab CHEMISTRY & BLOOD GA S ORDERABLES Final Result [facility] [address] [place] [address] documented in this encounter Visit Diagnoses Not on filedocumented in this encounter Care Teams Cafeteria Cashier Relationship Specialty Start Date End Date Unknown, Provider, PCP - General 04/16/15 documented as of this encounter
--- OUTSIDE RECORDS SUMMARY | 2024-04-28 14:59 | XMS_ITS | Encounter Summary ---
Author Organization [facility] [place] [address] Care Team Providers Care Urology Surgeon Name Role Phone Catracho Perea MD Primary Care Provider [phone] Encounter Details Date Type Department Care Team (Late st Contact Info) Description 06/22/2015 [place] [phone] Bakari Delgado III, MD [address] [place], [place] [id number] Social History Tobacco Use Types Packs/Day Years [...] PM EST TH Visit (TeleHealth) [place] [phone] Lesli Rodriguez PA [facility] [place] [address] documented as of this encounter Procedures Procedure Name Priority Date/Time Associated Diagnosis Comments COLONOSCOPY Routine 06/22/2015 11:37 AM EST documented in this encounter Results * COLONOSCOPY (06/22/2015 11:37 AM EST) COLONOSCOPY [facility] Endoscopy Patient Name: Adelaida Lundy ? Procedure Date: 06/22/2015 11:37 AM ? N: [id number] ? Date of : 1955 ? Age: 59 ? Order #: [id number] ? Procedure: ? Colonoscopy Indications: ? Screening for colorectal malignant ? neoplasm Providers: ? Venice Meyer MD, Martina Estrada RN, ? Alex Coello, Engineering Professor Referring MD: ?Bakari Delgado MD, Catracho Coleman [...] Delgado III, MD GENERAL SURGICA L ORDERABLES Performing Organization Address City/State/[facility] Co de Phone Number [employer]ATION documented in this encounter Visit Diagnoses Not on filedocumented in this encounter Care Teams Urology Surgeon Relationship Specialty Start Date End Date Catracho Perea MD [address] [place] [address] PCP - General Family Medicine 06/19/15 07/09/19 documented as of this encounter
--- OUTSIDE RECORDS SUMMARY | 2024-04-28 14:59 | XMS_ITS | Encounter Summary ---
Author Organization [facility] Address [facility] [place] [address] Care Team Providers Care Graphic Design Assistant Name Role Phone Bakari Delgado MD Primary Care Provider [phone] Encounter Details Date Type Department Care Team (Late st Contact Info) Description 03/28/2013 Orders [place] [address] Guille Andrade MD [facility] [place] [address] Social History Tobacco Use Types Packs/Day Years [...] PM EST TH Visit (TeleHealth) [place] [address] Lesli Rodriguez PA [facility] [place] [address] Pending Results Name Type Priority Associated Diagnoses Date /Time Film Library- Storage only MR Head Imaging Routine 03/28/2013 8:29 AM EDT documented as of this encounter Visit Diagnoses Not on filedocumented in this encounter Care Teams Graphic Design Assistant Relationship Specialty Start Date End Date Bakari Delgado MD [address] [place] [address] PCP - General 05/04/10 06/18/15 documented as of this encounter
--- OUTSIDE RECORDS SUMMARY | 2024-04-28 14:59 | XMS_ITS | Encounter Summary ---
Author Organization [facility] Address [address] [place] [address] Care Team Providers Care Rural Service Engineer Name Role Phone Unavailable Primary Care Provider Unavailabl e Encounter Details Date Type Department Care Team (Late st Contact Info) Description 07/24/2008 Before PRISM Converted Visit (Maple) [facility] - Maple conversion [address] [place] [address] Annie Tran, [facility] [address] [place] [address] [place] [address] Social History Tobacco Use Types [...] Priority Date/Time Associated Diagnosis Comments CYTOPATHOLOGY Routine 07/24/2008 0:00 EST documented in this encounter Results * CYTOPATHOLOGY (07/24/2008 0:00 EST) Pathology Report: CYTOPATHOLOGY REPORT ? Reports generated via electronic interface contain original data; ? however they are lacking the format of the original report. ? Caution should be taken when reading/interpreti ng unformatted reports. ? Name: ? ADELAIDA LUNDY ? Accession #: ? [id number] ? : ? 1955 (Age: 52) ??F ?Collect Date: ? 07/24/2008 ? Location: ? [facility] ? Receive Date: ? 07/25/2008 ? Provider: ?ANNIE JAZZMINE STITCH BONDING MACHINE OPERATOR ? Copy to: ? Specimen/Source: ?Pap Test, Cervix/Endocervix, ThinPrep Imaging System ? with manual evaluation ? Last Menstrual Period: ? 2/1/09 ? Previous Gynecologic Pathology: ? ASC-US: 7/98 ? Other: ? HPVA - HPV testing requested if ASC-US on the current ThinPrep Pap test. ? SPECIMEN ADEQUACY ? Satisfactory for Evaluation ? - transformation zone component present ? GENERAL CATEGORIZATION ? Negative for Intraepithelial Lesion or Malignancy ? INTERPRETATION ? Reactive cellular changes associated with inflammation present (includes ?? repair). ? Document reviewed and electronically signed by: ? UMA MOUNT MD ? Report Date: ??08/01/2008 11:50 ? End of Report ? [facility] 07/24/2008 07/25/2008 us Annie Tran STITCH BONDING MACHINE OPERATOR PATHOLOGY ORDERABLES Final R esult [facility] [address] [place] [address] documented in this encounter Visit Diagnoses Not on filedocumented in this encounter
--- OUTSIDE RECORDS SUMMARY | 2024-04-28 14:59 | XMS_ITS | Encounter Summary ---
Author Organization [facility] Address [address] [place] [address] Care Team Providers Care Office Manager Executive Assistant Name Role Phone Unknown, Provider Primary Care Provider Unava ilable Encounter Details Date Type Department Care Team (Late st Contact Info) Description 04/24/2015 Results Only [facility] [phone] Annie Tran, [address] [place] [address] Social History Tobacco Use Types [...] Diagnosis Comments PAP TEST- RESULT ONLY Routine 04/24/2015 0:00 EST documented in this encounter Results * PAP TEST- RESULT ONLY (04/24/2015 0:00 EST) Pathology Report: CYTOPATHOLOGY REPORT Reports generated via electronic interface contain original data; however they are lacking the format of the original report. Caution should be taken when reading/interpreti ng unformatted reports. Name: ? ADELAIDA LUNDY ? Accession #: ? [id number] : ? 1955 (Age: 59) ??F ?Collect Date: ? 04/24/2015 Location: ? [facility] ? Receive Date: ? 04/27/2015 Provider: ?ANNIE TRAN FISCAL OFFICER Copy to: ?ARIADNA DOSS MD ? Specimen/Source: ?Pap Test, Cervix/Endocervix, ThinPrep Imaging System with manual evaluation Last Menstrual Period: ? 2012 ? SPECIMEN ADEQUACY ? Satisfactory for Evaluation - transformation zone component present GENERAL CATEGORIZATION ? Negative for Intraepithelial Lesion or Malignancy ? Document reviewed and electronically signed by: ? JOSE RAFAEL Mendosa(ASCP) ? Report Date: ??04/29/2015 14:03 End of Report [facility] 04/24/2015 04/27/2015 us Annie Tran FISCAL OFFICER PATHOLOGY ORDERABLES Final R esult [facility] [address] [place] [address] documented in this encounter Visit Diagnoses Not on filedocumented in this encounter Care Teams Office Manager Executive Assistant Relationship Specialty Start Date End Date Unknown, Provider, PCP - General 04/16/15 documented as of this encounter
--- OUTSIDE RECORDS SUMMARY | 2024-04-28 14:59 | XMS_ITS | Encounter Summary ---
Author Organization [facility] Address [address] [place] [address] Care Team Providers Care Local Delivery Driver Name Role Phone Unknown, Provider Primary Care Provider Unava ilable Encounter Details Date Type Department Care Team (Latest Contact Info) Description 07/22/2018 19:35 EST - 07/22/2018 23:59 EST Hospital Encounter [address] [address] Unknown, Provider, Discharge Disposition: Home or Self Care Social History Tobacco Use Types Packs/Day Years Used Date Smoking Tobacco: Never Assessed Comments Unknown Sex and Gender Information Value Date Recorded Sex Assigned at Not on file Legal Sex Female 18:21 EST Gender Identity Not on file Sexual Orientation Not on file documented as of this encounter Discharge Disposition Disposition Code Departure Means Destination Home or Self Long-Term documented in this encounter Plan of Treatment Not on file documented as of this encounter Visit Diagnoses Not on filedocumented in this encounter Care Teams Local Delivery Driver Relationship Specialty Start Date End Date Unknown, Provider, PCP - General 04/16/15 documented as of this encounter
[2024-04-28 15:56] LABS: C Diff PCR Positive (Negative)
== END 2024-04-28 14:51 | disposition home or self-care (01) ==
LOC: LBN 14:50
PROVIDERS: Nurse Practitioner Family; PCP Nurse Practitioner Family; Visit Provider Nurse Practitioner Family
DX: R19.7 Diarrhea, unspecified (principal); R10.9 Unspecified abdominal pain
CPT/HCPCS: 87493

== ENCOUNTER 2024-05-06 12:15 | Outpatient (REF) | payer MEDICARE, BC, SELFPAY ==
--- OUTSIDE RECORDS SUMMARY | 2024-05-06 12:17 | XMS_ITS | Encounter Summary ---
Author Organization [facility] Address [address] [place] [address] Care Team Providers Care Dynamometer Tester Engine Name Role Phone Unavailable Primary Care Provider Unavailabl e Encounter Details Date Type Department Care Team (Late st Contact Info) Description 07/24/2008 Before PRISM Converted Visit (Maple) [facility] - Maple conversion [address] [place] [address] Annie Tran, [facility] [address] [place] [address] [place] [address] Social History Tobacco Use Types [...] ? ADELAIDA LUNDY ? Accession #: ? [id number] ? : ? 1955 (Age: 52) ??F ?Collect Date: ? 07/24/2008 ? Location: ? [facility] ? Receive Date: ? 07/25/2008 ? Provider: ?ANNIE JAZZMINE PACKAGING SALES REPRESENTATIVE ? Copy to: ? Specimen/Source: ?Pap Test, [...] [facility] 07/24/2008 07/25/2008 us Annie Tran PACKAGING SALES REPRESENTATIVE PATHOLOGY ORDERABLES Final R esult [facility] [address] [place] [address] documented in this encounter Visit Diagnoses Not on filedocumented in this encounter
--- OUTSIDE RECORDS SUMMARY | 2024-05-06 12:17 | XMS_ITS | Encounter Summary ---
Author Organization [facility] Address [address] [place] [address] Care Team Providers Care Financial Analysis Manager Name Role Phone Unknown, Provider MD Primary Care Provider Unava ilable Encounter Details Date Type Department Care Team (Late st Contact Info) Description 07/16/2019 Lab Requisition [facility] Pathology & [place] [address] Unknown, Provider, Social History Tobacco Use Types [...] Urine 260 150-1,150 mOsm/kg 07/16/2019 15:34 EST [facility] Urine URINE SPECIMEN OBTAINED BY CLEAN CATCH PROCEDURE / Unknown 07/12/2019 8:15 EST 07/16/2019 14:27 EST us Provider Unknown MD URINALYSIS ORDERABLES Final Result [facility] [address] [place] [address] * OSMOLALITY (07/12/2019 8:15 EST) Osmolality, Serum 283 275 - 295 mOsm/kg 07/16/2019 15:34 EST [facility] Blood VENOUS BLOOD / Unknown 07/12/2019 8:15 EST 07/16/2019 14:27 EST us Provider Unknown CHEMISTRY & BLOOD GAS ORDERA BLES Final Result Performing Organization Address [facility] de Phone Number [facility] [address] [place] [address] * CORTISOL (07/12/2019 8:15 EST) Cortisol 11 See Note ug/dL 07/16/2019 16:24 EST [facility] Comment: NOTE: Reference Ranges (from [...] ORDERA BLES Final Result Performing Organization Address [facility] de Phone Number [facility] [address] [place] [address] documented in this encounter Visit Diagnoses Not on filedocumented in this encounter Care Teams Financial Analysis Manager Relationship Specialty Start Date End Date Unknown, Provider, PCP - General 04/16/15 documented as of this encounter
--- OUTSIDE RECORDS SUMMARY | 2024-05-06 12:17 | XMS_ITS | Encounter Summary ---
Author Organization [facility] Address [address] [place] [address] Care Team Providers Care Rn Labor Delivery Name Role Phone Unavailable Primary Care Provider Unavailabl e Encounter Details Date Type Department Care Team (Late st Contact Info) Description 07/30/2002 Results Only [facility] - Maple conversion [address] [place] [address] Annie Tran, [address] [place] [address] Social History Tobacco Use Types [...] ? ADELAIDA LUNDY ? Accession #: ? [id number] : ? 1955 (Age: 46) ??F ?Collect Date: ? 07/30/2002 Location: ? [facility] ? Receive Date: ? 08/01/2002 Provider: ?ANNIE TRAN CAN DRAGGER Copy to: ? Specimen/Source: ?ThinPrep Pap Test, [...] [facility]AR[facility] 07/30/2002 08/01/2002 us Annie Tran CAN DRAGGER PATHOLOGY ORDERABLES Final R esult [facility] [address] [place] [address] documented in this encounter Visit Diagnoses Not on filedocumented in this encounter
--- OUTSIDE RECORDS SUMMARY | 2024-05-06 12:17 | XMS_ITS | Encounter Summary ---
Author Organization [facility] Address [address] [place] [address] Care Team Providers Care Card Processing Clerk Name Role Phone Unknown, Provider Primary Care Provider Unava ilable Encounter Details Date Type Department Care Team (Late st Contact Info) Description 05/08/2017 Results Only [facility] [phone] Annie Tran, [address] [place] [address] Social History Tobacco Use Types [...] ? ADELAIDA LUNDY ? Accession #: ? [id number] ? : ? 1955 (Age: 61) ??F ?Collect Date: ? 05/08/2017 ? Location: ? [facility] ? Receive Date: ? 05/09/2017 ? Provider: ANNIE TRAN PRESS BRAKE OPERATOR Copy to: NIKKI FERNANDEZ MD ? Final [...] types 16,18,31,33,35, 39,45,51,52,56,58, 59,66, and 68 by signing teacher mediated amplification. Comments Document reviewed and electronically signed by: ? System Interface ? Report date: 05/19/2017 By the signature above, the attending physician certifies that he/she has personally conducted a gross and/or microscopic examination of the described specimens and rendered or confirmed the above diagnosis. End of Report [facility] 05/08/2017 05/09/2017 us Annie Tran PRESS BRAKE OPERATOR PATHOLOGY ORDERABLES Final R esult [facility] [address] [place] [address] documented in this encounter Visit Diagnoses Not on filedocumented in this encounter Care Teams Card Processing Clerk Relationship Specialty Start Date End Date Unknown, Provider, PCP - General 04/16/15 documented as of this encounter
--- OUTSIDE RECORDS SUMMARY | 2024-05-06 12:17 | XMS_ITS | Encounter Summary ---
Author Organization [facility] Address [address] [place] [address] Care Team Providers Care Information Analyst Name Role Phone Unknown, Provider Primary Care Provider Unava ilable Encounter Details Date Type Department Care Team (Late st Contact Info) Description 01/18/2024 Lab Requisition [facility] Pathology & Laboratory Medicine - [facility] [address] [place] [address] Donta Dyson MD [address] [place] [phone] Diarrhea, unspecified; Diverticulitis of large intestine [...] explore management options, if applicable. 01/19/2024 16:43 [facility] Final Diagnosis A. COLON, RANDOM BIOPSIES: - Benign colonic mucosa with no significant pathologic change. - No evidence of microscopic colitis. 01/19/2024 16:43 [facility] Diagnosis Comment The technical component of the specimen processing was performed at the [facility] Pathology Department, [address] [place] [address] (CLIA [id number]). The professional component of the specimen evaluation (slide review and issuing of the final diagnosis) was performed at [facility], [address] [place] [address] (CLIA License Number [id number]). 01/19/2024 16:43 [facility] Attestation By the signature below, the attending physician certifies that they have 1) personally conducted a gross and/or microscopic examination of the described specimen(s), and/or personally interpreted the results of laboratory testing of the described specimen(s), and 2) personally rendered or confirmed the above diagnosis. 01/19/2024 16:43 [facility] at 1643 Clinical History Diverticulosis, IBS; clinical diagnosis code: K57.32, R19.7 01/19/2024 16:43 [facility] Gross Description A. Received in formalin labelled with proper patient identification (initials H, P) and random colon bx's are 4 adams tissues (0.2 x 0.1 x 0.1 cm to 0.5 x 0.1 x 0.1 cm). Entirely submitted in A1. SANCHEZ CLIFTON(ASCP) 01/18/2024 9:24 01/19/2024 16:43 [facility] Performing Lab [facility] 01/19/2024 16:43 [facility] Scanned Images 01/19/2024 16:43 [facility] Tissue COLON STRUCTURE / Unknown 01/17/2024 12:43 EDT 01/18/2024 8:13 EDT us Donta Dyson MD PATHOLOGY ORDERABLES Final Result [facility] [address] [place] [address] documented in this encounter Visit Diagnoses Diagnosis Diarrhea, unspecified Diverticulitis of large intestine without perforation or abscess without bleeding Diverticulitis of colon (without mention of hemorrhage) documented in this encounter Care Teams Information Analyst Relationship Specialty Start Date End Date Unknown, Provider, PCP - General 04/16/15 documented as of this encounter
--- OUTSIDE RECORDS SUMMARY | 2024-05-06 12:17 | XMS_ITS | Encounter Summary ---
Author Organization [facility] Address [address] [place] [address] Care Team Providers Care Arresting Gear Operator Name Role Phone Unknown, Provider Primary Care Provider Unava ilable Encounter Details Date Type Department Care Team (Latest Contact Info) Description 07/22/2018 19:35 EST - 07/22/2018 23:59 EST Hospital Encounter [address] [address] Unknown, Provider, Discharge Disposition: Home or Self [...] Code Departure Means Destination Home or Self Snf documented in this encounter Plan of Treatment Not on file documented as of this encounter Visit Diagnoses Not on filedocumented in this encounter Care Teams Arresting Gear Operator Relationship Specialty Start Date End Date Unknown, Provider, PCP - General 04/16/15 documented as of this encounter
--- OUTSIDE RECORDS SUMMARY | 2024-05-06 12:17 | XMS_ITS | Encounter Summary ---
Author Organization [facility] Address [address] [place] [address] Care Team Providers Care Agronomy Supervisor Name Role Phone Unknown, Provider Primary Care Provider Unava ilable Encounter Details Date Type Department Care Team (Late st Contact Info) Description 08/17/2022 Lab Requisition [facility] Pathology & Laboratory Medicine - [facility] [address] [place] [address] Outr Resulting Lab, Provider Social History Tobacco [...] 17 See Note ug/dL 08/17/2022 17:48 EST [facility] Comment: NOTE: Expected Ranges for [...] & BLOOD GA S ORDERABLES Final Result [facility] [address] [place] [address] documented in this encounter Visit Diagnoses Not on filedocumented in this encounter Care Teams Agronomy Supervisor Relationship Specialty Start Date End Date Unknown, Provider, PCP - General 04/16/15 documented as of this encounter
--- OUTSIDE RECORDS SUMMARY | 2024-05-06 12:17 | XMS_ITS | Encounter Summary ---
Author Organization [facility] Address [address] [place] [address] Care Team Providers Care Twist Packer Name Role Phone Unknown, Provider Primary Care Provider Unava ilable Encounter Details Date Type Department Care Team (Late st Contact Info) Description 07/12/2019 Lab Requisition [facility] Pathology & Laboratory Medicine - [address] [address] Unknown, Provider, Social History Tobacco Use Types [...] 21:44 EST) Hold Hold 07/12/2019 22:45 EST [facility] Blood VENOUS BLOOD / Unknown 07/12/2019 21:44 EST 07/12/2019 21:44 EST us Provider Unknown LAB INFO SERVICE AND SUPPORT & PHONE RESULT Final Result [facility] [address] [place] [address] * HOLD SST (07/12/2019 21:44 EST) Hold Hold 07/12/2019 22:45 EST [facility] Blood VENOUS BLOOD / Unknown 07/12/2019 21:44 EST 07/12/2019 21:44 EST us Provider Unknown MD LAB INFO SERVICE AND SUPPORT & PHONE RESULT Final Result Performing Organization Address [facility]/ZIP Co de Phone Number [facility] [address] [place] [address] * OSMOLALITY (07/12/2019 8:15 EST) Osmolality, Serum 07/16/2019 15:45 EST [facility] Comment: Disregard previous result. ??Result was from a urine sample labeled as as serum. This is a corrected result. Previous result was 264 mOsm/kg on 07/12/2019 at 2220 EST Blood VENOUS BLOOD / Unknown 07/12/2019 8:15 EST 07/12/2019 21:41 EST us Provider Unknown CHEMISTRY & BLOOD GAS ORDERA BLES Edited Result - Final Performing Organization Address [facility] Co de Phone Number [facility] [address] [place] [address] * CORTISOL (07/12/2019 8:15 EST) Cortisol 07/16/2019 15:45 EST [facility] Comment: Disregard previous result. ??Result was from a urine sample labeled as as serum. This is a corrected result. Previous result was 25 ug/dL on 07/12/2019 at 2230 EST Blood VENOUS BLOOD / Unknown 07/12/2019 8:15 EST 07/12/2019 21:41 EST us Provider Unknown CHEMISTRY & BLOOD GAS ORDERA BLES Edited Result - Final Performing Organization Address [facility] Co de Phone Number [facility] [address] [place] [address] documented in this encounter Visit Diagnoses Not on filedocumented in this encounter Care Teams Twist Packer Relationship Specialty Start Date End Date Unknown, Provider, PCP - General 04/16/15 documented as of this encounter
--- OUTSIDE RECORDS SUMMARY | 2024-05-06 12:17 | XMS_ITS | Encounter Summary ---
Author Organization [facility] Address [address] [place] [address] Care Team Providers Care Loading Dock Helper Name Role Phone Unknown, Provider Primary Care Provider Unava ilable Encounter Details Date Type Department Care Team (Late st Contact Info) Description 08/17/2022 Lab Requisition [facility] Pathology & Laboratory Medicine - [facility] [address] [place] [address] Outr Resulting Lab, Provider Social History Tobacco [...] 4 - 23 ug/dL 08/17/2022 17:44 EST [facility] Comment: NOTE: The results of this assay can be falsley elevated due to the consumption of Biotin. Blood VENOUS BLOOD / Unknown 08/17/2022 7:40 EST 08/17/2022 16:53 EST us Provider Outr Resulting Lab CHEMISTRY & BLOOD GA S ORDERABLES Final Result [facility] [address] [place] [address] documented in this encounter Visit Diagnoses Not on filedocumented in this encounter Care Teams Loading Dock Helper Relationship Specialty Start Date End Date Unknown, Provider, PCP - General 04/16/15 documented as of this encounter
--- OUTSIDE RECORDS SUMMARY | 2024-05-06 12:17 | XMS_ITS | Referral Summary ---
Author Organization [facility] Address [address] [place] [address] Care Team Providers Care Director Of Nurses Registry Name Role Phone Unknown, Provider Primary Care [...] of Treatment Not on file Insurance MEDICARE [facility] Address: [facility] [address] [place] [address] Care Teams Director Of Nurses Registry Relationship Specialty Start Date End Date Unknown, Provider, PCP - General 04/16/15
--- OUTSIDE RECORDS SUMMARY | 2024-05-06 12:17 | XMS_ITS | Encounter Summary ---
Author Organization [facility] Address [address] [place] [address] Care Team Providers Care Senior Actuarial Analyst Name Role Phone Unknown, Provider Primary Care Provider Unava ilable Encounter Details Date Type Department Care Team (Late st Contact Info) Description 07/16/2018 Results Only [facility] [phone] Hector Gamboa MD [address] [place] [address] Social History Tobacco Use Types Packs/Day Years [...] Priority Date/Time Associated Diagnosis Comments SURGICAL PATHOLOGY Routine 07/16/2018 8:56 EST documented in this encounter Results * SURGICAL PATHOLOGY (07/16/2018 8:56 EST) Pathology Report: SURGICAL PATHOLOGY REPORT Reports generated via electronic interface contain original data; however they are lacking the format of the original report. Caution should be taken when reading/interpret ing unformatted reports. Name: ? ADELAIDA LUNDY ? Accession #: ? [id number] ? : ? 1955 (Age: 62) ??F ? Collect Date: ? 07/16/2018 ? Location: ? [facility] ? Receive Date: ? 07/16/2018 ? Provider: HECTOR GAMBOA MD Copy to: NIKKI DOVER COURTESY BUS DRIVER ? Final Pathologic Diagnosis: A. ENDOMETRIUM, BIOPSY: - Atrophic endometrium. See comment. B. TISSUE SUBMITTED CERVICAL POLYP, BIOPSY: - Fragments of benign endocervical tissue. See comment. Comment: Deeper levels have been examined on A1 and B1. Dr. Worthy 07/18/2018 4:30 PM Document reviewed and electronically signed by: JUAN RAMON ANAND MD PHD Report ??Date: 07/19/2018 14:39 By the signature above, the attending physician certifies that he/she has personally conducted a gross and/or microscopic examination of the described specimens and rendered or confirmed the above diagnosis. Specimen(s) Received: A. ??Endometrial bx B. ??Cervical polyp Clinical History: Postmenopausal vaginal bleeding, vaginal odor Gross Description: A. ?Received in formalin labelled with proper patient identification (initials H, P) and endometrial BX is a scant amount of colorless mucin (0.5 x 0.3 x 0.1 cm). The specimen may not survive processing. The specimen is filtered and entirely submitted in A1. B. ?Received in formalin labelled with proper patient identification (initials H, P) and cervical polyp is an aggregate of cloudy mucinous tissue (1.1 x 0.8 x 0.5 cm). The specimen is entirely submitted in B1. SANCHEZ Kwong (ASCP) 07/17/2018 9:43 AM End of Report [facility] 07/16/2018 8:56 EST 07/16/2018 8:56 EST us Hector Gamboa MD PATHOLOGY ORDERABLES Final Resul t [facility] [address] [place] [address] documented in this encounter Visit Diagnoses Not on filedocumented in this encounter Care Teams Senior Actuarial Analyst Relationship Specialty Start Date End Date Unknown, Provider, PCP - General 04/16/15 documented as of this encounter
--- OUTSIDE RECORDS SUMMARY | 2024-05-06 12:17 | XMS_ITS | Encounter Summary ---
Author Organization [facility] Address [address] [place] [address] Care Team Providers Care Riveting Machine Operator Tape Control Name Role Phone Unavailable Primary Care Provider Unavailabl e Encounter Details Date Type Department Care Team (Late st Contact Info) Description 05/01/2001 Results Only [facility] - Maple conversion [address] [place] [address] Annie Tran, [address] [place] [address] Social History Tobacco Use Types [...] ? ADELAIDA LUNDY ? Accession #: ? [id number] : ? 1955 (Age: 45) ??F ?Collect Date: ? 05/01/2001 Location: ? [facility] ? Receive Date: ? 05/07/2001 Provider: ?ANNIE TRAN OXIDIZED FINISH PLATER Copy to: ? Specimen/Source: ?ThinPrep Pap Test, [...] [facility] 05/01/2001 05/07/2001 us Annie Tran OXIDIZED FINISH PLATER PATHOLOGY ORDERABLES Final R esult [facility] [address] [place] [address] documented in this encounter Visit Diagnoses Not on filedocumented in this encounter
--- OUTSIDE RECORDS SUMMARY | 2024-05-06 12:17 | XMS_ITS | Encounter Summary ---
Author Organization [facility] Address [address] [place] [address] Care Team Providers Care Spinner Tender Name Role Phone Unavailable Primary Care Provider Unavailabl e Encounter Details Date Type Department Care Team (Late st Contact Info) Description 04/06/2007 Results Only [facility] - Maple conversion [address] [place] [address] Annie Tran, [address] [place] [address] Social History Tobacco Use Types [...] ? ADELAIDA LUNDY ? Accession #: ? [id number] : ? 1955 (Age: 51) ??F ?Collect Date: ? 04/06/2007 Location: ? [facility] ? Receive Date: ? 04/06/2007 Provider: ?ANNIE TRAN DENTAL HYGIENE PROFESSOR Copy to: ? Specimen/Source: ?ThinPrep Pap Test, Cervix/Endocervix, processed on [employer] ThinPrep Imaging System, with manual evaluation Last [...] RUSH GAR[facility] 04/06/2007 04/06/2007 us Annie Tran DENTAL HYGIENE PROFESSOR PATHOLOGY ORDERABLES Final R esult [facility] [address] [place] [address] documented in this encounter Visit Diagnoses Not on filedocumented in this encounter
--- OUTSIDE RECORDS SUMMARY | 2024-05-06 12:17 | XMS_ITS | Encounter Summary ---
Author Organization [facility] Address [address] [place] [address] Care Team Providers Care Log Scaler Name Role Phone Unknown, Provider Primary Care Provider Unava ilable Encounter Details Date Type Department Care Team (Late st Contact Info) Description 09/21/2019 Lab Requisition [facility] Pathology & Laboratory Medicine - [address] [address] Unknown, Provider, Social History Tobacco Use Types [...] Hydroxybutyrate 0.5(H) <0.4 mmol/L 09/22/2019 16:14 EDT [facility] Blood VENOUS BLOOD / Unknown 09/20/2019 8:15 EDT 09/22/2019 15:58 EDT us Provider Unknown CHEMISTRY & BLOOD GAS ORDERA BLES Final Result [facility] [address] [place] [address] * INSULIN (09/20/2019 8:15 EDT) Insulin 6.1 <29.0 uIU/mL 09/26/2019 10:19 EDT [facility] Comment: Displayed Reference Range applies to fasting specimens only. Blood VENOUS BLOOD / Unknown 09/20/2019 8:15 EDT 09/22/2019 15:58 EDT us Provider Unknown CHEMISTRY & BLOOD GAS ORDERA BLES Final Result [facility] [address] [place] [address] documented in this encounter Visit Diagnoses Not on filedocumented in this encounter Care Teams Log Scaler Relationship Specialty Start Date End Date Unknown, Provider, PCP - General 04/16/15 documented as of this encounter
--- OUTSIDE RECORDS SUMMARY | 2024-05-06 12:17 | XMS_ITS | Encounter Summary ---
Author Organization [facility] Address [address] [place] [address] Care Team Providers Care Manager Merchandising Name Role Phone Unavailable Primary Care Provider Unavailabl e Encounter Details Date Type Department Care Team (Late st Contact Info) Description 07/28/2009 Orders Only [facility] Laboratory Services - [facility] ([facility] [address], [place] [phone] Annie Tran, [facility] [address] [place] [address] [place] [address] Social History Tobacco Use Types [...] EST 07/31/2009 8:37 EST us Annie Tran MAT PACKER MICROBIOLOGY - GENERAL ORDER HANNA Final Result [facility] [address] [place] [address] * CYTOPATHOLOGY (07/28/2009 0:00 EST) Pathology Report: CYTOPATHOLOGY REPORT ? Reports generated via electronic interface contain original data; ? however they are lacking the format of the original report. ? Caution should be taken when reading/interpreti ng unformatted reports. ? Name: ? ADELAIDA LUNDY ? Accession #: ? [id number] ? : ? 1955 (Age: 53) ??F ?Collect Date: ? 07/28/2009 ? Location: ? [facility] ? Receive Date: ? 07/29/2009 ? Provider: ?ANNIE JAZZMINE MAT PACKER ? Copy to: ? Specimen/Source: ?Pap Test, [...] [facility] 07/28/2009 07/29/2009 us Annie Tran MAT PACKER PATHOLOGY ORDERABLES Final R esult [facility] [address] [place] [address] documented in this encounter Visit Diagnoses Not on filedocumented in this encounter
--- OUTSIDE RECORDS SUMMARY | 2024-05-06 12:17 | XMS_ITS | Encounter Summary ---
Author Organization [facility] Address [address] [place] [address] Care Team Providers Care Rotary Drill Operator Name Role Phone Unavailable Primary Care Provider Unavailabl e Encounter Details Date Type Department Care Team (Late st Contact Info) Description 03/27/2006 Results Only [facility] - Maple conversion [address] [place] [address] Annie Tran, [address] [place] [address] Social History Tobacco Use Types [...] ? ADELAIDA LUNDY ? Accession #: ? [id number] : ? 1955 (Age: 50) ??F ?Collect Date: ? 03/27/2006 Location: ? [facility] ? Receive Date: ? 03/28/2006 Provider: ?ANNIE TRAN FOOD PHOTOGRAPHER Copy to: ? Specimen/Source: ?ThinPrep Pap Test, Cervix/Endocervix, processed on [employer] ThinPrep Imaging System, with manual evaluation Last [...] [facility] GAR[facility] 03/27/2006 03/28/2006 us Annie Tran FOOD PHOTOGRAPHER PATHOLOGY ORDERABLES Final R esult [facility] [address] [place] [address] documented in this encounter Visit Diagnoses Not on filedocumented in this encounter
--- OUTSIDE RECORDS SUMMARY | 2024-05-06 12:17 | XMS_ITS | Encounter Summary ---
Author Organization [facility] Address [address] [place] [address] Care Team Providers Care Ground Crew Lines Person Name Role Phone Unknown, Provider Primary Care Provider Unava ilable Encounter Details Date Type Department Care Team (Late st Contact Info) Description 04/24/2015 Results Only [facility] [phone] Annie Tran, [address] [place] [address] Social History Tobacco Use Types [...] ? ADELAIDA LUNDY ? Accession #: ? [id number] : ? 1955 (Age: 59) ??F ?Collect Date: ? 04/24/2015 Location: ? [facility] ? Receive Date: ? 04/27/2015 Provider: ?ANNIE TRAN RADIO CONTROL CRANE OPERATOR Copy to: ?ARIADNA DOSS MD ? Specimen/Source: ?Pap Test, Cervix/Endocervix, ThinPrep Imaging System with manual evaluation Last Menstrual Period: ? 2012 ? SPECIMEN ADEQUACY ? Satisfactory for Evaluation - transformation zone component present GENERAL CATEGORIZATION ? Negative for Intraepithelial Lesion or Malignancy ? Document reviewed and electronically signed by: ? JOSE RAFAEL Mendosa(ASCP) ? Report Date: ??04/29/2015 14:03 End of Report [facility] 04/24/2015 04/27/2015 us Annie Tran RADIO CONTROL CRANE OPERATOR PATHOLOGY ORDERABLES Final R esult [facility] [address] [place] [address] documented in this encounter Visit Diagnoses Not on filedocumented in this encounter Care Teams Ground Crew Lines Person Relationship Specialty Start Date End Date Unknown, Provider, PCP - General 04/16/15 documented as of this encounter
--- OUTSIDE RECORDS SUMMARY | 2024-05-06 12:17 | XMS_ITS | Encounter Summary ---
Author Organization [facility] Address [address] [place] [address] Care Team Providers Care Alternative Financing Specialist Name Role Phone Unknown, Provider Primary Care Provider Unava ilable Encounter Details Date Type Department Care Team (Late st Contact Info) Description 05/11/2021 Lab Requisition [facility] Pathology & Laboratory Medicine - [facility] [address] [place] [address] Outr Resulting Lab, Provider Social History Tobacco [...] Procedure Name Priority Date/Time Associated Diagnosis Comments ZZCOVID-19 TEST [facility] PCR Today 05/10/2021 10:30 EST COVID-19 TESTING Routine 05/10/2021 10:3 0 EST documented in this encounter Results * COVID-19 TEST [facility] PCR (05/10/2021 10:30 EST) Swab 05/10/2021 10:3 0 EST 05/11/2021 17:07 EST us Provider Outr Resulting Lab MICROBIOLOGY - GENER AL ORDERABLES Final Result [facility] [address] [place] [address] * COVID-19 TESTING (05/10/2021 10:30 EST) COVID-19 rt-PCR Result Negative Negative 05/12/2021 12:45 EST [facility] Comment: This test has not been FDA cleared or approved. This test has been authorized by FDA under an EUA for use by authorized laboratories. This test has been authorized only for detection of nucleic acid from 2019-nCoV, not for any other viruses or pathogens. This test is only authorized for the duration of the declaration that circumstances exist justifying the authorization of emergency use of in vitro diagnostic tests for detection and/or diagnosis of 2019-nCoV under section 564(b)(1) of Act, 21 U.S.C ?? 360bbb-3(b) (1), unless the authorization is terminated or revoked sooner. Negative results do not preclude 2019-nCoV infection and should not be used as the sole basis for treatment or other patient management decisions. Negative results must be combined with clinical observations, patient history, and epidemiological information. Testing was performed using the dheeraj SARS-CoV-2 assay ([employer] on the Dheeraj 6800 System Performing Lab Dheeraj 6800 [facility] 05/12/2021 12:45 EST [facility] Swab 05/10/2021 10:3 0 EST 05/11/2021 17:07 EST us Provider Outr Resulting Lab MICROBIOLOGY - GENER AL ORDERABLES Final Result [facility] [address] [place] [address] documented in this encounter Visit Diagnoses Not on filedocumented in this encounter Care Teams Alternative Financing Specialist Relationship Specialty Start Date End Date Unknown, Provider, PCP - General 04/16/15 documented as of this encounter
--- OUTSIDE RECORDS SUMMARY | 2024-05-06 12:17 | XMS_ITS | Encounter Summary ---
Author Organization [facility] Address [address] [place] [address] Care Team Providers Care Property Management Intern Name Role Phone Unavailable Primary Care Provider Unavailabl e Encounter Details Date Type Department Care Team (Late st Contact Info) Description 08/09/2004 Results Only [facility] - Maple conversion [address] [place] [address] Annie Tran, [address] [place] [address] Social History Tobacco Use Types [...] ? ADELAIDA LUNDY ? Accession #: ? [id number] : ? 1955 (Age: 48) ??F ?Collect Date: ? 08/09/2004 Location: ? [facility] ? Receive Date: ? 08/11/2004 Provider: ?ANNIE TRAN BULB PLANTER Copy to: ? Specimen/Source: ?ThinPrep Pap Test, [...] RUSH GARZA 08/09/2004 08/11/2004 us Annie Tran BULB PLANTER PATHOLOGY ORDERABLES Final R esult [facility] [address] [place] [address] documented in this encounter Visit Diagnoses Not on filedocumented in this encounter
--- OUTSIDE RECORDS SUMMARY | 2024-05-06 12:17 | XMS_ITS | Clinical Summary ---
Author Organization [facility] Address [address] [place] [address] Care Team Providers Care Associate Professor Of Biblical Studies Name Role Phone Unknown, Provider Primary Care [...] 1-dose 75+ series) 10/06/2031 [place] [id number] [facility] Care Teams Associate Professor Of Biblical Studies Relationship Specialty Start Date End Date Unknown, Provider, PCP - General 04/16/15
--- OUTSIDE RECORDS SUMMARY | 2024-05-06 12:18 | XMS_ITS | Encounter Summary ---
Author Organization [facility] Address [facility] [place] [address] Care Team Providers Care Information Technology Instructor Name Role Phone Jeannette Herman APRN Primary Care Provider [phone] Reason for Visit * Reason Comments Establish Care NXR BILAT SHOULDE R PAIN DISCUSS GUIDED INTRA ARTICULAR KETOROLAC INJECTIONS * Consultation (Routine) - Closed Specialty Diagnoses / Procedures Referred By Contac t Referred To Contact Orthopaedics Diagnoses Shoulder pain, unspecified chronicity, unspecified laterality BILAT SHOULDER PAIN DISCUSS GUIDED INTRA ARTICULAR KETOROLAC INJECTIONS Jeannette Herman APRN [address] [place] [address] [facility] [address] [place] [phone] Referral ID Status Reason Start Date Expiration Date V isits Requested Visits Authorized [id number] Closed Consult, Test & Treat PCP Updated and/or Approved 08/02/2023 01/31/2024 6 6 Encounter Details Date Type Department Care Team (Latest Contact Info) Description 09/08/2023 1:40 PM EDT Office Visit [place] [address] Zacarias Corrales MD [facility] [place] [address] Chronic pain in left shoulder; [...] neg - Belly press- neg Labrum - Beaverhead's test- neg Biceps Tedon - Speed's test- [...] Bilateral Indication: Pain and limited function Equipment: [employer] with 4-20 MHz linear transducer, 4-12 MHz [...] Ultrasound guided injection provided today to the [facility] - Medical Decision Making: Discussed surgical [...] in the interim. Zacarias Corrales MD Sports Gamb CutterChip Tuner of Orthopedics [facility] The note was created using dictation, please excuse any grammatical or word errors. documented in this encounter Plan of Treatment Upcoming Encounters Date Type Department Care Team (Late st Contact Info) Description 06/13/2024 3:15 PM EST Office Visit [place] [address] Rich Johnson MD [facility] [place] [address] documented as of this encounter Visit Diagnoses [...] mg documented in this encounter Care Teams Information Technology Instructor Relationship Specialty Start Date End Date Jeannette Herman APRN [address] [place] [address] PCP - General Family Medicine 09/14/22 12/03/23 documented as of this encounter
--- OUTSIDE RECORDS SUMMARY | 2024-05-06 12:18 | XMS_ITS | Encounter Summary ---
Author Organization [facility] [place] [address] Care Team Providers Care Sand Cutter Operator Name Role Phone Bakari Delgado MD Primary Care Provider Encounter Details Date Type Department Care Team (Late st Contact Info) Description 04/07/2013 External Results XRay at [address] [place] [address] Catracho Perea MD [address] [place], [place] [id number] Social History Tobacco Use Types Packs/Day Years [...] PM EST Office [place] [phone] Rich Johnson MD [facility] [place] [address] documented as of this encounter Procedures Procedure Name Priority Date/Time Associated Diagnosis Comments MRI/MRA SCAN Routine 03/28/2013 documented in this encounter Results * Scan Doc: MRI/MRA (03/28/2013) Anatomical Region Laterality Modality Other Catracho Perea MD MEDIA MGR SCAN EXT O RDR/RSLT documented in this encounter Visit Diagnoses Not on filedocumented in this encounter Care Teams Sand Cutter Operator Relationship Specialty Start Date End Date Bakari Delgado MD [address] [place] [address] PCP - General 05/04/10 06/18/15 documented as of this encounter
--- OUTSIDE RECORDS SUMMARY | 2024-05-06 12:18 | XMS_ITS | Encounter Summary ---
Author Organization [facility] Address [facility] [place] [address] Care Team Providers Care Oracle Soa Consultant Name Role Phone Bakari Delgado MD Primary Care Provider [phone] Encounter Details Date Type Department Care Team (Late st Contact Info) Description 12/17/2010 [place] [phone] Radha Palmer RN Myopia, left eye; Astigmatism, [...] PM EST Office [place] [address] Rich Johnson MD [facility] [place] [address] documented as of this encounter Visit Diagnoses Diagnosis Myopia, left eye Myopia Astigmatism, unspecified left eye Astigmatism, unspecified documented in this encounter Care Teams Oracle Soa Consultant Relationship Specialty Start Date End Date Bakari Delgado MD [address] [place] [address] PCP - General 05/04/10 06/18/15 documented as of this encounter
--- OUTSIDE RECORDS SUMMARY | 2024-05-06 12:18 | XMS_ITS | Encounter Summary ---
Author Organization [facility] Address [facility] [place] [address] Care Team Providers Care Manpower Development Manager Name Role Phone Yadi Steel MD Primary Care Provider [phone] Encounter Details Date Type Department Care Team [...] PM EST Office [place] [address] Rich Johnson MD [facility] [place] [address] documented as of this encounter Visit Diagnoses Not on filedocumented in this encounter Care Teams Manpower Development Manager Relationship Specialty Start Date End Date Yadi Steel MD [address] [place] [address] PCP - General Family Medicine 12/04/23 documented as of this encounter
--- OUTSIDE RECORDS SUMMARY | 2024-05-06 12:18 | XMS_ITS | Encounter Summary ---
Author Organization [facility] Address [facility] [place] [address] Care Team Providers Care Valve Tester Name Role Phone Jeannette Herman APRN Primary Care Provider [phone] Encounter Details Date Type Department Care Team [...] PM EST Office [place] [address] Rich Johnson MD [facility] [place] [address] documented as of this encounter Visit Diagnoses Not on filedocumented in this encounter Care Teams Valve Tester Relationship Specialty Start Date End Date Jeannette Herman APRN [address] [place] [address] PCP - General Family Medicine 09/14/22 12/03/23 documented as of this encounter
--- OUTSIDE RECORDS SUMMARY | 2024-05-06 12:18 | XMS_ITS | Encounter Summary ---
[place] [address] Care Team Providers Care Early Childhood Lead Teacher Name Role Phone Yadi Steel MD Primary Care Provider [phone] Reason for Referral * Consultation (Urgent) - Authorized Specialty Diagnoses / Procedures Referred By Contac t Referred To Contact Gastroenterology Diagnoses Diverticulosis of large intestine without diverticulitis Yadi Steel MD [address] [place] [address] [facility] [address] [place] [address] Referral ID Status Reason Start Date Expiration Date Visits Requested Visits Authorized [id number] Authorized Consult, Test & Treat PCP Updated and/or Approved 12/04/2023 06/04/2024 6 6 Encounter Details Date Type Department Care Team (Latest Contact Info) Description 12/04/2023 Transcribe Orders eDH Incoming Referrals [phone] Yadi Steel MD [address] [place], [place] [phone] Diverticulosis of large intestine without diverticulitis Social [...] PM EST Office [place] [address] Rich Johnson MD [facility] [place] [address] Scheduled Referrals Name Type Priority Associated Diagnoses Orde r Schedule Referral to Gastroenterology Outpatient Referral Urgent Diverticulosis of large intestine without diverticulitis Ordered: 12/04/2023 documented as of this encounter Visit Diagnoses Diagnosis Diverticulosis of large intestine without diverticulitis Diverticulosis of colon (without mention of hemorrhage) documented in this encounter Care Teams Early Childhood Lead Teacher Relationship Specialty Start Date End Date Yadi Steel MD [address] [place] [address] PCP - General Family Medicine 12/04/23 documented as of this encounter
--- OUTSIDE RECORDS SUMMARY | 2024-05-06 12:18 | XMS_ITS | Encounter Summary ---
Author Organization [facility] Address [facility] [place] [address] Care Team Providers Care Administrative Hearing Officer Name Role Phone Bakari Delgado MD Primary Care Provider Encounter Details Date Type Department Care Team (Late st Contact Info) Description 08/27/2010 9:27 AM EDT - 08/27/2010 11:05 AM [place]T [place] [phone] Heladio Hameed MD [facility] [place] [address] Discharge Disposition: Home Social History Tobacco Use [...] PM EST Office [place] [phone] Rich Johnson MD [facility] [place] [address] documented as of this encounter Visit Diagnoses Not on filedocumented in this encounter Care Teams Administrative Hearing Officer Relationship Specialty Start Date End Date Bakari Delgado MD [address] [place] [address] PCP - General 05/04/10 06/18/15 documented as of this encounter
--- OUTSIDE RECORDS SUMMARY | 2024-05-06 12:18 | XMS_ITS | Encounter Summary ---
Author Organization [facility] Address [facility] [place] [address] Care Team Providers Care Functional Skills Tutor Name Role Phone Unavailable Primary Care Provider Unavailabl e Encounter Details Date Type Department Care Team (Late st Contact Info) Description 04/30/2010 10:30 AM EST Surgical Consult [facility] [place] [address] Shun Canales MD [facility] [place] [address] Social History Tobacco Use Types Packs/Day Years [...] PM EST Office Visit [place] [address] Rich Johnson MD [facility] [place] [address] documented as of this encounter Visit Diagnoses Not on filedocumented in this encounter
--- OUTSIDE RECORDS SUMMARY | 2024-05-06 12:18 | XMS_ITS | Encounter Summary ---
Author Organization [facility] Address [facility] [place] [address] Care Team Providers Care Laundry Tub Maker Name Role Phone Bakari Delgado MD Primary Care Provider [phone] Encounter Details Date Type Department Care Team (Late st Contact Info) Description 05/11/2010 3:45 PM EST Office Visit [facility] [place] [address] Shun Canales MD [facility] [place] [address] Social History Tobacco Use Types Packs/Day Years [...] PM EST Office [place] [address] Rich Johnson MD [facility] [place] [address] documented as of this encounter Visit Diagnoses Not on filedocumented in this encounter Care Teams Laundry Tub Maker Relationship Specialty Start Date End Date Bakari Delgado MD [address] [place] [address] PCP - General 05/04/10 06/18/15 documented as of this encounter
--- OUTSIDE RECORDS SUMMARY | 2024-05-06 12:18 | XMS_ITS | Encounter Summary ---
Author Organization [facility] Address [facility] [place] [address] Care Team Providers Care Wine Master Name Role Phone Bakari Delgado MD Primary Care Provider Encounter Details Date Type Department Care Team (Late st Contact Info) Description 05/10/2010 2:00 PM EST Procedure visit [facility] [place] [address] Shun Canales MD [facility] [place] [address] Social History Tobacco Use Types Packs/Day Years [...] PM EST Office [place] [address] Rich Johnson MD [facility] [place] [address] documented as of this encounter Visit Diagnoses Not on filedocumented in this encounter Care Teams Wine Master Relationship Specialty Start Date End Date Bakari Delgado MD [address] [place] [address] PCP - General 05/04/10 06/18/15 documented as of this encounter
--- OUTSIDE RECORDS SUMMARY | 2024-05-06 12:18 | XMS_ITS | Clinical Summary ---
Author Organization [facility] Address [facility] [place] [address] Care Team Providers Care Ladle Repairer Name Role Phone Yadi Steel MD Primary Care Provider [phone] Allergies Active Allergy Reactions Criticality Noted Date Comments Metronidazole Hcl 10/08/2019 Levofloxacin 10/08/2019 Knee pain Medications Medication Sig Dispensed Refills Start Date End Date Status buPROPion SR (Wellbutrin SR) 150 mg tablet sustained-release 12 hr Take 150 mg by mouth Daily. 11/04/2018 Active busPIRone (BUSPAR) 10 mg Tablet Take 10 mg by mouth Twice daily. 12/21/2018 Active gabapentin (Neurontin) 300 mg Capsule Take 300 mg by mouth nightly. 12/04/2018 Active melatonin 1 mg Tablet Take 3 mg by mouth nightly. Active polyethylene glycol (Miralax) 17 gram/dose Powder Take 17 g by mouth Daily. Active lactobacillus rhamnosus, GG, (CULTURELLE) 10 billion cell Capsule Take 1 capsule by mouth Daily. Active magnesium citrate 125 mg Capsule Take 150 mg by mouth daily. Active cholecalciferol, Vitamin D3, 25 mcg (1,000 unit) Capsule Take 1,000 Units by mouth daily. Active amoxicillin-clavulan ate (Augmentin) 875-125 mg tablet Take 1 tablet [...] Encounters Date Type Department Care Team Description 04/29/2024 12:00 PM EST TH Visit (TeleHealth) [place] [address] Lesli Rodriguez PA Diverticulitis of colon (Primary Dx); Clostridium difficile colitis 04/28/2024 Travel 04/27/2024 7:28 PM EST - 04/28/2024 3:23 AM EST Emergency [place] [phone] Titus Sagastume MD Lower abdominal pain; Diverticulitis of large intestine without perforation or abscess without bleeding Discharge Disposition: Home 04/24/2024 Transcribe Orders eDH Incoming Referrals [phone] Khushboo Vieira, CAITY Abdominal pain, unspecified abdominal location from Last 3 Months Immunizations Name Administration Dates Next Due Influenza Vaccine, Whole 04/05/2006,04/11/2005 Td Adult (not absorbed) 09/29/2004 Social History Tobacco Use Types Packs/Day Years Used Date Smoking Tobacco: Never Smokeless Tobacco: Never Alcohol Use Standard Drinks/Week Comments Yes 14 (1 standard drink = 0.6 oz pu re alcohol) [facility] Inpatient Questions Answer Date Recorded Does Anyone [...] PM EST Office Visit [place] [address] Rich Johnson MD [facility] [place] [address] Health Maintenance Due Date Last Done Comments [...] Urine Dipstick Negative Negative 04/28/2024 12:46 AM [facility] Protein, Urine Dipstick Negative Negative 04/28/2024 12:46 AM [facility] Bilirubin, Urine Dipstick Negative Negative 04/28/2024 12:46 AM [facility] Comment:Clinical correlation required for positive Urine Bilirubin results as false positive may occur with some drugs and drug related products. If a false positive is suspected a serum total bilirubin should be considered if clinically indicated. Urobilinogen, Urine Dipstick Normal Normal, 0.2 mg/dL, 1.0 mg/dL 04/28/2024 12:46 AM [facility] pH, Urine (dipstick) 7.0 5.0 - 8.0 04/28/2024 12:46 AM [facility] Blood, Urine Dipstick Negative Negative 04/28/2024 12:46 AM [facility] Ketone, Urine Dipstick 15 mg/dL(A) Negative 04/28/2024 12:46 AM [facility] Nitrite, Urine Dipstick Negative Negative 04/28/2024 12:46 AM [facility] Leukocytes, Urine Dipstick Negative Negative 04/28/2024 12:46 AM [facility] Specific [place] Urine Automated >=1.030(H) 1.005 - 1.030 04/28/2024 12:46 AM [facility] Appearance, Urine Dipstick Clear Clear 04/28/2024 12:46 AM [facility] Color, Urine Dipstick Yellow Yellow, Dark Yellow 04/28/2024 12:46 AM [facility] CULTURE ADDED? 04/28/2024 12:46 AM [facility] Urine URINE SPECIMEN OBTAINED BY CLEAN CATCH PROCEDURE / Unknown Non Blood Collection / Unknown 04/28/2024 12:30 AM EST 04/28/2024 12:39 AM EST Titus Sagastume MD URINE ORDERABLES [facility] [place] [address] * Lactate Whole Blood POC (04/27/2024 11:32 PM EST) [facility] Lactate, Whole Blood 1.0 0.5 - 2.2 mmol/L 04/27/2024 11:33 PM EST [facility] Blood VENOUS BLOOD SPECIMEN / Unknown 04/27/2024 11:32 PM EST 04/27/2024 11:33 PM EST Titus Sagastume MD POINT OF CARE TEST O RDERABLES Performing Organization Address [facility] de Phone Number [facility] [place] [address] * CT Abdomen & Pelvis w Contrast (04/27/2024 9:04 PM EST) [facility] WORKSTATION ID [id number] [facility] Anatomical Region Laterality Modality Abdomen, Pelvis Computed [...] who have questions please contact the health home care nurse that requested your imaging first. ? Electronically signed by: Elba Kitchen MD, [facility] ([phone]), at 04/27/2024 10:02 PM Narrative 04/27/2024 10:02 [...] patients who have questions please contactthe health home care nurse that requested your imaging first. Electronically signed by: Elba Kitchen MD, [facility]([phone]), at 04/27/2024 10:02 PM Curtis London III, MD IMG CT ORDERABLES * (ABNORMAL) Scan, Peripheral Blood (04/27/2024 7:43 PM EST) Pathologist [facility] RBC Morphology Normal 04/27/2024 8:43 PM EST [facility] Platelet Estimate Increased( A) Normal 04/27/2024 8:43 PM EST [facility] Platelet Clumps Present(A) (none) 04/27/2024 8:43 PM EST [facility] WBC MORPHOLOGY See Comment(A) (none) 04/27/2024 8:43 PM EST [facility] Comment:Vacuolated Grans Blood VENOUS BLOOD SPECIMEN / Unknown Venipuncture / Unknown 04/27/2024 7:43 PM EST 04/27/2024 7:47 PM EST Titus Sagastume MD HEMATOLOGY ORDERABLE S [facility] [place] [address] * (ABNORMAL) CBC (with Diff) (04/27/2024 7:43 PM EST) White Blood Cell 14.89(H) 4.00 - 9.50 x10(3)/mc L 04/27/2024 8:43 PM [facility] Red Blood Cell 4.74 4.00 - 5.21 x10(6)/mc L 04/27/2024 8:43 PM [facility] Hemoglobin 14.2 11.7 - 15.5 g/dL 04/27/2024 8:43 PM [facility] Hematocrit 40.9 35.7 - 45.8 % 04/27/2024 8:43 PM [facility] Mean Cell Volume 86.3 82.6 - 94.4 fL 04/27/2024 8:43 PM [facility] Mean Cell Hemoglobin 30.0 27.1 - 32.0 pg 04/27/2024 8:43 PM [facility] Mean Cell Hemoglobin Concentration 34.7 31.7 - 35.0 g/dL 04/27/2024 8:43 PM [facility] Platelet 386(H) 145 - 357 x10(3)/mc L 04/27/2024 8:43 PM [facility] Mean Platelet Volume 9.1 7.6 - 12.9 fL 04/27/2024 8:43 PM [facility] RDW Standard Deviation 39.1 37.0 - 46.0 fL 04/27/2024 8:43 PM [facility] RDW coefficient of variation 12.3 11.5 - 14.1 % 04/27/2024 8:43 PM [facility] NRBC% auto 0.0 % 04/27/2024 8:43 PM [facility] NRBC Absolute <0.01 <0.01 x10(3)/mc L 04/27/2024 8:43 PM [facility] Neutrophil % 78.1 % 04/27/2024 8:43 PM [facility] Comment:This is an appended report. These results have been appended to a previously preliminary verified report. Neutrophil Absolute (ANC) - Automated 11.63(H) 1.70 - 6.10 x10(3)/mc L 04/27/2024 8:43 PM [facility] Comment:This is an appended report. These results have been appended to a previously preliminary verified report. Lymph % 7.1 % 04/27/2024 8:43 PM [facility] Comment:This is an appended report. These results have been appended to a previously preliminary verified report. Lymph Absolute 1.05 0.90 - 3.20 x10(3)/mc L 04/27/2024 8:43 PM [facility] Comment:This is an appended report. These results have been appended to a previously preliminary verified report. Monocyte % 12.4 % 04/27/2024 8:43 PM [facility] Comment:This is an appended report. These results have been appended to a previously preliminary verified report. Monocyte Absolute 1.85(H) 0.30 - 0.90 x10(3)/mc L 04/27/2024 8:43 PM [facility] Comment:This is an appended report. These results have been appended to a previously preliminary verified report. Eos % 1.7 % 04/27/2024 8:43 PM [facility] Comment:This is an appended report. These results have been appended to a previously preliminary verified report. Eos Absolute 0.25 0.00 - 0.40 x10(3)/mc L 04/27/2024 8:43 PM [facility] Comment:This is an appended report. These results have been appended to a previously preliminary verified report. Basophil % 0.4 % 04/27/2024 8:43 PM [facility] Comment:This is an appended report. These results have been appended to a previously preliminary verified report. Baso Absolute 0.06 0.00 - 0.10 x10(3)/mc L 04/27/2024 8:43 PM [facility] Comment:This is an appended report. These results have been appended to a previously preliminary verified report. Immature Gran % 0.3 % 8:43 PM EST [facility] Comment:This is an appended report. These results have been appended to a previously preliminary verified report. Immature Gran Absolute 0.05(H) 0.00 - 0.04 x10(3)/mc L 04/27/2024 8:43 PM EST [facility] Comment:This is an appended report. These results have been appended to a previously preliminary verified report. Blood VENOUS BLOOD SPECIMEN / Unknown Venipuncture / Unknown 04/27/2024 7:43 PM EST 04/27/2024 7:47 PM EST Titus Sagastume MD HEMATOLOGY ORDERABLE S Performing Organization Address [facility] Co de Phone Number [facility] [place] [address] * (ABNORMAL) Magnesium (04/27/2024 7:43 PM EST) Magnesium 0.68(L) 0.69 - 1.07 mMol/L 04/27/2024 8:32 PM EST [facility] Blood VENOUS BLOOD SPECIMEN / Unknown Venipuncture / Unknown 04/27/2024 7:43 PM EST 04/27/2024 7:47 PM EST Curtis London III, MD CHEMISTRY ORDERABL ES Performing Organization Address [facility] Co de Phone Number [facility] [place] [address] * Lipase (04/27/2024 7:43 PM EST) Lipase 23 0 - 60 unit/L 04/27/2024 8:32 PM EST [facility] Blood VENOUS BLOOD SPECIMEN / Unknown Venipuncture / Unknown 04/27/2024 7:43 PM EST 04/27/2024 7:47 PM EST Curtis London III, MD CHEMISTRY ORDERABL ES Performing Organization Address [facility]/ZIP Co de Phone Number [facility] [place] [address] * Hepatic Function Panel (04/27/2024 7:43 PM EST) Albumin 4.0 3.2 - 5.2 g/dL 04/27/2024 8:32 PM EST [facility] Aspartate Aminotransferase 19 <=30 unit/L 04/27/2024 8:32 PM EST [facility] Alanine Aminotransferase 13 0 - 30 unit/L 04/27/2024 8:32 PM EST [facility] Alkaline Phosphatase 58 35 - 105 unit/L 04/27/2024 8:32 PM EST [facility] Bilirubin, Total 0.5 <=1.3 mg/dL 04/27/2024 8:32 PM [facility] Bilirubin, Direct <0.2 0.0 - 0.3 mg/dL 04/27/2024 8:32 PM EST [facility] Protein, Total 7.7 6.1 - 8.0 g/dL 04/27/2024 8:32 PM [facility] Blood VENOUS BLOOD SPECIMEN / Unknown Venipuncture / Unknown 04/27/2024 7:43 PM EST 04/27/2024 7:47 PM EST Curtis London III, MD CHEMISTRY ORDERABL ES [facility] [place] [address] * (ABNORMAL) Basic Metabolic Panel (04/27/2024 7:43 PM EST) Glucose 91 65 - 199 mg/dL 04/27/2024 8:32 PM EST [facility] Comment:Glucose Concentratio n >=200 mg/dL plus symptoms is consistent with Diabetes Mellitus. Blood Urea Nitrogen 4(L) 8 - 18 mg/dL 04/27/2024 8:32 PM EST [facility] Creatinine 0.67(L) 0.70 - 1.20 mg/dL 04/27/2024 8:32 PM [facility] Sodium 133(L) 135 - 145 mMol/L 04/27/2024 8:32 PM [facility] Potassium 3.8 3.5 - 5.0 mMol/L 04/27/2024 8:32 PM [facility] Chloride 95(L) 98 - 107 mMol/L 04/27/2024 8:32 PM [facility] Carbon Dioxide 27 22 - 31 mMol/L 04/27/2024 8:32 PM [facility] Anion Gap 11 5 - 15 mMol/L 04/27/2024 8:32 PM [facility] Calcium 9.1 8.5 - 10.5 mg/dL 04/27/2024 8:32 PM [facility] Est Glomerular Filtration Rate - Female 96 mL/min/1. 73 m?? 04/27/2024 8:32 PM [facility] Comment: This patient's estimated GFR was [...] PM EST Titus Sagastume MD CHEMISTRY ORDERABLES [facility] [place] [address] * Scan Doc: Lab (04/09/2024 12:00 AM [...] RDR/RSLT * COLONOSCOPY (06/22/2015 11:37 AM EST) [facility] COLONOSCOPY [facility] Endoscopy Patient Name: Adelaida Lundy ? Procedure Date: 06/22/2015 11:37 AM ? N: [id number] ? Date of : 1955 ? Age: 59 ? Order #: [id number] ? Procedure: ? Colonoscopy Indications: ? Screening for colorectal malignant ? neoplasm Providers: ? Venice Meyer MD, Martina Estrada RN, ? Alex Coello, Tungsten Tender Referring MD: ?Bakari Delgado MD, Catracho Coleman [...] GENERAL SURGICA L ORDERABLES Performing Organization Address City/State/[facility] Co de Phone Number [employer] from Last 3 Months or Most Recently Relevant to Health Maintenance Care Teams Ladle Repairer Relationship Specialty Start Date End Date Yadi Steel MD [address] [place] [address] PCP - General Family Medicine 12/04/23
--- OUTSIDE RECORDS SUMMARY | 2024-05-06 12:18 | XMS_ITS | Encounter Summary ---
Author Organization [facility] Address [facility] [place] [address] Care Team Providers Care Mechanism Assembler Name Role Phone Mainor Jansen Primary Care Provider [phone] Reason for Visit * Consultation (Routine) - Specialty Diagnoses / Procedures Referred By Christin herbert Referred To Contact Endocrinology Diagnoses Hypoglycemia, unspecified HYPOGLYCEMIA Akosua Jimenez APRN [address] [place] [address] [facility] [address] [place] [phone] Referral ID Status Reason Start Date Expiration Date V isits Requested Visits Authorized [id number] Consult, [facility] PCP Updated and/or Approved 09/30/2019 09/29/2020 6 6 Encounter Details Date Type Department Care Team (Late st Contact Info) Description 10/08/2019 1:30 PM EDT TH Visit (TeleHealth) [place] [address] Ean Taylor MD [facility] [place] [address] Marisa Vivas MD [facility] [place] [address] Hypoglycemia Social History Tobacco Use Types Packs/Day [...] In the past has not talked with cloth bleaching range tender, has researched on the Internet.PCP suggested acarbose it has not been tried yet, was hesitant to try it due to fearof constipation. 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 Vitals 07/09/2019 Weight (Dominican) 216 lbs Weight (Metric) 97.977 kg 06/2019: [...] Adelaida describes that her symptoms occur around 3925-1409 following breakfast comprised of whole wheat toast [...] should episode recur Case discussed with staff Oyster Cultivator, Ean Taylor MD. Adelaida is aware that I expect her to reach out to us following use of the acarbose to let us know if it is working well. Her PCP SANCHEZ Callaway may refill this med. If the episodes worsen or fail to improve, please let us know. Marisa Vivas MD PGY-5 [facility] Fellow Pager #[phone] * Ean Taylor MD - 10/08/2019 1:30 [...] often transient and acarbose is not needed [facility]. documented in this encounter Plan of Treatment Upcoming Encounters Date Type Department Care Team (Late st Contact Info) Description 06/13/2024 3:15 PM EST Office Visit [place] [address] Rich Johnson MD [facility] [place] [address] documented as of this encounter Visit Diagnoses Diagnosis Hypoglycemia Hypoglycemia, unspecified documented in this encounter Care Teams Mechanism Assembler Relationship Specialty Start Date End Date Mainor Jansen PA PCP - General General Internal Medicine 09/30/1912/14 documented as of this encounter
--- OUTSIDE RECORDS SUMMARY | 2024-05-06 12:18 | XMS_ITS | Encounter Summary ---
Author Organization [facility] Address [facility] [place] [address] Care Team Providers Care Railroad Operating Engineer Name Role Phone Bakari Delgado MD Primary Care Provider [phone] Encounter Details Date Type Department Care Team (Late st Contact Info) Description 05/17/2010 11:15 AM EST Office Visit [facility] [place] [address] Shun Canales MD [facility] [place] [address] Discharge Disposition: Home Social History Tobacco Use [...] PM EST Office Visit [place] [address] Rich Johnson MD [facility] [place] [address] documented as of this encounter Visit Diagnoses Not on filedocumented in this encounter Care Teams Railroad Operating Engineer Relationship Specialty Start Date End Date Bakari Delgado MD [address] [place] [address] PCP - General 05/04/10 06/18/15 documented as of this encounter
--- OUTSIDE RECORDS SUMMARY | 2024-05-06 12:18 | XMS_ITS | Encounter Summary ---
Author Organization [facility] Address [facility] [place] [address] Care Team Providers Care Security Software Engineer Name Role Phone Bakari Delgado MD Primary Care Provider Encounter Details Date Type Department Care Team (Late st Contact Info) Description 08/19/2010 11:00 AM EST Office Visit [facility] [place] [address] Shun Canales MD [facility] [place] [address] Discharge Disposition: Home Social History Tobacco Use [...] PM EST Office [place] [address] Rich Johnson MD [facility] [place] [address] documented as of this encounter Visit Diagnoses Not on filedocumented in this encounter Care Teams Security Software Engineer Relationship Specialty Start Date End Date Bakari Delgado MD [address] [place] [address] PCP - General 05/04/10 06/18/15 documented as of this encounter
--- OUTSIDE RECORDS SUMMARY | 2024-05-06 12:18 | XMS_ITS | Encounter Summary ---
Author Organization [facility] Address [facility] [place] [address] Care Team Providers Care Gag Writer Name Role Phone Jeannette Herman APRN Primary Care Provider [phone] Encounter Details Date Type Department Care Team (Late st Contact Info) Description 04/27/2006 Orders Only Dermatology at [place] [address] [facility] [place] [address] Blake Malave MD [address] [facility] [place] [address] Social History Tobacco Use Types Packs/Day Years [...] PM EST Office [place] [address] Rich Johnson MD [facility] [place] [address] documented as of this encounter Procedures Procedure Name Priority Date/Time Associated Diagnosis Comments SURGICAL PATHOLOGY REPORT Routine 04/27/2006 8:41 PM EST documented in this encounter Results * Surgical Pathology Report (04/27/2006 8:41 PM EST) Surgical Pathology Report [id number] ? Location: The signing pathologist has (i) [...] 0.4 cm, brown. Sections/Proces sing: ??Bisected. ??(T1) ??rene/SNS Microscopic Description Slides reviewed, microscopic description not [...] on filedocumented in this encounter Care Teams Gag Writer Relationship Specialty Start Date End Date Jeannette Herman APRN [address] [place] [address] PCP - General Family Medicine 09/14/22 12/03/23 documented as of this encounter
--- OUTSIDE RECORDS SUMMARY | 2024-05-06 12:18 | XMS_ITS | Encounter Summary ---
Author Organization [facility] [place] [address] Care Team Providers Care Leave Coordinator Name Role Phone Catracho Perea MD Primary Care Provider [phone] Encounter Details Date Type Department Care Team (Late st Contact Info) Description 06/22/2015 [place] [phone] Bakari Delgado III, MD [address] [place], [place] [id number] Social History Tobacco Use Types Packs/Day Years [...] PM EST Office Visit [place] [phone] Rich Johnson MD [facility] [place] [address] documented as of this encounter Procedures Procedure Name Priority Date/Time Associated Diagnosis Comments COLONOSCOPY Routine 06/22/2015 11:37 AM EST documented in this encounter Results * COLONOSCOPY (06/22/2015 11:37 AM EST) COLONOSCOPY [facility] Endoscopy Patient Name: Adelaida Lundy ? Procedure Date: 06/22/2015 11:37 AM ? N: [id number] ? Date of : 1955 ? Age: 59 ? Order #: [id number] ? Procedure: ? Colonoscopy Indications: ? Screening for colorectal malignant ? neoplasm Providers: ? Venice Meyer MD, Martina Estrada RN, ? Alex Coello, Offset Machine Operator Referring MD: ?Bakari Delgado MD, Catracho Coleman [...] III, MD GENERAL [facility]GICA L ORDERABLES [employer] documented in this encounter Visit Diagnoses Not on filedocumented in this encounter Care Teams Leave Coordinator Relationship Specialty Start Date End Date Catracho Perea MD [address] [place] [address] PCP - General Family Medicine 06/19/15 07/09/19 documented as of this encounter
--- OUTSIDE RECORDS SUMMARY | 2024-05-06 12:18 | XMS_ITS | Encounter Summary ---
Author Organization [facility] Address [facility] [place] [address] Care Team Providers Care Crotch Piece Baster Name Role Phone Jeannette Herman APRN Primary Care Provider [phone] Encounter Details Date Type Department Care Team (Late st Contact Info) Description 05/11/2006 Orders Only Dermatology at [place] [address] [facility] [place] [address] Blake Malave MD [address] [facility] [place] [address] Social History Tobacco Use Types Packs/Day Years [...] PM [place] Office [place] [address] Rich Johnson MD [facility] [place] [address] documented as of this encounter Procedures Procedure Name Priority Date/Time Associated Diagnosis Comments SURGICAL PATHOLOGY REPORT Routine 05/11/2006 5:34 PM EST documented in this encounter Results * Surgical Pathology Report (05/11/2006 5:34 PM EST) Surgical Pathology Report [id number] ? Location: The signing pathologist has (i) [...] rendering the final pathologic diagnosis. JOSEMANUEL TAPIA 05/11/2006 5:34 PM EST Blake Malave MD PATHOLOGY/CYTOLOGY Susana BESS JOSEMANUEL TAPIA documented in this encounter Visit Diagnoses Not on filedocumented in this encounter Care Teams Crotch Piece Baster Relationship Specialty Start Date End Date Jeannette Herman APRN [address] [place] [address] PCP - General Family Medicine 09/14/22 12/03/23 documented as of this encounter
--- OUTSIDE RECORDS SUMMARY | 2024-05-06 12:18 | XMS_ITS | Encounter Summary ---
Author Organization [facility] [place] [address] Care Team Providers Care Sole Tier Name Role Phone Bakari Delgado MD Primary Care Provider Encounter Details Date Type Department Care Team (Late st Contact Info) Description 04/10/2013 [place] [phone] Catracho Perea MD [address] [place], [place] [id number] Social History Tobacco Use Types Packs/Day Years [...] PM EST Office Visit [place] [address] Rich Johnson MD [facility] [place] [address] documented as of this encounter Procedures Procedure [...] use of intravenous contrast on 03/28/2013 at [facility]. Findings The ventricles remain normal in size [...] use of intravenous contrast on 03/28/2013 at [facility]. Findings The ventricles remain normal in size [...] on filedocumented in this encounter Care Teams Sole Tier Relationship Specialty Start Date End Date Bakari Delgado MD [address] [place] [address] PCP - General 05/04/10 06/18/15 documented as of this encounter
--- OUTSIDE RECORDS SUMMARY | 2024-05-06 12:18 | XMS_ITS | Encounter Summary ---
[place] [address] Care Team Providers Care Grit Blaster Name Role Phone Jeannette Herman APRN Primary Care Provider [phone] Reason for Referral * Consultation (Routine) - Denied Specialty Diagnoses / Procedures Referred By Christin herbert Referred To Contact Endocrinology Diagnoses Hyponatremia Hyperkalemia SIADH (syndrome of inappropriate ADH production) Jeannette Herman APRN [address] [place] [address] [facility] [address] [place] [phone] Referral ID Status Reason Start Date Expiration Date V isits Requested Visits Authorized [id number] Denied Consult, Test & Treat PCP Updated and/or Approved 09/14/2022 09/14/2023 12 0 Encounter Details Date Type Department Care Team (Latest Contact Info) Description 09/14/2022 Transcribe Orders eDH Incoming Referrals [phone] Jeannette Herman APRN [address] [place], [place] [id number] Hyponatremia; Hyperkalemia; SIADH (syndrome of inappropriate ADH [...] PM EST Office [place] [address] Rich Johnson MD [facility] [place] [address] Scheduled Referrals Name Type Priority Associated Diagnoses Orde r Schedule Referral to Endocrinology Outpatient Referral Routine Hyponatremia Hyperkalemia SIADH (syndrome of inappropriate ADH production) Ordered: 09/14/2022 documented as of this encounter Visit Diagnoses Diagnosis Hyponatremia Hyposmolality and/or hyponatremia Hyperkalemia Hyperpotassemia SIADH (syndrome of inappropriate ADH production) Other disorders of neurohypophysis documented in this encounter Care Teams Grit Blaster Relationship Specialty Start Date End Date Jeannette Herman APRN [address] [place] [address] PCP - General Family Medicine 09/14/22 12/03/23 documented as of this encounter
--- OUTSIDE RECORDS SUMMARY | 2024-05-06 12:18 | XMS_ITS | Encounter Summary ---
Author Organization [facility] Address [facility] [place] [address] Care Team Providers Care Credit Clerk Name Role Phone Bakari Delgado MD Primary Care Provider Encounter Details Date Type Department Care Team (Late st Contact Info) Description 06/21/2010 11:00 AM EST Office Visit [facility] [place] [address] Shun Canales MD [facility] [place] [address] Discharge Disposition: Home Social History Tobacco Use [...] PM EST Office [place] [address] Rich Johnson MD [facility] [place] [address] documented as of this encounter Visit Diagnoses Not on filedocumented in this encounter Care Teams Credit Clerk Relationship Specialty Start Date End Date Bakari Delgado MD [address] [place] [address] PCP - General 05/04/10 06/18/15 documented as of this encounter
--- OUTSIDE RECORDS SUMMARY | 2024-05-06 12:18 | XMS_ITS | Encounter Summary ---
Author Organization [facility] [place] [address] Care Team Providers Care System Support Administrator Name Role Phone Unknown Primary Care Provider Unavailabl e Encounter Details Date Type Department Care Team (Late st Contact Info) Description 08/03/2022 Ancillary Procedure Radiology Library at [facility] [place] [address] Zacarias Corrales MD [facility] [place] [address] Social History Tobacco Use Types Packs/Day Years [...] PM EST Office Visit General Surgery at [facility] [place] [phone] Rich Johnson MD [facility] [place] [address] documented as of this encounter Procedures Procedure Name Priority Date/Time Associated Diagnosis Comments FILM LIBRARY STORAGE ONLY MR SHOULDER Routine 08/03/2022 12:00 AM EST documented in this encounter Results * Film Library- Storage Only MR Shoulder (08/03/2022 12:00 AM EST) Narrative SOFÍA CHAVARRIA - 08/21/2023 9:58 PM EDT This exam is auto-finalizing. It's purpose is for storage only. Zacarias Corrales MD [place] FILM LIBRARY ORD ERABLES Performing Organization Address City/State/[facility] Co de Phone Number [place], [place] documented in this encounter Visit Diagnoses Not on filedocumented in this encounter Care Teams System Support Administrator Relationship Specialty Start Date End Date Unknown None PCP - General 12/15/20 09/13/22 documented as of this encounter
--- OUTSIDE RECORDS SUMMARY | 2024-05-06 12:18 | XMS_ITS | Encounter Summary ---
Author Organization [facility] [place] [address] Care Team Providers Care Finish Inspector Name Role Phone Bakari Delgado MD Primary Care Provider Encounter Details Date Type Department Care Team (Late st Contact Info) Description 08/27/2010 [place] [phone] Kraig Lorenz PA [address] [place] [address] Social History Tobacco Use Types Packs/Day Years [...] PM EST Office [place] [phone] Rich Johnson MD [facility] [place] [address] documented as of this encounter Procedures Procedure [...] on filedocumented in this encounter Care Teams Finish Inspector Relationship Specialty Start Date End Date Bakari Delgado MD [address] [place] [address] PCP - General 05/04/10 06/18/15 documented as of this encounter
--- OUTSIDE RECORDS SUMMARY | 2024-05-06 12:18 | XMS_ITS | Encounter Summary ---
Author Organization [facility] Address [facility] [place] [address] Care Team Providers Care Metal Pourer Name Role Phone Yadi Steel MD Primary Care Provider [phone] Reason for Visit * Consultation (Urgent) - Authorized Specialty Diagnoses / Procedures Referred By Conthoward t Referred To Contact Gastroenterology Diagnoses Abdominal pain, unspecified abdominal location HX OF DIVERTICULITIS AND IBS. RECENT NORMAL CALPROTECTIN, COLO W/ COLITIS BX NEG, CELIAC PANEL NEG. DOES NOT TOLERATE CYMBALTA. ONGOING ABD PAIN AND IRREGULAR BOWELS. DICYCLOMINE HAS NOT BEEN EFFECTIVE. Khushboo Vieira W, GRADUATE ASSISTANT ATHLETIC TRAINER [address] [place] [address] [facility] [address] [place] [address] Referral ID Status Reason Start Date Expiration Date Visits Requested Visits Authorized [id number] Authorized Consult, Test & Treat PCP Updated and/or Approved 10/21/2024 6 6 Encounter Details Date Type Department Care Team (Latest Contact Info) Description 04/29/2024 12:00 PM EST TH Visit (TeleHealth) [place] [address] Lesli Rodriguez PA [facility] [place] [address] Diverticulitis of colon (Primary Dx); Clostridium difficile colitis Social History Tobacco Use Types Packs/Day Years Used Date Smoking Tobacco: Never Smokeless Tobacco: Never Alcohol Use Standard Drinks/Week Comments Yes 14 (1 standard drink = 0.6 oz pu re alcohol) [facility] Inpatient Questions Answer Date Recorded [...] on file documented as of this encounter Patient Instructions * Patient Instructions* Lesli Rodriguez PA - 04/29/2024 12:00 PM EST I do recommend starting vancomycin as prescribed for C.diff. I do agree with scheduling a consultation with our colorectal surgery team to discuss risks/benefits of diverticulitis surgery. - You will be contacted to schedule this, or you can contact their scheduling line at [phone]. documented in this encounter Progress Notes * Lesli Rodriguez PA - 04/29/2024 12:00 PM EST Adult Gastroenterology New Patient Note Patient: Adelaida Lundy : 1955 Date of Service: 04/29/2024 Referring Provider: Khushboo Vieira Primary Care Provider: Yadi Steel MD HPI History of present illness provided by patient and per personal review of EMR. Adelaida Lundy is a 68 y.o. female with a PMH significant for HTN, anxiety, fibromyalgia, and a PSH including CCY. Recent diverticulitis dx - seen on 03/2024 CT, also presented to [facility] 04/27 showing persistent diverticulitis as well as rectal thickening. - Lower abdominal pain, urgency - Also notes that C.diff testing was done yesterday which did show C.diff positive, starting vancomycin. First episode. Diarrhea every half hour. - Hx diverticulitis in 2016 and 2018. Does have episodes of discomfort between documented/CT positive episodes, took empiric abx. Fiber daily Probiotic daily Healthy diet, regular exercise Denies heavy red meat/EtOH intake Miralax every morning Avoids constipation - does have formed BM daily though thin caliber since rectocele surgery Episodes where feel like belly stops - gets gassy/bloated. Massaging area can help Hx of ectopic with laparotomy and tubal ligation. Hx of childbirth - vaginal delivery. Hx of rectocele/cystocele surgery several years ago. No FH GI cancer. No tobacco use. Medications Tried: Dicyclomine - not helpful, caused headache. Prior Testin03/2024 GI PCR normal 03/2024 CT AP w - sigmoid diverticulitis 01/2024 Colonoscopy -sigmoid diverticulosis, otherwise normal. Subjective No past medical history on file. Patient Active Problem List Diagnosis Date Noted Diverticulitis of large intestine without perforation or abscess without bleeding 04/28/2024 Diarrhea 04/27/2024 Diverticulitis of colon 04/27/2024 GERD without esophagitis 04/27/2024 HTN (hypertension) 04/27/2024 Irregular bowel habits 04/27/2024 Irritable bowel syndrome 04/27/2024 Lower abdominal pain 04/27/2024 Fibromyalgia 04/27/2024 Essential thrombocythemia 04/27/2024 Myopia, left eye 12/17/2010 Astigmatism, unspecified left eye 12/17/2010 Current Outpatient Medications Medication Sig Dispense Refill amoxicillin-clavulanate (Augmentin) 875-125 mg tablet Take 1 tablet by mouth 3 times daily for 14 days. 42 tablet 0 buPROPion SR (Wellbutrin SR) 150 mg tablet sustained-release 12 hr Take 150 mg by mouth Daily. busPIRone (BUSPAR) 10 mg Tablet Take 10 mg by mouth Twice daily. gabapentin (Neurontin) 300 mg Capsule Take 300 mg by mouth nightly. melatonin 1 mg Tablet Take 3 mg by mouth nightly. polyethylene glycol (Miralax) 17 gram/dose Powder Take 17 g by mouth Daily. lactobacillus rhamnosus, GG, (CULTURELLE) 10 billion cell Capsule Take 1 capsule by mouth Daily. magnesium citrate 125 mg Capsule Take 150 mg by mouth daily. cholecalciferol, Vitamin D3, 25 mcg (1,000 unit) Capsule Take 1,000 Units by mouth daily. No current facility-administered medications for this visit. Allergies Allergen Reactions Flagyl [Metronidazole Hcl] Levaquin [Levofloxacin] Knee pain family history is not on file. Social History Tobacco Use Smoking status: Never Smokeless tobacco: Never Substance Use Topics Alcohol use: Yes Alcohol/week: 14.0 standard drinks of alcohol Types: 14 Glasses of wine per week Drug use: No Review of Systems I have reviewed 10+ systems with the patient. ROS is negative except for findings above and what ismentioned in HPI. Objective Physical Exam Constitutional: Appearance: Normal appearance. HENT: Head: Normocephalic and atraumatic. Nose: Nose normal. Eyes: Extraocular Movements: Extraocular movements intact. Pulmonary: Effort: Pulmonary effort is normal. Skin: Coloration: Skin is not jaundiced. Neurological: General: No focal deficit present. Mental Status: She is oriented to person, place, and time. Psychiatric: Mood and Affect: Mood normal. Behavior: Behavior normal. There were no vitals taken for this visit. Wt Readings from Last 3 Encounters: 04/27/24 83.9 kg (185 lb) 09/08/23 88.5 kg (195 lb) 07/09/19 98 kg (216 lb) There is no height or weight on file to calculate BMI. Laboratory results: CBC: Lab Results Component Value Date WBC 14.89 (H) 04/27/2024 HGB 14.2 04/27/2024 HCT 40.9 04/27/2024 PLATELET 386 (H) 04/27/2024 LFTs: Lab Results Component Value Date ALKPHOS 58 04/27/2024 BILITOT 0.5 04/27/2024 BILIDIR <0.2 04/27/2024 PROT 7.7 04/27/2024 ALBUMIN 4.0 04/27/2024 ALT 13 04/27/2024 AST 19 04/27/2024 LIPASE: Lab Results Component Value Date LIPASE 23 04/27/2024 IRON STUDIES: No results found for: IRON, TIBC, FERRITIN Vitamin Studies: No results found for: [id number], VITAMIND A1c:No results found for: HA1C Thyroid: No results found for: TSH, A3TRHXE, TT4, THYROIDAB Celiac Studies: No results found for: TTGIGAAB, TTGIGAMAYO, TTGIGG, IGA, YENIFER, CRP Stool Studies: No results found for: FECALFATQUAL, CALPROTECTIN, STOOLCX, OVAPARA, HPYLORISTLAG, HPSA, GIARDIA, CAMPYAG, CDIFFTOXIN, CDIFFAG, CDIFFTOX, CDIFFPCRI, CRSPAG, SHIGATOXIN [facility] Affiliated Radiographic studies: CT Abdomen & Pelvis w Contrast Result Date: 04/27/2024 1. Long segment sigmoid diverticulitis and proctitis without perforation nor abscess. 2. Mural heterogeneous enhancement and nodular thickening at the low rectum is concerning for a mass lesion and consideration for direct visualization to rule out malignancy is recommended. 3. Ascending colitis. [facility] Affiliated Endoscopic/GI Studies: N/A OSH Studies: Colonoscopy 01/2024: Sigmoid diverticulosis. Biopsies taken to exclude microscopic colitis. Path: Normal Assessment & Plan 1. Diverticulitis of colon 2. Clostridium difficile colitis Patient is a 68 y.o. female presenting to GI clinic for evaluation of the above. She is well-appearing. History of recurrent acute diverticulitis dating back to 2016. Most recent episode beginning fall 2023 with diarrhea and abdominal pain. CT imaging confirming diverticulitis and colitis. Treated withAugmentin, (patient allergy to Flagyl and fluoroquinolone). She did experience persistent symptoms despite multiple Augmentin courses, did complete C. difficile testing yesterday which was positive (I do not have these results available). She will be starting vancomycin Rx later today. 1. Diverticulitis of colon Recurrent episodes. Treatment options limited due to medication allergies. Recent prolonged Augmentin use may have been a risk factor for C. difficile infection. Patient does confirm healthy diet/lifestyle at baseline. Denies tobacco use/heavy EtOH use. Fiber plus MiraLAX daily to maintain regular bowel movements. It is possible that she is currently experiencing a smoldering chronic diverticulitis. In addition,she does report thin caliber stools and I am concerned that she may have some colonic stricturing secondary to her diverticular disease.I do agree with colorectal surgery consult for discussion regarding elective sigmoidectomy. Patient does have a history of abdominal/rectal surgery and I suspect there is associated scar tissue which may make surgical intervention more difficult, however benefitsof sigmoidectomy may outweigh risks given worsening's frequency/severity of diverticulitis episodes and new issue of C.diff. Referral is in EMR. Notably, patient is up-to-date with screening colonoscopy. Colonoscopy last done January 2024 normal(report available, reviewed) I suspect abnormal rectal findings on CT may be secondary to rectocele repair. 2. Clostridium difficile colitis Dx on OSH testing, I do not have this available. First episode. CT findings c/w this. Agree with vancomycin as prescribed as first line tx for C.diff. No orders of the defined types were placed in this encounter. Patient voiced appropriate questions and concerns which were addressed to their satisfaction. Patient verbalized understanding and agrees with plan as outlined above. They understand to contact GI clinic with further questions, or if they develop new/worsening GI symptoms. Follow up in GI clinic PRN. I have spent 50 minutes with this patient, with >50% of that time spent counseling patient on above stated issues. In addition to direct face to face time, I have personally spent 15 minutes precharting, reviewing patient's interim medical history, coordinating care, and completing documentation on day of encounter for a total time of 65 minutes. SANCHEZ Fortune documented in this encounter Plan of Treatment Upcoming Encounters Date Type Department Care Team (Late st Contact Info) Description 06/13/2024 3:15 PM EST Office Visit [place] [address] Rich Johnson MD [facility] [place] [address] Scheduled Referrals Name Type Priority Associated Diagnoses Order Schedule Referral to Gastroenterology Outpatient Referral Urgent Abdominal pain, unspecified abdominal location Ordered: 04/24/2024 documented as of this encounter Visit Diagnoses Diagnosis Diverticulitis of colon- Primary Diverticulitis of colon (without mention of hemorrhage) Clostridium difficile colitis Intestinal infection due to clostridium difficile documented in this encounter Care Teams Metal Pourer Relationship Specialty Start Date End Date Yadi Steel MD [address] [place] [address] PCP - General Family Medicine 12/04/23 documented as of this encounter
--- OUTSIDE RECORDS SUMMARY | 2024-05-06 12:18 | XMS_ITS | Encounter Summary ---
Author Organization [facility] Address [facility] [place] [address] Care Team Providers Care Automobile Travel Club Counselor Name Role Phone Catracho Perea MD Primary Care Provider Reason for Visit * Auth/Cert - Closed Specialty Diagnoses / Procedures Referred By Christin t Referred To Contact Diagnoses 10 yr surv from 2003 Procedures PRO COLONOSCOPY, DIAGNOSTIC COLONOSCOPY, DIAGNOSTIC Referral ID Status Reason Start Date Expiration Date Visits Re quested Visits Authorized [id number] Closed 1 1 Encounter Details Date Type Department Care Team (Late st Contact Info) Description 06/22/2015 11:00 AM EST - 06/22/2015 11:45 AM EST Surgery [place] [address] Venice Meyer MD [facility] [place] [address] COLONOSCOPY, DIAGNOSTIC (WRVU 3.26) Social History Tobacco [...] - 06/22/2015 11:59 AM EST Please call [phone] before 5pm with problems, questions or concerns, after 5pm call the Hospital at [phone] and ask to speak to the Associate Software Application Engineer monorail car operator and the wheelchair van operator first responder will contact that person for you. Discharge [...] PM EST Office [place] [address] Rich Johnson MD [facility] [place] [address] documented as of this encounter Procedures Procedure [...] RN) documented in this encounter Care Teams Automobile Travel Club Counselor Relationship Specialty Start Date End Date Catracho Perea MD [address] [place] [address] PCP - General Family Medicine 06/19/15 07/09/19 documented as of this encounter
--- OUTSIDE RECORDS SUMMARY | 2024-05-06 12:18 | XMS_ITS | Encounter Summary ---
Author Organization [facility] Address [facility] [place] [address] Care Team Providers Care Gas Dispatcher Name Role Phone Unknown Primary Care Provider Unavailabl e Encounter Details Date Type Department Care Team (Late st Contact Info) Description 08/03/2022 12:05 AM EST Ancillary Procedure Radiology Library at [facility] [place] [id number] Zacarias Corrales MD [facility] [place] [address] Social History Tobacco Use Types Packs/Day Years [...] PM EST Office Visit General Surgery at [facility] [place] [address] Rich Johnson MD [facility] [place] [address] documented as of this encounter Procedures Procedure Name Priority Date/Time Associated Diagnosis Comments FILM LIBRARY STORAGE ONLY MR SHOULDER Routine 08/03/2022 12:05 AM EST documented in this encounter Results * Film Library- Storage Only MR Shoulder (08/03/2022 12:05 AM EST) Narrative DEON - 08/21/2023 9:59 PM EDT This exam is auto-finalizing. It's purpose is for storage only. Zacarias Corrales MD IMG FILM LIBRARY ORD ERABLES Performing Organization Address City/State/[facility] Co de Phone Number [place], [place] documented in this encounter Visit Diagnoses Not on filedocumented in this encounter Care Teams Gas Dispatcher Relationship Specialty Start Date End Date Unknown None PCP - General 12/15/20 09/13/22 documented as of this encounter
--- OUTSIDE RECORDS SUMMARY | 2024-05-06 12:18 | XMS_ITS | Encounter Summary ---
Author Organization [facility] [place] [address] Care Team Providers Care Belt Fixer Name Role Phone Bakari Delgado MD Primary Care Provider [phone] Encounter Details Date Type Department Care Team (Latest Contact Info) Description 04/10/2013 9:55 AM EDT - 04/10/2013 11:59 PM EDT Hospital Encounter XRay at [address] [place] [address] CLINIC, DR ALLEN Discharge Disposition: Home [...] PM EST Office Visit General Surgery at [facility] [place] [address] Rich Johnson MD [facility] [place] [address] documented as of this encounter Visit Diagnoses Not on filedocumented in this encounter Care Teams Belt Fixer Relationship Specialty Start Date End Date Bakari Delgado MD [address] [place] [address] PCP - General 05/04/10 06/18/15 documented as of this encounter
--- OUTSIDE RECORDS SUMMARY | 2024-05-06 12:18 | XMS_ITS | Encounter Summary ---
Author Organization [facility] [place] [address] Care Team Providers Care [place] Machine Operator Name Role Phone Yadi Steel MD Primary Care Provider [phone] Reason for Referral * Consultation (Routine) - Authorized Specialty Diagnoses / Procedures Referred By Christin herbert Referred To Contact General Surgery Diagnoses Diverticulitis of large intestine without perforation or abscess without bleeding Titus Sagastume MD [facility] [place] [address] [facility] [address] [place] [address] Referral ID Status Reason Start Date Expiration Date Visits Requested Visits Authorized [id number] Authorized Consult, Test & Treat 04/28/2024 04/28/2025 1 1 Reason for Visit * Reason Comments Abdominal Pain Encounter Details Date Type Department Care Team (Late st Contact Info) Description 04/27/2024 7:28 PM EST - 04/28/2024 3:23 AM EST [place] [address] Titus Sagastume MD [facility] [place] [address] Lower abdominal pain; Diverticulitis of large intestine [...] tolerated. You already have an appointment with [facility] gastroenterology tomorrow which you should keep. [...] be sent through Care Everywhere. * Diverticulitis (Israeli) * Clear Liquid Diet: General Info (Israeli) * Low-Fiber Diet (Israeli) documented in this encounter Medications at Time of Discharge Medication Sig Dispensed Refills Start Date End Date amoxicillin-clavulanat e (Augmentin) 875-125 mg tablet Take 1 tablet by mouth 3 times daily for 14 days. 42 tablet 04/28/2024 05/12/2024 buPROPion SR (Wellbutrin SR) 150 mg tablet [...] Capsule Take 1,000 Units by mouth daily. baclofen (LIORESAL) 5 mg Tablet Take 5 mg by mouth as needed. 12/27/2018 04/29/2024 methocarbamoL (Robaxin) 500 mg Tablet Take 500 mg by mouth as needed. 06/18/2019 04/29/2024 acarbose (PRECOSE) 25 mg Tablet Take 1 tablet with breakfast as needed. 30 tablet 10/08/2019 04/29/2024 documented as of this encounter ED Notes [...] patient regarding her plan and after much [id number] we came up with a plan to [...] who have questions please contact the health lawn caretaker that requested your imaging first. Course as of 04/27/242215 Sat Apr 27, [...] PM EST Office [place] [address] Rich Johnson MD [facility] [place] [address] Scheduled Referrals Name Type Priority Associated Diagnoses [...] Urine Dipstick Negative Negative 04/28/2024 12:46 AM [facility] Protein, Urine Dipstick Negative Negative 04/28/2024 12:46 AM [facility] Bilirubin, Urine Dipstick Negative Negative 04/28/2024 12:46 AM [facility] Comment:Clinical correlation required for positive Urine Bilirubin results as false positive may occur with some drugs and drug related products. If a false positive is suspected a serum total bilirubin should be considered if clinically indicated. Urobilinogen, Urine Dipstick Normal Normal, 0.2 mg/dL, 1.0 mg/dL 04/28/2024 12:46 AM [facility] pH, Urine (dipstick) 7.0 5.0 - 8.0 04/28/2024 12:46 AM [facility] Blood, Urine Dipstick Negative Negative 04/28/2024 12:46 AM [facility] Ketone, Urine Dipstick 15 mg/dL(A) Negative 04/28/2024 12:46 AM [facility] Nitrite, Urine Dipstick Negative Negative 04/28/2024 12:46 AM [facility] Leukocytes, Urine Dipstick Negative Negative 04/28/2024 12:46 AM [facility] Specific [place] Urine Automated >=1.030(H) 1.005 - 1.030 04/28/2024 12:46 AM [facility] Appearance, Urine Dipstick Clear Clear 04/28/2024 12:46 AM [facility] Color, Urine Dipstick Yellow Yellow, Dark Yellow 04/28/2024 12:46 AM EST [facility] CULTURE ADDED? 04/28/2024 12:46 AM EST [facility] Urine URINE SPECIMEN OBTAINED BY CLEAN CATCH PROCEDURE / Unknown Non Blood Collection / Unknown 04/28/2024 12:30 AM EST 04/28/2024 12:39 AM EST Titus Sagastume MD URINE ORDERABLES Performing Organization Address City/[facility]/ZIP Co de Phone Number [facility] [place] [address] * Lactate Whole Blood POC (04/27/2024 11:32 PM EST) Lactate, Whole Blood 1.0 0.5 - 2.2 mmol/L 04/27/2024 11:33 PM EST [facility] Blood VENOUS BLOOD SPECIMEN / Unknown 04/27/2024 11:32 PM EST 04/27/2024 11:33 PM EST Titus Sagastume MD POINT OF CARE TEST O RDERABLES Performing Organization Address [facility]/ZIP Co de Phone Number [facility] [place] [address] * CT Abdomen & Pelvis w Contrast (04/27/2024 9:04 PM EST) WORKSTATION ID [id number] RAD Anatomical Region Laterality Modality Abdomen, Pelvis [...] who have questions please contact the health lawn caretaker that requested your imaging first. ? Narrative 04/27/2024 10:02 PM EST EXAMINATION: CT [...] patients who have questions please contactthe health lawn caretaker that requested your imaging first. Curtis London III, MD IMG CT ORDERABLES * (ABNORMAL) Scan, Peripheral Blood (04/27/2024 7:43 PM EST) RBC Morphology Normal 04/27/2024 8:43 PM [facility] Platelet Estimate Increased( A) Normal 04/27/2024 8:43 PM [facility] Platelet Clumps Present(A) (none) 04/27/2024 8:43 PM [facility] WBC MORPHOLOGY See Comment(A) (none) 04/27/2024 8:43 PM [facility] Comment:Vacuolated Grans Blood VENOUS BLOOD SPECIMEN / Unknown Venipuncture / Unknown 04/27/2024 7:43 PM EST 04/27/2024 7:47 PM EST Titus Sagastume MD HEMATOLOGY ORDERABLE S [facility] [place] [address] * (ABNORMAL) Magnesium (04/27/2024 7:43 PM EST) Magnesium 0.68(L) 0.69 - 1.07 mMol/L 04/27/2024 8:32 PM EST [facility] Blood VENOUS BLOOD SPECIMEN / Unknown Venipuncture / Unknown 04/27/2024 7:43 PM EST 04/27/2024 7:47 PM EST Curtis London III, MD CHEMISTRY ORDERABL ES Performing Organization Address City/[facility]/ZIP Co de Phone Number [facility] [place] [address] * Hepatic Function Panel (04/27/2024 7:43 PM EST) Albumin 4.0 3.2 - 5.2 g/dL 04/27/2024 8:32 PM EST [facility] Aspartate Aminotransferase 19 <=30 unit/L 04/27/2024 8:32 PM [facility] Alanine Aminotransferase 13 0 - 30 unit/L 04/27/2024 8:32 PM [facility] Alkaline Phosphatase 58 35 - 105 unit/L 04/27/2024 8:32 PM [facility] Bilirubin, Total 0.5 <=1.3 mg/dL 04/27/2024 8:32 PM [facility] Bilirubin, Direct <0.2 0.0 - 0.3 mg/dL 04/27/2024 8:32 PM [facility] Protein, Total 7.7 6.1 - 8.0 g/dL 04/27/2024 8:32 PM EST [facility] Blood VENOUS BLOOD SPECIMEN / Unknown Venipuncture / Unknown 04/27/2024 7:43 PM EST 04/27/2024 7:47 PM EST Curtis London III, MD CHEMISTRY ORDERABL ES Performing Organization Address City/[facility]/ZIP Co de Phone Number [facility] [place] [address] * Lipase (04/27/2024 7:43 PM EST) Lipase 23 0 - 60 unit/L 04/27/2024 8:32 PM [facility] Blood VENOUS BLOOD SPECIMEN / Unknown Venipuncture / Unknown 04/27/2024 7:43 PM EST 04/27/2024 7:47 PM EST Curtis London III, MD CHEMISTRY ORDERABL ES Performing Organization Address [facility]/[place] Co de Phone Number [facility] [place] [address] * (ABNORMAL) Basic Metabolic Panel (04/27/2024 7:43 PM EST) Glucose 91 65 - 199 mg/dL 04/27/2024 8:32 PM [facility] Comment:Glucose Concentratio n >=200 mg/dL plus symptoms is consistent with Diabetes Mellitus. Blood Urea Nitrogen 4(L) 8 - 18 mg/dL 04/27/2024 8:32 PM [facility] Creatinine 0.67(L) 0.70 - 1.20 mg/dL 04/27/2024 8:32 PM [facility] Sodium 133(L) 135 - 145 mMol/L 04/27/2024 8:32 PM [facility] Potassium 3.8 3.5 - 5.0 mMol/L 04/27/2024 8:32 PM [facility] Chloride 95(L) 98 - 107 mMol/L 04/27/2024 8:32 PM [facility] Carbon Dioxide 27 22 - 31 mMol/L 04/27/2024 8:32 PM [facility] Anion Gap 11 5 - 15 mMol/L 04/27/2024 8:32 PM EST [facility] Calcium 9.1 8.5 - 10.5 mg/dL 04/27/2024 8:32 PM EST [facility] Est Glomerular Filtration Rate - Female 96 mL/min/1. 73 m?? 04/27/2024 8:32 PM EST [facility] Comment: This patient's estimated GFR [...] PM EST Titus Sagastume MD CHEMISTRY ORDERABLES [facility] [place] [address] * (ABNORMAL) CBC (with Diff) (04/27/2024 7:43 PM EST) White Blood Cell 14.89(H) 4.00 - 9.50 x10(3)/mc L 04/27/2024 8:43 PM EST [facility] Red Blood Cell 4.74 4.00 - 5.21 x10(6)/mc L 04/27/2024 8:43 PM EST [facility] Hemoglobin 14.2 11.7 - 15.5 g/dL 04/27/2024 8:43 PM EST [facility] Hematocrit 40.9 35.7 - 45.8 % 04/27/2024 8:43 PM EST [facility] Mean Cell Volume 86.3 82.6 - 94.4 fL 04/27/2024 8:43 PM [facility] Mean Cell Hemoglobin 30.0 27.1 - 32.0 pg 04/27/2024 8:43 PM [facility] Mean Cell Hemoglobin Concentration 34.7 31.7 - 35.0 g/dL 04/27/2024 8:43 PM [facility] Platelet 386(H) 145 - 357 x10(3)/mc L 04/27/2024 8:43 PM [facility] Mean Platelet Volume 9.1 7.6 - 12.9 fL 04/27/2024 8:43 PM [facility] RDW Standard Deviation 39.1 37.0 - 46.0 fL 04/27/2024 8:43 PM [facility] RDW coefficient of variation 12.3 11.5 - 14.1 % 04/27/2024 8:43 PM [facility] NRBC% auto 0.0 % 04/27/2024 8:43 PM [facility] NRBC Absolute <0.01 <0.01 x10(3)/mc L 04/27/2024 8:43 PM [facility] Neutrophil % 78.1 % 04/27/2024 8:43 PM [facility] Comment:This is an appended report. These results have been appended to a previously preliminary verified report. Neutrophil Absolute (ANC) - Automated 11.63(H) 1.70 - 6.10 x10(3)/mc L 04/27/2024 8:43 PM [facility] Comment:This is an appended report. These results have been appended to a previously preliminary verified report. Lymph % 7.1 % 04/27/2024 8:43 PM [facility] Comment:This is an appended report. These results have been appended to a previously preliminary verified report. Lymph Absolute 1.05 0.90 - 3.20 x10(3)/mc L 04/27/2024 8:43 PM [facility] Comment:This is an appended report. These results have been appended to a previously preliminary verified report. Monocyte % 12.4 % 04/27/2024 8:43 PM [facility] Comment:This is an appended report. These results have been appended to a previously preliminary verified report. Monocyte Absolute 1.85(H) 0.30 - 0.90 x10(3)/mc L 04/27/2024 8:43 PM [facility] Comment:This is an appended report. These results have been appended to a previously preliminary verified report. Eos % 1.7 % 04/27/2024 8:43 PM [facility] Comment:This is an appended report. These results have been appended to a previously preliminary verified report. Eos Absolute 0.25 0.00 - 0.40 x10(3)/mc L 04/27/2024 8:43 PM [facility] Comment:This is an appended report. These results have been appended to a previously preliminary verified report. Basophil % 0.4 % 04/27/2024 8:43 PM [facility] Comment:This is an appended report. These results have been appended to a previously preliminary verified report. Baso Absolute 0.06 0.00 - 0.10 x10(3)/mc L 04/27/2024 8:43 PM [facility] Comment:This is an appended report. These results have been appended to a previously preliminary verified report. Immature Gran % 0.3 % 8:43 PM [facility] Comment:This is an appended report. These results have been appended to a previously preliminary verified report. Immature Gran Absolute 0.05(H) 0.00 - 0.04 x10(3)/mc L 04/27/2024 8:43 PM [facility] Comment:This is an appended report. These results have been appended to a previously preliminary verified report. Blood VENOUS BLOOD SPECIMEN / Unknown Venipuncture / Unknown 04/27/2024 7:43 PM EST 04/27/2024 7:47 PM EST Titus Sagastume MD HEMATOLOGY ORDERABLE S [facility] [place] [address] documented in this encounter Visit Diagnoses Diagnosis [...] over 0.5 Hours, Warning Vesicant/Irritant Medication Per vending machine operator labeling, do not administer or Y-site with [...] 1945, STAT 1945 (Given - Provider: Trace Garduno, RIAN) lactated Ringers 1,000 mL IV bolus (COMPLETED) Intravenous, ONCE, 1 dose, On 04/27/24 at 1955 1955 (New Bag - Provider: Tracee Cortez RN) 0028 (Stopped - Provider: Shila Byrd RN) magnesium sulfate 2 g in sterile water 50 mL infusion (COMPLETED) 2 g, Intravenous, ONCE, 1 dose, On 04/27/24 at 2105, Administer over 120 Minutes 2241 (New Bag - Provider: Tracee Cortez RN) 0041 (Stopped - Provider: Shila Byrd RN) piperacillin-tazobactam (Zosyn) 4.5 g vial attach to sodium chloride 0.9% 100 mL Mini-Bag Plus (COMPLETED) 4.5 g, Intravenous, ONCE, 1 dose, On 04/27/24 at 2220, Administer over 0.5 Hours, Warning Vesicant/Irritant Medication Per vending machine operator labeling, do not administer or Y-site with lactated ringers., Indication for (Active or Suspected): GI/Intra-abdominal 0007 (New Bag - Provider: Tracee Cortez RN)0037 (Stopped - Provider: Tracee Cortez RN) PRN Medication Order 04/26/2024 04/27/2024 04/28/2024 iohexoL (Omnipaque) (350 mg/mL) solution 0-200 mL (COMPLETED) 0-200 mL, Intravenous, ONCE PRN, 1 dose, Starting on 04/27/24 at 2104, Until 04/27/24 at 2104, Per Protocol, Warning Vesicant/Irritant Medication , Radiology Contrast, Routine 2103 (Given - Provider: Alexia Valdivia) documented in this encounter Care Teams [place] Machine Operator Relationship Specialty Start Date End Date Yadi Steel MD [address] [place] [address] PCP - General Family Medicine 12/04/23 documented as of this encounter
--- OUTSIDE RECORDS SUMMARY | 2024-05-06 12:18 | XMS_ITS | Encounter Summary ---
Author Organization [facility] [address] Care Team Providers Care Dispatch Coordinator Name Role Phone Bakari Delgado MD Primary Care Provider [phone] Reason for Visit * Reason Comments Post Lasik 8 months s/p LASIK O U Encounter Details Date Type Department Care Team (Late st Contact Info) Description 12/20/2010 10:45 AM EDT Office Visit [facility] [place] [address] Shun Canales MD [facility] [place] [address] Myopia (Primary Dx); Vitreous floaters Discharge Disposition: [...] PM EST Office [place] [address] Rich Johnson MD [facility] [place] [address] documented as of this encounter Visit Diagnoses Diagnosis Myopia- Primary Vitreous floaters Other vitreous opacities documented in this encounter Care Teams Dispatch Coordinator Relationship Specialty Start Date End Date Bakari Delgado MD [address] [place] [address] PCP - General 05/04/10 06/18/15 documented as of this encounter
--- OUTSIDE RECORDS SUMMARY | 2024-05-06 12:18 | XMS_ITS | Encounter Summary ---
Author Organization [facility] Address [facility] [place] [address] Care Team Providers Care Rn Night Name Role Phone Bakari Delgado MD Primary Care Provider [phone] Encounter Details Date Type Department Care Team (Late st Contact Info) Description 03/28/2013 [place] [address] Guille Andrade MD [facility] [place] [address] Social History Tobacco Use Types Packs/Day Years [...] PM EST Office [place] [address] Rich Johsnon MD [facility] [place] [address] Pending Results Name Type Priority Associated Diagnoses Date /Time Film Library- Storage only MR Head Imaging Routine 03/28/2013 8:29 AM EDT documented as of this encounter Visit Diagnoses Not on filedocumented in this encounter Care Teams Rn Night Relationship Specialty Start Date End Date Bakari Delgado MD [address] [place] [address] PCP - General 05/04/10 06/18/15 documented as of this encounter
--- OUTSIDE RECORDS SUMMARY | 2024-05-06 12:18 | XMS_ITS | Encounter Summary ---
Author Organization [facility] Address [facility] [place] [address] Care Team Providers Care Broadcast Systems Engineer Name Role Phone Catracho Perea MD Primary Care Provider [phone] Reason for Visit * Auth/Cert - Closed Specialty Diagnoses / Procedures Referred By Christin t Referred To Contact Diagnoses 10 yr surv from 2003 Procedures PRO COLONOSCOPY, DIAGNOSTIC COLONOSCOPY, DIAGNOSTIC Referral ID Status Reason Start Date Expiration Date Visits Re quested Visits Authorized [id number] Closed 1 1 Encounter Details Date Type Department Care Team (Latest Contact Info) Description 06/22/2015 9:40 AM EST - 06/22/2015 12:26 PM EST Hospital Encounter [place] [address] Venice Meyer MD [facility] [place] [address] Discharge Disposition: Home Social History Tobacco Use [...] - 06/22/2015 11:59 AM EST Please call [phone] before 5pm with problems, questions or concerns, after 5pm call the Hospital at [phone] and ask to speak to the Bat Boy/Girl vibration analyst and the roll line operator will contact that person for you. Discharge [...] through Care Everywhere. * COLONOSCOPY : POST-OP (ARMENIAN) documented in this encounter Medications at Time [...] PM EST Office Visit [place] [address] Rich Johnson MD [facility] [place] [address] documented as of this encounter Procedures Procedure [...] RN) documented in this encounter Care Teams Broadcast Systems Engineer Relationship Specialty Start Date End Date Catracho Perea MD [address] [place] [address] PCP - General Family Medicine 06/19/15 07/09/19 documented as of this encounter
--- OUTSIDE RECORDS SUMMARY | 2024-05-06 12:18 | XMS_ITS | Encounter Summary ---
Author Organization [facility] [place] [address] Care Team Providers Care Senior Clinical Research Associate Name Role Phone Guille James MD Primary Care Provider Reason for Referral * Diagnostic Test (Routine) - Closed Specialty Diagnoses / Procedures Referred By Contac t Referred To Contact Radiology Diagnoses Abdominal pain, lower Procedures CT Abdomen & Pelvis w Contrast Guille James MD [address] [place] [address] [facility] [place] [address] Referral ID Status Reason Start Date Expiration Date V isits Requested Visits Authorized [id number] Closed Specialty Service Requested 07/09/2019 09/06/2019 1 1 Reason for Visit * Diagnostic Test (Routine) - Closed Specialty Diagnoses / Procedures Referred By Contac t Referred To Contact Radiology Diagnoses Abdominal pain, lower Procedures CT Abdomen & Pelvis w Contrast Guille James MD [address] [place] [address] [facility] [place] [address] Referral ID Status Reason Start Date Expiration Date V isits Requested Visits Authorized [id number] Closed Specialty Service Requested 07/09/2019 09/06/2019 1 1 Encounter Details Date Type Department Care Team (Latest Contact Info) Description 07/10/2019 3:07 PM EST - 07/10/2019 11:59 PM EST Hospital Encounter [place] [address] Guille James MD [address] [place] [address] Abdominal pain, lower Discharge Disposition: Home Social [...] Sig Dispensed Refills Start Date End Date buPROPion SR (Wellbutrin SR) 150 mg tablet sustained-release 12 hr Take 150 mg by mouth Daily. 11/04/2018 busPIRone (BUSPAR) 10 mg Tablet Take 10 mg by mouth Twice daily. 12/21/2018 gabapentin (Neurontin) 300 mg Capsule Take 300 mg by mouth nightly. 12/04/2018 baclofen (LIORESAL) 5 mg Tablet Take 5 mg by mouth as needed. 12/27/2018 04/29/2024 methocarbamoL (Robaxin) 500 mg Tablet Take 500 mg by mouth as needed. 06/18/2019 04/29/2024 Red Yeast Rice Extract 600 mg Capsule Take by mouth daily. 10/07 lactobacillus rhamnosus, GG, (CULTURELLE) 10 billion cell Capsule Take 1 capsule by mouth daily. 10/08/2019 documented as of this encounter Plan of Treatment Upcoming Encounters Date Type Department Care Team (Late st Contact Info) Description 06/13/2024 3:15 PM EST Office Visit General [place] [address] Rich Johnson MD [facility] [place] [address] documented as of this encounter Procedures Procedure [...] report, please contact the number below. ? Electronically signed by: Isidoro Genao [facility] ([phone]), at 07/10/2019 6:12 PM Narrative 07/10/2019 6:12 PM EST EXAMINATION: CT [...] this report, please contact the number below. Electronically signed by: Isidoro Genao [facility]([phone]), at 07/10/2019 6:12 PM Guille James MD IMG CT ORDERABLES documented in this encounter Visit [...] mLs documented in this encounter Care Teams Senior Clinical Research Associate Relationship Specialty Start Date End Date Guille James MD [address] [place] [address] PCP - General Internal Medicine 07/10/19 09/29/19 documented as of this encounter
--- OUTSIDE RECORDS SUMMARY | 2024-05-06 12:18 | XMS_ITS | Encounter Summary ---
[place] [address] Care Team Providers Care Kennel Hand Name Role Phone Jeannette Herman APRN Primary Care Provider [phone] Reason for Referral * Consultation (Routine) - Closed Specialty Diagnoses / Procedures Referred By Christin herbert Referred To Contact Orthopaedics Diagnoses Shoulder pain, unspecified chronicity, unspecified laterality BILAT SHOULDER PAIN DISCUSS GUIDED INTRA ARTICULAR KETOROLAC INJECTIONS Jeannette Herman APRN [address] [place] [address] [facility] [address] [place] [phone] Referral ID Status Reason Start Date Expiration Date V isits Requested Visits Authorized [id number] Closed Consult, Test & Treat PCP Updated and/or Approved 08/02/2023 01/31/2024 6 6 Encounter Details Date Type Department Care Team (Latest Contact Info) Description 08/07/2023 Transcribe Orders eDH Incoming Referrals [phone] Jeannette Herman APRN [address] [place] [address] Shoulder pain, unspecified chronicity, unspecified [...] PM EST Office [place] [address] Rich Johnson MD [facility] [place] [address] Scheduled Referrals Name Type Priority Associated Diagnoses Orde r Schedule Referral to Orthopaedics Outpatient Referral Routine Shoulder pain, unspecified chronicity, unspecified laterality Ordered: 08/07/2023 documented as of this encounter Visit Diagnoses Diagnosis Shoulder pain, unspecified chronicity, unspecified laterality documented in this encounter Care Teams Kennel Hand Relationship Specialty Start Date End Date Jeannette Herman APRN [address] [place] [address] PCP - General Family Medicine 09/14/22 12/03/23 documented as of this encounter
--- OUTSIDE RECORDS SUMMARY | 2024-05-06 12:18 | XMS_ITS | Encounter Summary ---
Author Organization [facility] [place] [address] Care Team Providers Care Water Pump Servicer Name Role Phone Yadi Steel MD Primary Care Provider [phone] Reason for Referral * Consultation (Urgent) - Authorized Specialty Diagnoses / Procedures Referred By Christin herbert Referred To Contact Gastroenterology Diagnoses Abdominal pain, unspecified abdominal location HX OF DIVERTICULITIS AND IBS. RECENT NORMAL CALPROTECTIN, COLO W/ COLITIS BX NEG, CELIAC PANEL NEG. DOES NOT TOLERATE CYMBALTA. ONGOING ABD PAIN AND IRREGULAR BOWELS. DICYCLOMINE HAS NOT BEEN EFFECTIVE. Khushboo Vieira APRN [address] [place] [address] [facility] [address] [place] [address] Referral ID Status Reason Start Date Expiration Date Visits Requested Visits Authorized [id number] Authorized Consult, Test & Treat PCP Updated and/or Approved 10/21/2024 6 6 Encounter Details Date Type Department Care Team (Late st Contact Info) Description 04/24/2024 Transcribe Orders eDH Incoming Referrals [phone] Khushboo Vieira APRN [address] [place] [address] Abdominal pain, unspecified abdominal location Social History [...] PM EST Office [place] [address] Rich Johnson MD [facility] [place] [address] Scheduled Referrals Name Type Priority Associated Diagnoses Order Schedule Referral to Gastroenterology Outpatient Referral Urgent Abdominal pain, unspecified abdominal location Ordered: 04/24/2024 documented as of this encounter Visit Diagnoses Diagnosis Abdominal pain, unspecified abdominal location documented in this encounter Care Teams Water Pump Servicer Relationship Specialty Start Date End Date Yadi Steel MD [address] [place] [address] PCP - General Family Medicine 12/04/23 documented as of this encounter
[2024-05-06 15:43] LABS: Abs Immature Grans 0.04 10^3/uL (0.0-0.06); Absolute Basophil Count 0.07 10^3/uL (0.0-0.2); Absolute Eosinophil Count 0.17 10^3/uL (0.0-0.7); Absolute Lymphocyte Count 1.46 10^3/uL (1.2-3.4); Absolute Monocyte Count 0.62 10^3/uL (0.1-0.8); Absolute Neutrophil Count 2.81 10^3/uL (1.2-6.7); Basophils % 1.4 %; Eosinophils % 3.3 %; HCT 42.5 % (36.0-46.0); HGB 14.3 g/dL (11.2-15.7); Immature Grans % 0.8 %; Lymphocytes % 28.2 %; MCH 29.6 pg (27.0-33.0); MCHC 33.6 % (32.0-36.0); MCV 88 fL (80-95); MPV 9.3 fL (8.0-11.0); Neutrophils % 54.3 %; Platelet Count 518 10^3/uL (130-400); RBC 4.83 10^6/uL (3.93-5.22); RDW 12.7 % (11.7-14.6); WBC 5.17 10^3/uL (4.4-10.8)
[2024-05-06 17:07] LABS: ALT 32 U/L (14-59); AST 29 U/L (15-37); Alkaline Phosphatase 52 U/L (46-116); Anion Gap 6.7 mmol/L (3-11); CO2 29.3 mmol/L (21.0-32.0); Calcium 9.8 mg/dL (8.5-10.1); Chloride 100 mmol/L (98-107); Estimated GFR 61.75 (mL/min/1.73m2); Glucose 115 mg/dL (74-106); Potassium 5.5 mmol/L (3.5-5.1); Sodium 136 mmol/L (136-145)
[2024-05-06 17:37] LABS: BUN 4 mg/dL (7-18); Bilirubin, Total 0.36 mg/dL (0.2-1.0)
== END 2024-05-06 12:16 | disposition home or self-care (01) ==
LOC: NCHCN 12:15
PROVIDERS: PCP Nurse Practitioner Family; Visit Provider Nurse Practitioner Family
DX: A04.72 Enterocolitis due to Clostridium difficile, not specified as recurrent (principal)
CPT/HCPCS: 80053; 85025

== ENCOUNTER 2024-05-24 01:18 | Outpatient (CLI) | payer MEDICARE, BC, SELFPAY ==
--- OUTSIDE RECORDS SUMMARY | 2024-05-24 01:27 | XMS_ITS | Encounter Summary ---
Author Organization [facility] Address [facility] [place] [address] Care Team Providers Care Migratory Farm Hand Name Role Phone Yadi Steel MD Primary Care Provider [phone] Encounter Details Date Type Department Care Team [...] PM EST Office Visit [place] [address] Rich Johnson MD [facility] [place] [address] documented as of this encounter Visit Diagnoses Not on filedocumented in this encounter Care Teams Migratory Farm Hand Relationship Specialty Start Date End Date Yadi Steel MD [address] [place] [address] PCP - General Family Medicine 12/04/23 documented as of this encounter
--- OUTSIDE RECORDS SUMMARY | 2024-05-24 01:27 | XMS_ITS | Encounter Summary ---
Author Organization [facility] Address [address] [place] [address] Care Team Providers Care Cause Analyst Name Role Phone Unknown, Provider Primary Care Provider Unava ilable Encounter Details Date Type Department Care Team (Late st Contact Info) Description 09/21/2019 Lab Requisition [facility] Pathology & Laboratory Medicine - [address] [address] Unknown, Provider, Social History Tobacco Use Types [...] Hydroxybutyrate 0.5(H) <0.4 mmol/L 09/22/2019 16:14 EDT [facility] Blood VENOUS BLOOD / Unknown 09/20/2019 8:15 EDT 09/22/2019 15:58 EDT us Provider Unknown CHEMISTRY & BLOOD GAS ORDERA BLES Final Result [facility] [address] [place] [address] * INSULIN (09/20/2019 8:15 EDT) Insulin 6.1 <29.0 uIU/mL 09/26/2019 10:19 EDT [facility] Comment: Displayed Reference Range applies to fasting specimens only. Blood VENOUS BLOOD / Unknown 09/20/2019 8:15 EDT 09/22/2019 15:58 EDT us Provider Unknown CHEMISTRY & BLOOD GAS ORDERA BLES Final Result [facility] [address] [place] [address] documented in this encounter Visit Diagnoses Not on filedocumented in this encounter Care Teams Cause Analyst Relationship Specialty Start Date End Date Unknown, Provider, PCP - General 04/16/15 documented as of this encounter
--- OUTSIDE RECORDS SUMMARY | 2024-05-24 01:27 | XMS_ITS | Encounter Summary ---
Author Organization [facility] Address [address] [place] [address] Care Team Providers Care Dot Net Developer Name Role Phone Unknown, Provider Primary Care Provider Unava ilable Encounter Details Date Type Department Care Team (Late st Contact Info) Description 07/12/2019 Lab Requisition [facility] Pathology & Laboratory Medicine - [address] [address] Unknown, Provider, Social History Tobacco Use Types [...] 21:44 EST) Hold Hold 07/12/2019 22:45 EST [facility] Blood VENOUS BLOOD / Unknown 07/12/2019 21:44 EST 07/12/2019 21:44 EST us Provider Unknown LAB INFO SERVICE AND SUPPORT & PHONE RESULT Final Result [facility] [address] [place] [address] * HOLD SST (07/12/2019 21:44 EST) Hold Hold 07/12/2019 22:45 EST [facility] Blood VENOUS BLOOD / Unknown 07/12/2019 21:44 EST 07/12/2019 21:44 EST us Provider Unknown MD LAB INFO SERVICE AND SUPPORT & PHONE RESULT Final Result Performing Organization Address [facility]/ZIP Co de Phone Number [facility] [address] [place] [address] * OSMOLALITY (07/12/2019 8:15 EST) Osmolality, Serum 07/16/2019 15:45 EST [facility] Comment: Disregard previous result. ??Result was from a urine sample labeled as as serum. This is a corrected result. Previous result was 264 mOsm/kg on 07/12/2019 at 2220 EST Blood VENOUS BLOOD / Unknown 07/12/2019 8:15 EST 07/12/2019 21:41 EST us Provider Unknown CHEMISTRY & BLOOD GAS ORDERA BLES Edited Result - Final Performing Organization Address [facility] Co de Phone Number [facility] [address] [place] [address] * CORTISOL (07/12/2019 8:15 EST) Cortisol 07/16/2019 15:45 EST [facility] Comment: Disregard previous result. ??Result was from a urine sample labeled as as serum. This is a corrected result. Previous result was 25 ug/dL on 07/12/2019 at 2230 EST Blood VENOUS BLOOD / Unknown 07/12/2019 8:15 EST 07/12/2019 21:41 EST us Provider Unknown CHEMISTRY & BLOOD GAS ORDERA BLES Edited Result - Final Performing Organization Address [facility] Co de Phone Number [facility] [address] [place] [address] documented in this encounter Visit Diagnoses Not on filedocumented in this encounter Care Teams Dot Net Developer Relationship Specialty Start Date End Date Unknown, Provider, PCP - General 04/16/15 documented as of this encounter
--- OUTSIDE RECORDS SUMMARY | 2024-05-24 01:27 | XMS_ITS | Encounter Summary ---
Author Organization [facility] Address [address] [place] [address] Care Team Providers Care Civil Clerk Name Role Phone Unavailable Primary Care Provider Unavailabl e Encounter Details Date Type Department Care Team (Late st Contact Info) Description 07/24/2008 Before PRISM Converted Visit (Maple) [facility] - Maple conversion [address] [place] [address] Annie Tran, [facility] [address] [place] [address] [place] [address] Social History Tobacco Use Types [...] ? ADELAIDA LUNDY ? Accession #: ? [id number] ? : ? 1955 (Age: 52) ??F ?Collect Date: ? 07/24/2008 ? Location: ? [facility] ? Receive Date: ? 07/25/2008 ? Provider: ?ANNIE JAZZMINE SHOT BLAST EQUIPMENT OPERATOR ? Copy to: ? Specimen/Source: ?Pap [...] [facility] 07/24/2008 07/25/2008 us Annie Tran SHOT BLAST EQUIPMENT OPERATOR PATHOLOGY ORDERABLES Final R esult [facility] [address] [place] [address] documented in this encounter Visit Diagnoses Not on filedocumented in this encounter
--- OUTSIDE RECORDS SUMMARY | 2024-05-24 01:27 | XMS_ITS | Encounter Summary ---
Author Organization [facility] Address [address] [place] [address] Care Team Providers Care Bottom Ironer Name Role Phone Unavailable Primary Care Provider Unavailabl e Encounter Details Date Type Department Care Team (Late st Contact Info) Description 03/27/2006 Results Only [facility] - Maple conversion [address] [place] [address] Annie Tran, [address] [place] [address] Social History Tobacco Use Types [...] ? ADELAIDA LUNDY ? Accession #: ? [id number] : ? 1955 (Age: 50) ??F ?Collect Date: ? 03/27/2006 Location: ? [facility] ? Receive Date: ? 03/28/2006 Provider: ?ANNIE TRAN HISTOLOGY SPECIALIST Copy to: ? Specimen/Source: ?ThinPrep Pap Test, Cervix/Endocervix, processed on e[employer] ThinPrep Imaging System, with manual evaluation Last [...] RUSH GARZA 03/27/2006 03/28/2006 us Annie Tran HISTOLOGY SPECIALIST PATHOLOGY ORDERABLES Final R esult [facility] [address] [place] [address] documented in this encounter Visit Diagnoses Not on filedocumented in this encounter
--- OUTSIDE RECORDS SUMMARY | 2024-05-24 01:27 | XMS_ITS | Encounter Summary ---
Author Organization [facility] Address [address] [place] [address] Care Team Providers Care Roller Presser Operator Name Role Phone Unavailable Primary Care Provider Unavailabl e Encounter Details Date Type Department Care Team (Late st Contact Info) Description 08/09/2004 Results Only [facility] - Maple conversion [address] [place] [address] Annie Tran, [address] [place] [address] Social History Tobacco Use Types [...] ? ADELAIDA LUNDY ? Accession #: ? [id number] : ? 1955 (Age: 48) ??F ?Collect Date: ? 08/09/2004 Location: ? [facility] ? Receive Date: ? 08/11/2004 Provider: ?ANNIE TRAN CUPOLA OPERATOR INSULATION Copy to: ? Specimen/Source: ?ThinPrep Pap Test, [...] RUSH GARZA 08/09/2004 08/11/2004 us Annie Tran CUPOLA OPERATOR INSULATION PATHOLOGY ORDERABLES Final R esult [facility] [address] [place] [address] documented in this encounter Visit Diagnoses Not on filedocumented in this encounter
--- OUTSIDE RECORDS SUMMARY | 2024-05-24 01:27 | XMS_ITS | Encounter Summary ---
Author Organization [facility] Address [address] [place] [address] Care Team Providers Care Quill Skinner Name Role Phone Unknown, Provider Primary Care Provider Unava ilable Encounter Details Date Type Department Care Team (Late st Contact Info) Description 08/17/2022 Lab Requisition [facility] Pathology & Laboratory Medicine - [facility] [address] [place] [address] Outr Resulting Lab, Provider Social History Tobacco [...] 17 See Note ug/dL 08/17/2022 17:[address] [facility] Comment: NOTE: Expected Ranges [...] & BLOOD GA S ORDERABLES Final Result [facility] [address] [place] [address] documented in this encounter Visit Diagnoses Not on filedocumented in this encounter Care Teams Quill Skinner Relationship Specialty Start Date End Date Unknown, Provider, PCP - General 04/16/15 documented as of this encounter
--- OUTSIDE RECORDS SUMMARY | 2024-05-24 01:27 | XMS_ITS | Encounter Summary ---
Author Organization [facility] Address [address] [place] [address] Care Team Providers Care Outdoor Adventure Guides Name Role Phone Unknown, Provider Primary Care Provider Unava ilable Encounter Details Date Type Department Care Team (Late st Contact Info) Description 05/11/2021 Lab Requisition [facility] Pathology & Laboratory Medicine - [facility] [address] [place] [address] Outr Resulting Lab, Provider Social History Tobacco [...] MICROBIOLOGY - GENER AL ORDERABLES Final Result [facility] [address] [place] [address] * COVID-19 TESTING (05/10/2021 10:30 EST) COVID-19 rt-PCR Result Negative Negative 05/12/2021 12:45 EST [facility] Comment: This test has not [...] was performed using the dheeraj SARS-CoV-2 assay ([employer] on the Dheeraj 6800 System Performing Lab Dheeraj [address] [facility] 05/12/2021 12:45 EST [facility] Swab 05/10/2021 10:3 0 EST 05/11/2021 17:07 EST us Provider Outr Resulting Lab MICROBIOLOGY - GENER AL ORDERABLES Final Result [facility] [address] [place] [address] documented in this encounter Visit Diagnoses Not on filedocumented in this encounter Care Teams Outdoor Adventure Guides Relationship Specialty Start Date End Date Unknown, Provider, PCP - General 04/16/15 documented as of this encounter
--- OUTSIDE RECORDS SUMMARY | 2024-05-24 01:27 | XMS_ITS | Clinical Summary ---
Author Organization [facility] Address [address] [place] [address] Care Team Providers Care It Architecture Consultant Name Role Phone Unknown, Provider Primary Care [...] 1-dose 75+ series) 10/06/2031 [place] [id number] [facility] Care Teams It Architecture Consultant Relationship Specialty Start Date End Date Unknown, Provider, PCP - General 04/16/15
--- OUTSIDE RECORDS SUMMARY | 2024-05-24 01:27 | XMS_ITS | Encounter Summary ---
Author Organization [facility] [place] [address] Care Team Providers Care Bracer Name Role Phone Yadi Steel MD Primary Care Provider [phone] Reason for Referral * Consultation (Urgent) - Authorized Specialty Diagnoses / Procedures Referred By Christin hebrert Referred To Contact Gastroenterology Diagnoses Abdominal pain, unspecified abdominal location HX OF DIVERTICULITIS AND IBS. RECENT NORMAL CALPROTECTIN, COLO W/ COLITIS BX NEG, CELIAC PANEL NEG. DOES NOT TOLERATE CYMBALTA. ONGOING ABD PAIN AND IRREGULAR BOWELS. DICYCLOMINE HAS NOT BEEN EFFECTIVE. Khushboo Vieira APRN [address] [place] [address] [facility] [address] [place] [address] Referral ID Status Reason Start Date Expiration Date Visits Requested Visits Authorized [id number] Authorized Consult, Test & Treat PCP Updated and/or Approved 10/21/2024 6 6 Encounter Details Date Type Department Care Team (Late st Contact Info) Description 04/24/2024 Transcribe Orders eDH Incoming Referrals [phone] Khushboo Vieira APRN [address] [place] [address] Abdominal pain, unspecified abdominal location Social History [...] PM EST Office [place] [address] Rich Johnson MD [facility] [place] [address] Scheduled Referrals Name Type Priority Associated Diagnoses Order Schedule Referral to Gastroenterology Outpatient Referral Urgent Abdominal pain, unspecified abdominal location Ordered: 04/24/2024 documented as of this encounter Visit Diagnoses Diagnosis Abdominal pain, unspecified abdominal location documented in this encounter Care Teams Bracer Relationship Specialty Start Date End Date Yadi Steel MD [address] [place] [address] PCP - General Family Medicine 12/04/23 documented as of this encounter
--- OUTSIDE RECORDS SUMMARY | 2024-05-24 01:27 | XMS_ITS | Encounter Summary ---
Author Organization [facility] Address [address] [place] [address] Care Team Providers Care Dj Instructor Name Role Phone Unknown, Provider Primary Care Provider Unava ilable Encounter Details Date Type Department Care Team (Late st Contact Info) Description 01/18/2024 Lab Requisition [facility] Pathology & Laboratory Medicine - [facility] [address] [place] [address] Donta Dyson MD [address] [place] [phone] Diarrhea, unspecified; Diverticulitis of large intestine [...] explore management options, if applicable. 01/19/2024 16:43 [facility] Final Diagnosis A. COLON, RANDOM BIOPSIES: - Benign colonic mucosa with no significant pathologic change. - No evidence of microscopic colitis. 01/19/2024 16:43 [facility] Diagnosis Comment The technical component of the specimen processing was performed at the [facility] Pathology Department, [address] [place] [address] (CLIA [id number]). The professional component of the specimen evaluation (slide review and issuing of the final diagnosis) was performed at [facility], [address] [place] [address] (CLIA License Number [id number]). 01/19/2024 16:43 [facility] Attestation By the signature below, the attending physician certifies that they have 1) personally conducted a gross and/or microscopic examination of the described specimen(s), and/or personally interpreted the results of laboratory testing of the described specimen(s), and 2) personally rendered or confirmed the above diagnosis. 01/19/2024 16:43 [facility] at 1643 Clinical History Diverticulosis, IBS; clinical diagnosis code: K57.32, R19.7 01/19/2024 16:43 [facility] Gross Description A. Received in formalin labelled with proper patient identification (initials H, P) and random colon bx's are 4 adams tissues (0.2 x 0.1 x 0.1 cm to 0.5 x 0.1 x 0.1 cm). Entirely submitted in A1. SANCHEZ CLIFTON(ASCP) 01/18/2024 9:24 01/19/2024 16:43 [facility] Performing Lab [facility] 01/19/2024 16:43 [facility] Scanned Images 01/19/2024 16:43 [facility] Tissue COLON STRUCTURE / Unknown 01/17/2024 12:43 EDT 01/18/2024 8:13 EDT us Donta Dyson MD PATHOLOGY ORDERABLES Final Result [facility] [address] [place] [address] documented in this encounter Visit Diagnoses Diagnosis Diarrhea, unspecified Diverticulitis of large intestine without perforation or abscess without bleeding Diverticulitis of colon (without mention of hemorrhage) documented in this encounter Care Teams Dj Instructor Relationship Specialty Start Date End Date Unknown, Provider, PCP - General 04/16/15 documented as of this encounter
--- OUTSIDE RECORDS SUMMARY | 2024-05-24 01:27 | XMS_ITS | Referral Summary ---
Author Organization [facility] Address [address] [place] [address] Care Team Providers Care Finishing Machine Operator Name Role Phone Unknown, Provider Primary [...] of Treatment Not on file Insurance MEDICARE [facility] Care Teams Finishing Machine Operator Relationship Specialty Start Date End Date Unknown, Provider, PCP - General 04/16/15
--- OUTSIDE RECORDS SUMMARY | 2024-05-24 01:27 | XMS_ITS | Encounter Summary ---
Author Organization [facility] Address [address] [place] [address] Care Team Providers Care Technical Sme Name Role Phone Unavailable Primary Care Provider Unavailabl e Encounter Details Date Type Department Care Team (Late st Contact Info) Description 04/06/2007 Results Only [facility] - Maple conversion [address] [place] [address] Annie Tran, [address] [place] [address] Social History Tobacco Use Types [...] ? ADELAIDA LUNDY ? Accession #: ? [id number] : ? 1955 (Age: 51) ??F ?Collect Date: ? 04/06/2007 Location: ? [facility] ? Receive Date: ? 04/06/2007 Provider: ?ANNIE TRAN LINE TENDER FLAKEBOARD Copy to: ? Specimen/Source: ?ThinPrep Pap Test, Cervix/Endocervix, processed on Wave[employer] ThinPrep Imaging System, with manual evaluation Last [...] [facility] 04/06/2007 04/06/2007 us Annie Tran LINE TENDER FLAKEBOARD PATHOLOGY ORDERABLES Final R esult [facility] [address] [place] [address] documented in this encounter Visit Diagnoses Not on filedocumented in this encounter
--- OUTSIDE RECORDS SUMMARY | 2024-05-24 01:27 | XMS_ITS | Encounter Summary ---
Author Organization [facility] Address [facility] [place] [address] Care Team Providers Care Control Clerk Auditing Name Role Phone Jeannette Herman APRN Primary Care Provider [phone] Encounter Details Date Type Department Care Team [...] PM EST Office [place] [address] Rich Johnson MD [facility] [place] [address] documented as of this encounter Visit Diagnoses Not on filedocumented in this encounter Care Teams Control Clerk Auditing Relationship Specialty Start Date End Date Jeannette Herman APRN [address] [place] [address] PCP - General Family Medicine 09/14/22 12/03/23 documented as of this encounter
--- OUTSIDE RECORDS SUMMARY | 2024-05-24 01:27 | XMS_ITS | Encounter Summary ---
Author Organization [facility] Address [address] [place] [address] Care Team Providers Care Travel Professional Name Role Phone Unavailable Primary Care Provider Unavailabl e Encounter Details Date Type Department Care Team (Late st Contact Info) Description 07/28/2009 Orders Only [facility] Laboratory Services - [facility] [address], [place] [id number] Annie Tran, [facility] [address] [place] [address] [place] [address] Social History Tobacco Use Types [...] EST 07/31/2009 8:37 EST us Annie Tran LOADER OPERATOR MICROBIOLOGY - GENERAL ORDER HANNA Final Result [facility] [address] [place] [id number] * CYTOPATHOLOGY (07/28/2009 0:00 EST) Pathology Report: CYTOPATHOLOGY REPORT ? Reports generated via electronic interface contain original data; ? however they are lacking the format of the original report. ? Caution should be taken when reading/interpreti ng unformatted reports. ? Name: ? ADELAIDA LUNDY ? Accession #: ? [id number] ? : ? 1955 (Age: 53) ??F ?Collect Date: ? 07/28/2009 ? Location: ? [facility] ? Receive Date: ? 07/29/2009 ? Provider: ?ANNIE JAZZMINE LOADER OPERATOR ? Copy to: ? Specimen/Source: ?Pap [...] [facility] 07/28/2009 07/29/2009 us Annie Tran LOADER OPERATOR PATHOLOGY ORDERABLES Final R esult [facility] [address] [place] [address] documented in this encounter Visit Diagnoses Not on filedocumented in this encounter
--- OUTSIDE RECORDS SUMMARY | 2024-05-24 01:27 | XMS_ITS | Encounter Summary ---
Author Organization [facility] Address [address] [place] [address] Care Team Providers Care Kickboxing Instructor Name Role Phone Unavailable Primary Care Provider Unavailabl e Encounter Details Date Type Department Care Team (Late st Contact Info) Description 05/01/2001 Results Only [facility] - Maple conversion [address] [place] [address] Annie Tran, [address] [place] [address] Social History Tobacco Use Types [...] ? ADELAIDA LUNDY ? Accession #: ? [id number] : ? 1955 (Age: 45) ??F ?Collect Date: ? 05/01/2001 Location: ? [facility] ? Receive Date: ? 05/07/2001 Provider: ?ANNIE TRAN LACE WEAVER Copy to: ? Specimen/Source: ?ThinPrep Pap Test, [...] [facility] 05/01/2001 05/07/2001 us Annie Tran LACE WEAVER PATHOLOGY ORDERABLES Final R esult [facility] [address] [place] [address] documented in this encounter Visit Diagnoses Not on filedocumented in this encounter
--- OUTSIDE RECORDS SUMMARY | 2024-05-24 01:27 | XMS_ITS | Encounter Summary ---
Author Organization [facility] Address [facility] [place] [address] Care Team Providers Care Credit Risk Modeler Name Role Phone Jeannette Herman APRN Primary Care Provider [phone] Reason for Visit * Reason Comments Establish Care NXR BILAT SHOULDE R PAIN DISCUSS GUIDED INTRA ARTICULAR KETOROLAC INJECTIONS * Consultation (Routine) - Closed Specialty Diagnoses / Procedures Referred By Contac t Referred To Contact Orthopaedics Diagnoses Shoulder pain, unspecified chronicity, unspecified laterality BILAT SHOULDER PAIN DISCUSS GUIDED INTRA ARTICULAR KETOROLAC INJECTIONS Jeannette Herman APRN [address] [place] [address] [facility] [place] [place] [facility] [address] [place] [id number] Referral ID Status Reason Start Date Expiration Date V isits Requested Visits Authorized [id number] Closed Consult, Test & Treat PCP Updated and/or Approved 08/02/2023 01/31/2024 6 6 Encounter Details Date Type Department Care Team (Latest Contact Info) Description 09/08/2023 1:40 PM EDT Office [place] [address] Zacarias Corrales MD [facility] [place] [address] Chronic pain in left shoulder; [...] neg - Belly press- neg Labrum - Oxford's test- neg Biceps Tedon - Speed's test- [...] Bilateral Indication: Pain and limited function Equipment: [employer] Electronic Cigarette with 4-20 MHz linear transducer, 4-12 MHz [...] Ultrasound guided injection provided today to the [facility] - Medical Decision Making: Discussed surgical and [...] in the interim. Zacarias Corrales MD Sports Order CheckerText Transcriber of Orthopedics [facility] The note was created using dictation, please excuse any grammatical or word errors. documented in this encounter Plan of Treatment Upcoming Encounters Date Type Department Care Team (Late st Contact Info) Description 06/13/2024 3:15 PM EST Office Visit [place] [address] Rich Johnson MD [facility] [place] [address] documented as of this encounter Visit Diagnoses [...] mg documented in this encounter Care Teams Credit Risk Modeler Relationship Specialty Start Date End Date Jeannette Herman APRN [address] [place] [address] PCP - General Family Medicine 09/14/22 12/03/23 documented as of this encounter
--- OUTSIDE RECORDS SUMMARY | 2024-05-24 01:27 | XMS_ITS | Encounter Summary ---
Author Organization [facility] Address [address] [place] [address] Care Team Providers Care Multimedia Services Coordinator Name Role Phone Unknown, Provider Primary Care Provider Unava ilable Encounter Details Date Type Department Care Team (Latest Contact Info) Description 07/22/2018 19:35 EST - 07/22/2018 23:59 EST Hospital Encounter [address] [address] Unknown, Provider, Discharge Disposition: Home or Self [...] Code Departure Means Destination Home or Self Prison documented in this encounter Plan of Treatment Not on file documented as of this encounter Visit Diagnoses Not on filedocumented in this encounter Care Teams Multimedia Services Coordinator Relationship Specialty Start Date End Date Unknown, Provider, PCP - General 04/16/15 documented as of this encounter
--- OUTSIDE RECORDS SUMMARY | 2024-05-24 01:27 | XMS_ITS | Encounter Summary ---
Author Organization [facility] Address [address] [place] [address] Care Team Providers Care Police Service Technician Name Role Phone Unknown, Provider Primary Care Provider Unava ilable Encounter Details Date Type Department Care Team (Late st Contact Info) Description 08/17/2022 Lab Requisition [facility] Pathology & Laboratory Medicine - [facility] [address] [place] [address] Outr Resulting Lab, Provider Social History Tobacco [...] 4 - 23 ug/dL 08/17/2022 17:44 EST [facility] Comment: NOTE: The results of this assay can be falsley elevated due to the consumption of Biotin. Blood VENOUS BLOOD / Unknown 08/17/2022 7:40 EST 08/17/2022 16:53 EST us Provider Outr Resulting Lab CHEMISTRY & BLOOD GA S ORDERABLES Final Result [facility] [address] [place] [address] documented in this encounter Visit Diagnoses Not on filedocumented in this encounter Care Teams Police Service Technician Relationship Specialty Start Date End Date Unknown, Provider, PCP - General 04/16/15 documented as of this encounter
--- OUTSIDE RECORDS SUMMARY | 2024-05-24 01:27 | XMS_ITS | Encounter Summary ---
Author Organization [facility] Address [address] [place] [address] Care Team Providers Care Speck Dyer Name Role Phone Unknown, Provider Primary Care Provider Unava ilable Encounter Details Date Type Department Care Team (Late st Contact Info) Description 07/16/2018 Results Only [facility] [phone] Hector Gamboa MD [address] [place] [address] Social History Tobacco Use Types Packs/Day Years [...] ? ADELAIDA LUNDY ? Accession #: ? [id number] ? : ? 1955 (Age: 62) ??F ? Collect Date: ? 07/16/2018 ? Location: ? [facility] ? Receive Date: ? 07/16/2018 ? Provider: HECTOR GAMBOA MD Copy to: NIKKI DOVER TILTROTOR CREW CHIEF ? Final Pathologic Diagnosis: A. ENDOMETRIUM, BIOPSY: [...] (ASCP) 07/17/2018 9:43 AM End of Report [facility] 07/16/2018 8:56 EST 07/16/2018 8:56 EST us Hector Gamboa MD PATHOLOGY ORDERABLES Final Resul t [facility] [address] [place] [address] documented in this encounter Visit Diagnoses Not on filedocumented in this encounter Care Teams Speck Dyer Relationship Specialty Start Date End Date Unknown, Provider, PCP - General 04/16/15 documented as of this encounter
--- OUTSIDE RECORDS SUMMARY | 2024-05-24 01:27 | XMS_ITS | Encounter Summary ---
Author Organization [facility] [place] [address] Care Team Providers Care Boat Dispatcher Name Role Phone Yadi Steel MD Primary Care Provider [phone] Reason for Referral * Consultation (Routine) - Authorized Specialty Diagnoses / Procedures Referred By Christin herbert Referred To Contact General Surgery Diagnoses Diverticulitis of large intestine without perforation or abscess without bleeding Titus Sagastume MD [facility] [place] [address] [facility] Surgery [address] [place] [address] Referral ID Status Reason Start Date Expiration Date Visits Requested Visits Authorized [id number] Authorized Consult, Test & Treat 04/28/2024 04/28/2025 1 1 Reason for Visit * Reason Comments Abdominal Pain Encounter Details Date Type Department Care Team (Late st Contact Info) Description 04/27/2024 7:28 PM EST - 04/28/2024 3:23 AM EST [place] [address] Titus Sagastume MD [facility] [place] [address] Lower abdominal pain; Diverticulitis of large intestine [...] tolerated. You already have an appointment with [facility] gastroenterology tomorrow which you should keep. I [...] be sent through Care Everywhere. * Diverticulitis (Dominican) * Clear Liquid Diet: General Info (Dominican) * Low-Fiber Diet (Dominican) documented in this encounter Medications at Time [...] Capsule Take 1,000 Units by mouth daily. amoxicillin-clavulanat e (Augmentin) 875-125 mg tablet Take [...] patient regarding her plan and after much [id number] we came up with a plan to [...] who have questions please contact the health child care sitter that requested your imaging first. Course as [...] PM EST Office Visit [place] [address] Rich Johnson MD [facility] [place] [address] Scheduled Referrals Name Type Priority Associated Diagnoses [...] Urine Dipstick Negative Negative 04/28/2024 12:46 AM [facility] Protein, Urine Dipstick Negative Negative 04/28/2024 12:46 AM [facility] Bilirubin, Urine Dipstick Negative Negative 04/28/2024 12:46 AM [facility] Comment:Clinical correlation required for positive Urine Bilirubin results as false positive may occur with some drugs and drug related products. If a false positive is suspected a serum total bilirubin should be considered if clinically indicated. Urobilinogen, Urine Dipstick Normal Normal, 0.2 mg/dL, 1.0 mg/dL 04/28/2024 12:46 AM [facility] pH, Urine (dipstick) 7.0 5.0 - 8.0 04/28/2024 12:46 AM [facility] Blood, Urine Dipstick Negative Negative 04/28/2024 12:46 AM [facility] Ketone, Urine Dipstick 15 mg/dL(A) Negative 04/28/2024 12:46 AM [facility] Nitrite, Urine Dipstick Negative Negative 04/28/2024 12:46 AM [facility] Leukocytes, Urine Dipstick Negative Negative 04/28/2024 12:46 AM [facility] Specific [place] Urine Automated >=1.030(H) 1.005 - 1.030 04/28/2024 12:46 AM [facility] Appearance, Urine Dipstick Clear Clear 04/28/2024 12:46 AM [facility] Color, Urine Dipstick Yellow Yellow, Dark Yellow 04/28/2024 12:46 AM EST [facility] CULTURE ADDED? 04/28/2024 12:46 AM EST [facility] Urine URINE SPECIMEN OBTAINED BY CLEAN CATCH PROCEDURE / Unknown Non Blood Collection / Unknown 04/28/2024 12:30 AM EST 04/28/2024 12:39 AM EST Titus Sagastume MD URINE ORDERABLES Performing Organization Address City/[facility]/ZIP Co de Phone Number [facility] [place] [address] * Lactate Whole Blood POC (04/27/2024 11:32 PM EST) Lactate, Whole Blood 1.0 0.5 - 2.2 mmol/L 04/27/2024 11:33 PM EST [facility] Blood VENOUS BLOOD SPECIMEN / Unknown 04/27/2024 11:32 PM EST 04/27/2024 11:33 PM EST iTtus Sagastume MD POINT OF CARE TEST O RDERABLES Performing Organization Address [facility] [place]/[facility]/ZIP Co de Phone Number [facility] [place] [address] * CT Abdomen & Pelvis w Contrast (04/27/2024 9:04 PM EST) WORKSTATION ID [id number] RAD Anatomical Region Laterality Modality Abdomen, Pelvis [...] who have questions please contact the health child care sitter that requested your imaging first. ? Narrative [...] patients who have questions please contactthe health child care sitter that requested your imaging first. Curtis London III, MD IMG CT ORDERABLES * (ABNORMAL) Scan, Peripheral Blood (04/27/2024 7:43 PM EST) RBC Morphology Normal 04/27/2024 8:43 PM [facility] Platelet Estimate Increased( A) Normal 04/27/2024 8:43 PM [facility] Platelet Clumps Present(A) (none) 04/27/2024 8:43 PM [facility] WBC MORPHOLOGY See Comment(A) (none) 04/27/2024 8:43 PM [facility] Comment:Vacuolated Grans Blood VENOUS BLOOD SPECIMEN / Unknown Venipuncture / Unknown 04/27/2024 7:43 PM EST 04/27/2024 7:47 PM EST Titus Sagastume MD HEMATOLOGY ORDERABLE S [facility] [place] [address] * (ABNORMAL) Magnesium (04/27/2024 7:43 PM EST) Magnesium 0.68(L) 0.69 - 1.07 mMol/L 04/27/2024 8:32 PM EST [facility] Blood VENOUS BLOOD SPECIMEN / Unknown Venipuncture / Unknown 04/27/2024 7:43 PM EST 04/27/2024 7:47 PM EST Curtis London III, MD CHEMISTRY ORDERABL ES Performing Organization Address City/[facility]/ZIP Co de Phone Number [facility] [place] [address] * Hepatic Function Panel (04/27/2024 7:43 PM EST) Albumin 4.0 3.2 - 5.2 g/dL 04/27/2024 8:32 PM EST [facility] Aspartate Aminotransferase 19 <=30 unit/L 04/27/2024 8:32 PM [facility] Alanine Aminotransferase 13 0 - 30 unit/L 04/27/2024 8:32 PM [facility] Alkaline Phosphatase 58 35 - 105 unit/L 04/27/2024 8:32 PM [facility] Bilirubin, Total 0.5 <=1.3 mg/dL 04/27/2024 8:32 PM [facility] Bilirubin, Direct <0.2 0.0 - 0.3 mg/dL 04/27/2024 8:32 PM [facility] Protein, Total 7.7 6.1 - 8.0 g/dL 04/27/2024 8:32 PM EST [facility] Blood VENOUS BLOOD SPECIMEN / Unknown Venipuncture / Unknown 04/27/2024 7:43 PM EST 04/27/2024 7:47 PM EST Curtis London III, MD CHEMISTRY ORDERABL ES Performing Organization Address City/[facility]/ZIP Co de Phone Number [facility] [place] [address] * Lipase (04/27/2024 7:43 PM EST) Lipase 23 0 - 60 unit/L 04/27/2024 8:32 PM [facility] Blood VENOUS BLOOD SPECIMEN / Unknown Venipuncture / Unknown 04/27/2024 7:43 PM EST 04/27/2024 7:47 PM EST Curtis London III, MD CHEMISTRY ORDERABL ES Performing Organization Address [facility] [place]/[facility] Co de Phone Number [facility] [place] [address] * (ABNORMAL) Basic Metabolic Panel (04/27/2024 7:43 PM EST) Glucose 91 65 - 199 mg/dL 04/27/2024 8:32 PM [facility] Comment:Glucose Concentratio n >=200 mg/dL plus symptoms is consistent with Diabetes Mellitus. Blood Urea Nitrogen 4(L) 8 - 18 mg/dL 04/27/2024 8:32 PM [facility] Creatinine 0.67(L) 0.70 - 1.20 mg/dL 04/27/2024 8:32 PM [facility] Sodium 133(L) 135 - 145 mMol/L 04/27/2024 8:32 PM [facility] Potassium 3.8 3.5 - 5.0 mMol/L 04/27/2024 8:32 PM [facility] Chloride 95(L) 98 - 107 mMol/L 04/27/2024 8:32 PM [facility] Carbon Dioxide 27 22 - 31 mMol/L 04/27/2024 8:32 PM [facility] Anion Gap 11 5 - 15 mMol/L 04/27/2024 8:32 PM EST [facility] Calcium 9.1 8.5 - 10.5 mg/dL 04/27/2024 8:32 PM EST [facility] Est Glomerular Filtration Rate - Female 96 mL/min/1. 73 m?? 04/27/2024 8:32 PM EST [facility] Comment: This patient's estimated GFR [...] PM EST Titus Sagastume MD CHEMISTRY ORDERABLES [facility] [place] [address] * (ABNORMAL) CBC (with Diff) (04/27/2024 7:43 PM EST) White Blood Cell 14.89(H) 4.00 - 9.50 x10(3)/mc L 04/27/2024 8:43 PM EST [facility] Red Blood Cell 4.74 4.00 - 5.21 x10(6)/mc L 04/27/2024 8:43 PM EST [facility] Hemoglobin 14.2 11.7 - 15.5 g/dL 04/27/2024 8:43 PM EST [facility] Hematocrit 40.9 35.7 - 45.8 % 04/27/2024 8:43 PM EST [facility] Mean Cell Volume 86.3 82.6 - 94.4 fL 04/27/2024 8:43 PM [facility] Mean Cell Hemoglobin 30.0 27.1 - 32.0 pg 04/27/2024 8:43 PM [facility] Mean Cell Hemoglobin Concentration 34.7 31.7 - 35.0 g/dL 04/27/2024 8:43 PM [facility] Platelet 386(H) 145 - 357 x10(3)/mc L 04/27/2024 8:43 PM [facility] Mean Platelet Volume 9.1 7.6 - 12.9 fL 04/27/2024 8:43 PM [facility] RDW Standard Deviation 39.1 37.0 - 46.0 fL 04/27/2024 8:43 PM [facility] RDW coefficient of variation 12.3 11.5 - 14.1 % 04/27/2024 8:43 PM [facility] NRBC% auto 0.0 % 04/27/2024 8:43 PM [facility] NRBC Absolute <0.01 <0.01 x10(3)/mc L 04/27/2024 8:43 PM [facility] Neutrophil % 78.1 % 04/27/2024 8:43 PM [facility] Comment:This is an appended report. These results have been appended to a previously preliminary verified report. Neutrophil Absolute (ANC) - Automated 11.63(H) 1.70 - 6.10 x10(3)/mc L 04/27/2024 8:43 PM [facility] Comment:This is an appended report. These results have been appended to a previously preliminary verified report. Lymph % 7.1 % 04/27/2024 8:43 PM [facility] Comment:This is an appended report. These results have been appended to a previously preliminary verified report. Lymph Absolute 1.05 0.90 - 3.20 x10(3)/mc L 04/27/2024 8:43 PM [facility] Comment:This is an appended report. These results have been appended to a previously preliminary verified report. Monocyte % 12.4 % 04/27/2024 8:43 PM [facility] Comment:This is an appended report. These results have been appended to a previously preliminary verified report. Monocyte Absolute 1.85(H) 0.30 - 0.90 x10(3)/mc L 04/27/2024 8:43 PM [facility] Comment:This is an appended report. These results have been appended to a previously preliminary verified report. Eos % 1.7 % 04/27/2024 8:43 PM [facility] Comment:This is an appended report. These results have been appended to a previously preliminary verified report. Eos Absolute 0.25 0.00 - 0.40 x10(3)/mc L 04/27/2024 8:43 PM [facility] Comment:This is an appended report. These results have been appended to a previously preliminary verified report. Basophil % 0.4 % 04/27/2024 8:43 PM [facility] Comment:This is an appended report. These results have been appended to a previously preliminary verified report. Baso Absolute 0.06 0.00 - 0.10 x10(3)/mc L 04/27/2024 8:43 PM [facility] Comment:This is an appended report. These results have been appended to a previously preliminary verified report. Immature Gran % 0.3 % 8:43 PM [facility] Comment:This is an appended report. These results have been appended to a previously preliminary verified report. Immature Gran Absolute 0.05(H) 0.00 - 0.04 x10(3)/mc L 04/27/2024 8:43 PM [facility] Comment:This is an appended report. These results have been appended to a previously preliminary verified report. Blood VENOUS BLOOD SPECIMEN / Unknown Venipuncture / Unknown 04/27/2024 7:43 PM EST 04/27/2024 7:47 PM EST Titus Sagastume MD HEMATOLOGY ORDERABLE S [facility] [place] [address] documented in this encounter Visit Diagnoses Diagnosis [...] over 0.5 Hours, Warning Vesicant/Irritant Medication Per mobility architect labeling, do not administer or Y-site with [...] over 0.5 Hours, Warning Vesicant/Irritant Medication Per mobility architect labeling, do not administer or Y-site with [...] [place]) documented in this encounter Care Teams Boat Dispatcher Relationship Specialty Start Date End Date Yadi Steel MD [address] [place] [address] PCP - General Family Medicine 12/04/23 documented as of this encounter
--- OUTSIDE RECORDS SUMMARY | 2024-05-24 01:27 | XMS_ITS | Encounter Summary ---
Author Organization [facility] Address [address] [place] [address] Care Team Providers Care Support Coordinator Name Role Phone Unknown, Provider Primary Care Provider Unava ilable Encounter Details Date Type Department Care Team (Late st Contact Info) Description 05/08/2017 Results Only [facility] [phone] Annie Tran, [address] [place] [address] Social History Tobacco Use Types [...] ? ADELAIDA LUNDY ? Accession #: ? [id number] ? : ? 1955 (Age: 61) ??F ?Collect Date: ? 05/08/2017 ? Location: ? [facility] ? Receive Date: ? 05/09/2017 ? Provider: ANNIE TRAN BUN PANNER Copy to: NIKKI FERNANDEZ MD ? Final [...] types 16,18,31,33,35, 39,45,51,52,56,58, 59,66, and 68 by peeled potato inspector mediated amplification. Comments Document reviewed and electronically signed by: ? System Interface ? Report date: 05/19/2017 By the signature above, the attending physician certifies that he/she has personally conducted a gross and/or microscopic examination of the described specimens and rendered or confirmed the above diagnosis. End of Report [facility] 05/08/2017 05/09/2017 us Annie Tran BUN PANNER PATHOLOGY ORDERABLES Final R esult [facility] [address] [place] [address] documented in this encounter Visit Diagnoses Not on filedocumented in this encounter Care Teams Support Coordinator Relationship Specialty Start Date End Date Unknown, Provider, PCP - General 04/16/15 documented as of this encounter
--- OUTSIDE RECORDS SUMMARY | 2024-05-24 01:27 | XMS_ITS | Clinical Summary ---
Author Organization Formerly [facility] Address [facility] [place] [address] Care Team Providers Care Spiral Gear Generator Name Role Phone Yadi Steel MD Primary Care Provider [phone] Allergies Active Allergy Reactions Criticality Noted Date [...] Take 1,000 Units by mouth daily. Active Active Problems Problem Noted Date Diagnosed [...] Encounters Date Type Department Care Team Description 05/20/2024 11:30 AM EST TH Visit (TeleHealth) [place] [address] Lesli Rodriguez PA Clostridium difficile colitis (Primary Dx); Diverticulitis of colon; Irritable bowel syndrome with both constipation and diarrhea 04/29/2024 12:00 PM EST TH Visit (TeleHealth) [place] [address] Lesli Rodriguez PA Diverticulitis of colon (Primary Dx); Clostridium difficile colitis 04/28/2024 Travel 04/27/2024 7:28 PM EST - 04/28/2024 3:23 AM [place] [address] Titus Sagastume MD Lower abdominal pain; Diverticulitis of large intestine without perforation or abscess without bleeding Discharge Disposition: Home 04/24/2024 Transcribe Orders eDH Incoming Referrals [phone] Khushboo Vieira, CAITY Abdominal pain, unspecified abdominal location from Last 3 Months Immunizations Name Administration Dates Next Due Influenza Vaccine, Whole 04/05/2006,04/11/2005 Td Adult (not absorbed) 09/29/2004 Social History Tobacco Use Types Packs/Day Years Used Date Smoking Tobacco: Never Smokeless Tobacco: Never Alcohol Use Standard Drinks/Week Comments Yes 14 (1 standard drink = 0.6 oz pu re alcohol) [facility] Inpatient Questions Answer Date Recorded Does Anyone [...] PM EST Office [place] [address] Rich Johnson MD [facility] [place] [address] Health Maintenance Due Date Last Done Comments [...] Urinalysis with reflex Culture (04/28/2024 12:30 AM [facility]) Glucose, Urine Dipstick Negative Negative 04/28/2024 12:46 AM [facility] Protein, Urine Dipstick Negative Negative 04/28/2024 12:46 AM [facility] Bilirubin, Urine Dipstick Negative Negative 04/28/2024 12:46 AM [facility] Comment:Clinical correlation required for positive Urine Bilirubin results as false positive may occur with some drugs and drug related products. If a false positive is suspected a serum total bilirubin should be considered if clinically indicated. Urobilinogen, Urine Dipstick Normal Normal, 0.2 mg/dL, 1.0 mg/dL 04/28/2024 12:46 AM [facility] pH, Urine (dipstick) 7.0 5.0 - 8.0 04/28/2024 12:46 AM [facility] Blood, Urine Dipstick Negative Negative 04/28/2024 12:46 AM [facility] Ketone, Urine Dipstick 15 mg/dL(A) Negative 04/28/2024 12:46 AM [facility] Nitrite, Urine Dipstick Negative Negative 04/28/2024 12:46 AM [facility] Leukocytes, Urine Dipstick Negative Negative 04/28/2024 12:46 AM [facility] Specific [place] Urine Automated >=1.030(H) 1.005 - 1.030 04/28/2024 12:46 AM [facility] Appearance, Urine Dipstick Clear Clear 04/28/2024 12:46 AM [facility] Color, Urine Dipstick Yellow Yellow, Dark Yellow 04/28/2024 12:46 AM [facility] CULTURE ADDED? 04/28/2024 12:46 AM [facility] Urine URINE SPECIMEN OBTAINED BY CLEAN CATCH PROCEDURE / Unknown Non Blood Collection / Unknown 04/28/2024 12:30 AM EST 04/28/2024 12:39 AM EST Titus Sagastume MD URINE ORDERABLES Performing Organization Address [facility]/ZIP Co de Phone Number [facility] [place] [address] * Lactate Whole Blood POC (04/27/2024 11:32 PM EST) Pathologist [facility] [place] Lactate, Whole Blood 1.0 0.5 - 2.2 mmol/L 04/27/2024 11:33 PM EST [facility] Blood VENOUS BLOOD SPECIMEN / Unknown 04/27/2024 11:32 PM EST 04/27/2024 11:33 PM EST Titus Sagastume MD POINT OF CARE TEST O RDERABLES Performing Organization Address [facility] Co de Phone Number [facility] [place] [address] * CT Abdomen & Pelvis w Contrast (04/27/2024 9:04 PM EST) [facility] [employer] WORKSTATION ID [id number] RAD Anatomical Region Laterality Modality Abdomen, Pelvis [...] who have questions please contact the health health care manager that requested your imaging first. ? Narrative [...] patients who have questions please contactthe health health care manager that requested your imaging first. Curtis London III, MD IMG CT ORDERABLES * (ABNORMAL) Scan, Peripheral Blood (04/27/2024 7:43 PM EST) RBC Morphology Normal 04/27/2024 8:43 PM EST [facility] Platelet Estimate Increased( A) Normal 04/27/2024 8:43 PM EST [facility] Platelet Clumps Present(A) (none) 04/27/2024 8:43 PM EST [facility] WBC MORPHOLOGY See Comment(A) (none) 04/27/2024 8:43 PM EST [facility] Comment:Vacuolated Grans Blood VENOUS BLOOD SPECIMEN / Unknown Venipuncture / Unknown 04/27/2024 7:43 PM EST 04/27/2024 7:47 PM EST Titus Sagastume MD HEMATOLOGY ORDERABLE S [facility] [place] [address] * (ABNORMAL) CBC (with Diff) (04/27/2024 7:43 PM EST) White Blood Cell 14.89(H) 4.00 - 9.50 x10(3)/mc L 04/27/2024 8:43 PM [facility] Red Blood Cell 4.74 4.00 - 5.21 x10(6)/mc L 04/27/2024 8:43 PM [facility] Hemoglobin 14.2 11.7 - 15.5 g/dL 04/27/2024 8:43 PM [facility] Hematocrit 40.9 35.7 - 45.8 % 04/27/2024 8:43 PM [facility] Mean Cell Volume 86.3 82.6 - 94.4 fL 04/27/2024 8:43 PM [facility] Mean Cell Hemoglobin 30.0 27.1 - 32.0 pg 04/27/2024 8:43 PM [facility] Mean Cell Hemoglobin Concentration 34.7 31.7 - 35.0 g/dL 04/27/2024 8:43 PM [facility] Platelet 386(H) 145 - 357 x10(3)/mc L 04/27/2024 8:43 PM [facility] Mean Platelet Volume 9.1 7.6 - 12.9 fL 04/27/2024 8:43 PM [facility] RDW Standard Deviation 39.1 37.0 - 46.0 fL 04/27/2024 8:43 PM [facility] RDW coefficient of variation 12.3 11.5 - 14.1 % 04/27/2024 8:43 PM [facility] NRBC% auto 0.0 % 04/27/2024 8:43 PM [facility] NRBC Absolute <0.01 <0.01 x10(3)/mc L 04/27/2024 8:43 PM [facility] Neutrophil % 78.1 % 04/27/2024 8:43 PM [facility] Comment:This is an appended report. These results have been appended to a previously preliminary verified report. Neutrophil Absolute (ANC) - Automated 11.63(H) 1.70 - 6.10 x10(3)/mc L 04/27/2024 8:43 PM [facility] Comment:This is an appended report. These results have been appended to a previously preliminary verified report. Lymph % 7.1 % 04/27/2024 8:43 PM [facility] Comment:This is an appended report. These results have been appended to a previously preliminary verified report. Lymph Absolute 1.05 0.90 - 3.20 x10(3)/mc L 04/27/2024 8:43 PM [facility] Comment:This is an appended report. These results have been appended to a previously preliminary verified report. Monocyte % 12.4 % 04/27/2024 8:43 PM [facility] Comment:This is an appended report. These results have been appended to a previously preliminary verified report. Monocyte Absolute 1.85(H) 0.30 - 0.90 x10(3)/mc L 04/27/2024 8:43 PM [facility] Comment:This is an appended report. These results have been appended to a previously preliminary verified report. Eos % 1.7 % 04/27/2024 8:43 PM [facility] Comment:This is an appended report. These results have been appended to a previously preliminary verified report. Eos Absolute 0.25 0.00 - 0.40 x10(3)/mc L 04/27/2024 8:43 PM [facility] Comment:This is an appended report. These results have been appended to a previously preliminary verified report. Basophil % 0.4 % 04/27/2024 8:43 PM [facility] Comment:This is an appended report. These results have been appended to a previously preliminary verified report. Baso Absolute 0.06 0.00 - 0.10 x10(3)/mc L 04/27/2024 8:43 PM [facility] Comment:This is an appended report. These results have been appended to a previously preliminary verified report. Immature Gran % 0.3 % 8:43 PM EST [facility] Comment:This is an appended report. These results have been appended to a previously preliminary verified report. Immature Gran Absolute 0.05(H) 0.00 - 0.04 x10(3)/mc L 04/27/2024 8:43 PM EST [facility] Comment:This is an appended report. These results have been appended to a previously preliminary verified report. Blood VENOUS BLOOD SPECIMEN / Unknown Venipuncture / Unknown 04/27/2024 7:43 PM EST 04/27/2024 7:47 PM EST Titus Sagastume MD HEMATOLOGY ORDERABLE S Performing Organization Address City/[facility]/ZIP Co de Phone Number [facility] [place] [address] * (ABNORMAL) Magnesium (04/27/2024 7:43 PM EST) Magnesium 0.68(L) 0.69 - 1.07 mMol/L 04/27/2024 8:32 PM EST [facility] Blood VENOUS BLOOD SPECIMEN / Unknown Venipuncture / Unknown 04/27/2024 7:43 PM EST 04/27/2024 7:47 PM EST Curtis London III, MD CHEMISTRY ORDERABL ES Performing Organization Address City/[facility]/ZIP Co de Phone Number [facility] [place] [address] * Lipase (04/27/2024 7:43 PM EST) Lipase 23 0 - 60 unit/L 04/27/2024 8:32 PM EST [facility] Blood VENOUS BLOOD SPECIMEN / Unknown Venipuncture / Unknown 04/27/2024 7:43 PM EST 04/27/2024 7:47 PM EST Curtis London III, MD CHEMISTRY ORDERABL ES Performing Organization Address [facility]/ZIP Co de Phone Number [facility] [place] [address] * Hepatic Function Panel (04/27/2024 7:43 PM EST) Albumin 4.0 3.2 - 5.2 g/dL 04/27/2024 8:32 PM EST [facility] Aspartate Aminotransferase 19 <=30 unit/L 04/27/2024 8:32 PM EST [facility] Alanine Aminotransferase 13 0 - 30 unit/L 04/27/2024 8:32 PM EST [facility] Alkaline Phosphatase 58 35 - 105 unit/L 04/27/2024 8:32 PM EST [facility] Bilirubin, Total 0.5 <=1.3 mg/dL 04/27/2024 8:32 PM [facility] Bilirubin, Direct <0.2 0.0 - 0.3 mg/dL 04/27/2024 8:32 PM EST [facility] Protein, Total 7.7 6.1 - 8.0 g/dL 04/27/2024 8:32 PM EST [facility] Blood VENOUS BLOOD SPECIMEN / Unknown Venipuncture / Unknown 04/27/2024 7:43 PM EST 04/27/2024 7:47 PM EST Curtis London III, MD CHEMISTRY ORDERABL ES Performing Organization Address City/[facility]/ZIP Co de Phone Number [facility] [place] [address] * (ABNORMAL) Basic Metabolic Panel (04/27/2024 7:43 PM EST) Glucose 91 65 - 199 mg/dL 04/27/2024 8:32 PM EST [facility] Comment:Glucose Concentratio n >=200 mg/dL plus symptoms is consistent with Diabetes Mellitus. Blood Urea Nitrogen 4(L) 8 - 18 mg/dL 04/27/2024 8:32 PM [facility] Creatinine 0.67(L) 0.70 - 1.20 mg/dL 04/27/2024 8:32 PM [facility] Sodium 133(L) 135 - 145 mMol/L 04/27/2024 8:32 PM [facility] Potassium 3.8 3.5 - 5.0 mMol/L 04/27/2024 8:32 PM [facility] Chloride 95(L) 98 - 107 mMol/L 04/27/2024 8:32 PM [facility] Carbon Dioxide 27 22 - 31 mMol/L 04/27/2024 8:32 PM [facility] Anion Gap 11 5 - 15 mMol/L 04/27/2024 8:32 PM [facility] Calcium 9.1 8.5 - 10.5 mg/dL 04/27/2024 8:32 PM [facility] Est Glomerular Filtration Rate - Female 96 mL/min/1. 73 m?? 04/27/2024 8:32 PM [facility] Comment: This patient's estimated [...] CHEMISTRY ORDERABLES [facility] [place] [address] * Scan Doc: Lab (04/09/2024 12:00 AM [...] COLONOSCOPY (06/22/2015 11:37 AM EST) COLONOSCOPY [facility] Endoscopy Patient Name: Adelaida Lundy ? Procedure Date: 06/22/2015 11:37 AM ? Date of : 1955 ? Age: 59 ? Order #: [id number] ? Procedure: ? Colonoscopy Indications: ? Screening for colorectal malignant ? neoplasm Providers: ? Venice Meyer MD, Martina Estrada RN, ? Alex Coello, Funding Analyst Referring MD: ?Bakari Delgado MD, Catracho Coleman [...] Recently Relevant to Health Maintenance Care Teams Spiral Gear Generator Relationship Specialty Start Date End Date Yadi Steel MD [address] [place], [place] [address] PCP - General Family Medicine 12/04/23
--- OUTSIDE RECORDS SUMMARY | 2024-05-24 01:27 | XMS_ITS | Encounter Summary ---
Author Organization [facility] Address [address] [place] [address] Care Team Providers Care Presser Machine Name Role Phone Unavailable Primary Care Provider Unavailabl e Encounter Details Date Type Department Care Team (Late st Contact Info) Description 07/30/2002 Results Only [facility] [address] [place] [address] Annie Tran, [address] [place] [address] Social History Tobacco Use Types [...] ? ADELAIDA LUNDY ? Accession #: ? [id number] : ? 1955 (Age: 46) ??F ?Collect Date: ? 07/30/2002 Location: ? [facility] ? Receive Date: ? 08/01/2002 Provider: ?ANNIE TRAN MANAGEMENT LECTURER Copy to: ? Specimen/Source: ?ThinPrep Pap Test, Cervix/Endocervix Last Menstrual Period: ? 07/01/02 Previous Gynecologic Pathology: ? ASC-US: ? SPECIMEN ADEQUACY ? Satisfactory for Evaluation - transformation zone component present GENERAL CATEGORIZATION ? Negative for Intraepithelial Lesion or Malignancy ? Document reviewed and electronically signed by: ? Dee eLntz, SCT(ASCP) ? Report Date: ??08/02/2002 16:35 End of Report [facility] 07/30/2002 08/01/2002 us Annie Tran MANAGEMENT LECTURER PATHOLOGY ORDERABLES Final R esult [facility]USH GARZA [address] [place] [address] documented in this encounter Visit Diagnoses Not on filedocumented in this encounter
--- OUTSIDE RECORDS SUMMARY | 2024-05-24 01:27 | XMS_ITS | Encounter Summary ---
[place] [address] Care Team Providers Care Design Analyst Name Role Phone Yadi Steel MD Primary Care Provider [phone] Reason for Referral * Consultation (Urgent) - Authorized Specialty Diagnoses / Procedures Referred By Contac t Referred To Contact Gastroenterology Diagnoses Diverticulosis of large intestine without diverticulitis Yadi Steel MD [address] [place] [address] [facility] [address] [place] [address] Referral ID Status Reason Start Date Expiration Date Visits Requested Visits Authorized [id number] Authorized Consult, Test & Treat PCP Updated and/or Approved 12/04/2023 06/04/2024 6 6 Encounter Details Date Type Department Care Team (Latest Contact Info) Description 12/04/2023 Transcribe Orders eDH Incoming Referrals [phone] Yadi Steel MD [address] [place] [address] Diverticulosis of large intestine without diverticulitis Social [...] PM EST Office Visit [place] [address] Rich Johnson MD [facility] [place] [address] Scheduled Referrals Name Type Priority Associated Diagnoses Orde r Schedule Referral to Gastroenterology Outpatient Referral Urgent Diverticulosis of large intestine without diverticulitis Ordered: 12/04/2023 documented as of this encounter Visit Diagnoses Diagnosis Diverticulosis of large intestine without diverticulitis Diverticulosis of colon (without mention of hemorrhage) documented in this encounter Care Teams Design Analyst Relationship Specialty Start Date End Date Yadi Steel MD [address] [place] [address] PCP - General Family Medicine 12/04/23 documented as of this encounter
--- OUTSIDE RECORDS SUMMARY | 2024-05-24 01:27 | XMS_ITS | Encounter Summary ---
Author Organization [facility] Address [facility] [place] [address] Care Team Providers Care Environmental Law Professor Name Role Phone Yadi Steel MD Primary Care Provider [phone] Reason for Visit * Consultation (Urgent) - Authorized Specialty Diagnoses / Procedures Referred By Conthoward t Referred To Contact Gastroenterology Diagnoses Abdominal pain, unspecified abdominal location HX OF DIVERTICULITIS AND IBS. RECENT NORMAL CALPROTECTIN, COLO W/ COLITIS BX NEG, CELIAC PANEL NEG. DOES NOT TOLERATE CYMBALTA. ONGOING ABD PAIN AND IRREGULAR BOWELS. DICYCLOMINE HAS NOT BEEN EFFECTIVE. Khushboo Vieira W, LAB COURIER [address] [place] [address] [facility] [place] [address] [address] Referral ID Status Reason Start Date Expiration Date Visits Requested Visits Authorized [id number] Authorized Consult, Test & Treat PCP Updated and/or Approved 10/21/2024 6 6 Encounter Details Date Type Department Care Team (Latest Contact Info) Description 04/29/2024 12:00 PM EST TH Visit (TeleHealth) [place] [address] Lesli Rodriguez PA [facility] [place] [address] Diverticulitis of colon (Primary Dx); Clostridium difficile colitis Social History Tobacco Use Types Packs/Day Years Used Date Smoking Tobacco: Never Smokeless Tobacco: Never Alcohol Use Standard Drinks/Week Comments Yes 14 (1 standard drink = 0.6 oz pu re alcohol) [facility] Inpatient Questions Answer Date Recorded Does [...] you can contact their scheduling line at [phone]. documented in this encounter Progress Notes * [...] seen on 03/2024 CT, also presented to [facility] ER 04/27 showing persistent diverticulitis as well [...] FERRITIN Vitamin Studies: No results found for: ETUNFUCI42, VITAMIND A1c:No results found for: HA1C Thyroid: No results found for: TSH, A3IIOER, TT4, THYROIDAB Celiac Studies: No results found for: TTGIGAAB, TTGIGAMAYO, TTGIGG, IGA, YENIFER, CRP Stool Studies: No results found for: FECALFATQUAL, CALPROTECTIN, STOOLCX, OVAPARA, HPYLORISTLAG, HPSA, GIARDIA, CAMPYAG, CDIFFTOXIN, CDIFFAG, CDIFFTOX, CDIFFPCRI, CRSPAG, SHIGATOXIN [facility] Affiliated Radiographic studies: CT Abdomen & Pelvis w Contrast Result Date: 04/27/2024 1. Long segment sigmoid diverticulitis and proctitis without perforation nor abscess. 2. Mural heterogeneous enhancement and nodular thickening at the low rectum is concerning for a mass lesion and consideration for direct visualization to rule out malignancy is recommended. 3. Ascending colitis. [facility] Endoscopic/GI Studies: N/A OSH Studies: Colonoscopy [...] PM EST Office [place] [address] Rich Johnson MD [facility] [place] [address] Scheduled Referrals Name Type Priority Associated Diagnoses Order Schedule Referral to Gastroenterology Outpatient Referral Urgent Abdominal pain, unspecified abdominal location Ordered: 04/24/2024 documented as of this encounter Visit Diagnoses Diagnosis Diverticulitis of colon- Primary Diverticulitis of colon (without mention of hemorrhage) Clostridium difficile colitis Intestinal infection due to clostridium difficile documented in this encounter Care Teams Environmental Law Professor Relationship Specialty Start Date End Date Yadi Steel MD [address] [place] [address] PCP - General Family Medicine 12/04/23 documented as of this encounter
--- OUTSIDE RECORDS SUMMARY | 2024-05-24 01:27 | XMS_ITS | Encounter Summary ---
Author Organization [facility] Address [address] [place] [address] Care Team Providers Care Wardsperson Name Role Phone Unknown, Provider MD Primary Care Provider Unava ilable Encounter Details Date Type Department Care Team (Late st Contact Info) Description 07/16/2019 Lab Requisition [facility] Pathology & [place] [address] Unknown, Provider, Social History Tobacco Use Types [...] Urine 260 150-1,150 mOsm/kg 07/16/2019 15:34 EST [facility] Urine URINE SPECIMEN OBTAINED BY CLEAN CATCH PROCEDURE / Unknown 07/12/2019 8:15 EST 07/16/2019 14:27 EST us Provider Unknown MD URINALYSIS ORDERABLES Final Result [facility] [address] [place] [address] * OSMOLALITY (07/12/2019 8:15 EST) Osmolality, Serum 283 275 - 295 mOsm/kg 07/16/2019 15:34 EST [facility] Blood VENOUS BLOOD / Unknown 07/12/2019 8:15 EST 07/16/2019 14:27 EST us Provider Unknown CHEMISTRY & BLOOD GAS ORDERA BLES Final Result Performing Organization Address [facility] de Phone Number [facility] [address] [place] [address] * CORTISOL (07/12/2019 8:15 EST) Cortisol 11 See Note ug/dL 07/16/2019 16:24 EST [facility] Comment: NOTE: Reference Ranges (from [...] ORDERA BLES Final Result Performing Organization Address [facility] de Phone Number [facility] [address] [place] [address] documented in this encounter Visit Diagnoses Not on filedocumented in this encounter Care Teams Wardsperson Relationship Specialty Start Date End Date Unknown, Provider, PCP - General 04/16/15 documented as of this encounter
--- OUTSIDE RECORDS SUMMARY | 2024-05-24 01:27 | XMS_ITS | Encounter Summary ---
Author Organization [facility] Address [address] [place] [address] Care Team Providers Care Termite Control Representative Name Role Phone Unknown, Provider Primary Care Provider Unava ilable Encounter Details Date Type Department Care Team (Late st Contact Info) Description 04/24/2015 Results Only [facility] [phone] Annie Tran, [address] [place] [address] Social History Tobacco Use Types [...] ? ADELAIDA LUNDY ? Accession #: ? [id number] : ? 1955 (Age: 59) ??F ?Collect Date: ? 04/24/2015 Location: ? [facility] ? Receive Date: ? 04/27/2015 Provider: ?ANNIE TRAN MILKING MACHINE MECHANIC Copy to: ?ARIADNA DOSS MD ? Specimen/Source: ?Pap Test, Cervix/Endocervix, ThinPrep Imaging System with manual evaluation Last Menstrual Period: ? 2012 ? SPECIMEN ADEQUACY ? Satisfactory for Evaluation - transformation zone component present GENERAL CATEGORIZATION ? Negative for Intraepithelial Lesion or Malignancy ? Document reviewed and electronically signed by: ? JOSE RAFAEL Mendosa(ASCP) ? Report Date: ??04/29/2015 14:03 End of Report [facility] 04/24/2015 04/27/2015 us Annie Tran MILKING MACHINE MECHANIC PATHOLOGY ORDERABLES Final R esult [facility] [address] [place] [address] documented in this encounter Visit Diagnoses Not on filedocumented in this encounter Care Teams Termite Control Representative Relationship Specialty Start Date End Date Unknown, Provider, PCP - General 04/16/15 documented as of this encounter
--- OUTSIDE RECORDS SUMMARY | 2024-05-24 01:27 | XMS_ITS | Encounter Summary ---
Author Organization [facility] Address [facility] [place] [address] Care Team Providers Care Gas Appliance Installer Name Role Phone Yadi Steel MD Primary Care Provider [phone] Encounter Details Date Type Department Care Team (Latest Contact Info) Description 05/20/2024 11:30 AM EST TH Visit (TeleHealth) [place] [phone] Lesli Rodriguez PA [facility] [place] [address] Clostridium difficile colitis (Primary Dx); Diverticulitis of colon; Irritable bowel syndrome with both constipation and diarrhea Social History Tobacco Use Types Packs/Day Years Used Date Smoking Tobacco: Never Smokeless Tobacco: Never Alcohol Use Standard Drinks/Week Comments Yes 14 (1 standard drink = 0.6 oz pu re alcohol) [facility] Inpatient Questions Answer Date Recorded Does [...] * Patient Instructions* Lesli Rodriguez PA - 05/20/2024 11:30 AM EST I am hopeful that your symptoms will continue to slowly even out over the next several weeks. If you feel your symptoms worsen, we can consider repeating CT scan and/or C.diff testing. - Monitor for fevers, blood in stool, persistent liquid stools, inability to pass stools/flatulence, vomiting, severe abdominal pain. - Ideally we would wait at least 4 weeks to repeat C.diff testing I recommend trying over the counter IBGard - a peppermint oil supplement that helps to coat and soothe the lining of the intestine. Take as directed - I recommend 1-2 capsules daily. OK to restart fiber concurrently with IBGard - they work together to optimize passage of stool through GI tract. If no improvement with IBGard, you can restart Miralax at a low dose. Follow-up with surgery team as scheduled. documented in this encounter Progress Notes * Lesli Rodriguez PA - 05/20/2024 11:30 AM EST Adult Gastroenterology Return Patient Note Patient: Adelaida Lundy : 1955 Date of Service: 05/20/2024 Referring Provider: No ref. provider found Primary Care Provider: Yadi Steel MD [facility] History of present illness provided by patient and per personal review of EMR. Adelaida Lundy is a 68 y.o. female with a PMH significant for HTN, anxiety, fibromyalgia, and a PSH including CCY. Interval Hx: Finished course of vancomycin 05/15. Ate yogurt during treatment. Last week, stools firmed up, 1-2 BM per day. Currently worried that Gut is backing up. Day before yesterday - a few small bowel movements. Endorses small formed soft pieces of stool, 4-5BM. Adding fiber, staying hydrated, prune juice. Has not re- added in Miralax. Does not feel like eating. Burping/dyspepsia. RLQ pain. Bloating. Pressure feeling in anus. Areas of firmness, areas of soreness that come and go in abdomen. Depressed mood associated. Ultimately she thinks that these issues have been occurring cyclically over the past 3 years however worse/harder to manage gut regularity between diverticulitis episodes over the past 6 months. Current weight 175 lb. 25 lb weight loss. Hx at Last Visit (03/2024): Recent diverticulitis dx - seen on 03/2024 CT, also presented to [facility] ER 04/27 showing persistent diverticulitis as well as rectal thickening. - Lower abdominal pain, urgency - Also notes that C.diff testing was done yesterday which did show C.diff positive, starting vancomycin. First episode. Diarrhea every half hour. - Hx diverticulitis in 2017 and 2018. Does have episodes of discomfort [...] Medications Tried: Dicyclomine - not helpful, caused headache Prior Testin03/2024 GI PCR normal 03/2024 CT AP w - sigmoid diverticulitis 01/2024 Colonoscopy - sigmoid diverticulosis, otherwise normal. Subjective No past medical [...] Current Outpatient Medications Medication Sig Dispense Refill buPROPion SR (Wellbutrin SR) 150 mg tablet [...] week Drug use: No Review of Systems Constitutional: Positive for fatigue and unexpected weight change. Gastrointestinal: Positive for abdominal pain. Psychiatric/Behavioral: Positive for dysphoric mood. I have reviewed 5+ systems with the patient. ROS is negative except for findings above and what is mentioned in HPI. Objective Physical Exam Constitutional: Appearance: Normal appearance. HENT: Head: Normocephalic and atraumatic. Nose: Nose normal. Eyes: Extraocular Movements: Extraocular movements intact. Pulmonary: Effort: Pulmonary effort is normal. Skin: Coloration: Skin is not jaundiced. Neurological: General: No focal deficit present. Mental Status: She is oriented to person, place, and time. Psychiatric: Mood and Affect: Mood normal. Affect is tearful. Behavior: Behavior normal. There were no vitals [...] FERRITIN Vitamin Studies: No results found for: HEXBHYFA25, VITAMIND A1c:No results found for: HA1C Thyroid: No results found for: TSH, X0VXWHK, TT4, THYROIDAB Celiac Studies: No results found for: TTGIGAAB, TTGIGAMAYO, TTGIGG, IGA, YENIFER, CRP Stool Studies: No results found for: FECALFATQUAL, CALPROTECTIN, STOOLCX, OVAPARA, HPYLORISTLAG, HPSA, GIARDIA, CAMPYAG, CDIFFTOXIN, CDIFFAG, CDIFFTOX, CDIFFPCRI, CRSPAG, SHIGATOXIN [facility] Affiliated Radiographic studies: CT Abdomen & Pelvis w Contrast Result Date: 04/27/2024 1. Long segment sigmoid diverticulitis and proctitis without perforation nor abscess. 2. Mural heterogeneous enhancement and nodular thickening at the low rectum is concerning for a mass lesion and consideration for direct visualization to rule out malignancy is recommended. 3. Ascending colitis. [facility] Affiliated Endoscopic/GI Studies: N/A OSH Studies: Colonoscopy 01/2024: Sigmoid diverticulosis. Biopsies taken to exclude microscopic colitis. Path: Normal Assessment & Plan 1. Clostridium difficile colitis 2. Diverticulitis of colon 3. Irritable bowel syndrome with both constipation and diarrhea Patient is a 68 y.o. female presenting [...] Augmentin courses, did complete C. difficile testing 04/28 which was positive (I donot have these results available), ts with vancomycin. 1. Diverticulitis of colon Recurrent episodes. Treatment options limited due to medication allergies. Recent prolonged Augmentin use may have been a risk factor for C. difficile infection. Patient does confirm healthy diet/lifestyle at baseline. Denies tobacco use/heavy EtOH use. Fiber plus MiraLAX daily to maintain regular bowel movements. Notably, patient is up-to-date with screening colonoscopy. Colonoscopy last done January 2024 normal(report available, reviewed). It is possible that she is has concurrent smoldering chronic diverticulitis contributing to ongoingsx between frequent diverticulitis episodes. I do agree with colorectal surgery consult for discussion regarding elective sigmoidectomy, scheduled for June. Patient does have a history of abdominal/rectal surgery and I suspect there is associated scar tissue which may make surgical intervention more difficult, however benefits of sigmoidectomy may outweigh risks given worsening's frequency/severity of diverticulitis episodes and new issue of C.diff. I suspect abnormal rectal findings on 04/2024 CT may be secondary to rectocele repair. 2. Clostridium difficile colitis 3. Irritable bowel syndrome with both constipation and diarrhea C diff tx with vancomycin (prolonged course given she was also on Augmentin at start), completed last Monday. Currently endorsing bloating, dyspepsia, cramping, irregular bowel movements c/w postinfectious IBS exacerbation. She does note these symptoms occur intermittently at baseline between diverticulitis flares though worsening over time. Patient endorses distress assd with these sx. Counseling provided. We discussed that C.diff infection and vancomycin are both very aggravating to GI tract but should improve over time. Encouraged conservative mgmt with fiber, IBGard, Miralax titrated to efficacy. Can also consider trial of GI antispasmodic however pt declines as she does not want to r isk constipation. Pt is anxious about possibility of underlying obstructive process as well as possibility that C.diff was not resolved. - I do not suspect obstructive process given there was no evidence of this on CT imaging/colonoscopy and patient is passing BM. We discussed the best way to evaluate for obstructive process would be repeat abdominal imaging (X ray versus CT) which can be considered if she develops worsening sx which we discussed. Ultimately patient may benefit from repeat colonoscopy however it is too soon from C.diff dx/tx to consider at this time, surgery team may also recommend updated testing. - I do not suspect ongong C.diff - pt reports multiple formed/soft stools daily. We discussed that I would not recommend repeat C.diff testing to confirm eradication, high rates of false negative/positive this close to treatement. Would try to wait 4-6 weeks until C.diff testing is repeated, can bedone sooner only if persistent ongoing liquid stools. As discussed above, possible smoldering diverticulitis contributing to IBS sx - CRS consult is scheduled. I suspect functional overlap - pt appears hypervigilant to sx and tearful during this visit. Could consider GIBH in the future. No orders of the defined types were placed in this encounter. Patient voiced appropriate questions and concerns which were addressed to their satisfaction. Patient verbalized understanding and agrees with plan as outlined above. They understand to contact GI clinic with further questions, or if they develop new/worsening GI symptoms. Follow up in GI clinic in 2-4 weeks PRN. I have spent 50 minutes with [...] PM EST Office [place] [address] Rich Johnson MD [facility] [place] [address] documented as of this encounter Visit Diagnoses Diagnosis Clostridium difficile colitis- Primary Intestinal infection due to clostridium difficile Diverticulitis of colon Diverticulitis of colon (without mention of hemorrhage) Irritable bowel syndrome with both constipation and diarrhea documented in this encounter Care Teams Gas Appliance Installer Relationship Specialty Start Date End Date Yadi Steel MD [address] [place] [address] PCP - General Family Medicine 12/04/23 documented as of this encounter
--- OUTSIDE RECORDS SUMMARY | 2024-05-24 01:28 | XMS_ITS | Encounter Summary ---
Author Organization [facility] Address [facility] [place] [address] Care Team Providers Care Meat Puller Name Role Phone Bakari Delgado MD Primary Care Provider Encounter Details Date Type Department Care Team (Late st Contact Info) Description 05/11/2010 3:45 PM EST Office Visit [facility] [place] [address] Shun Canales MD [facility] [address] Social History Tobacco Use Types Packs/Day Years [...] PM EST Office [place] [address] Rich Johnson MD [facility] [address] documented as of this encounter Visit Diagnoses Not on filedocumented in this encounter Care Teams Meat Puller Relationship Specialty Start Date End Date Bakari Delgado MD [address] [place] [address] PCP - General 05/04/10 06/18/15 documented as of this encounter
--- OUTSIDE RECORDS SUMMARY | 2024-05-24 01:28 | XMS_ITS | Encounter Summary ---
Author Organization [facility] Address [facility] [place] [address] Care Team Providers Care Heat Treat Technician Name Role Phone Bakari Delgado MD Primary Care Provider Encounter Details Date Type Department Care Team (Late st Contact Info) Description 05/17/2010 11:15 AM EST Office Visit [facility] [place] [address] Shun Canales MD [facility] [place] [address] Discharge Disposition: Home Social History Tobacco Use [...] PM EST Office [place] [address] Rich Johnson MD [facility] [address] documented as of this encounter Visit Diagnoses Not on filedocumented in this encounter Care Teams Heat Treat Technician Relationship Specialty Start Date End Date Bakari Delgado MD [address] [place] [address] PCP - General 05/04/10 06/18/15 documented as of this encounter
--- OUTSIDE RECORDS SUMMARY | 2024-05-24 01:28 | XMS_ITS | Encounter Summary ---
Author Organization [facility] Address [facility] [place] [address] Care Team Providers Care Commercial Sales Specialist Name Role Phone Catracho Perea MD Primary Care Provider [phone] Reason for Visit * Auth/Cert - Closed Specialty Diagnoses / Procedures Referred By Christin t Referred To Contact Diagnoses 10 yr surv from 2003 Procedures PRO COLONOSCOPY, DIAGNOSTIC COLONOSCOPY, DIAGNOSTIC Referral ID Status Reason Start Date Expiration Date Visits Re quested Visits Authorized [id number] Closed 1 1 Encounter Details Date Type Department Care Team (Latest Contact Info) Description 06/22/2015 9:40 AM EST - 06/22/2015 12:26 PM EST Hospital Encounter [place] [address] Venice Meyer MD [facility] [place] [address] Discharge Disposition: Home Social History Tobacco Use [...] - 06/22/2015 11:59 AM EST Please call [phone] before 5pm with problems, questions or concerns, after 5pm call the Hospital at [phone] and ask to speak to the Fugitive Detective religion teacher and the electronic imaging system operator will contact that person for you. [...] through Care Everywhere. * COLONOSCOPY : POST-OP (LAO) documented in this encounter Medications at Time [...] PM EST Office [place] [address] Rich Johnson MD [facility] [place] [address] documented as of this encounter Procedures Procedure [...] RN) documented in this encounter Care Teams Commercial Sales Specialist Relationship Specialty Start Date End Date Catracho Perea MD [address] [place] [address] PCP - General Family Medicine 06/19/15 07/09/19 documented as of this encounter
--- OUTSIDE RECORDS SUMMARY | 2024-05-24 01:28 | XMS_ITS | Encounter Summary ---
Author Organization [facility] Address [facility] [place] [address] Care Team Providers Care Management Lecturer Name Role Phone Bakari Delgado MD Primary Care Provider Encounter Details Date Type Department Care Team (Late st Contact Info) Description 05/10/2010 2:00 PM EST Procedure visit [facility] [place] [address] Suhn Canales MD [facility] [place] [address] Social History Tobacco Use Types Packs/Day Years [...] PM EST Office [place] [address] Rich Johnson MD [facility] [place] [address] documented as of this encounter Visit Diagnoses Not on filedocumented in this encounter Care Teams Management Lecturer Relationship Specialty Start Date End Date Bakari Delgado MD [address] [place] [address] PCP - General 05/04/10 06/18/15 documented as of this encounter
--- OUTSIDE RECORDS SUMMARY | 2024-05-24 01:28 | XMS_ITS | Encounter Summary ---
Author Organization [facility] Address [facility] [place] [address] Care Team Providers Care Frog Farmer Name Role Phone Mainor Jansen Primary Care Provider [phone] Reason for Visit * Consultation (Routine) - Specialty Diagnoses / Procedures Referred By Christin herbert Referred To Contact Endocrinology Diagnoses Hypoglycemia, unspecified HYPOGLYCEMIA Akosua Jimenez APRN [address] [place] [address] [facility] Endocrinology [address] [place] [phone] Referral ID Status Reason Start Date Expiration Date V isits Requested Visits Authorized [id number] Consult, Test [facility] PCP Updated and/or Approved 09/30/2019 09/29/2020 6 6 Encounter Details Date Type Department Care Team (Late st Contact Info) Description 10/08/2019 1:30 PM EDT TH Visit (TeleHealth) [place] [address] Ean [place] MD [facility] [place] [address] Marisa Vivas MD [facility] [place] [address] Hypoglycemia Social History Tobacco Use Types Packs/Day [...] In the past has not talked with tree loader meat, has researched on the Internet.PCP suggested acarbose it has not been tried yet, was hesitant to try it due to fearof constipation. 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 Vitals 07/09/2019 Weight (Australian) 216 lbs Weight (Metric) 97.977 kg 06/2019: [...] Adelaida describes that her symptoms occur around 8737-6076 following breakfast comprised of whole wheat toast [...] should episode recur Case discussed with staff Sld Educational Aide, Ean [place] MD. Adeladia is aware that I expect her to reach out to us following use of the acarbose to let us know if it is working well. Her PCP SANCHEZ Callaway may refill this med. If the episodes worsen or fail to improve, please let us know. Marisa Vivas MD PGY-5 [facility] Endocrinology Fellow Pager #[phone] * Ean [place] MD - 10/08/2019 1:30 [...] often transient and acarbose is not needed assisted. documented in this encounter Plan of Treatment Upcoming Encounters Date Type Department Care Team (Late st Contact Info) Description 06/13/2024 3:15 PM EST Office [place] [address] Rich Johnson MD [facility] [place] [place] [address] documented as of this encounter Visit Diagnoses Diagnosis Hypoglycemia Hypoglycemia, unspecified documented in this encounter Care Teams Frog Farmer Relationship Specialty Start Date End Date Mainor Jansen PA PCP - General General Internal Medicine 09/30/1912/14 documented as of this encounter
--- OUTSIDE RECORDS SUMMARY | 2024-05-24 01:28 | XMS_ITS | Encounter Summary ---
Author Organization [facility] [place] [address] Care Team Providers Care Mechanical Assembly Technician Name Role Phone Unknown Primary Care Provider Unavailabl e Encounter Details Date Type Department Care Team (Late st Contact Info) Description 08/03/2022 Ancillary Procedure Radiology Library at [facility] [place] [address] Zacarias Corrales MD [facility] [place] [address] Social History Tobacco Use Types Packs/Day Years [...] PM EST Office Visit General Surgery at [facility] [place] [address] Rich Johnson MD [facility] [place] [address] documented as of this encounter Procedures Procedure Name Priority Date/Time Associated Diagnosis Comments FILM LIBRARY STORAGE ONLY MR SHOULDER Routine 08/03/2022 12:00 AM EST documented in this encounter Results * Film Library- Storage Only MR Shoulder (08/03/2022 12:00 AM EST) Narrative SOFÍA CHAVARRIA - 08/21/2023 9:58 PM EDT This exam is auto-finalizing. It's purpose is for storage only. Zacarias Corrales MD [facility] FILM LIBRARY ORD ERABLES Performing Organization Address City/State/[facility] Co de Phone Number [place], [place] documented in this encounter Visit Diagnoses Not on filedocumented in this encounter Care Teams Mechanical Assembly Technician Relationship Specialty Start Date End Date Unknown None PCP - General 12/15/20 09/13/22 documented as of this encounter
--- OUTSIDE RECORDS SUMMARY | 2024-05-24 01:28 | XMS_ITS | Encounter Summary ---
Author Organization [facility] [place] [address] Care Team Providers Care Toll Test Worker Name Role Phone Bakari Delgado MD Primary Care Provider [phone] Encounter Details Date Type Department Care Team (Late st Contact Info) Description 04/07/2013 External Results XRay at [address] [place] [address] Catracho Perea MD [address] [place], [place] [address] Social History Tobacco Use Types Packs/Day Years [...] PM EST Office [place] [address] Rich Johnson MD [facility] [place] [address] documented as of this encounter Procedures Procedure Name Priority Date/Time Associated Diagnosis Comments MRI/MRA SCAN Routine 03/28/2013 documented in this encounter Results * Scan Doc: MRI/MRA (03/28/2013) Anatomical Region Laterality Modality Other Catracho Perea MD MEDIA MGR SCAN EXT O RDR/RSLT documented in this encounter Visit Diagnoses Not on filedocumented in this encounter Care Teams Toll Test Worker Relationship Specialty Start Date End Date Bakari Delgado MD [address] [place] [address] PCP - General 05/04/10 06/18/15 documented as of this encounter
--- OUTSIDE RECORDS SUMMARY | 2024-05-24 01:28 | XMS_ITS | Encounter Summary ---
Author Organization [facility] Address [facility] [place] [address] Care Team Providers Care Energy And Sustainability Manager Name Role Phone Unknown Primary Care Provider Unavailabl e Encounter Details Date Type Department Care Team (Late st Contact Info) Description 08/03/2022 12:05 AM EST Ancillary Procedure Radiology Library at [facility] [place] [id number] Zacarias Corrales MD [facility] [place] [address] Social History Tobacco Use Types Packs/Day Years [...] PM EST Office Visit General Surgery at [facility] [place] [phone] Rich Johnson MD [facility] [place] [address] documented as of this encounter Procedures Procedure [...] FILM LIBRARY ORD ERABLES Performing Organization Address City/State/[facility] Co de Phone Number [place], [place] documented in this encounter Visit Diagnoses Not on filedocumented in this encounter Care Teams Energy And Sustainability Manager Relationship Specialty Start Date End Date Unknown None PCP - General 12/15/20 09/13/22 documented as of this encounter
--- OUTSIDE RECORDS SUMMARY | 2024-05-24 01:28 | XMS_ITS | Encounter Summary ---
Author Organization [facility] Address [facility] [place] [address] Care Team Providers Care Gang Miner Name Role Phone Bakari Delgado MD Primary Care Provider Encounter Details Date Type Department Care Team (Late st Contact Info) Description 12/17/2010 Abstract [place] [phone] Radha Palmer RN Myopia, left eye; Astigmatism, [...] PM EST Office Visit [place] [address] Rich Johnson MD [facility] [place] [address] documented as of this encounter Visit Diagnoses Diagnosis Myopia, left eye Myopia Astigmatism, unspecified left eye Astigmatism, unspecified documented in this encounter Care Teams Gang Miner Relationship Specialty Start Date End Date Bakari Delgado MD [address] [place] [address] PCP - General 05/04/10 06/18/15 documented as of this encounter
--- OUTSIDE RECORDS SUMMARY | 2024-05-24 01:28 | XMS_ITS | Encounter Summary ---
Author Organization [facility] [place] [address] Care Team Providers Care Director Style Name Role Phone Bakari Delgado MD Primary Care Provider [phone] Reason for Visit * Reason Comments Post Lasik 8 months s/p LASIK O U Encounter Details Date Type Department Care Team (Late st Contact Info) Description 12/20/2010 10:45 AM EDT Office Visit [facility] [place] [address] Shun Canales MD [facility] [place] [address] Myopia (Primary Dx); Vitreous floaters Discharge Disposition: [...] PM EST Office [place] [address] Rich Johnson MD [facility] [place] [address] documented as of this encounter Visit Diagnoses Diagnosis Myopia- Primary Vitreous floaters Other vitreous opacities documented in this encounter Care Teams Director Style Relationship Specialty Start Date End Date Bakari Delgado MD [address] [place] [address] PCP - General 05/04/10 06/18/15 documented as of this encounter
--- OUTSIDE RECORDS SUMMARY | 2024-05-24 01:28 | XMS_ITS | Encounter Summary ---
Author Organization [facility] Address [facility] [place] [address] Care Team Providers Care Lead Massage Therapist Name Role Phone Jeannette Herman APRN Primary Care Provider [phone] Encounter Details Date Type Department Care Team (Late st Contact Info) Description 05/11/2006 Orders Only Dermatology at [place] [address] [facility] [place] [address] Blake Malave MD [address] [facility] [place] [address] Social History Tobacco Use Types Packs/Day Years [...] PM [place] Office [place] [address] Rich Johnson MD [facility] [place] [address] documented as of this encounter Procedures Procedure Name Priority Date/Time Associated Diagnosis Comments SURGICAL PATHOLOGY REPORT Routine 05/11/2006 5:34 PM EST documented in this encounter Results * Surgical Pathology Report (05/11/2006 5:34 PM EST) Surgical Pathology Report [id number] ? Location: The signing pathologist has (i) [...] on filedocumented in this encounter Care Teams Lead Massage Therapist Relationship Specialty Start Date End Date Jeannette Herman APRN [address] [place] [address] PCP - General Family Medicine 09/14/22 12/03/23 documented as of this encounter
--- OUTSIDE RECORDS SUMMARY | 2024-05-24 01:28 | XMS_ITS | Encounter Summary ---
Author Organization [facility] Address [facility] [place] [address] Care Team Providers Care Parking Meter Servicer Name Role Phone Bakari Delgado MD Primary Care Provider Encounter Details Date Type Department Care Team (Late st Contact Info) Description 03/28/2013 [place] [address] Guille Andrade MD [facility] [place] [address] Social History Tobacco Use Types Packs/Day Years [...] PM EST Office [place] [address] Rich Johnson MD [facility] [place] [address] Pending Results Name Type Priority Associated Diagnoses Date /Time Film Library- Storage only MR Head Imaging Routine 03/28/2013 8:29 AM EDT documented as of this encounter Visit Diagnoses Not on filedocumented in this encounter Care Teams Parking Meter Servicer Relationship Specialty Start Date End Date Bakari Delgado MD [address] [place] [address] PCP - General 05/04/10 06/18/15 documented as of this encounter
--- OUTSIDE RECORDS SUMMARY | 2024-05-24 01:28 | XMS_ITS | Encounter Summary ---
[place] [address] Care Team Providers Care Launching Pad Mechanic Name Role Phone Jeannette Herman APRN Primary Care Provider [phone] Reason for Referral * Consultation (Routine) - Denied Specialty Diagnoses / Procedures Referred By Christin herbert Referred To Contact Endocrinology Diagnoses Hyponatremia Hyperkalemia SIADH (syndrome of inappropriate ADH production) Jeannette Herman APRN [address] [place] [address] [facility] [address] [place] [phone] Referral ID Status Reason Start Date Expiration Date V isits Requested Visits Authorized [id number] Denied Consult, Test & Treat PCP Updated and/or Approved 09/14/2022 09/14/2023 12 0 Encounter Details Date Type Department Care Team (Latest Contact Info) Description 09/14/2022 Transcribe Orders eDH Incoming Referrals [phone] Jeanentte Herman APRN [address] [place], [place] [id number] Hyponatremia; Hyperkalemia; SIADH (syndrome of inappropriate ADH [...] PM EST Office [place] [address] Rich Johnson MD [facility] [place] [address] Scheduled Referrals Name Type Priority Associated Diagnoses Orde r Schedule Referral to Endocrinology Outpatient Referral Routine Hyponatremia Hyperkalemia SIADH (syndrome of inappropriate ADH production) Ordered: 09/14/2022 documented as of this encounter Visit Diagnoses Diagnosis Hyponatremia Hyposmolality and/or hyponatremia Hyperkalemia Hyperpotassemia 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
--- OUTSIDE RECORDS SUMMARY | 2024-05-24 01:28 | XMS_ITS | Encounter Summary ---
Author Organization [facility] [place] [address] Care Team Providers Care Telephone Service Representative Name Role Phone Bakari Delgado MD Primary Care Provider [phone] Encounter Details Date Type Department Care Team (Latest Contact Info) Description 04/10/2013 9:55 AM EDT - 04/10/2013 11:59 PM EDT Hospital Encounter XRay at [address] [place] [address] CLINIC, DR [place] Discharge Disposition: Home [...] PM EST Office Visit General Surgery at [facility] [place] [place] [address] Rich Johnson MD [facility] [place] [address] documented as of this encounter Visit Diagnoses Not on filedocumented in this encounter Care Teams Telephone Service Representative Relationship Specialty Start Date End Date Bakari Delgado MD [address] [place] [address] PCP - General 05/04/10 06/18/15 documented as of this encounter
--- OUTSIDE RECORDS SUMMARY | 2024-05-24 01:28 | XMS_ITS | Encounter Summary ---
Author Organization [facility] Address [facility] [place] [address] Care Team Providers Care Forming Department Supervisor Name Role Phone Bakari Delgado MD Primary Care Provider Encounter Details Date Type Department Care Team (Late st Contact Info) Description 06/21/2010 11:00 AM EST Office Visit [facility] [place] [address] Shun Canales MD [facility] [place] [address] Discharge Disposition: Home Social History Tobacco Use [...] PM EST Office [place] [address] Rich Johnson MD [facility] [place] [address] documented as of this encounter Visit Diagnoses Not on filedocumented in this encounter Care Teams Forming Department Supervisor Relationship Specialty Start Date End Date Bakari Delgado MD [address] [place] [address] PCP - General 05/04/10 06/18/15 documented as of this encounter
--- OUTSIDE RECORDS SUMMARY | 2024-05-24 01:28 | XMS_ITS | Encounter Summary ---
Author Organization [facility] [address] Care Team Providers Care Design Coordinator Name Role Phone Bakari Delgado MD Primary Care Provider [phone] Encounter Details Date Type Department Care Team (Late st Contact Info) Description 08/27/2010 [place] [address] Kraig Lorenz PA [address] [place] [address] Social History Tobacco Use Types Packs/Day Years [...] PM EST Office [place] [address] Rich Johnson MD [facility] [place] [address] documented as of this encounter Procedures Procedure [...] on filedocumented in this encounter Care Teams Design Coordinator Relationship Specialty Start Date End Date Bakari Delgado MD [address] [place] [address] PCP - General 05/04/10 06/18/15 documented as of this encounter
--- OUTSIDE RECORDS SUMMARY | 2024-05-24 01:28 | XMS_ITS | Encounter Summary ---
Author Organization [facility] Address [facility] [place] [address] Care Team Providers Care State Superintendent Of Schools Name Role Phone Unavailable Primary Care Provider Unavailabl e Encounter Details Date Type Department Care Team (Late st Contact Info) Description 04/30/2010 10:30 AM EST Surgical Consult [facility] [place] [address] Shun Canales MD [facility] [place] [address] Social History Tobacco Use Types Packs/Day Years [...] PM EST Office [place] [address] Rich Johnson MD [facility] [place] [address] documented as of this encounter Visit Diagnoses Not on filedocumented in this encounter
--- OUTSIDE RECORDS SUMMARY | 2024-05-24 01:28 | XMS_ITS | Encounter Summary ---
[place] [address] Care Team Providers Care Tile Mechanic Helper Name Role Phone Jeannette Herman APRN Primary Care Provider [phone] Reason for Referral * Consultation (Routine) - Closed Specialty Diagnoses / Procedures Referred By Christin herbert Referred To Contact Orthopaedics Diagnoses Shoulder pain, unspecified chronicity, unspecified laterality BILAT SHOULDER PAIN DISCUSS GUIDED INTRA ARTICULAR KETOROLAC INJECTIONS Jeannette Herman APRN [address] [place] [address] [facility] [address] [place] [phone] Referral ID Status Reason Start Date Expiration Date V isits Requested Visits Authorized [id number] Closed Consult, Test & Treat PCP Updated and/or Approved 08/02/2023 01/31/2024 6 6 Encounter Details Date Type Department Care Team (Latest Contact Info) Description 08/07/2023 Transcribe Orders eDH Incoming Referrals [phone] Jeannette Herman APRN [address] [place] [address] Shoulder pain, unspecified chronicity, unspecified [...] PM EST Office [place] [address] Rich Johnson MD [facility] [place] [place] [address] Scheduled Referrals Name Type Priority Associated Diagnoses Orde r Schedule Referral to Orthopaedics Outpatient Referral Routine Shoulder pain, unspecified chronicity, unspecified laterality Ordered: 08/07/2023 documented as of this encounter Visit Diagnoses Diagnosis Shoulder pain, unspecified chronicity, unspecified laterality documented in this encounter Care Teams Tile Mechanic Helper Relationship Specialty Start Date End Date Jeannette Herman APRN [address] [place] [address] PCP - General Family Medicine 09/14/22 12/03/23 documented as of this encounter
--- OUTSIDE RECORDS SUMMARY | 2024-05-24 01:28 | XMS_ITS | Encounter Summary ---
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 Procedures PRO COLONOSCOPY, DIAGNOSTIC COLONOSCOPY, DIAGNOSTIC Referral ID Status Reason Start Date Expiration Date Visits Re quested Visits Authorized [id number] Closed 1 1 Encounter Details Date Type Department Care Team (Late st Contact Info) Description 06/22/2015 11:00 AM EST - 06/22/2015 11:45 AM EST [place] [address] Venice Meyer MD [facility] [place] [address] COLONOSCOPY, DIAGNOSTIC (WRVU 3.26) Social History Tobacco [...] - 06/22/2015 11:59 AM EST Please call [phone] before 5pm with problems, questions or concerns, after 5pm call the Hospital at [phone] and ask to speak to the Production Assembler loss prevention specialist and the electrolog operator will contact that person for you. [...] through Care Everywhere. * COLONOSCOPY : POST-OP ([place]ET[place]ESE) documented in this encounter Medications at Time [...] PM EST Office [place] [address] Rich Johnson MD [facility] [place] [address] documented as of this encounter Procedures Procedure [...] RN) documented in this encounter Care Teams Transplant Registered Nurse Relationship Specialty Start Date End Date Catracho Perea MD [address] [place] [address] PCP - General Family Medicine 06/19/15 07/09/19 documented as of this encounter
--- OUTSIDE RECORDS SUMMARY | 2024-05-24 01:28 | XMS_ITS | Encounter Summary ---
Author Organization [facility] [place] [address] Care Team Providers Care Cellophane Wrapping Examiner Name Role Phone Catracho Perea MD Primary Care Provider [phone] Encounter Details Date Type Department Care Team (Late st Contact Info) Description 06/22/2015 [place] [address] Bakari Delgado III, MD [address] [place], [place] [id number] Social History Tobacco Use Types Packs/Day Years [...] EST Office [place] [address] Rich Johnson MD [facility] [place] [address] documented as of this encounter Procedures Procedure Name Priority Date/Time Associated Diagnosis Comments COLONOSCOPY Routine 06/22/2015 11:37 AM EST documented in this encounter Results * COLONOSCOPY (06/22/2015 11:37 AM EST) COLONOSCOPY [facility] Patient Name: Adelaida Lundy ? Procedure Date: 06/22/2015 11:37 AM ? N: [id number] ? Date of : 1955 ? Age: 59 ? Order #: [id number] ? Procedure: ? Colonoscopy Indications: ? Screening for colorectal malignant ? neoplasm Providers: ? Venice Meyer MD, Martina Estrada RN, ? Alex Coello, Saturator Tender Referring MD: ?Bakari Delgado MD, Catracho [...] on filedocumented in this encounter Care Teams Cellophane Wrapping Examiner Relationship Specialty Start Date End Date Catracho Perea MD [address] [place] [address] PCP - General Family Medicine 06/19/15 07/09/19 documented as of this encounter
--- OUTSIDE RECORDS SUMMARY | 2024-05-24 01:28 | XMS_ITS | Encounter Summary ---
Author Organization [facility] [place] [address] Care Team Providers Care Middle School Guidance Counselor Name Role Phone Guille James MD Primary Care Provider [phone] Reason for Referral * Diagnostic Test (Routine) - Closed Specialty Diagnoses / Procedures Referred By Contac t Referred To Contact Radiology Diagnoses Abdominal pain, lower Procedures CT Abdomen & Pelvis w Contrast Guille James MD [address] [place] [address] [facility] [place] [address] Referral ID Status Reason Start Date Expiration Date V isits Requested Visits Authorized [id number] Closed Specialty Service Requested 07/09/2019 09/06/2019 1 1 Reason for Visit * Diagnostic Test (Routine) - Closed Specialty Diagnoses / Procedures Referred By Contac t Referred To Contact Radiology Diagnoses Abdominal pain, lower Procedures CT Abdomen & Pelvis w Contrast Guille James MD [address] [place] [address] [facility] [place] [address] Referral ID Status Reason Start Date Expiration Date V isits Requested Visits Authorized [id number] Closed Specialty Service Requested 07/09/2019 09/06/2019 1 1 Encounter Details Date Type Department Care Team (Latest Contact Info) Description 07/10/2019 3:07 PM EST - 07/10/2019 11:59 PM EST Hospital [place] [address] Guille James MD [address] [place] [address] Abdominal pain, lower Discharge Disposition: Home Social [...] PM EST Office [place] [address] Rich Johnson MD [facility] [place] [address] documented as of this encounter Procedures Procedure [...] below. ? Electronically signed by: Isidoro Genao [facility] ([phone]), at 07/10/2019 6:12 PM Narrative 07/10/2019 6:12 [...] number below. Electronically signed by: Isidoro Genao [facility]([phone]), at 07/10/2019 6:12 PM Guille James MD [...] mLs documented in this encounter Care Teams Middle School Guidance Counselor Relationship Specialty Start Date End Date Guille James MD [address] [place] [address] PCP - General Internal Medicine 07/10/19 09/29/19 documented as of this encounter
--- OUTSIDE RECORDS SUMMARY | 2024-05-24 01:28 | XMS_ITS | Encounter Summary ---
Author Organization [facility] Address [facility] [place] [address] Care Team Providers Care Camera Control Operator Name Role Phone Jeannette Herman APRN Primary Care Provider [phone] Encounter Details Date Type Department Care Team (Late st Contact Info) Description 04/27/2006 Orders Only Dermatology at [place] [address] [facility] [place] [address] Blake Malave MD [address] [facility] [place] [address] Social History Tobacco Use Types Packs/Day Years [...] PM EST Office [place] [address] Rich Johnson MD [facility] [place] [address] documented as of this encounter Procedures Procedure Name Priority Date/Time Associated Diagnosis Comments SURGICAL PATHOLOGY REPORT Routine 04/27/2006 8:41 PM EST documented in this encounter Results * Surgical Pathology Report (04/27/2006 8:41 PM EST) Surgical Pathology Report [id number] ? Location: The signing pathologist has (i) [...] on filedocumented in this encounter Care Teams Camera Control Operator Relationship Specialty Start Date End Date Jeannette Herman APRN [address] [place] [address] PCP - General Family Medicine 09/14/22 12/03/23 documented as of this encounter
--- OUTSIDE RECORDS SUMMARY | 2024-05-24 01:28 | XMS_ITS | Encounter Summary ---
Author Organization [facility] [place] [address] Care Team Providers Care Dry Man Name Role Phone Bakari Delgado MD Primary Care Provider Encounter Details Date Type Department Care Team (Late st Contact Info) Description 04/10/2013 [place] [address] Catracho Perea MD [address] [place], [place] [address] Social History Tobacco Use Types Packs/Day Years [...] PM EST Office [place] [address] Rich Johnson MD [facility] [place] [address] documented as of this encounter Procedures Procedure [...] use of intravenous contrast on 03/28/2013 at [facility]. Findings The ventricles remain normal in [...] use of intravenous contrast on 03/28/2013 at [facility]. Findings The ventricles remain normal in [...] on filedocumented in this encounter Care Teams Dry Man Relationship Specialty Start Date End Date Bakari Delgado MD [address] [place] [address] PCP - General 05/04/10 06/18/15 documented as of this encounter
--- OUTSIDE RECORDS SUMMARY | 2024-05-24 01:28 | XMS_ITS | Encounter Summary ---
Author Organization [facility] Address [facility] [place] [address] Care Team Providers Care Frog Or Oyster Farmworker Name Role Phone Bakari Delgado MD Primary Care Provider Encounter Details Date Type Department Care Team (Late st Contact Info) Description 08/19/2010 11:00 AM EST Office Visit [facility] [place] [address] Shun Canales MD [facility] [address] Discharge Disposition: Home Social History Tobacco Use [...] PM EST Office Visit [place] [address] Rich Johnson MD [facility] [place] [address] documented as of this encounter Visit Diagnoses Not on filedocumented in this encounter Care Teams Frog Or Oyster Farmworker Relationship Specialty Start Date End Date Bakari Delgado MD [address] [place] [address] PCP - General 05/04/10 06/18/15 documented as of this encounter
--- OUTSIDE RECORDS SUMMARY | 2024-05-24 01:28 | XMS_ITS | Encounter Summary ---
Author Organization [facility] Address [facility] [place] [address] Care Team Providers Care Insulation Inspector Name Role Phone Bakrai Delgado MD Primary Care Provider Encounter Details Date Type Department Care Team (Late st Contact Info) Description 08/27/2010 9:27 AM EDT - 08/27/2010 11:05 AM EDT Emergency Emergency [place] [address] Heladio Hameed MD [facility] [place] [address] Discharge Disposition: Home Social History Tobacco Use [...] PM EST Office [place] [address] Rich Johnson MD [facility] [place] [address] documented as of this encounter Visit Diagnoses Not on filedocumented in this encounter Care Teams Insulation Inspector Relationship Specialty Start Date End Date Bakari Delgado MD [address] [place] [address] PCP - General 05/04/10 06/18/15 documented as of this encounter
[2024-05-24 15:40] LABS: Abs Immature Grans 0.01 10^3/uL (0.0-0.06); Absolute Basophil Count 0.05 10^3/uL (0.0-0.2); Absolute Eosinophil Count 0.18 10^3/uL (0.0-0.7); Absolute Lymphocyte Count 1.06 10^3/uL (1.2-3.4); Absolute Monocyte Count 0.76 10^3/uL (0.1-0.8); Eosinophils % 3.6 %; HCT 37.5 % (36.0-46.0); HGB 12.9 g/dL (11.2-15.7); Immature Grans % 0.2 %; Lymphocytes % 20.9 %; MCH 29.9 pg (27.0-33.0); MCHC 34.4 % (32.0-36.0); MCV 87 fL (80-95); MPV 8.9 fL (8.0-11.0); Neutrophils % 59.3 %; Platelet Count 346 10^3/uL (130-400); RBC 4.31 10^6/uL (3.93-5.22); RDW-SD 41.4 fL; WBC 5.06 10^3/uL (4.4-10.8)
[2024-05-24 16:53] LABS: Vitamin B12 614 pg/mL (193-986)
== END 2024-05-24 01:19 | disposition home or self-care (01) ==
PROVIDERS: PCP Nurse Practitioner Family; Visit Provider Nurse Practitioner Family
DX: D75.839 Thrombocytosis, unspecified (principal); R20.2 Paresthesia of skin
CPT/HCPCS: 36415; 82607; 85025

== ENCOUNTER → 2024-07-15 10:44 | Outpatient (BNVA) | payer MEDICARE, BC, SELFPAY | PROVIDERS: PCP Nurse Practitioner Family; Referring Provider Nurse Practitioner Family; Visit Provider Psychiatry & Neurology Neurology | DX: R20.2 Paresthesia of skin (principal); G62.9 Polyneuropathy, unspecified; R25.1 Tremor, unspecified; R26.89 Other abnormalities of gait and mobility | CPT/HCPCS: 99215 ==

== ENCOUNTER 2024-07-17 01:05 | Outpatient (CLI) | payer MEDICARE, BC, SELFPAY ==
--- OUTSIDE RECORDS SUMMARY | 2024-07-17 01:45 | XMS_ITS | Encounter Summary ---
Author Organization [facility] Address [address] [place] [address] Care Team Providers Care Supervisor Intelligence Analyst Name Role Phone Unknown, Provider Primary Care Provider Unava ilable Encounter Details Date Type Department Care Team (Latest Contact Info) Description 07/22/2018 19:35 EST - 07/22/2018 23:59 EST Hospital Encounter [address] [address] Unknown, Provider, Discharge Disposition: Home or Self [...] Code Departure Means Destination Home or Self Alf documented in this encounter Plan of Treatment Not on file documented as of this encounter Visit Diagnoses Not on filedocumented in this encounter Care Teams Supervisor Intelligence Analyst Relationship Specialty Start Date End Date Unknown, Provider, PCP - General 04/16/15 06/02/24 documented as of this encounter
--- OUTSIDE RECORDS SUMMARY | 2024-07-17 01:45 | XMS_ITS | Encounter Summary ---
Author Organization [facility] Address [address] [place] [address] Care Team Providers Care Bottle Blower Name Role Phone Unknown, Provider Primary Care Provider Yadi Jeffries MD Primary Care Provider [phone] Encounter Details Date Type Department Care Team (Late st Contact Info) Description 05/11/2021 Lab Requisition [facility] Pathology & Laboratory Medicine - [facility] [address] [place], [place] [address] Outr Resulting Lab, Provider Social History Tobacco [...] MICROBIOLOGY - GENER AL ORDERABLES Final Result [facility] [address] [place] [address] * COVID-19 TESTING (05/10/2021 10:30 EST) COVID-19 rt-PCR Result Negative Negative 05/12/2021 12:45 EST [facility] Comment: This test has [...] was performed using the dheeraj SARS-CoV-2 assay ([employer] on the Dheeraj 6800 System Performing Lab Dheeraj [address] [facility] Lab 05/12/2021 12:45 EST [facility] Swab 05/10/2021 10:3 0 EST 05/11/2021 17:07 EST us Provider Outr Resulting Lab MICROBIOLOGY - GENER AL ORDERABLES Final Result [facility] [address] [place] [address] documented in this encounter Visit Diagnoses Not on filedocumented in this encounter Care Teams Bottle Blower Relationship Specialty Start Date End Date Unknown, Provider, PCP - General 04/16/15 06/02/24 Yadi Steel MD [address] [place] [address] PCP - General Family Medicine - Primary Care 06/03/24 documented as of this encounter
--- OUTSIDE RECORDS SUMMARY | 2024-07-17 01:45 | XMS_ITS | Encounter Summary ---
Author Organization [facility] Address [address] [place] [address] Care Team Providers Care Geosciences Associate Professor Name Role Phone Unknown, Provider Primary Care Provider Yadi Jeffries MD Primary Care Provider [phone] Encounter Details Date Type Department Care Team (Late st Contact Info) Description 01/18/2024 Lab Requisition [facility] Pathology & Laboratory Medicine - [facility] [address] [place] [address] Donta Dyson MD [address] [place] [phone] Diarrhea, unspecified; Diverticulitis of large intestine [...] explore management options, if applicable. 01/19/2024 16:43 [facility] Final Diagnosis A. COLON, RANDOM BIOPSIES: - Benign colonic mucosa with no significant pathologic change. - No evidence of microscopic colitis. 01/19/2024 16:43 [facility] Diagnosis Comment The technical component of the specimen processing was performed at the [facility] Pathology Department, [address] [place] [address] (CLIA [id number]). The professional component of the specimen evaluation (slide review and issuing of the final diagnosis) was performed at [facility], [address] [place] [address] (CLIA License Number [id number]). 01/19/2024 16:43 [facility] Attestation By the signature below, the attending physician certifies that they have 1) personally conducted a gross and/or microscopic examination of the described specimen(s), and/or personally interpreted the results of laboratory testing of the described specimen(s), and 2) personally rendered or confirmed the above diagnosis. 01/19/2024 16:43 [facility] at 1643 Clinical History Diverticulosis, IBS; clinical diagnosis code: K57.32, R19.7 01/19/2024 16:43 [facility] Gross Description A. Received in formalin labelled with proper patient identification (initials H, P) and random colon bx's are 4 adams tissues (0.2 x 0.1 x 0.1 cm to 0.5 x 0.1 x 0.1 cm). Entirely submitted in A1. SANCHEZ CLIFTON(ASCP) 01/18/2024 9:24 01/19/2024 16:43 [facility] Performing Lab [facility] 01/19/2024 16:43 [facility] Scanned Images 01/19/2024 16:43 [facility] Tissue COLON STRUCTURE / Unknown 01/17/2024 12:43 EDT 01/18/2024 8:13 EDT us Donta Dyson MD PATHOLOGY ORDERABLES Final Result [facility] [address] [place] [address] documented in this encounter Visit Diagnoses Diagnosis Diarrhea, unspecified Diverticulitis of large intestine without perforation or abscess without bleeding Diverticulitis of colon (without mention of hemorrhage) documented in this encounter Care Teams Geosciences Associate Professor Relationship Specialty Start Date End Date Unknown, Provider, PCP - General 04/16/15 06/02/24 Yadi Steel MD [address] [place] [address] PCP - General Family Medicine - Primary Care 06/03/24 documented as of this encounter
--- OUTSIDE RECORDS SUMMARY | 2024-07-17 01:45 | XMS_ITS | Clinical Summary ---
Author Organization [facility] Address [address] [place] [address] Care Team Providers Care Film Processing Utility Worker Name Role Phone Yadi Steel MD Primary Care Provider [phone] Encounters Date Type Department Care Team Description 06/10/2024 Telephone [facility] General Surgery - [facility] [address] [place], [place] [phone] Ekta Martinez RN 04/27/2024 - 04/27/2024 23:59 EST Hospital Encounter [facility] Secondary Reads [place] Discharge Disposition: Home or Self Care from Last 3 Months Social History Tobacco Use Types Packs/Day Years [...] 1955 Fall Risk Screening 2021 COVID-19 Vaccine ( season) 2024 RSV Immunization ( o r 60+ Years) (1 - 1-dose 75+ series) 10/06/2031 Procedures Procedure Name Priority Date/Time Associated Diagnosis Comments CT OUTSIDE IMAGES ABDOMEN PELVIS Routine 04/27/2024 11:04 EST from Last 3 Months Results * CT OUTSIDE IMAGES ABDOMEN PELVIS (04/27/2024 11:04 EST) Narrative 06/07/2024 11:05 EST This is a non-reportable exam. us External Imaging IMG OTHER IMAGING ORDERABLES Fi nal Result from Last 3 Months Insurance [facility] [place] [id number] Care Teams Film Processing Utility Worker Relationship Specialty Start Date End Date Yadi Steel MD [address] [place] [address] PCP - General Family Medicine - Primary Care 06/03/24
--- OUTSIDE RECORDS SUMMARY | 2024-07-17 01:45 | XMS_ITS | Encounter Summary ---
Author Organization [facility] Address [address] [place] [address] Care Team Providers Care International Sourcing Manager Name Role Phone Unknown, Provider Primary Care Provider Yadi Jeffries MD Primary Care Provider [phone] Encounter Details Date Type Department Care Team (Late st Contact Info) Description 09/21/2019 Lab Requisition [facility] Pathology & Laboratory Medicine - [address] [address] Unknown, Provider, Social History Tobacco Use Types [...] Hydroxybutyrate 0.5(H) <0.4 mmol/L 09/22/2019 16:14 EDT [facility] Blood VENOUS BLOOD / Unknown 09/20/2019 8:15 EDT 09/22/2019 15:58 EDT us Provider Unknown CHEMISTRY & BLOOD GAS ORDERA BLES Final Result [facility] [address] [place] [address] * INSULIN (09/20/2019 8:15 EDT) Insulin 6.1 <29.0 uIU/mL 09/26/2019 10:19 EDT [facility] Comment: Displayed Reference Range applies to fasting specimens only. Blood VENOUS BLOOD / Unknown 09/20/2019 8:15 EDT 09/22/2019 15:58 EDT us Provider Unknown CHEMISTRY & BLOOD GAS ORDERA BLES Final Result [facility] [address] [place] [address] documented in this encounter Visit Diagnoses Not on filedocumented in this encounter Care Teams International Sourcing Manager Relationship Specialty Start Date End Date Unknown, Provider, PCP - General 04/16/15 06/02/24 Yadi Steel MD [address] [place] [phone] PCP - General Family Medicine - Primary Care 06/03/24 documented as of this encounter
--- OUTSIDE RECORDS SUMMARY | 2024-07-17 01:45 | XMS_ITS | Encounter Summary ---
Author Organization [facility] Address [address] [place] [address] Care Team Providers Care Liquid Center Assembler Name Role Phone Unknown, Provider Primary Care Provider Unava ilable Reason for Referral * (Routine/Next Available) - Receiving Office to Obtain Authorization Specialty Diagnoses / Procedures Referred By Contac t Referred To Contact Procedures CT OUTSIDE IMAGES ABDOMEN PELVIS Imaging, External Referral ID Status Reason Start Date Expiration Date Visits Requested Visits Authorized [id number] Receiving Office to Obtain Authorization 4 1 1 Reason for Visit * (Routine/Next Available) - Receiving Office to Obtain Authorization Specialty Diagnoses / Procedures Referred By Contac t Referred To Contact Procedures CT OUTSIDE IMAGES ABDOMEN PELVIS Imaging, External Referral ID Status Reason Start Date Expiration Date Visits Requested Visits Authorized [id number] Receiving Office to Obtain Authorization 4 1 1 Encounter Details Date Type Department Care Team (Latest Contact Info) Description 04/27/2024 - 04/27/2024 23:59 EST Hospital Encounter [facility] Secondary Reads [place] Discharge Disposition: Home or Self Care Social [...] Code Departure Means Destination Home or Self Care documented in this encounter Plan of Treatment Not on file documented as of this encounter Procedures Procedure Name Priority Date/Time Associated Diagnosis Comments CT OUTSIDE IMAGES ABDOMEN PELVIS Routine 04/27/2024 11:04 EST documented in this encounter Results * CT OUTSIDE IMAGES ABDOMEN PELVIS (04/27/2024 11:04 EST) Narrative 06/07/2024 11:05 EST This is a non-reportable exam. us External Imaging IMG OTHER IMAGING ORDERABLES Fi nal Result documented in this encounter Visit Diagnoses Not on filedocumented in this encounter Care Teams Liquid Center Assembler Relationship Specialty Start Date End Date Unknown, Provider, PCP - General 04/16/15 06/02/24 documented as of this encounter
--- OUTSIDE RECORDS SUMMARY | 2024-07-17 01:45 | XMS_ITS | Encounter Summary ---
Author Organization [facility] Address [address] [place] [address] Care Team Providers Care Supervisor Cell Operation Name Role Phone Unknown, Provider Primary Care Provider Yadi Jeffries MD Primary Care Provider Encounter Details Date Type Department Care Team (Late st Contact Info) Description 08/17/2022 Lab Requisition [facility] Pathology & Laboratory Medicine - [facility] [address] [place], [place] [address] Outr Resulting Lab, Provider Social History Tobacco [...] 17 See Note ug/dL 08/17/2022 17:48 EST [facility] Comment: NOTE: Expected Ranges [...] & BLOOD GA S ORDERABLES Final Result [facility] [address] [place] [address] documented in this encounter Visit Diagnoses Not on filedocumented in this encounter Care Teams Supervisor Cell Operation Relationship Specialty Start Date End Date Unknown, Provider, PCP - General 04/16/15 06/02/24 Yadi Steel MD [address] [place] [address] PCP - General Family Medicine - Primary Care 06/03/24 documented as of this encounter
--- OUTSIDE RECORDS SUMMARY | 2024-07-17 01:45 | XMS_ITS | Encounter Summary ---
Author Organization [facility] Address [address] [place] [address] Care Team Providers Care Rotational Moulding Operator Name Role Phone Yadi Steel MD Primary Care Provider [phone] Encounter Details Date Type Department Care Team (Late st Contact Info) Description 06/10/2024 Telephone [facility] - [facility] [address] [place], [place] [phone] Ekta Martinez RN Social History Tobacco Use Types Packs/Day Years [...] on filedocumented in this encounter Care Teams Rotational Moulding Operator Relationship Specialty Start Date End Date Yadi Steel MD [address] [place] [address] PCP - General Family Medicine - Primary Care 06/03/24 documented as of this encounter
--- OUTSIDE RECORDS SUMMARY | 2024-07-17 01:45 | XMS_ITS | Encounter Summary ---
Author Organization [facility] Address [address] [place] [address] Care Team Providers Care Dental Aide Name Role Phone Unknown, Provider Primary Care Provider Yadi Jeffries MD Primary Care Provider [phone] Encounter Details Date Type Department Care Team (Late st Contact Info) Description 07/16/2019 Lab Requisition [facility] Pathology & Laboratory Medicine - [facility] [address] [place] [address] Unknown, Provider, Social History Tobacco Use Types [...] Urine 260 150-1,150 mOsm/kg 07/16/2019 15:34 EST [facility] Urine URINE SPECIMEN OBTAINED BY CLEAN CATCH PROCEDURE / Unknown 07/12/2019 8:15 EST 07/16/2019 14:27 EST us Provider Unknown URINALYSIS ORDERABLES Final Result [facility] [address] [place] [address] * OSMOLALITY (07/12/2019 8:15 EST) Osmolality, Serum 283 275 - 295 mOsm/kg 07/16/2019 15:34 EST [facility] Blood VENOUS BLOOD / Unknown 07/12/2019 8:15 EST 07/16/2019 14:27 EST us Provider Unknown MD CHEMISTRY & BLOOD GAS ORDERA BLES Final Result Performing Organization Address [facility] Co de Phone Number [facility] [address] [place] [address] * CORTISOL (07/12/2019 8:15 EST) Cortisol 11 See Note ug/dL 07/16/2019 16:24 EST [facility] Comment: NOTE: Reference Ranges (from OCD IFU): Collected Before 10:00 AM: ??4 - 23 ug/dL Collected After 5:00 PM: ?2 - 14 ug/dL The results of this assay can be falsely elevated due to the consumption of Biotin. Blood VENOUS BLOOD / Unknown 07/12/2019 8:15 EST 07/16/2019 14:27 EST Provider Unknown MD CHEMISTRY & BLOOD GAS ORDERA BLES Final Result Performing Organization Address [facility] Co de Phone Number [facility] [address] [place] [address] documented in this encounter Visit Diagnoses Not on filedocumented in this encounter Care Teams Dental Aide Relationship Specialty Start Date End Date Unknown, Provider, PCP - General 04/16/15 06/02/24 Yadi Steel MD [address] [place] [address] PCP - General Family Medicine - Primary Care 06/03/24 documented as of this encounter
--- OUTSIDE RECORDS SUMMARY | 2024-07-17 01:45 | XMS_ITS | Encounter Summary ---
Author Organization [facility] Address [address] [place] [address] Care Team Providers Care General Studies Program Chair Name Role Phone Unknown, Provider Primary Care Provider Yadi Jeffries MD Primary Care Provider [phone] Encounter Details Date Type Department Care Team (Late st Contact Info) Description 08/17/[address] [facility] Pathology & Laboratory Medicine - [facility] [address] [place], [place] [address] Outr Resulting Lab, Provider Social History Tobacco [...] 4 - 23 ug/dL 08/17/2022 17:44 EST [facility] Comment: NOTE: The results of this assay can be falsley elevated due to the consumption of Biotin. Blood VENOUS BLOOD / Unknown 08/17/2022 7:40 EST 08/17/2022 16:53 EST us Provider Outr Resulting Lab CHEMISTRY & BLOOD GA S ORDERABLES Final Result [facility] [address] [place] [address] documented in this encounter Visit Diagnoses Not on filedocumented in this encounter Care Teams General Studies Program Chair Relationship Specialty Start Date End Date Unknown, Provider, PCP - General 04/16/15 06/02/24 Yadi Steel MD [address] [place] [phone] PCP - General Family Medicine - Primary Care 06/03/24 documented as of this encounter
--- OUTSIDE RECORDS SUMMARY | 2024-07-17 01:45 | XMS_ITS | Encounter Summary ---
Author Organization [facility] Address [address] [place] [address] Care Team Providers Care Regulator Operator Name Role Phone Unknown, Provider Primary Care Provider Yadi Jeffries MD Primary Care Provider [phone] Encounter Details Date Type Department Care Team (Late st Contact Info) Description 07/12/2019 Lab Requisition [facility] Pathology & Laboratory Medicine - [facility] [address] [place] [address] Unknown, Provider, Social History Tobacco Use Types [...] 21:44 EST) Hold Hold 07/12/2019 22:45 EST [facility] Blood VENOUS BLOOD / Unknown 07/12/2019 21:44 EST 07/12/2019 21:44 EST us Provider Unknown LAB INFO SERVICE AND SUPPORT & PHONE RESULT Final Result [facility] [address] [place] [address] * HOLD SST (07/12/2019 21:44 EST) Hold Hold 07/12/2019 22:45 EST [facility] Blood VENOUS BLOOD / Unknown 07/12/2019 21:44 EST 07/12/2019 21:44 EST us Provider Unknown MD LAB INFO SERVICE AND SUPPORT & PHONE RESULT Final Result Performing Organization Address [facility] de Phone Number [facility] [address] [place] [address] * OSMOLALITY (07/12/2019 8:15 EST) Pathologist [facility] Osmolality, Serum 07/16/2019 15:45 EST [facility] Comment: Disregard previous result. ??Result was from a urine sample labeled as as serum. This is a corrected result. Previous result was 264 mOsm/kg on 07/12/2019 at 2220 EST Blood VENOUS BLOOD / Unknown 07/12/2019 8:15 EST 07/12/2019 21:41 EST us Provider Unknown CHEMISTRY & BLOOD GAS ORDERA BLES Edited Result - Final Performing Organization Address [facility] de Phone Number [facility] [address] [place] [address] * CORTISOL (07/12/2019 8:15 EST) Cortisol 07/16/2019 15:45 EST [facility] Comment: Disregard previous result. ??Result was from a urine sample labeled as as serum. This is a corrected result. Previous result was 25 ug/dL on 07/12/2019 at 2230 EST Blood VENOUS BLOOD / Unknown 07/12/2019 8:15 EST 07/12/2019 21:41 EST us Provider Unknown CHEMISTRY & BLOOD GAS ORDERA BLES Edited Result - Final Performing Organization Address City/[facility]/ZIP Co de Phone Number [facility] [address] [place] [address] documented in this encounter Visit Diagnoses Not on filedocumented in this encounter Care Teams Regulator Operator Relationship Specialty Start Date End Date Unknown, Provider, PCP - General 04/16/15 06/02/24 Yadi Steel MD [address] [place] [phone] PCP - General Family Medicine - Primary Care 06/03/24 documented as of this encounter
--- OUTSIDE RECORDS SUMMARY | 2024-07-17 01:45 | XMS_ITS | Referral Summary ---
Author Organization [facility] Address [address] [place] [address] Care Team Providers Care Agricultural Economist Name Role Phone Yadi Steel MD Primary Care Provider [phone] Encounters Date Type Department Care Team Description 06/10/2024 Telephone [facility] General Surgery - [facility] [address] [place], [place] [phone] Ekta Martinez RN 04/27/2024 - 04/27/2024 23:59 EST Hospital Encounter [facility] Secondary Reads [place] Discharge Disposition: Home or [...] file Plan of Treatment Not on file Procedures Procedure Name Priority Date/Time Associated Diagnosis Comments CT OUTSIDE IMAGES ABDOMEN PELVIS Routine 04/27/2024 11:04 EST from Last 3 Months Results * CT OUTSIDE IMAGES ABDOMEN PELVIS (04/27/2024 11:04 EST) Narrative 06/07/2024 11:05 EST This is a non-reportable exam. us External Imaging IMG OTHER IMAGING ORDERABLES Fi nal Result from Last 3 Months Insurance [place] Care Teams Agricultural Economist Relationship Specialty Start Date End Date Yadi Steel MD [address] [place] [address] PCP - General Family Medicine - Primary Care 06/03/24
--- OUTSIDE RECORDS SUMMARY | 2024-07-17 01:46 | XMS_ITS | Encounter Summary ---
Author Organization [facility] Address [address] [place] [address] Care Team Providers Care Loan Reviewer Name Role Phone Unavailable Primary Care Provider Unavailabl e Encounter Details Date Type Department Care Team (Late st Contact Info) Description 07/24/2008 Before PRISM Converted Visit (Maple) [facility] - Maple conversion [address] [place] [address] Annie Tran, [facility] [address] [place] [address] [place] [address] Social History Tobacco Use Types [...] ? ADELAIDA LUNDY ? Accession #: ? [id number] ? : ? 1955 (Age: 52) ??F ?Collect Date: ? 07/24/2008 ? Location: ? [facility] ? Receive Date: ? 07/25/2008 ? Provider: ?ANNIE JAZZMINE POSTPARTUM RN ? Copy to: ? Specimen/Source: ?Pap Test, [...] [facility] 07/24/2008 07/25/2008 us Annie Tran POSTPARTUM RN PATHOLOGY ORDERABLES Final R esult [facility] [address] [place] [address] documented in this encounter Visit Diagnoses Not on filedocumented in this encounter
--- OUTSIDE RECORDS SUMMARY | 2024-07-17 01:46 | XMS_ITS | Encounter Summary ---
[place] [address] Care Team Providers Care Scrap Metal Processing Worker Name Role Phone Jeannette Herman APRN Primary Care Provider [phone] Reason for Referral * Consultation (Routine) - Denied Specialty Diagnoses / Procedures Referred By Christin herbert Referred To Contact Endocrinology Diagnoses Hyponatremia Hyperkalemia SIADH (syndrome of inappropriate ADH production) Jeannette Herman APRN [address] [place] [address] [facility] [place] [address] [place] [phone] Referral ID Status Reason Start Date Expiration Date V isits Requested Visits Authorized [id number] Denied Consult, Test & Treat PCP Updated and/or Approved 09/14/2022 09/14/2023 12 0 Encounter Details Date Type Department Care Team (Latest Contact Info) Description 09/14/2022 Transcribe Orders eDH Incoming Referrals [phone] Jeannette Herman APRN [address] [place], [place] [id number] Hyponatremia; Hyperkalemia; SIADH (syndrome of inappropriate ADH [...] Care Team (Late st Contact Info) Description 07/18/2024 2:00 PM EST Office [place] [address] Rich Johnson MD [facility] [place] [address] Scheduled Referrals Name Type Priority Associated Diagnoses Orde r Schedule Referral to Endocrinology Outpatient Referral Routine Hyponatremia Hyperkalemia SIADH (syndrome of inappropriate ADH production) Ordered: 09/14/2022 documented as of this encounter Visit Diagnoses Diagnosis Hyponatremia Hyposmolality and/or hyponatremia Hyperkalemia Hyperpotassemia 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
--- OUTSIDE RECORDS SUMMARY | 2024-07-17 01:46 | XMS_ITS | Encounter Summary ---
Author Organization [facility] Address [facility] [place] [address] Care Team Providers Care Tumbling Machine Operator Name Role Phone Mainor Jansen Primary Care Provider [phone] Reason for Visit * Consultation (Routine) - Specialty Diagnoses / Procedures Referred By Christin herbert Referred To Contact Endocrinology Diagnoses Hypoglycemia, unspecified HYPOGLYCEMIA Akosua Jimenez APRN [address] [place] [address] [facility] [place] [address] [place] [phone] Referral ID Status Reason Start Date Expiration Date V isits Requested Visits Authorized [id number] Consult, Test & Treat Connection Center PCP Updated and/or Approved 09/30/2019 09/29/2020 6 6 Encounter Details Date Type Department Care Team (Late st Contact Info) Description 10/08/2019 1:30 PM EDT TH Visit (TeleHealth) [place] [address] Ean Taylor MD [facility] [place] [address] Marisa Vivas MD [facility] [place] [address] Hypoglycemia Social History Tobacco Use Types Packs/Day [...] In the past has not talked with mine motor operator, has researched on the Internet.PCP suggested acarbose it has not been tried yet, was hesitant to try it due to fearof constipation. 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 Vitals 07/09/2019 Weight ([place]ese) 216 lbs Weight (Metric) 97.977 kg 06/2019: [...] Adelaida describes that her symptoms occur around 9135-4181 following breakfast comprised of whole wheat toast [...] should episode recur Case discussed with staff Frame Runner, Ean Taylor MD. Adelaida is aware that I expect her to reach out to us following use of the acarbose to let us know if it is working well. Her PCP SANCHEZ Callaway may refill this med. If the episodes worsen or fail to improve, please let us know. Marisa Vivas MD PGY-5 [facility] [place] Fellow Pager #[phone] * Ean Taylor MD - 10/08/2019 1:30 [...] often transient and acarbose is not needed termite renewal inspector. documented in this encounter Plan of Treatment Upcoming Encounters Date Type Department Care Team (Late st Contact Info) Description 07/18/2024 2:00 PM EST Office [place] [address] Rich Johnson MD [facility] [place] [place] [address] documented as of this encounter Visit Diagnoses Diagnosis Hypoglycemia Hypoglycemia, unspecified documented in this encounter Care Teams Tumbling Machine Operator Relationship Specialty Start Date End Date Mainor Jansen PA PCP - General General Internal Medicine 09/30/1912/14 documented as of this encounter
--- OUTSIDE RECORDS SUMMARY | 2024-07-17 01:46 | XMS_ITS | Encounter Summary ---
[place] [address] Care Team Providers Care Freight Sorter Name Role Phone Yadi Steel MD Primary Care Provider [phone] Reason for Referral * Consultation (Urgent) - Closed Specialty Diagnoses / Procedures Referred By Conthoward herbert Referred To Contact Gastroenterology Diagnoses Diverticulosis of large intestine without diverticulitis Yadi Steel MD [address] [place] [address] [facility] [place] [address] [address] Referral ID Status Reason Start Date Expiration Date V isits Requested Visits Authorized [id number] Closed Consult, Test & Treat PCP Updated and/or Approved 12/04/2023 06/04/2024 6 6 Encounter Details Date Type Department Care Team (Latest Contact Info) Description 12/04/2023 Transcribe Orders eDH Incoming Referrals [phone] Yadi Steel MD [address] [place], [place] [id number] Diverticulosis of large intestine without diverticulitis Social [...] PM EST Office [place] [address] Rich Johnson MD [facility] [place] [address] Scheduled Referrals Name Type Priority Associated Diagnoses Orde r Schedule Referral to Gastroenterology Outpatient Referral Urgent Diverticulosis of large intestine without diverticulitis Ordered: 12/04/2023 documented as of this encounter Visit Diagnoses Diagnosis Diverticulosis of large intestine without diverticulitis Diverticulosis of colon (without mention of hemorrhage) documented in this encounter Care Teams Freight Sorter Relationship Specialty Start Date End Date Yadi Steel MD [address] [place] [address] PCP - General Family Medicine 12/04/23 documented as of this encounter
--- OUTSIDE RECORDS SUMMARY | 2024-07-17 01:46 | XMS_ITS | Encounter Summary ---
Author Organization Count Includes [facility] [place] [address] Care Team Providers Care Flagsetter Name Role Phone Yadi Steel MD Primary Care Provider [phone] Encounter Details Date Type Department Care Team (Late st Contact Info) Description 07/05/2024 2:16 PM EST Anesthesia Event [place] [phone] Isidoro Grady MD [facility] [place] [address] Anesthesia Record Procedure Summary Procedure Name Responsible Anesthesiologist Anesthesia Start Time Anesthesia Stop Time ANORECTAL EXAM, REQUIRING ANESTHESIA, DIAGNOSTIC (WRVU 1.8) (Anus) Isidoro Grady MD 07/05/24 1416 07/05/24 1444 Events Date Time Event Comment 07/05/2024 1408 1416 AN Verify 1416 Start 1416 An Start Data 1422 Anesthesia Ready 1439 an stop data 1444 Recovery or ICU Handoff Shama ent care was transferred to the destination unit staff after review of the patient's medical history, current anesthetic/surgical status and plan, according to the Provider Handoff Checklist. 1444 Stop Meds Name Total midazolam 2 mg fentaNYL 50 mcg lidocaine IV 50 mg propofoL 50 mg propofol INF 63.86 mg ondansetron 4 mg ketorolac 15 mg sodium chloride 0.9% 200 mL * Agents Name O2 O2 Auxiliary Flowmeter 1 * Blood No blood administrations on file. Lines, Drains, and Airways Type Details Placement Removal Incision 07/05/24; 1428; anus 07/05/24 1428 by Brian Murphy RN documented in this encounter Social History Tobacco Use Types Packs/Day Years Used Date Smoking Tobacco: Never Smokeless Tobacco: Never Alcohol Use Standard Drinks/Week Comments Yes 14 (1 standard drink = 0.6 oz pu re alcohol) DH IPV Inpatient Questions Answer Date Recorded Does Anyone Try to Keep You From Having Contact with Others or Doing Things Outside Your Home? no 07/05/2024 Feels Threatened by Someone no 06/13 Feels Unsafe at Home or Work/School no 07/05/2024 Physical Signs of Abuse Present no 07/05/2024 Sex and Gender Information Value Date Recorded Sex Assigned at Not on file Gender Identity Not on file Sexual Orientation Not on file documented as of this encounter OR Notes * Anesthesia Postprocedure Evaluation - Isidoro Grady MD - 07/05/2024 2:48 PM EST Department of Anesthesiology Post-procedure Note Patient: Adelaida Lundy Procedure Summary Date: 07/05/24 Room / Location: [facility] [place] [address] [place] [address] OSC Anesthesia Start: 1416 Anesthesia Stop: 1444 Procedure: ANORECTAL EXAM, REQUIRING ANESTHESIA, DIAGNOSTIC (WRVU 1.8) (Anus) Diagnosis: (RECTOCELE) Surgeons: Rich Johnson MD Responsible Provider: Isidoro Grady MD Anesthesia Type: MAC ASA Status: 2 All Anesthesia Providers: Anesthesiologist: Isidoro Grady MD MINE MANAGER: Annie Khan CRNA Vitals Value Taken Time BP 105/65 07/05/24 1445 Temp Pulse 67 07/05/24 1446 Resp SpO2 Pain Score Vitals shown include unfiled device data. Patient Location: PACU/[facility] Level of Consciousness: Awake and Alert Pain Management: Satisfactory Analgesia PONV: None Cardiovascular Status: At Baseline and Hemodynamically Stable Respiratory Status: At Baseline and Room Air Postoperative Fluid Status: Intravascular EUvolemia Possible Anesthetic Complications: NONE apparent at time of evaluation Final Primary Anesthesia Type: MAC (The anesthetic type performed was the same as planned.) Comments: Doing well in recovery Reports she was comfortable in the OR ISIDORO GRADY MD * Anesthesia Preprocedure Evaluation - Isidoro Grady MD - 07/05/2024 2:05 PM EST Pre-Anesthesia Evaluation for: Adelaida Lundy a 68 y.o. female. Procedure(s): ANORECTAL EXAM, REQUIRING ANESTHESIA, DIAGNOSTIC ([facility] Patient Active Problem List Diagnosis Date Noted ??? Tinnitus of left ear 06/17/2024 ??? Intention tremor 06/17/2024 ??? History of renal calculi 06/17/2024 ??? Eczema 06/17/2024 ??? Diverticulitis of large intestine without perforation or abscess without bleeding 04/28/2024 ??? Diarrhea 04/27/2024 ??? Diverticulitis of colon 04/27/2024 ??? GERD without esophagitis 04/27/2024 ??? HTN (hypertension) 04/27/2024 ??? Irregular bowel habits 04/27/2024 ??? Irritable bowel syndrome 04/27/2024 ??? Lower abdominal pain 04/27/2024 ??? Primary fibromyalgia syndrome 04/27/2024 ??? Essential thrombocythemia 04/27/2024 ??? Myopia, left eye 12/17/2010 ??? Astigmatism, unspecified left eye 12/17/2010 History reviewed. No pertinent past medical history. Past Surgical History: Procedure Laterality Date ??? CHOLECYSTECTOMY ??? CYSTOCELE REPAIR 2020 ??? LASIK 05/10/2010 myopia OU ??? PRO COLONOSCOPY, DIAGNOSTIC N/A 06/22/2015 COLONOSCOPY, DIAGNOSTIC performed by Venice Meyer MD at [facility] ENDOSCOPY ??? RECTOCELE REPAIR 2020 Social History Tobacco Use ??? Smoking status: Never ??? Smokeless tobacco: Never Substance Use Topics ??? Alcohol use: Yes Alcohol/week: 14.0 standard drinks of alcohol Types: 14 Glasses of wine per week Social History Substance and Sexual Activity Drug Use No Allergies Allergen Reactions ??? Flagyl [Metronidazole Hcl] ??? Levaquin [Levofloxacin] Knee pain Medications: MAR and/or home medications have been reviewed. Physical Exam: Preprocedure Vitals Current as of 07/05/24 1405 BP: 154/93 Pulse: 66 Resp: 14 SpO2: 99 Temp: 36.1 ??C (97 ??F) Height: 160 cm (5' 3) (07/05/24) Weight: 77.1 kg (170 lb) (07/05/24) BMI: 30.11 IBW: 52.4 kg (115 lb 7.7 oz) Last edited 07/05/24 1345 by RM Airway Assessment: Mallampati: II TM distance: >3 FB Neck ROM: full Cardiovascular Assessment: system normal Pulmonary Assessment: pulmonary exam normal Dental Assessment: Misc Assessment: IV access: Peripheral line Last Filed Perioperative Cognitive Screening None Anesthesia Plan: ASA 2 MAC, with a(n) intravenous induction 68 yo presents for prone anorectal exam and related procedures No hx of problems with anesthesia She has sore shoulders GERD well controlled HTN IBS FIbromyalgia Essential thrombophilia Tremor Denies recent CP SOB URI or GERD NPO > 4 mets Risks and benefits of MAC with GA back-up discussed All questions answered ISIDORO GRADY MD Region - Other Informed Consent: Anesthetic plan and risks discussed with patient. Plan discussed with MINE MANAGER. Anesthesia Screening documented in this encounter Plan of Treatment Upcoming Encounters Date Type Department Care Team (Late st Contact Info) Description 07/18/2024 2:00 PM EST Office [place] [address] Rich Johnson MD [facility] [place] [address] documented as of this encounter Visit Diagnoses Not on filedocumented in this encounter Administered Medications Inactive Administered Medications - up to 3 most recent administrations Medication Order MAR Action Action Date Dose Rate Site fentaNYL (pf) (50 mcg/mL) multi-dose injection Intravenous, PRN, Starting on Mon07/05/24 at 1418, Until Mon07/05/24 at 1444, Anesthesia Intra-op, Routine Given 07/05/2024 2:22 PM EST 25 mcg Given 07/05/2024 2:18 PM EST 25 mcg ketorolac (Toradol) (30 mg/mL) injection Intravenous, PRN, Starting on Mon07/05/24 at 1435, Until Mon07/05/24 at 1444, Anesthesia Intra-op, Routine Given 07/05/2024 2:35 PM EST 15 mg lidocaine (pf) (Xylocaine) (20 mg/mL) 2% injection syringe Intravenous, PRN, Starting on Mon07/05/24 at 1420, Until Mon07/05/24 at 1444, Anesthesia Intra-op, Routine Given 07/05/2024 2:20 PM EST 50 mg midazolam (pf) (Versed) (1 mg/mL) multi-dose injection Intravenous, PRN, Starting on Mon07/05/24 at 1416, Until Mon07/05/24 at 1444, Anesthesia Intra-op, Routine Given 07/05/2024 2:22 PM EST 1 mg Given 07/05/2024 2:16 PM EST 1 mg ondansetron (pf) (Zofran) (2 mg/mL) injection Intravenous, PRN, Starting on Mon07/05/24 at 1422, Until Mon07/05/24 at 1444, Anesthesia Intra-op, Routine Given 07/05/2024 2:22 PM EST 4 mg propofoL (Diprivan) (10 mg/mL) infusion Intravenous, CONTINUOUS PRN, Starting on Mon07/05/24 at 1420, Until Mon07/05/24 at 1444, Anesthesia Intra-op, Routine Rate/Dose Change 07/05/2024 2:29 PM EST 50 mcg/kg/min 18.69 mL/hr New Bag 07/05/2024 2:20 PM EST 75 mcg/kg/min 28.035 mL/ hr propofoL (Diprivan) 10 mg/mL bolus injection (Anesthesia) Intravenous, PRN, Starting on Mon07/05/24 at 1420, Until Mon07/05/24 at 1444, Anesthesia Intra-op Given 07/05/2024 2:20 PM EST 50 mg sodium chloride 0.9% infusion Intravenous, CONTINUOUS PRN, Starting on Mon07/05/24 at 1416, Until Mon07/05/24 at 1444, Anesthesia Intra-op New Bag 07/05/2024 2:16 PM EST documented in this encounter Care Teams Flagsetter Relationship Specialty Start Date End Date Yadi Steel MD [address] [place] [address] PCP - General Family Medicine 12/04/23 documented as of this encounter
--- OUTSIDE RECORDS SUMMARY | 2024-07-17 01:46 | XMS_ITS | Encounter Summary ---
Author Organization [facility] Address [address] [place] [address] Care Team Providers Care New Home Sales Consultant Name Role Phone Unavailable Primary Care Provider Unavailabl e Encounter Details Date Type Department Care Team (Late st Contact Info) Description 04/06/2007 Results Only [facility] [address] [place] [address] Annie Tran, [address] [place] [address] Social History Tobacco Use Types [...] ? ADELAIDA LUNDY ? Accession #: ? [id number] : ? 1955 (Age: 51) ??F ?Collect Date: ? 04/06/2007 Location: ? [facility] ? Receive Date: ? 04/06/2007 Provider: ?ANNIE TRAN MECHANIC GENERAL OPERATIONAL TEST Copy to: ? Specimen/Source: ?ThinPrep Pap Test, Cervix/Endocervix, processed on Gramovox ThinPrep Imaging System, with manual evaluation Last [...] RUSH GARZA 04/06/2007 04/06/2007 us Annie Tran MECHANIC GENERAL OPERATIONAL TEST PATHOLOGY ORDERABLES Final R esult RUSH GARZA [address] [place] [address] documented in this encounter Visit Diagnoses Not on filedocumented in this encounter
--- OUTSIDE RECORDS SUMMARY | 2024-07-17 01:46 | XMS_ITS | Encounter Summary ---
Author Organization [facility] [place] [address] Care Team Providers Care Internet Developer Name Role Phone Bakari Delgado MD Primary Care Provider Encounter Details Date Type Department Care Team (Late st Contact Info) Description 04/07/2013 External Results XRay at [address] [place] [address] Catracho Perea MD [address] [place], [place] [id number] Social History Tobacco Use Types Packs/Day Years [...] PM EST Office [place] [phone] Rich Johnson MD [facility] [place] [address] documented as of this encounter Procedures Procedure Name Priority Date/Time Associated Diagnosis Comments MRI/MRA SCAN Routine 03/28/2013 documented in this encounter Results * Scan Doc: MRI/MRA (03/28/2013) Anatomical Region Laterality Modality Other Catracho Perea MD MEDIA MGR SCAN EXT O RDR/RSLT documented in this encounter Visit Diagnoses Not on filedocumented in this encounter Care Teams Internet Developer Relationship Specialty Start Date End Date Bakari Delgado MD [address] [place] [address] PCP - General 05/04/10 06/18/15 documented as of this encounter
--- OUTSIDE RECORDS SUMMARY | 2024-07-17 01:46 | XMS_ITS | Encounter Summary ---
Author Organization [facility] [place] [address] Care Team Providers Care Salesperson [employer] Name Role Phone Yadi Steel MD Primary Care Provider [phone] Reason for Referral * Consultation (Routine) - Closed Specialty Diagnoses / Procedures Referred By Christin herbert Referred To Contact General Surgery Diagnoses Diverticulitis of large intestine without perforation or abscess without bleeding Titus Sagastume MD [facility] [place] [address] [facility] Gen Surgery [address] [place] [address] Referral ID Status Reason Start Date Expiration Date V isits Requested Visits Authorized [id number] Closed Consult, Test & Treat 04/28/2024 04/28/2025 1 1 Reason for Visit * Reason Comments Abdominal Pain Encounter Details Date Type Department Care Team (Late st Contact Info) Description 04/27/2024 7:28 PM EST - 04/28/2024 3:23 AM EST [place] [address] [facility] [address] Lower abdominal pain; Diverticulitis of large intestine [...] tolerated. You already have an appointment with [facility] gastroenterology tomorrow which you should keep. I [...] be sent through Care Everywhere. * Diverticulitis (Malawian) * Clear Liquid Diet: General Info (Malawian) * Low-Fiber Diet (Malawian) documented in this encounter Medications at Time [...] Tablet Take 3 mg by mouth nightly. lactobacillus rhamnosus, GG, (CULTURELLE) 10 billion cell [...] mg by mouth as needed. 06/18/2019 04/29/2024 polyethylene glycol (Miralax) 17 gram/dose Powder Take 17 g by mouth Daily. 06/10/2024 acarbose (PRECOSE) 25 mg Tablet Take 1 [...] patient regarding her plan and after much [id number] we came up with a plan to [...] who have questions please contact the health hearing care professional that requested your imaging first. Course as [...] PM EST Office [place] [address] [facility] [place] [address] Scheduled Referrals Name Type Priority Associated Diagnoses [...] with reflex Culture (04/28/2024 12:30 AM EST) Pathologist [facility] Glucose, Urine Dipstick Negative Negative 04/28/2024 12:[address] [facility] Protein, Urine Dipstick Negative Negative 04/28/2024 12:[address] [facility] Bilirubin, Urine Dipstick Negative Negative 04/28/2024 12:[address] [facility] Comment:Clinical correlation required for positive Urine Bilirubin results as false positive may occur with some drugs and drug related products. If a false positive is suspected a serum total bilirubin should be considered if clinically indicated. Urobilinogen, Urine Dipstick Normal Normal, 0.2 mg/dL, 1.0 mg/dL 04/28/2024 12:[address] [facility] pH, Urine (dipstick) 7.0 5.0 - 8.0 04/28/2024 12:[address] [facility] Blood, Urine Dipstick Negative Negative 04/28/2024 12:[address] [facility] Ketone, Urine Dipstick 15 mg/dL(A) Negative 04/28/2024 12:[address] [facility] Nitrite, Urine Dipstick Negative Negative 04/28/2024 12:[address] [facility] Leukocytes, Urine Dipstick Negative Negative 04/28/2024 12:[address] [facility] Specific [place] Urine Automated >=1.030(H) 1.005 - 1.030 04/28/2024 12:[address] [facility] Appearance, Urine Dipstick Clear Clear 04/28/2024 12:[address] [facility] Color, Urine Dipstick Yellow Yellow, Dark Yellow 04/28/2024 12:46 AM EST [facility] CULTURE ADDED? 04/28/2024 12:46 AM EST [facility] Urine URINE SPECIMEN OBTAINED BY CLEAN CATCH PROCEDURE / Unknown Non Blood Collection / Unknown 04/28/2024 12:30 AM EST 04/28/2024 12:39 AM EST Titus Sagastume MD URINE ORDERABLES Performing Organization Address City/[facility]/ZIP Co de Phone Number [facility] [place] [address] * Lactate Whole Blood POC (04/27/2024 11:32 PM EST) Pathologist [facility] Lactate, Whole Blood 1.0 0.5 - 2.2 mmol/L 04/27/2024 11:33 PM EST [facility] Blood VENOUS BLOOD SPECIMEN / Unknown 04/27/2024 11:32 PM EST 04/27/2024 11:33 PM EST Titus Sagastume MD POINT OF CARE TEST O RDERABLES Performing Organization Address [facility] Co de Phone Number [facility] [place] [address] * CT Abdomen & Pelvis w Contrast (04/27/2024 9:04 PM EST) WORKSTATION ID [id number] [facility] Anatomical Region Laterality Modality Abdomen, Pelvis Computed [...] who have questions please contact the health hearing care professional that requested your imaging first. ? Narrative [...] patients who have questions please contactthe health hearing care professional that requested your imaging first. Curtis London III, MD IM CT ORDERABLES * (ABNORMAL) Scan, Peripheral Blood (04/27/2024 7:43 PM EST) RBC Morphology Normal 04/27/2024 8:[address] [facility] Platelet Estimate Increased( A) Normal 04/27/2024 8:[address] [facility] Platelet Clumps Present(A) (none) 04/27/2024 8:[address] [facility] WBC MORPHOLOGY See Comment(A) (none) 04/27/2024 8:[address] [facility] Comment:Vacuolated Grans Blood VENOUS BLOOD SPECIMEN / Unknown Venipuncture / Unknown 04/27/2024 7:43 PM EST 04/27/2024 7:47 PM EST Titus Sagastume MD [place] [address] * (ABNORMAL) Magnesium (04/27/2024 7:43 PM EST) Magnesium 0.68(L) 0.69 - 1.07 mMol/L 04/27/2024 8:32 PM EST [facility] Blood VENOUS BLOOD SPECIMEN / Unknown Venipuncture / Unknown 04/27/2024 7:43 PM EST 04/27/2024 7:47 PM EST Curtis London III, MD CHEMISTRY ORDERABL ES Performing Organization Address City/[facility]/ZIP Co de Phone Number [facility] [place] [address] * Hepatic Function Panel (04/27/2024 7:43 PM [...] 7:43 PM EST 04/27/2024 7:47 PM EST uCrtis London III, MD CHEMISTRY ORDERABL ES Performing Organization Address City/[facility]/ZIP Co de Phone Number [facility] [place] [address] * Lipase (04/27/2024 7:43 PM EST) Lipase 23 0 - 60 unit/L 04/27/2024 8:[address] [facility] Blood VENOUS BLOOD SPECIMEN / Unknown Venipuncture / Unknown 04/27/2024 7:43 PM EST 04/27/2024 7:47 PM EST Curtis London III, MD CHEMISTRY ORDERABL ES Performing Organization Address City/[facility]/ZIP Co de Phone Number [facility] [place] [address] * (ABNORMAL) Basic Metabolic Panel (04/27/2024 7:43 PM EST) Glucose 91 65 - 199 mg/dL 04/27/2024 8:[address] [facility] Comment:Glucose Concentratio n >=200 mg/dL plus symptoms is consistent with Diabetes Mellitus. Blood Urea Nitrogen 4(L) 8 - 18 mg/dL 04/27/2024 8:[address] [facility] Creatinine 0.67(L) 0.70 - 1.20 mg/dL 04/27/2024 8:[address] [facility] Sodium 133(L) 135 - 145 mMol/L 04/27/2024 8:[address] [facility] Potassium 3.8 3.5 - 5.0 mMol/L 04/27/2024 8:[address] [facility] Chloride 95(L) 98 - 107 mMol/L 04/27/2024 8:[address] [facility] Carbon Dioxide 27 22 - 31 mMol/L 04/27/2024 8:32 PM EST [facility] Anion Gap 11 5 - [...] CHEMISTRY ORDERABLES [facility] [place] [address] * (ABNORMAL) CBC (with Diff) (04/27/2024 7:43 PM EST) White Blood Cell 14.89(H) 4.00 - 9.50 x10(3)/mc L 04/27/2024 8:43 PM EST [facility] Red Blood Cell 4.74 4.00 - 5.21 x10(6)/mc L 04/27/2024 8:43 PM EST [facility] Hemoglobin 14.2 11.7 - 15.5 g/dL 04/27/2024 8:43 PM EST [facility] Hematocrit 40.9 35.7 - 45.8 % 04/27/2024 8:[address] [facility] Mean Cell Volume 86.3 82.6 - 94.4 fL 04/27/2024 8:[address] [facility] Mean Cell Hemoglobin 30.0 27.1 - 32.0 pg 04/27/2024 8:[address] [facility] Mean Cell Hemoglobin Concentration 34.7 31.7 - 35.0 g/dL 04/27/2024 8:[address] [facility] Platelet 386(H) 145 - 357 x10(3)/mc L 04/27/2024 8:[address] [facility] Mean Platelet Volume 9.1 7.6 - 12.9 fL 04/27/2024 8:[address] [facility] RDW Standard Deviation 39.1 37.0 - 46.0 fL 04/27/2024 8:[address] [facility] RDW coefficient of variation 12.3 11.5 - 14.1 % 04/27/2024 8:[address] [facility] NRBC% auto 0.0 % 04/27/2024 8:[address] [facility] NRBC Absolute <0.01 <0.01 x10(3)/mc L 04/27/2024 8:[address] [facility] Neutrophil % 78.1 % 04/27/2024 8:[address] [facility] Comment:This is an appended report. These results have been appended to a previously preliminary verified report. Neutrophil Absolute (ANC) - Automated 11.63(H) 1.70 - 6.10 x10(3)/mc L 04/27/2024 8:[address] [facility] Comment:This is an appended report. These results have been appended to a previously preliminary verified report. Lymph % 7.1 % 04/27/2024 8:[address] [facility] Comment:This is an appended report. These results have been appended to a previously preliminary verified report. Lymph Absolute 1.05 0.90 - 3.20 x10(3)/mc L 04/27/2024 8:[address] [facility] Comment:This is an appended report. These results have been appended to a previously preliminary verified report. Monocyte % 12.4 % 04/27/2024 8:[address] [facility] Comment:This is an appended report. These results have been appended to a previously preliminary verified report. Monocyte Absolute 1.85(H) 0.30 - 0.90 x10(3)/mc L 04/27/2024 8:[address] [facility] Comment:This is an appended report. These results have been appended to a previously preliminary verified report. Eos % 1.7 % 04/27/2024 8:[address] [facility] Comment:This is an appended report. These results have been appended to a previously preliminary verified report. Eos Absolute 0.25 0.00 - 0.40 x10(3)/mc L 04/27/2024 8:[address] [facility] Comment:This is an appended report. These results have been appended to a previously preliminary verified report. Basophil % 0.4 % 04/27/2024 8:[address] [facility] Comment:This is an appended report. These results have been appended to a previously preliminary verified report. Baso Absolute 0.06 0.00 - 0.10 x10(3)/mc L 04/27/2024 8:[address] [facility] Comment:This is an appended report. These results have been appended to a previously preliminary verified report. Immature Gran % 0.3 % 8:[address] [facility] Comment:This is an appended report. These results have been appended to a previously preliminary verified report. Immature Gran Absolute 0.05(H) 0.00 - 0.04 x10(3)/mc L 04/27/2024 8:[address] [facility] Comment:This is an appended report. These results have been appended to a previously preliminary verified report. Blood VENOUS BLOOD SPECIMEN / Unknown Venipuncture / Unknown 04/27/2024 7:43 PM EST 04/27/2024 7:47 PM EST Titus Sagastume MD HEMATOLOGY ORDERABLE S [facility] [place] [address] documented in this encounter Visit Diagnoses Diagnosis [...] over 0.5 Hours, Warning Vesicant/Irritant Medication Per glove cuffer labeling, do not administer or Y-site with [...] 1 dose, On 04/27/24 at 1945, STAT 194 (Given - Provider: Trace Garduno NRP) lactated [...] Cortez, FACUNDO) 0041 (Stopped - Provider: Shila Byrd RN) piperacillin-tazobactam (Zosyn) 4.5 g vial attach to sodium chloride 0.9% 100 mL Mini-Bag Plus (COMPLETED) 4.5 g, Intravenous, ONCE, 1 dose, On 04/27/24 at 2220, Administer over 0.5 Hours, Warning Vesicant/Irritant Medication Per glove cuffer labeling, do not administer or Y-site with [...] [place]) documented in this encounter Care Teams Salesperson Women[employer]S Hats Relationship Specialty Start Date End Date Yadi Steel MD [address] [place] [address] PCP - General Family Medicine 12/04/23 documented as of this encounter
--- OUTSIDE RECORDS SUMMARY | 2024-07-17 01:46 | XMS_ITS | Encounter Summary ---
Author Organization [facility] Address [facility] [place] [address] Care Team Providers Care Police Liaison Name Role Phone Yadi Steel MD Primary Care Provider [phone] Encounter Details Date Type Department Care Team (Late st Contact Info) Description 07/05/2024 2:52 PM EST - 07/05/2024 4:12 PM EST Surgery Outpatient [place] [phone] Rich Johnson MD [facility] [place] [address] ANORECTAL EXAM, REQUIRING ANESTHESIA, DIAGNOSTIC (WRVU 1.8) Social History Tobacco Use Types Packs/Day Years [...] Sign Reading Time Taken Comments Blood Pressure 105/65 07/05/2024 2:45 PM EST Pulse 69 07/05/2024 2:45 PM EST Temperature 36.3 ??C (97.3 ??F) 07/05/2024 2:43 PM ES T Respiratory Rate 16 07/05/2024 2:45 PM EST Oxygen Saturation 99% 07/05/2024 2:45 PM EST Inhaled Oxygen Concentration - - Weight 77.1 kg (170 lb) 07/05/2024 1:45 PM EST Height 160 cm (5' 3) 07/05/2024 1:45 PM EST Body Mass Index 30.11 07/05/2024 1:45 PM EST documented in this encounter Discharge Instructions * Discharge Instructions* Felicity Linares RN - 07/05/2024 1:46 PM EST At 2:00 pm am/pm you received 975 mg of acetaminophen- Your next dose should not be taken before 6-8 hours have passed or as advised by your provider. Next dose not before- 8:00 pm. You should not take more than a total of 3000 mg of acetaminophen in a 24 hour period. Moderate Sedation You may have received medication before and/or during your procedure, which affects your judgement and reaction time. Do not drive, operate machinery, drink alcoholic beverages, or make any legal decisions for 24 hours. Be careful on stairs, as you may be unsteady on your feet. You may eat a regular diet as tolerated. Do not smoke if you are alone. IV site -- slight redness, or tenderness is normal, you can use a warm compress. If tenderness and redness increases or foul drainage occurs, please contact your M. D. Questions or problems after 5pm or on a weekend: Call the [facility] creel operator and ask for the physician rn liaison covering for your doctor. * Patient Instructions* Rich Johnson MD - 07/05/2024 2:53 PM EST DIVISION OF COLON & RECTAL SURGERY Anorectal Surgery Patient Post-operative Discharge Instructions Wound Care If there is a dressing, please leave the dressing intact today and remove it tomorrow morning. If you need to move your bowels, the dressing may be removed sooner. Expect some drainage - this may be residual pus, or may be a small amount of blood or mucus - this is normal / expected. It may last for a 2-3 weeks. Please use fluffy 4x4 gauze to absorb any drainage and keep your bottom dry. You may have some packing your wound that you should remove in the sitz bath tomorrow morning. Please use a sitz bath or shower 3 - 4X per day (starting tomorrow morning). Sitz bath instructions: Soak your buttocks in plain warm tapwater for 15 minutes 4X/day and after bowel movements. This is comforting and also increase blood flow to the area to aid in healing. You may sit on a pillow but do not sit on donut cushions as it spreads the buttocks. Pain medications A local anesthestic numbing block was performed during your procedure for postoperative pain control. Please take [id number] pain medications for post-operative discomfort. Acetaminophen (Tylenol) 1000 mg by mouth every 6 hours. Ibuprofen (Motrin/Advil) 600 mg by mouth every 6 hours with food & plenty of liquids or Naproxen (Aleve) 500 mg twice daily. Take either Ibuprofen or Naproxen not both. You may alternate these medications every 3 hours; ex. Tylenol at 12pm, Ibuprofen at 3pm, Tylenol at 6pm, Ibuprofen at 9 pm. In addition, if your pain is uncontrolled with the medications above, please use prescribed narcotic pain medication if given to you. As you use less pain medication, narcotics should be the first toeliminate. Narcotic pain medication is known to cause constipation. Avoid getting constipated Drink plenty of water and fluids (over 2 liters per day). Each morning please take a daily fiber supplement (such as Citrucel or BeneFiber), one heaping tablespoon in 8 oz. of water. (MiraLax may be recommended instead of fiber) If you do not have a bowel movement in 48 hours then take 30 cc of Milk of Magnesia every 12 hours until you have a bowel movement. If you do not have a bowel movement after 2 doses of Milk of Magnesia please call (see below). 4. When to call Fever > 101.5 F worsening pain active bleeding, passing blood clots difficulty/inability to pass urine (urinary retention) or stool (constipation) any other worrisome condition or question during regular work hours call the Surgery Clinic at after hours / nights / weekends / holidays: call and ask for the General Surgery Resident doctor On-Call. Follow-up. You will have a post-operative follow-up appointment with your Surgical Team scheduled, usually in 2 - 4 weeks. If you have any questions, please call . Division of Colon and Rectal Surgery, [place] [address] documented in this encounter Medications at Time [...] Capsule Take 1,000 Units by mouth daily. documented as of this encounter Progress Notes * Guille Tobias RN - 07/05/2024 3:04 PM EST Discharge instructions and medications reviewed with patient and escort. All questions answered andwritten copy sent home with patient. Patient ambulated to car for discharge accompanied by [facility] staff member. documented in this encounter H&P Notes * Rich Johnson MD - 07/05/2024 2:57 PM EST Patient Name: Adelaida Lundy Patient Age: 68 y.o. Birthdate: 1955 Admit date: 07/05/2024 Attending Physician: Rich Johnson MD Patient Vitals for the past 24 hrs: Temp Heart Rate From SP02 Pulse Resp BP SpO2 O2 Device 07/05/24 1345 36.1 ??C (97 ??F) -- 66 14 (!) 154/93 99 % -- 07/05/24 1443 36.3 ??C (97.3 ??F) 70 bpm 70 16 115/69 98 % RA 07/05/24 1445 -- 68 bpm 69 16 105/65 99 % RA No changes to HPI, PMH, PSH, MEDS, CC since last exam Aaox3, nad EOMI, ERRLA RRR Non labored breathing abd s/nt/nd Ext no cyanosis or edema Ok to proceed with case as scheduled. Rich Johnson MD MSc FACS FASCRS ambulatory service representative Division of Colon and Rectal Surgery [facility] Pager [phone] documented in this encounter Miscellaneous Notes * Op Note - Rich Johnson MD - 07/05/2024 2:28 PM EST [facility] Patient Name: Adelaida Lundy : [id number] MR#: [id number] Case Date: 07/05/2024 Surgeon: Surgeons and Role: * Rich Johnson MD - Primary * Rohini Cruz MD - Resident - Assisting Preoperative diagnosis: RECTOCELE Postoperative diagnosis: RECTOCELE Procedure(s) (LRB): ANORECTAL EXAM, REQUIRING ANESTHESIA, DIAGNOSTIC (WRVU 1.8) (N/A) Anesthesia: MAC Estimated Blood Loss: 0 mL Specimens removed during surgery: None Drains: * No LDAs found * Surgical Closure: N/A Disposition: aroused from sedation, and taken to the recovery room in a stable condition Condition: doing well without problems (Please see the Surgical Encounter Summary for any Implant and Specimen details pertinent to this patient.) HPI/Surgical Indications: 68-year-old female with history of rectocele repair with concern for stenosis of the distal rectum and anal canal. The risk, benefits, and alternatives to examination under anesthesia were reviewed including the risk of bleeding, infection, need for additional procedures, c ardiac, pulmonary, and renal complications. All of her questions were answered to her satisfaction and she agreed to proceed. Procedure Description: After appropriate identification and obtaining informed consent in the pre-op holding area, the patient was brought to the operating theater, placed prone on the operating table and conscious sedation was administered. The perineum was prepped with chlorhexidine and the buttocks gently taped apart for exposure. The patent was draped in the usual fashion. A surgical safety timeout was performed and all present were in agreement. Due to the nature of the procedure, VTE and IV antibiotic prophylaxis are not indicated. A perianal block was performed with 30mL of 1%lidocaine mixed 50/50 with 0.25% marcaine with 1:100,000 epinepherine. The anal canal was examined with a well lubricated digit and revealed normal tone,no masses and there was no blood. After introducing a well lubricated lighted Hirschman anoscope, examination of the anal canal revealed normal appearing mucosa, no masses or other findings. The perineum was dressed with fluffed gauze, abd and mesh briefs. All counts were reported as correct and the patient appeared to tolerate the procedure well without immediate complications. Surgical Infection Prevention Bundle Used? N/A Attestation: Case Date: 07/05/2024 I was present and I participated during the entire procedure (does not need to include opening and closing). Rich Johnson MD 07/05/2024 documented in this encounter Plan of Treatment Upcoming Encounters Date Type Department Care Team (Late st Contact Info) Description 07/18/2024 2:00 PM EST Office [place] [address] Rich Johnson MD [facility] [place] [address] documented as of this encounter Procedures Procedure Name Priority Date/Time Associated Diagnosis Comments Surg Diagnostic Exam, Anorectal (69304) Yes 07/05/2024 2:16 PM EST RECTOCELE documented in this encounter Visit Diagnoses Not on filedocumented in this encounter Administered Medications Inactive Administered Medications - up to 3 most recent administrations Medication Order MAR Action Action Date Dose Rate Site acetaminophen (Tylenol) tablet 975 mg 975 mg, Oral, ONCE, 1 dose, On Mon07/05/24 at 1400, Administer with a SIP of water only. Maximum dose of acetaminophen is 4,000 mg from all sources in 24 hours., Day of Surgery (Day of Procedure), Routine Given 07/05/2024 1:43 PM EST 975 mg BUPivacaine (pf) (Marcaine) (2.5 mg/mL) 0.25% injection PRN, Starting on Mon07/05/24 at 1442, Until Mon07/05/24 at 1707, Intra-Operative (Intra-Procedure), Routine Given 07/05/2024 2:42 PM EST 15 mLs 19- Surgical Site lidocaine-EPINEPHrine (1% - 1:100,000) injection PRN, Starting on Mon07/05/24 at 1443, Until Mon07/05/24 at 1707, Intra-Operative (Intra-Procedure), Routine Given 07/05/2024 2:43 PM EST 15 mLs 19- Surgical Site documented in this encounter Active and Recently Administered Medications Times are shown in EST. Scheduled Medication Order 07/03/2024 07/04/2024 07/05/2024 acetaminophen (Tylenol) tablet 975 mg (COMPLETED) 975 mg, Oral, ONCE, 1 dose, On Mon07/05/24 at 1400, Administer with a SIP of water only. Maximum dose of acetaminophen is 4,000 mg from all sources in 24 hours., Day of Surgery (Day of Procedure), Routine 1343 (Given - Provid er: Guille Tobias RN) PRN Medication Order 07/03/2024 07/04/2024 07/05/2024 BUPivacaine (pf) (Marcaine) (2.5 mg/mL) 0.25% injection (CANCELED) PRN, Starting on Mon07/05/24 at 1442, Until Mon07/05/24 at 1707, Intra-Operative (Intra-Procedure), Routine 1442 (Given - Provid er: Rich Johnson MD) lidocaine-EPINEPHrine (1% - 1:100,000) injection (CANCELED) PRN, Starting on Mon07/05/24 at 1443, Until Mon07/05/24 at 1707, Intra-Operative (Intra-Procedure), Routine 1443 (Given - Provid er: Rich Johnson MD) documented in this encounter Care Teams Police Liaison Relationship Specialty Start Date End Date Yadi Steel MD [address] [place] [address] PCP - General Family Medicine 12/04/23 documented as of this encounter
--- OUTSIDE RECORDS SUMMARY | 2024-07-17 01:46 | XMS_ITS | Encounter Summary ---
Author Organization Formerly [facility], [facility]–1983 Address [facility] [place] [address] Care Team Providers Care Double End Chucking Machine Operator Name Role Phone Jeannette Herman APRN Primary Care Provider [phone] Reason for Visit * Reason Comments Establish Care NXR BILAT SHOULDE R PAIN DISCUSS GUIDED INTRA ARTICULAR KETOROLAC INJECTIONS * Consultation (Routine) - Closed Specialty Diagnoses / Procedures Referred By Contac t Referred To Contact Orthopaedics Diagnoses Shoulder pain, unspecified chronicity, unspecified laterality BILAT SHOULDER PAIN DISCUSS GUIDED INTRA ARTICULAR KETOROLAC INJECTIONS Jeannette Herman APRN [address] [place] [address] [facility] [address] [place] [phone] Referral ID Status Reason Start Date Expiration Date V isits Requested Visits Authorized [id number] Closed Consult, Test & Treat PCP Updated and/or Approved 08/02/2023 01/31/2024 6 6 Encounter Details Date Type Department Care Team (Latest Contact Info) Description 09/08/2023 1:40 PM EDT Office [place] [address] Zacarias Corrales MD [facility] [place] [address] Chronic pain in left shoulder; [...] neg - Belly press- neg Labrum - Sahuarita's test- neg Biceps Tedon - Speed's test- [...] Bilateral Indication: Pain and limited function Equipment: [employer] with 4-20 MHz linear transducer, 4-12 MHz [...] Ultrasound guided injection provided today to the [facility] - Medical Decision Making: Discussed surgical and [...] in the interim. Zacarias Corrales MD [employer] DriverRepair Department Manager of Orthopedics [facility] The note was created using dictation, please excuse any grammatical or word errors. documented in this encounter Plan of Treatment Upcoming Encounters Date Type Department Care Team (Late st Contact Info) Description 07/18/2024 2:00 PM EST Office Visit [place] [address] Rich Johnson MD [facility] [place] [address] documented as of this encounter Visit Diagnoses [...] mg documented in this encounter Care Teams Double End Chucking Machine Operator Relationship Specialty Start Date End Date Jeannette Herman APRN [address] [place] [address] PCP - General Family Medicine 09/14/22 12/03/23 documented as of this encounter
--- OUTSIDE RECORDS SUMMARY | 2024-07-17 01:46 | XMS_ITS | Encounter Summary ---
Author Organization Pending Sale To [facility] Address [facility] [place] [address] Care Team Providers Care Finance Broker Name Role Phone Bakari Delgado MD Primary Care Provider Encounter Details Date Type Department Care Team (Late st Contact Info) Description 03/28/2013 Orders [place] [address] Guille Andrade MD [facility] [place] [address] Social History Tobacco Use Types Packs/Day Years [...] PM EST Office [place] [phone] Rich Johnson MD [facility] [place] [address] Pending Results Name Type Priority Associated Diagnoses Date /Time Film Library- Storage only MR Head Imaging Routine 03/28/2013 8:29 AM EDT documented as of this encounter Visit Diagnoses Not on filedocumented in this encounter Care Teams Finance Broker Relationship Specialty Start Date End Date Bakari Delgado MD [address] [place] [address] PCP - General 05/04/10 06/18/15 documented as of this encounter
--- OUTSIDE RECORDS SUMMARY | 2024-07-17 01:46 | XMS_ITS | Encounter Summary ---
[place] [address] Care Team Providers Care Airplane Patrol Pilot Name Role Phone Jeannette Herman APRN Primary Care Provider [phone] Reason for Referral * Consultation (Routine) - Closed Specialty Diagnoses / Procedures Referred By Christin herbert Referred To Contact Orthopaedics Diagnoses Shoulder pain, unspecified chronicity, unspecified laterality BILAT SHOULDER PAIN DISCUSS GUIDED INTRA ARTICULAR KETOROLAC INJECTIONS Jeannette Herman APRN [address] [place] [address] [facility] [address] [place] [phone] Referral ID Status Reason Start Date Expiration Date V isits Requested Visits Authorized [id number] Closed Consult, Test & Treat PCP Updated and/or Approved 08/02/2023 01/31/2024 6 6 Encounter Details Date Type Department Care Team (Latest Contact Info) Description 08/07/2023 Transcribe Orders eDH Incoming Referrals [phone] Jeannette Herman APRN [address] [place] [address] Shoulder pain, unspecified chronicity, unspecified [...] PM EST Office [place] [address] Rich Johnson MD [facility] [place] [address] Scheduled Referrals Name Type Priority Associated Diagnoses Orde r Schedule Referral to Orthopaedics Outpatient Referral Routine Shoulder pain, unspecified chronicity, unspecified laterality Ordered: 08/07/2023 documented as of this encounter Visit Diagnoses Diagnosis Shoulder pain, unspecified chronicity, unspecified laterality documented in this encounter Care Teams Airplane Patrol Pilot Relationship Specialty Start Date End Date Jeannette Herman APRN [address] [place] [address] PCP - General Family Medicine 09/14/22 12/03/23 documented as of this encounter
--- OUTSIDE RECORDS SUMMARY | 2024-07-17 01:46 | XMS_ITS | Clinical Summary ---
Author Organization [facility] Address [facility] [place] [address] Care Team Providers Care Bar Finish Operator Name Role Phone Yadi Steel MD Primary Care Provider Allergies Active Allergy Reactions Criticality Noted Date [...] Take 3 mg by mouth nightly. Active lactobacillus rhamnosus, GG, (CULTURELLE) 10 billion cell Capsule Take 1 capsule by mouth Daily. Active magnesium citrate 125 mg Capsule Take 150 mg by mouth daily. Active cholecalciferol, Vitamin D3, 25 mcg (1,000 unit) Capsule Take 1,000 Units by mouth daily. Active Active Problems Problem Noted Date Diagnosed Date Tinnitus of left ear 06/17/2024 Intention tremor 06/17/2024 History of renal calculi 06/17/2024 Eczema 06/17/2024 Diverticulitis of large inte lanie without perforation or abscess without bleeding 04/28/2024 Diarrhea 04/27/2024 Diverticulitis of colon 04/27/2024 GERD without esophagitis 04/27/2024 HTN (hypertension) 04/27/2024 Irregular bowel habits 04/27/2024 Irritable bowel syndrome 04/27/2024 Lower abdominal pain 04/27/2024 Primary fibromyalgia syndrome 04/27/2024 Essential thrombocythemia 04/27/2024 Myopia, left eye 12/17/2010 Overview (12/17/2010): Myopia with astigmatism OS Astigmatism, unspecified left eye 12/17/2010 Overview (12/17/2010): Myopia with astigmatism OS Encounters Date Type Department Care Team Description 07/05/2024 2:52 PM EST - 07/05/2024 4:12 PM EST Surgery [facility] [place] [address] Rich oJhnson MD ANORECTAL EXAM, REQUIRING ANESTHESIA, DIAGNOSTIC (WRVU 1.8) 07/05/2024 2:16 PM EST Anesthesia Event [facility] [place] [address] Isidoro Grady MD 07/05/2024 1:31 PM EST - 07/05/2024 3:07 PM EST Hospital Encounter [facility]patient [place] [address] Rich Johnson MD Discharge Disposition: Home 06/13/2024 3:15 PM EST Office [place] [address] Rich Johnson MD Diverticulitis of colon 06/13/2024 Travel 06/11/2024 Travel 06/10/2024 12:00 PM EST TH Visit (TeleHealth) [place] [address] Lesli Rodriguez PA Diverticulitis of colon; Clostridium difficile colitis; History of repair of rectocele; Irritable bowel syndrome with both constipation and diarrhea 05/20/2024 11:30 AM EST TH Visit (TeleHealth) [place] [address] Lesli Rodriguez PA Clostridium difficile colitis (Primary Dx); Diverticulitis of colon; Irritable bowel syndrome with both constipation and diarrhea 04/29/2024 12:00 PM EST TH Visit (TeleHealth) [place] [address] Lesli Rodriguez PA Diverticulitis of colon (Primary Dx); Clostridium difficile colitis 04/28/2024 Travel 04/27/2024 7:28 PM EST - 04/28/2024 3:23 AM EST [place] [address] Titus Sagastume MD Lower abdominal pain; Diverticulitis of large intestine without perforation or abscess without bleeding Discharge Disposition: Home 04/24/2024 Transcribe Orders eDH Incoming Referrals [phone] Khushboo Vieira APRN Abdominal pain, unspecified abdominal location from Last [...] Mass Index 30.11 07/05/2024 1:45 PM EST Plan of Treatment Upcoming Encounters Date Type Department Care Team (Late st Contact Info) Description 07/18/2024 2:00 PM EST Office [place] [address] Rich Johnson MD [facility] [place] [address] Health Maintenance Due Date Last Done Comments CT Colonography 1955 FIT DNA 1955 FIT 1955 Sigmoidoscopy 1955 Hepatitis C Screening 1974 Lipid Screening 1974 Breast Cancer Share Decision Needed 1996 Breast Cancer screening 1996 Tetanus/Diphtheria/Pertussis Vaccines (1 - Tdap) 09/30/2004 09/29/2004 Pneumoccocal Vaccine: 50+ (1 of 1 - PCV) 2006 Zoster vaccine (1 of 2) 2006 Advance Directive 10/06/2011 Bone Density Scan 2021 Covid-19 Vaccine (1 - season) 2024 Influenza (Flu) vaccine (1 o f 1 - Influenza standard series) 02/11/2024 04/05/2006, 04/11/2005 Colonoscopy 06/22/2025 06/22/2015, 06/12, 08/26/2002 (See prior EHR) Colorectal Cancer Screening 06/22/2025 Sigmoidoscopy (10 year) with FIT yearly 06/22/2025 06/22/2015, 06/22/2015 Diabetes Screening (HgbA1C o r Glucose) 04/27/2027 04/27/2024 Procedures Procedure Name Priority Date/Time Associated Diagnosis Comments Surg Diagnostic Exam, Anorectal (74922) Yes 07/05/2024 2:16 PM EST RE[facility]ELE URINALYSIS WITH REFLEX CULTURE STAT 04/28/2024 12:30 [...] (WITH DIFF) STAT 04/27/2024 7:43 PM EST COLONOSCOPY Routine 06/22/2015 11:37 AM EST from Last 3 Months or Most Recently Relevant to Health Maintenance Results * (ABNORMAL) Urinalysis with reflex Culture (04/28/2024 12:30 AM EST) Pathologist [facility] Glucose, Urine Dipstick Negative Negative 04/28/2024 12:46 AM EST [facility] Protein, Urine Dipstick Negative Negative 04/28/2024 12:46 AM EST [facility] Bilirubin, Urine Dipstick Negative Negative 04/28/2024 12:46 AM EST [facility] Comment:Clinical correlation required for positive Urine Bilirubin results as false positive may occur with some drugs and drug related products. If a false positive is suspected a serum total bilirubin should be considered if clinically indicated. Urobilinogen, Urine Dipstick Normal Normal, 0.2 mg/dL, 1.0 mg/dL 04/28/2024 12:46 AM EST [facility] pH, Urine (dipstick) 7.0 5.0 - 8.0 04/28/2024 12:46 AM [facility] Blood, Urine Dipstick Negative Negative 04/28/2024 12:46 AM [facility] Ketone, Urine Dipstick 15 mg/dL(A) Negative 04/28/2024 12:46 AM [facility] Nitrite, Urine Dipstick Negative Negative 04/28/2024 12:46 AM [facility] Leukocytes, Urine Dipstick Negative Negative 04/28/2024 12:46 AM [facility] Specific [place] Urine Automated >=1.030(H) 1.005 - 1.030 04/28/2024 12:46 AM [facility] Appearance, Urine Dipstick Clear Clear 04/28/2024 12:46 AM [facility] Color, Urine Dipstick Yellow Yellow, Dark Yellow 04/28/2024 12:46 AM [facility] CULTURE ADDED? 04/28/2024 12:46 AM [facility] Urine URINE SPECIMEN OBTAINED BY CLEAN CATCH PROCEDURE / Unknown Non Blood Collection / Unknown 04/28/2024 12:30 AM EST 04/28/2024 12:39 AM EST Titus Sagastume MD URINE ORDERABLES Performing Organization Address City/[facility]/[place] [address] * Lactate Whole Blood POC (04/27/2024 11:32 PM EST) Lactate, Whole Blood 1.0 0.5 - 2.2 mmol/L 04/27/2024 11:33 PM EST [facility] Blood VENOUS BLOOD SPECIMEN / Unknown 04/27/2024 11:32 PM EST 04/27/2024 11:33 PM EST Titus Sagastume MD POINT OF CARE TEST O RDERABLES [facility] [place] [address] * CT Abdomen & Pelvis w Contrast (04/27/2024 9:04 PM EST) WORKSTATION ID [id number] RAD Anatomical Region Laterality Modality Abdomen, Pelvis [...] who have questions please contact the health care companion that requested your imaging first. ? Electronically signed by: Elba Kitchen MD, [facility] ([phone]), at 04/27/2024 10:02 PM Narrative 04/27/2024 10:02 [...] patients who have questions please contactthe health care companion that requested your imaging first. Electronically signed by: Elba Kitchen MD, [facility]([phone]), at 04/27/2024 10:02 PM Curtis London III, MD IMG CT ORDERABLES * (ABNORMAL) Scan, Peripheral Blood (04/27/2024 7:43 PM EST) [facility] RBC Morphology Normal 04/27/2024 8:43 PM EST [facility] Platelet Estimate Increased( A) Normal 04/27/2024 8:43 PM EST [facility] Platelet Clumps Present(A) (none) 04/27/2024 8:43 PM EST [facility] WBC MORPHOLOGY See Comment(A) (none) 04/27/2024 8:43 PM [facility] Comment:Vacuolated Grans Blood VENOUS BLOOD SPECIMEN / Unknown Venipuncture / Unknown 04/27/2024 7:43 PM EST 04/27/2024 7:47 PM EST Titus Sagastume MD HEMATOLOGY ORDERABLE S [facility] [place] [id number] * (ABNORMAL) CBC (with Diff) (04/27/2024 7:43 PM EST) [facility] White Blood Cell 14.89(H) 4.00 - 9.50 x10(3)/mc L 04/27/2024 8:43 PM EST [facility] Red Blood Cell 4.74 4.00 - 5.21 x10(6)/mc L 04/27/2024 8:43 PM [facility] Hemoglobin 14.2 11.7 - 15.5 g/dL 04/27/2024 8:43 PM [facility] Hematocrit 40.9 35.7 - 45.8 % 04/27/2024 8:43 PM [facility] Mean Cell Volume 86.3 82.6 - 94.4 fL 04/27/2024 8:43 PM [facility] Mean Cell Hemoglobin 30.0 27.1 - 32.0 pg 04/27/2024 8:43 PM [facility] Mean Cell Hemoglobin Concentration 34.7 31.7 - 35.0 g/dL 04/27/2024 8:43 PM [facility] Platelet 386(H) 145 - 357 x10(3)/mc L 04/27/2024 8:43 PM [facility] Mean Platelet Volume 9.1 7.6 - 12.9 fL 04/27/2024 8:43 PM [facility] RDW Standard Deviation 39.1 37.0 - 46.0 fL 04/27/2024 8:43 PM [facility] RDW coefficient of variation 12.3 11.5 - 14.1 % 04/27/2024 8:43 PM [facility] NRBC% auto 0.0 % 04/27/2024 8:43 PM [facility] NRBC Absolute <0.01 <0.01 x10(3)/mc L 04/27/2024 8:43 PM [facility] Neutrophil % 78.1 % 04/27/2024 8:43 PM [facility] Comment:This is an appended report. These results have been appended to a previously preliminary verified report. Neutrophil Absolute (ANC) - Automated 11.63(H) 1.70 - 6.10 x10(3)/mc L 04/27/2024 8:43 PM [facility] Comment:This is an appended report. These results have been appended to a previously preliminary verified report. Lymph % 7.1 % 04/27/2024 8:43 PM [facility] Comment:This is an appended report. These results have been appended to a previously preliminary verified report. Lymph Absolute 1.05 0.90 - 3.20 x10(3)/mc L 04/27/2024 8:43 PM [facility] Comment:This is an appended report. These results have been appended to a previously preliminary verified report. Monocyte % 12.4 % 04/27/2024 8:43 PM EST [facility] Comment:This is an appended report. These results have been appended to a previously preliminary verified report. Monocyte Absolute 1.85(H) 0.30 - 0.90 x10(3)/mc L 04/27/2024 8:43 PM [facility] Comment:This is an appended report. These results have been appended to a previously preliminary verified report. Eos % 1.7 % 04/27/2024 8:43 PM [facility] Comment:This is an appended report. These results have been appended to a previously preliminary verified report. Eos Absolute 0.25 0.00 - 0.40 x10(3)/mc L 04/27/2024 8:43 PM [facility] Comment:This is an appended report. These results have been appended to a previously preliminary verified report. Basophil % 0.4 % 04/27/2024 8:43 PM [facility] Comment:This is an appended report. These results have been appended to a previously preliminary verified report. Baso Absolute 0.06 0.00 - 0.10 x10(3)/mc L 04/27/2024 8:43 PM [facility] Comment:This is an appended report. These results have been appended to a previously preliminary verified report. Immature Gran % 0.3 % 8:43 PM [facility] Comment:This is an appended report. These results have been appended to a previously preliminary verified report. Immature Gran Absolute 0.05(H) 0.00 - 0.04 x10(3)/mc L 04/27/2024 8:43 PM [facility] Comment:This is an appended report. These results have been appended to a previously preliminary verified report. Blood VENOUS BLOOD SPECIMEN / Unknown Venipuncture / Unknown 04/27/2024 7:43 PM EST 04/27/2024 7:47 PM EST Titus Sagastume MD HEMATOLOGY ORDERABLE S [facility] [place] [address] * (ABNORMAL) Magnesium (04/27/2024 7:43 PM EST) Magnesium 0.68(L) 0.69 - 1.07 mMol/L 04/27/2024 8:32 PM EST [facility] Blood VENOUS BLOOD SPECIMEN / Unknown Venipuncture / Unknown 04/27/2024 7:43 PM EST 04/27/2024 7:47 PM EST Curtis London III, MD CHEMISTRY ORDERABL ES Performing Organization Address [facility] Co de Phone Number [facility] [place] [address] * Lipase (04/27/2024 7:43 PM EST) Pathologist [facility] Lipase 23 0 - 60 unit/L 04/27/2024 8:32 PM EST [facility] Blood VENOUS BLOOD SPECIMEN / Unknown Venipuncture / Unknown 04/27/2024 7:43 PM EST 04/27/2024 7:47 PM EST Curtis London III, MD CHEMISTRY ORDERABL ES Performing Organization Address [facility] Co de Phone Number [facility] [place] [address] * Hepatic Function Panel (04/27/2024 7:43 PM EST) Pathologist [facility] Albumin 4.0 3.2 - 5.2 g/dL 04/27/2024 8:32 PM EST [facility] Aspartate Aminotransferase 19 <=30 unit/L 04/27/2024 8:32 PM EST [facility] Alanine Aminotransferase 13 0 - 30 unit/L 04/27/2024 8:32 PM EST [facility] Alkaline Phosphatase 58 35 - 105 unit/L 04/27/2024 8:32 PM EST [facility] Bilirubin, Total 0.5 <=1.3 mg/dL 04/27/2024 8:32 PM [facility] Bilirubin, Direct <0.2 0.0 - 0.3 mg/dL 04/27/2024 8:32 PM [facility] Protein, Total 7.7 6.1 - 8.0 g/dL 04/27/2024 8:32 PM [facility] Blood VENOUS BLOOD SPECIMEN / Unknown Venipuncture / Unknown 04/27/2024 7:43 PM EST 04/27/2024 7:47 PM EST Curtis London III, MD CHEMISTRY ORDERABL ES [facility] [place] [address] * (ABNORMAL) Basic Metabolic Panel (04/27/2024 7:43 PM EST) Glucose 91 65 - 199 mg/dL 04/27/2024 8:32 PM [facility] Comment:Glucose Concentratio n >=200 mg/dL plus symptoms is consistent with Diabetes Mellitus. Blood Urea Nitrogen 4(L) 8 - 18 mg/dL 04/27/2024 8:32 PM [facility] Creatinine 0.67(L) 0.70 - 1.20 mg/dL 04/27/2024 8:32 PM [facility] Sodium 133(L) 135 - 145 mMol/L 04/27/2024 8:32 PM [facility] Potassium 3.8 3.5 - 5.0 mMol/L 04/27/2024 8:32 PM [facility] Chloride 95(L) 98 - 107 mMol/L 04/27/2024 8:32 PM [facility] Carbon Dioxide 27 22 - 31 mMol/L 04/27/2024 8:32 PM [facility] Anion Gap 11 5 - 15 mMol/L 04/27/2024 8:32 PM [facility] Calcium 9.1 8.5 - 10.5 mg/dL 04/27/2024 8:32 PM EST [facility] Est Glomerular Filtration Rate - Female 96 mL/min/1. 73 m?? 04/27/2024 8:32 PM EST [facility] Comment: This patient's estimated GFR [...] PM EST Titus Sagastume MD CHEMISTRY ORDERABLES [facility] [place] [address] * COLONOSCOPY (06/22/2015 11:37 AM EST) COLONOSCOPY [facility] Endoscopy Patient Name: Adelaida Lundy ? Procedure Date: 06/22/2015 11:37 AM ? Date of : 1955 ? Age: 59 ? Order #: [id number] ? Procedure: ? Colonoscopy Indications: ? Screening for colorectal malignant ? neoplasm Providers: ? Venice Meyer MD, Martina Estrada RN, ? Alex Coello, Carver Hand Referring : ?Bakari Delgado MD, Catracho Coleman ? MD [...] GENERAL SURGICA L ORDERABLES Performing Organization Address City/State/[facility] Co de Phone Number [place] from Last 3 Months or Most Recently Relevant to Health Maintenance Care Teams Bar Finish Operator Relationship Specialty Start Date End Date Yadi Steel MD [address] [place] [address] PCP - General Family Medicine 12/04/23
--- OUTSIDE RECORDS SUMMARY | 2024-07-17 01:46 | XMS_ITS | Encounter Summary ---
Author Organization [facility] Address [address] [place] [address] Care Team Providers Care Transformer Repairer Name Role Phone Unavailable Primary Care Provider Unavailabl e Encounter Details Date Type Department Care Team (Late st Contact Info) Description 05/01/2001 Results Only [facility] conversion [address] [place] [address] Annie Tran, [address] [place] [address] Social History Tobacco Use Types [...] ? ADELAIDA LUNDY ? Accession #: ? [id number] : ? 1955 (Age: 45) ??F ?Collect Date: ? 05/01/2001 Location: ? [facility] ? Receive Date: ? 05/07/2001 Provider: ?ANNIE TRAN SHAPER MACHINE HAND Copy to: ? Specimen/Source: ?ThinPrep Pap Test, [...] [facility] 05/01/2001 05/07/2001 us Annie Tran SHAPER MACHINE HAND PATHOLOGY ORDERABLES Final R esult [facility] [address] [place] [address] documented in this encounter Visit Diagnoses Not on filedocumented in this encounter
--- OUTSIDE RECORDS SUMMARY | 2024-07-17 01:46 | XMS_ITS | Encounter Summary ---
Author Organization [facility] Address [facility] [place] [address] Care Team Providers Care Chief Telephone Operator Name Role Phone Catracho Perea MD Primary Care Provider [phone] Reason for Visit * Auth/Cert - Closed Specialty Diagnoses / Procedures Referred By Christin t Referred To Contact Diagnoses 10 yr surv from 2003 Procedures PRO COLONOSCOPY, DIAGNOSTIC COLONOSCOPY, DIAGNOSTIC Referral ID Status Reason Start Date Expiration Date Visits Re quested Visits Authorized [id number] Closed 1 1 Encounter Details Date Type Department Care Team (Late st Contact Info) Description 06/22/2015 11:00 AM EST - 06/22/2015 11:45 AM EST Surgery [place] [address] Venice Meyer MD [facility] [place] [address] COLONOSCOPY, DIAGNOSTIC (WRVU 3.26) Social History Tobacco [...] - 06/22/2015 11:59 AM EST Please call [phone] before 5pm with problems, questions or concerns, after 5pm call the Hospital at [phone] and ask to speak to the Abrasive Mixer Helper logistics operations manager and the paper core machine operator will contact that person for you. [...] through Care Everywhere. * COLONOSCOPY : POST-OP (NORWEGIAN) documented in this encounter Medications at Time [...] PM EST Office [place] [address] Rich Johnson MD [facility] [place] [address] documented as of this encounter Procedures Procedure [...] RN) documented in this encounter Care Teams Chief Telephone Operator Relationship Specialty Start Date End Date Catracho Perea MD [address] [place] [address] PCP - General Family Medicine 06/19/15 07/09/19 documented as of this encounter
--- OUTSIDE RECORDS SUMMARY | 2024-07-17 01:46 | XMS_ITS | Encounter Summary ---
Author Organization [facility] Address [facility] [place] [address] Care Team Providers Care Concrete Form Setter And Finisher Name Role Phone Yadi Steel MD Primary Care Provider [phone] Encounter Details Date Type Department Care Team (Latest Contact Info) Description 07/05/2024 1:31 PM EST - 07/05/2024 3:07 PM EST Hospital Encounter [place] [address] Rich Johnson MD [facility] [place] [address] Discharge Disposition: Home Social History Tobacco Use [...] 5pm or on a weekend: Call the [facility] salt operator and ask for the physician construction trench digger covering for your doctor. * Patient Instructions* [...] procedure for postoperative pain control. Please take [id number] pain medications for post-operative discomfort. Acetaminophen (Tylenol) [...] . Division of Colon and Rectal Surgery, [place] [address] documented in this encounter Medications at Time [...] scheduled. Rich Johnson MD MSc FACS FASCRS hydroblaster Division of Colon and Rectal Surgery [facility] Pager [phone] documented in this encounter Miscellaneous Notes * Op Note - Rich Johnson MD - 07/05/2024 2:28 PM EST [facility] [place] [place] Operative Note Patient Name: Adelaida Lundy : [id number] MR#: [id number] Case Date: 07/05/2024 Surgeon: Surgeons and Role: [...] PM EST Office [place] [address] Rich Johnson MD [facility] [place] [address] documented as of this encounter Procedures Procedure Name Priority Date/Time Associated Diagnosis Comments Surg Diagnostic Exam, Anorectal (82112) Yes 07/05/2024 2:16 PM EST [facility] documented [...] Given 07/05/2024 1:43 PM EST 975 mg documented in this encounter Active and [...] MD) documented in this encounter Care Teams Concrete Form Setter And Finisher Relationship Specialty Start Date End Date Yadi Steel MD [address] [place] [address] PCP - General Family Medicine 12/04/23 documented as of this encounter
--- OUTSIDE RECORDS SUMMARY | 2024-07-17 01:46 | XMS_ITS | Encounter Summary ---
Author Organization [facility] Address [address] [place] [address] Care Team Providers Care Insurance Counsel Name Role Phone Unavailable Primary Care Provider Unavailabl e Encounter Details Date Type Department Care Team (Late st Contact Info) Description 07/28/2009 Orders Only [facility] Laboratory Services - [facility] [address] [place], [place] [id number] Annie Tran, [facility] [address] [place] [address] [place] [address] Social History Tobacco Use Types [...] EST 07/31/2009 8:37 EST us Annie Tran DOOR OPERATOR MICROBIOLOGY - GENERAL ORDER [place]AN[place] Final Result [facility] [address] [place] [id number] * CYTOPATHOLOGY (07/28/2009 0:00 EST) Pathology Report: CYTOPATHOLOGY REPORT ? Reports generated via electronic interface contain original data; ? however they are lacking the format of the original report. ? Caution should be taken when reading/interpreti ng unformatted reports. ? Name: ? ADELAIDA LUNDY ? Accession #: ? [id number] ? : ? 1955 (Age: 53) ??F ?Collect Date: ? 07/28/2009 ? Location: ? [facility] ? Receive Date: ? 07/29/2009 ? Provider: ?ANNIE JAZZMINE DOOR OPERATOR ? Copy to: ? Specimen/Source: ?Pap [...] [facility] 07/28/2009 07/29/2009 us Annie Tran DOOR OPERATOR PATHOLOGY ORDERABLES Final R esult [facility] [address] [place] [address] documented in this encounter Visit Diagnoses Not on filedocumented in this encounter
--- OUTSIDE RECORDS SUMMARY | 2024-07-17 01:46 | XMS_ITS | Encounter Summary ---
Author Organization [facility] [place] [address] Care Team Providers Care Staying Machine Operator Name Role Phone Bakari Delgado MD Primary Care Provider [phone] Reason for Visit * Reason Comments Post Lasik 8 months s/p LASIK O U Encounter Details Date Type Department Care Team (Late st Contact Info) Description 12/20/2010 10:45 AM EDT Office Visit [facility] [place] [address] Shun Canales MD [facility] [place] [place] [address] Myopia (Primary Dx); Vitreous floaters Discharge Disposition: [...] PM EST Office [place] [address] Rich Johnson MD [facility] [place] [address] documented as of this encounter Visit Diagnoses Diagnosis Myopia- Primary Vitreous floaters Other vitreous opacities documented in this encounter Care Teams Staying Machine Operator Relationship Specialty Start Date End Date Bakari Delgado MD [address] [place] [address] PCP - General 05/04/10 06/18/15 documented as of this encounter
--- OUTSIDE RECORDS SUMMARY | 2024-07-17 01:46 | XMS_ITS | Encounter Summary ---
Author Organization [facility] [place] [address] Care Team Providers Care Agriscience Instructor Name Role Phone Guille James MD Primary Care Provider Reason for Referral * Diagnostic Test (Routine) - Closed Specialty Diagnoses / Procedures Referred By Contac t Referred To Contact Radiology Diagnoses Abdominal pain, lower Procedures CT Abdomen & Pelvis w Contrast Guille James MD [address] [place] [address] [facility] [place] [address] Referral ID Status Reason Start Date Expiration Date V isits Requested Visits Authorized [id number] Closed Specialty Service Requested 07/09/2019 09/06/2019 1 1 Reason for Visit * Diagnostic Test (Routine) - Closed Specialty Diagnoses / Procedures Referred By Contac t Referred To Contact Radiology Diagnoses Abdominal pain, lower Procedures CT Abdomen & Pelvis w Contrast Guille James MD [address] [place] [address] [facility] [place] [address] Referral ID Status Reason Start Date Expiration Date V isits Requested Visits Authorized [id number] Closed Specialty Service Requested 07/09/2019 09/06/2019 1 1 Encounter Details Date Type Department Care Team (Latest Contact Info) Description 07/10/2019 3:07 PM EST - 07/10/2019 11:59 PM EST [place] [address] Guille James MD [address] [place] [address] Abdominal pain, lower Discharge Disposition: Home Social [...] PM EST Office [place] [address] Rich Johnson MD [facility] [place] [address] documented as of this encounter Procedures Procedure [...] contact the number below. Guille James MD IMG CT ORDERABLES documented [...] mLs documented in this encounter Care Teams Agriscience Instructor Relationship Specialty Start Date End Date Guille James MD [address] [place] [address] PCP - General Internal Medicine 07/10/19 09/29/19 documented as of this encounter
--- OUTSIDE RECORDS SUMMARY | 2024-07-17 01:46 | XMS_ITS | Encounter Summary ---
Author Organization [facility] Address [facility] [place] [address] Care Team Providers Care Hospice Music Therapy Name Role Phone Yadi Steel MD Primary Care Provider [phone] Encounter Details Date Type Department Care Team (Latest Contact Info) Description 06/11/2024 Travel Social History Tobacco Use Types Packs/Day [...] PM EST Office [place] [address] Rich Johnson MD [facility] [place] [address] documented as of this encounter Visit Diagnoses Not on filedocumented in this encounter Care Teams Hospice Music Therapy Relationship Specialty Start Date End Date Yadi Steel MD [address] [place] [address] PCP - General Family Medicine 12/04/23 documented as of this encounter
--- OUTSIDE RECORDS SUMMARY | 2024-07-17 01:46 | XMS_ITS | Encounter Summary ---
Author Organization [facility] Address [address] [place] [address] Care Team Providers Care Liberal Arts And Humanities Chair Name Role Phone Unavailable Primary Care Provider Unavailabl e Encounter Details Date Type Department Care Team (Late st Contact Info) Description 08/09/2004 Results Only [facility] - [facility] [address] [place] [address] Annie Tran, [address] [place] [address] Social History Tobacco Use Types [...] ? ADELAIDA LUNDY ? Accession #: ? [id number] : ? 1955 (Age: 48) ??F ?Collect Date: ? 08/09/2004 Location: ? [facility] ? Receive Date: ? 08/11/2004 Provider: ?ANNIE TRAN DRAW OFF WORKER Copy to: ? Specimen/Source: ?ThinPrep Pap Test, [...] RUSH GARZA 08/09/2004 08/11/2004 us Annie Tran DRAW OFF WORKER PATHOLOGY ORDERABLES Final R esult RUSH GARZA [address] [place] [address] documented in this encounter Visit Diagnoses Not on filedocumented in this encounter
--- OUTSIDE RECORDS SUMMARY | 2024-07-17 01:46 | XMS_ITS | Encounter Summary ---
Author Organization [facility] Address [facility] [place] [address] Care Team Providers Care Director Medical Science Name Role Phone Yadi Steel MD Primary Care Provider [phone] Encounter Details Date Type Department Care Team (Latest Contact Info) Description 06/10/2024 12:00 PM EST TH Visit (TeleHealth) [place] [address] Lesli Rodriguez PA [facility] [place] [address] Diverticulitis of colon; Clostridium difficile colitis; History of repair of rectocele; Irritable bowel syndrome with both constipation and diarrhea Social History Tobacco Use Types Packs/Day Years Used Date Smoking Tobacco: Never Smokeless Tobacco: Never Alcohol Use Standard Drinks/Week Comments Yes 14 (1 standard drink = 0.6 oz pu re alcohol) [facility] Inpatient Questions Answer Date Recorded Does [...] * Patient Instructions* Lesli Rodriguez PA - 06/10/2024 12:00 PM EST Surgical consult scheduled for later this week. documented in this encounter Progress Notes * Lesli Rodriguez PA - 06/10/2024 12:00 PM EST Adult Gastroenterology Return Patient Note Patient: Adelaida Lundy : 1955 Date of Service: 06/10/2024 Referring Provider: No ref. provider found Primary Care Provider: Yadi Steel MD HPI History of present illness provided by patient and per personal review of EMR. Adelaida Lundy is a 68 y.o. female with a PMH significant for HTN, anxiety, fibromyalgia, and a PSH including CCY. Interval Hx: Half capful Miralax daily + Pedialyte. Juice + water. IBGard daily. Fiber. Kefier + probiotic. BM typically twice daily. Soft (denies hard stools, denies diarrhea). Typically will strain to passgas which is assd with pressure (not anal, L back side near tailbone) then poop will come out with minimal effort. Fiber improves pressure/urge. Expanded diet a bit during holidays and felt firmness in lower gut (can be R, L, middle) and increased 'soreness' in colon - Massaging can help Chronic issues with high potassium/low sodium, monitoring with PCP, needs to watch liquid intake/hydration status. Worsening symptoms since rectocele surgery in 2020. She is concerned for structural issue related to prior surgery. Hx at Last Visit (04/2024): Finished course of vancomycin 05/15. Ate yogurt [...] seen on 03/2024 CT, also presented to [facility] 04/27 showing persistent diverticulitis as well [...] Dicyclomine - not helpful, caused headache Prior Testin05/2024 CBC normal 04/2024 CT AP w - ascending colitis, sigmoid diverticulitis/proctitis, nodular thickening at low rectum 03/2024 GI PCR normal 03/2024 CT AP w [...] FERRITIN Vitamin Studies: No results found for: [id number], VITAMIND A1c:No results found for: HA1C Thyroid: No results found for: TSH, B9CTGDB, TT4, THYROIDAB Celiac Studies: No results found for: TTGIGAAB, TTGIGAMAYO, TTGIGG, IGA, YENIFER, CRP Stool Studies: No results found for: FECALFATQUAL, CALPROTECTIN, STOOLCX, OVAPARA, HPYLORISTLAG, HPSA, GIARDIA, CAMPYAG, CDIFFTOXIN, CDIFFAG, CDIFFTOX, CDIFFPCRI, CRSPAG, SHIGATOXIN [facility] Affiliated Radiographic studies: CT Abdomen & Pelvis w Contrast Result Date: 04/27/2024 1. Long segment sigmoid diverticulitis and proctitis without perforation nor abscess. 2. Mural heterogeneous enhancement and nodular thickening at the low rectum is concerning for a mass lesion and consideration for direct visualization to rule out malignancy is recommended. 3. Ascending colitis. [facility] Endoscopic/GI Studies: N/A OSH Studies: Colonoscopy 01/2024: Sigmoid diverticulosis. Biopsies taken to exclude microscopic colitis. Path: Normal Assessment & Plan 1. Diverticulitis of colon 2. Clostridium difficile colitis 3. History of repair of rectocele 4. Irritable bowel syndrome with both constipation and diarrhea Patient is a 68 y.o. female presenting to GI clinic for evaluation of the above. She is well-appearing. History of recurrent acute diverticulitis dating back to 2016. Most recent episode beginning fall 2023 with diarrhea and abdominal pain. CT imaging confirming diverticulitis and colitis. Treated withAugmentin (patient allergy to Flagyl and fluoroquinolone). She did experience persistent diarrheal symptoms (10-15 BM pr day) despite multiple Augmentin courses, did complete OSH C. difficile [id number] which was positive, tx with vancomycin. Pt reports that diverticulitis/C.diff diarrhea sx have resolved. Now back to baseline functional status which is not ideal and causes distress to patient. She reports difficulty managing bowels [id number] rectocele repair surgery, primarily endorsing irregular bowel habits, pelvic pressure/straining assd with BM, and lower abdominal discomfort. Patient does confirm healthy diet/lifestyle at baseline. Denies tobacco use/heavy EtOH use. Fiber plus MiraLAX daily to improve bowel regularity though does not resolve sx. Pt's main concern is structural issue related to prior rectocele surgery. Notably, patient is up-to-date with screening colonoscopy. Colonoscopy last done January 2024 normal(report available, reviewed). Regarding diverticulitis: Recurrent episodes. Treatment options limited due to medication allergies. Recent prolonged Augmentin use may have been a risk factor for C. difficile infection. It is possible that she is has concurrent smoldering chronic diverticulitis contributing to ongoing sx between frequent diverticulitis episodes. I do agree with colorectal surgery consult for discussion regarding elective sigmoidectomy. Patient does have a history of rectocele repair surgery and I suspect there is associated scar tissue which may make surgical intervention more difficult, however benefits ofsigmoidectomy may outweigh risks given worsening's frequency/severity of diverticulitis episodes and new issue of C.diff. Regarding abnormal rectal findings on CT: I suspect abnormal rectal findings on 04/2024 CT may be secondary to rectocele repair (scar tissue?). No evidence of obstructive process on colonoscopy but Ithink it is possible that scar tissue/structural compromise assd with rectocele surgery may be contributing to chronic sx/pelvic floor dysfunction. CRS consult is scheduled and I encouraged pt to keep this appointment. We did discuss possible diagnostic steps that are considered in patients with her presentation (ARM, MRI defogram) however will defer ordering these until CRS consultation is completed. Regarding C.diff: I do not suspect ongong C.diff - pt reports 2 formed/soft stools daily, denies diarrhea. We discussed that I would not recommend repeat C.diff testing to confirm eradication, high rates of false negative/positive this close to treatement. Would repeat only if persistent ongoing liquid stools. Possible functional overlap - pt appears hypervigilant to sx. Could consider GIBH in the future. No [...] in GI clinic PRN. I have spent 25 minutes with this patient, with >50% of that time spent counseling patient on above stated issues. In addition to direct face to face time, I have personally spent 10 minutes precharting, reviewing patient's interim medical history, coordinating care, and completing documentation on day of encounter for a total time of 35 minutes. SANCHEZ Fortune documented in this encounter Plan of Treatment Upcoming Encounters Date Type Department Care Team (Late st Contact Info) Description 07/18/2024 2:00 PM EST Office [place] [address] Rich Johnson MD [facility] [place] [address] documented as of this encounter Visit Diagnoses Diagnosis Diverticulitis of colon Diverticulitis of colon (without mention of hemorrhage) Clostridium difficile colitis Intestinal infection due to clostridium difficile History of repair of rectocele Irritable bowel syndrome with both constipation and diarrhea documented in this encounter Care Teams Director Medical Science Relationship Specialty Start Date End Date Yadi Steel MD [address] [place] [address] PCP - General Family Medicine 12/04/23 documented as of this encounter
--- OUTSIDE RECORDS SUMMARY | 2024-07-17 01:46 | XMS_ITS | Encounter Summary ---
Author Organization [facility] Address [facility] [place] [address] Care Team Providers Care Sales Service Rep Name Role Phone Yadi Steel MD Primary Care Provider [phone] Reason for Visit * Consultation (Urgent) - Authorized Specialty Diagnoses / Procedures Referred By Conthoward t Referred To Contact Gastroenterology Diagnoses Abdominal pain, unspecified abdominal location HX OF DIVERTICULITIS AND IBS. RECENT NORMAL CALPROTECTIN, COLO W/ COLITIS BX NEG, CELIAC PANEL NEG. DOES NOT TOLERATE CYMBALTA. ONGOING ABD PAIN AND IRREGULAR BOWELS. DICYCLOMINE HAS NOT BEEN EFFECTIVE. Khushboo Vieira W, GOLD LEAF ROLL[address] [place] [address] [facility] [address] [place] [address] Referral ID Status Reason Start Date Expiration Date Visits Requested Visits Authorized [id number] Authorized Consult, Test & Treat PCP Updated and/or Approved 10/21/2024 6 6 Encounter Details Date Type Department Care Team (Latest Contact Info) Description 04/29/2024 12:00 PM EST TH Visit (TeleHealth) [place] [address] Lesli Rodriguez PA [facility] [place] [address] Diverticulitis of colon (Primary Dx); Clostridium difficile colitis Social History Tobacco Use Types Packs/Day Years Used Date Smoking Tobacco: Never Smokeless Tobacco: Never Alcohol Use Standard Drinks/Week Comments Yes 14 (1 standard drink = 0.6 oz pu re alcohol) [facility] Inpatient Questions Answer Date Recorded Does [...] you can contact their scheduling line at [phone]. documented in this encounter Progress Notes * [...] seen on 03/2024 CT, also presented to [facility] ER 04/27 showing persistent diverticulitis as well [...] FERRITIN Vitamin Studies: No results found for: [id number], VITAMIND A1c:No results found for: HA1C Thyroid: No results found for: TSH, J7QPSHI, TT4, THYROIDAB Celiac Studies: No results found for: TTGIGAAB, TTGIGAMAYO, TTGIGG, IGA, YENIFER, CRP Stool Studies: No results found for: FECALFATQUAL, CALPROTECTIN, STOOLCX, OVAPARA, HPYLORISTLAG, HPSA, GIARDIA, CAMPYAG, CDIFFTOXIN, CDIFFAG, CDIFFTOX, CDIFFPCRI, CRSPAG, SHIGATOXIN [facility] Affiliated Radiographic studies: CT Abdomen & Pelvis w Contrast Result Date: 04/27/2024 1. Long segment sigmoid diverticulitis and proctitis without perforation nor abscess. 2. Mural heterogeneous enhancement and nodular thickening at the low rectum is concerning for a mass lesion and consideration for direct visualization to rule out malignancy is recommended. 3. Ascending colitis. [facility] Endoscopic/GI Studies: N/A OSH Studies: Colonoscopy [...] PM EST Office [place] [address] Rich Johnson MD [facility] [place] [place] [address] Scheduled Referrals Name Type Priority Associated Diagnoses Order Schedule Referral to Gastroenterology Outpatient Referral Urgent Abdominal pain, unspecified abdominal location Ordered: 04/24/2024 documented as of this encounter Visit Diagnoses Diagnosis Diverticulitis of colon- Primary Diverticulitis of colon (without mention of hemorrhage) Clostridium difficile colitis Intestinal infection due to clostridium difficile documented in this encounter Care Teams Sales Service Rep Relationship Specialty Start Date End Date Yadi Steel MD [address] [place] [address] PCP - General Family Medicine 12/04/23 documented as of this encounter
--- OUTSIDE RECORDS SUMMARY | 2024-07-17 01:46 | XMS_ITS | Encounter Summary ---
Author Organization [facility] Address [facility] [place] [address] Care Team Providers Care Chip Bin Conveyor Tender Name Role Phone Catracho Perea MD Primary Care Provider [phone] Reason for Visit * Auth/Cert - Closed Specialty Diagnoses / Procedures Referred By Christin t Referred To Contact Diagnoses 10 yr surv from 2003 Procedures PRO COLONOSCOPY, DIAGNOSTIC COLONOSCOPY, DIAGNOSTIC Referral ID Status Reason Start Date Expiration Date Visits Re quested Visits Authorized [id number] Closed 1 1 Encounter Details Date Type Department Care Team (Latest Contact Info) Description 06/22/2015 9:40 AM EST - 06/22/2015 12:26 PM EST Hospital [place] [address] Venice Meyer MD [facility] [place] [address] Discharge Disposition: Home Social History Tobacco Use [...] - 06/22/2015 11:59 AM EST Please call [phone] before 5pm with problems, questions or concerns, after 5pm call the Hospital at [phone] and ask to speak to the Drawer Waxer insulation helper and the longshore equipment operator will contact that person for you. [...] through Care Everywhere. * COLONOSCOPY : POST-OP (AMHARIC) documented in this encounter Medications at Time [...] PM EST Office [place] [address] Rich Johnson MD [facility] [place] [address] documented as of this encounter Procedures Procedure [...] RN) documented in this encounter Care Teams Chip Bin Conveyor Tender Relationship Specialty Start Date End Date Catracho Perea MD [address] [place] [address] PCP - General Family Medicine 06/19/15 07/09/19 documented as of this encounter
--- OUTSIDE RECORDS SUMMARY | 2024-07-17 01:46 | XMS_ITS | Encounter Summary ---
Author Organization [facility] [place] [address] Care Team Providers Care Shop Girl Name Role Phone Yadi Steel MD Primary Care Provider [phone] Reason for Referral * Consultation (Urgent) - Authorized Specialty Diagnoses / Procedures Referred By Christin herbert Referred To Contact Gastroenterology Diagnoses Abdominal pain, unspecified abdominal location HX OF DIVERTICULITIS AND IBS. RECENT NORMAL CALPROTECTIN, COLO W/ COLITIS BX NEG, CELIAC PANEL NEG. DOES NOT TOLERATE CYMBALTA. ONGOING ABD PAIN AND IRREGULAR BOWELS. DICYCLOMINE HAS NOT BEEN EFFECTIVE. Khushboo Vieira APRN [address] [place] [address] [facility] [place] [address] [address] Referral ID Status Reason Start Date Expiration Date Visits Requested Visits Authorized [id number] Authorized Consult, Test & Treat PCP Updated and/or Approved 4 10/21/2024 6 6 Encounter Details Date Type Department Care Team (Late st Contact Info) Description 04/24/2024 Transcribe Orders eDH Incoming Referrals [phone] Khushboo Vieira APRN [address] [place] [address] Abdominal pain, unspecified abdominal location Social History [...] PM EST Office [place] [address] Rich Johnson MD [facility] [place] [address] Scheduled Referrals Name Type Priority Associated Diagnoses Order Schedule Referral to Gastroenterology Outpatient Referral Urgent Abdominal pain, unspecified abdominal location Ordered: 04/24/2024 documented as of this encounter Visit Diagnoses Diagnosis Abdominal pain, unspecified abdominal location documented in this encounter Care Teams Shop Girl Relationship Specialty Start Date End Date Yadi Steel MD [address] [place] [address] PCP - General Family Medicine 12/04/23 documented as of this encounter
--- OUTSIDE RECORDS SUMMARY | 2024-07-17 01:46 | XMS_ITS | Encounter Summary ---
Author Organization [facility] Address [address] [place] [address] Care Team Providers Care Maintenance Worker Name Role Phone Unknown, Provider Primary Care Provider Unava ilable Encounter Details Date Type Department Care Team (Late st Contact Info) Description 04/24/2015 Results Only [facility] [phone] Annie Tran, [address] [place] [address] Social History Tobacco Use Types [...] ? ADELAIDA LUNDY ? Accession #: ? [id number] : ? 1955 (Age: 59) ??F ?Collect Date: ? 04/24/2015 Location: ? [facility] ? Receive Date: ? 04/27/2015 Provider: ?ANNIE TRAN GAS APPLIANCE SERVICER HELPER Copy to: ?ARIADNA DOSS MD ? Specimen/Source: ?Pap Test, Cervix/Endocervix, ThinPrep Imaging System with manual evaluation Last Menstrual Period: ? 2012 ? SPECIMEN ADEQUACY ? Satisfactory for Evaluation - transformation zone component present GENERAL CATEGORIZATION ? Negative for Intraepithelial Lesion or Malignancy ? Document reviewed and electronically signed by: ? JOSE RAFAEL Mendosa(ASCP) ? Report Date: ??04/29/2015 14:03 End of Report [facility] 04/24/2015 04/27/2015 us Annie Tran GAS APPLIANCE SERVICER HELPER PATHOLOGY ORDERABLES Final R esult [facility] [address] [place] [address] documented in this encounter Visit Diagnoses Not on filedocumented in this encounter Care Teams Maintenance Worker Relationship Specialty Start Date End Date Unknown, Provider, PCP - General 04/16/15 06/02/24 documented as of this encounter
--- OUTSIDE RECORDS SUMMARY | 2024-07-17 01:46 | XMS_ITS | Encounter Summary ---
Author Organization [facility] Address [facility] [place] [address] Care Team Providers Care Surgery Aid Name Role Phone Jeannette Herman APRN Primary Care Provider [phone] Encounter Details Date Type Department Care Team [...] PM EST Office [place] [address] Rich Johnson MD [facility] [place] [address] documented as of this encounter Visit Diagnoses Not on filedocumented in this encounter Care Teams Surgery Aid Relationship Specialty Start Date End Date Jeannette Herman APRN [address] [place] [address] PCP - General Family Medicine 09/14/22 12/03/23 documented as of this encounter
--- OUTSIDE RECORDS SUMMARY | 2024-07-17 01:46 | XMS_ITS | Encounter Summary ---
Author Organization [facility] Address [address] [place] [address] Care Team Providers Care Storekeeper Steward Name Role Phone Unavailable Primary Care Provider Unavailabl e Encounter Details Date Type Department Care Team (Late st Contact Info) Description 07/30/2002 Results Only [facility] [address] [place] [address] Annie Tran, [address] [place] [address] Social History Tobacco Use Types [...] ? ADELAIDA LUNDY ? Accession #: ? [id number] : ? 1955 (Age: 46) ??F ?Collect Date: ? 07/30/2002 Location: ? [facility] ? Receive Date: ? 08/01/2002 Provider: ?ANNIE TRAN GROUND HAND Copy to: ? Specimen/Source: ?ThinPrep Pap [...] RUSH GARZA 07/30/2002 08/01/2002 us Annie Tran GROUND HAND PATHOLOGY ORDERABLES Final R esult RUSH GARZA [address] [place] [address] documented in this encounter Visit Diagnoses Not on filedocumented in this encounter
--- OUTSIDE RECORDS SUMMARY | 2024-07-17 01:46 | XMS_ITS | Encounter Summary ---
Author Organization [facility] Address [facility] [place] [address] Care Team Providers Care Chin Strap Maker Name Role Phone Yadi Steel MD Primary Care Provider [phone] Encounter Details Date Type Department Care Team (Latest Contact Info) Description 05/20/2024 11:30 AM EST TH Visit (TeleHealth) [place] [phone] Lesli Rodriguez PA [facility] [place] [address] Clostridium difficile colitis (Primary Dx); Diverticulitis of colon; Irritable bowel syndrome with both constipation and diarrhea Social History Tobacco Use Types Packs/Day Years Used Date Smoking Tobacco: Never Smokeless Tobacco: Never Alcohol Use Standard Drinks/Week Comments Yes 14 (1 standard drink = 0.6 oz pu re alcohol) [facility] Inpatient Questions Answer Date Recorded Does Anyone [...] found Primary Care Provider: Yadi Steel MD [facility] History of present illness provided by patient [...] seen on 03/2024 CT, also presented to [facility] 04/27 showing persistent diverticulitis as well [...] FERRITIN Vitamin Studies: No results found for: LHIVHGRK11, VITAMIND A1c:No results found for: HA1C Thyroid: No results found for: TSH, N1GZERW, TT4, THYROIDAB Celiac Studies: No results found for: TTGIGAAB, TTGIGAMAYO, TTGIGG, IGA, YENIFER, CRP Stool Studies: No results found for: FECALFATQUAL, CALPROTECTIN, STOOLCX, OVAPARA, HPYLORISTLAG, HPSA, GIARDIA, CAMPYAG, CDIFFTOXIN, CDIFFAG, CDIFFTOX, CDIFFPCRI, CRSPAG, SHIGATOXIN [facility] Affiliated Radiographic studies: CT Abdomen & Pelvis w Contrast Result Date: 04/27/2024 1. Long segment sigmoid diverticulitis and proctitis without perforation nor abscess. 2. Mural heterogeneous enhancement and nodular thickening at the low rectum is concerning for a mass lesion and consideration for direct visualization to rule out malignancy is recommended. 3. Ascending colitis. [facility] Affiliated Endoscopic/GI Studies: N/A OSH Studies: Colonoscopy [...] PM EST Office [place] [address] Rich Johnson MD [facility] [place] [address] documented as of this encounter Visit Diagnoses Diagnosis Clostridium difficile colitis- Primary Intestinal infection due to clostridium difficile Diverticulitis of colon Diverticulitis of colon (without mention of hemorrhage) Irritable bowel syndrome with both constipation and diarrhea documented in this encounter Care Teams Chin Strap Maker Relationship Specialty Start Date End Date Yadi Steel MD [address] [place] [address] PCP - General Family Medicine 12/04/23 documented as of this encounter
--- OUTSIDE RECORDS SUMMARY | 2024-07-17 01:46 | XMS_ITS | Encounter Summary ---
Author Organization [facility] Address [facility] [place] [address] Care Team Providers Care Double End Tenon Operator Name Role Phone Yadi Steel MD Primary Care Provider [phone] Encounter Details Date Type Department Care Team [...] PM EST Office [place] [address] Rich Johnson MD [facility] [place] [address] documented as of this encounter Visit Diagnoses Not on filedocumented in this encounter Care Teams Double End Tenon Operator Relationship Specialty Start Date End Date Yadi Steel MD [address] [place] [address] PCP - General Family Medicine 12/04/23 documented as of this encounter
--- OUTSIDE RECORDS SUMMARY | 2024-07-17 01:46 | XMS_ITS | Encounter Summary ---
Author Organization [facility] Address [facility] [place] [address] Care Team Providers Care Servicer Coin Machines Name Role Phone Unknown Primary Care Provider Unavailabl e Encounter Details Date Type Department Care Team (Late st Contact Info) Description 08/03/2022 12:05 AM EST Ancillary Procedure Radiology Library at [facility] [place] [phone] Zacarias Corrales MD [facility] [place] [address] Social History Tobacco Use Types Packs/Day Years [...] PM EST Office Visit General Surgery at [facility] [place] [phone] [facility] [place] [address] documented as of this encounter Procedures Procedure [...] FILM LIBRARY ORD ERABLES Performing Organization Address City/State/[facility] Co de Phone Number [place], [place] documented in this encounter Visit Diagnoses Not on filedocumented in this encounter Care Teams Servicer Coin Machines Relationship Specialty Start Date End Date Unknown None PCP - General 12/15/20 09/13/22 documented as of this encounter
--- OUTSIDE RECORDS SUMMARY | 2024-07-17 01:46 | XMS_ITS | Encounter Summary ---
Author Organization [facility] Address [address] [place] [address] Care Team Providers Care Rotary Driller Prospecting Name Role Phone Unknown, Provider Primary Care Provider Unava ilable Encounter Details Date Type Department Care Team (Late st Contact Info) Description 05/08/2017 Results Only [facility] [phone] Annie Tran, [address] [place] [address] Social History Tobacco Use Types [...] ? ADELAIDA LUNDY ? Accession #: ? [id number] ? : ? 1955 (Age: 61) ??F ?Collect Date: ? 05/08/2017 ? Location: ? [facility] ? Receive Date: ? 05/09/2017 ? Provider: ANNIE TRAN INSIDE SALES COORDINATOR Copy to: NIKKI FERNANDEZ MD ? Final [...] types 16,18,31,33,35, 39,45,51,52,56,58, 59,66, and 68 by senior business process analyst mediated amplification. Comments Document reviewed and electronically signed by: ? System Interface ? Report date: 05/19/2017 By the signature above, the attending physician certifies that he/she has personally conducted a gross and/or microscopic examination of the described specimens and rendered or confirmed the above diagnosis. End of Report [facility] 05/08/2017 05/09/2017 us Annie Tran INSIDE SALES COORDINATOR PATHOLOGY ORDERABLES Final R esult [facility] [address] [place] [address] documented in this encounter Visit Diagnoses Not on filedocumented in this encounter Care Teams Rotary Driller Prospecting Relationship Specialty Start Date End Date Unknown, Provider, PCP - General 04/16/15 06/02/24 documented as of this encounter
--- OUTSIDE RECORDS SUMMARY | 2024-07-17 01:46 | XMS_ITS | Encounter Summary ---
Author Organization [facility] Address [address] [place] [address] Care Team Providers Care Clinical Resource Manager Name Role Phone Unknown, Provider Primary Care Provider Unava ilable Encounter Details Date Type Department Care Team (Late st Contact Info) Description 07/16/2018 Results Only [facility] [phone] Hector Gamboa MD [address] [place] [address] Social History Tobacco Use Types Packs/Day Years [...] ? ADELAIDA LUNDY ? Accession #: ? [id number] ? : ? 1955 (Age: 62) ??F ? Collect Date: ? 07/16/2018 ? Location: ? [facility] ? Receive Date: ? 07/16/2018 ? Provider: HECTOR GAMBOA MD Copy to: NIKKI DOVER ACTIVITIES CONCIERGE ? Final Pathologic Diagnosis: A. ENDOMETRIUM, BIOPSY: [...] 9:43 AM End of Report [facility] 07/16/2018 8:56 EST 07/16/2018 8:56 EST us Hector Gamboa MD PATHOLOGY ORDERABLES Final Resul t [facility] [address] [place] [address] documented in this encounter Visit Diagnoses Not on filedocumented in this encounter Care Teams Clinical Resource Manager Relationship Specialty Start Date End Date Unknown, Provider, PCP - General 04/16/15 06/02/24 documented as of this encounter
--- OUTSIDE RECORDS SUMMARY | 2024-07-17 01:46 | XMS_ITS | Encounter Summary ---
Author Organization [facility] Address [facility] [place] [address] Care Team Providers Care Bead Machine Operator Name Role Phone Bakari Delgado MD Primary Care Provider [phone] Encounter Details Date Type Department Care Team (Late st Contact Info) Description 12/17/2010 Abstract [place] [phone] Radha Palmer RN Myopia, left eye; Astigmatism, [...] PM EST Office [place] [address] Rich Johnson MD [facility] [place] [address] documented as of this encounter Visit Diagnoses Diagnosis Myopia, left eye Myopia Astigmatism, unspecified left eye Astigmatism, unspecified documented in this encounter Care Teams Bead Machine Operator Relationship Specialty Start Date End Date Bakari Delgado MD [address] [place] [address] PCP - General 05/04/10 06/18/15 documented as of this encounter
--- OUTSIDE RECORDS SUMMARY | 2024-07-17 01:46 | XMS_ITS | Encounter Summary ---
Author Organization [facility] [place] [address] Care Team Providers Care Client Service Associate Name Role Phone Bakari Delgado MD Primary Care Provider [phone] Encounter Details Date Type Department Care Team (Latest Contact Info) Description 04/10/2013 9:55 AM EDT - 04/10/2013 11:59 PM EDT Hospital Encounter XRay at [address] [place] [address] CLINIC, DR [facility]EN Discharge Disposition: Home [...] PM EST Office Visit General Surgery at [facility] [place] [address] Rich Johnson MD [facility] [place] [address] documented as of this encounter Visit Diagnoses Not on filedocumented in this encounter Care Teams Client Service Associate Relationship Specialty Start Date End Date Bakari Delgado MD [address] [place] [address] PCP - General 05/04/10 06/18/15 documented as of this encounter
--- OUTSIDE RECORDS SUMMARY | 2024-07-17 01:46 | XMS_ITS | Encounter Summary ---
Author Organization [facility] Address [facility] [place] [address] Care Team Providers Care Microsoft Application Developer Name Role Phone Yadi Steel MD Primary Care Provider [phone] Encounter Details Date Type Department Care Team (Latest Contact Info) Description 06/13/2024 Travel Social History Tobacco Use Types Packs/Day [...] PM EST Office [place] [address] Rich Johnson MD [facility] [place] [address] documented as of this encounter Visit Diagnoses Not on filedocumented in this encounter Care Teams Microsoft Application Developer Relationship Specialty Start Date End Date Yadi Steel MD [address] [place] [address] PCP - General Family Medicine 12/04/23 documented as of this encounter
--- OUTSIDE RECORDS SUMMARY | 2024-07-17 01:46 | XMS_ITS | Encounter Summary ---
Author Organization [facility] Address [facility] [place] [address] Care Team Providers Care Pocketbook Maker Name Role Phone Yadi Steel MD Primary Care Provider [phone] Reason for Visit * Consultation (Routine) - Closed Specialty Diagnoses / Procedures Referred By Christin herbert Referred To Contact General Surgery Diagnoses Diverticulitis of large intestine without perforation or abscess without bleeding Titus Sagastume MD [facility] [place] [address] [facility] [address] [place] [address] Referral ID Status Reason Start Date Expiration Date V isits Requested Visits Authorized [id number] Closed Consult, Test & Treat 04/28/2024 04/28/2025 1 1 Encounter Details Date Type Department Care Team (Latest Contact Info) Description 06/13/2024 3:15 PM EST Office [place] [address] Rich Johnson MD [facility] [place] [address] Diverticulitis of colon Social History Tobacco Use Types Packs/Day Years [...] Sign Reading Time Taken Comments Blood Pressure 148/74 06/13/2024 2:55 PM EST Pulse 56 06/13/2024 2:55 PM EST Temperature - - Respiratory Rate 15 06/13/2024 2:55 PM EST Oxygen Saturation 100% 06/13/2024 2:55 PM EST Inhaled Oxygen Concentration - - Weight 80.3 kg (177 lb 1.6 oz) 06/13/2024 2:55 P M EST Height 160 cm (5' 2.99) 06/13/2024 2:55 PM EST Body Mass Index 31.38 06/13/2024 2:55 PM EST documented in this encounter Progress Notes * Rich Johnson MD - 06/13/2024 3:15 PM EST Images from the original note were not included. Colorectal Surgery Outpatient Consultation ~ Division of Colon and Rectal Surgery ~ [facility] HPI: Adelaida Lundy is a pleasant 68 y.o. female who we were asked to see by Dr. Sagastume regarding No chief complaint on file. . The patient's PCP is Yadi Steel MD. She presents for discussion regarding surgical options of recurrent uncomplicated diverticulitis. She is long history of diverticular episodes and recent C. difficile infection following repeated antibiotic treatment. She states that her bowels have been of narrow caliber since repair of her rectocele in 2020. She notes frequent episodes of abdominal discomfort requiring massage and usually a bowel movement to resolve. Review of Systems Constitutional: Positive for anorexia, weight loss and malaise/fatigue. Gastrointestinal: Positive for abdominal discomfort, constipation and diarrhea. All other systems reviewed and are negative. Past medical history: Patient Active Problem List Diagnosis Code Myopia, left eye H52.10 Astigmatism, unspecified left eye H52.209 Diarrhea R19.7 Diverticulitis of colon K57.32 GERD without esophagitis K21.9 HTN (hypertension) I10 Irregular bowel habits R19.8 Irritable bowel syndrome K58.9 Lower abdominal pain R10.30 Primary fibromyalgia syndrome M79.7 Essential thrombocythemia D47.3 Diverticulitis of large intestine without perforation or abscess without bleeding K57.32 Tinnitus of left ear H93.12 Intention tremor G25.2 History of renal calculi Z87.442 Eczema L30.9 Past surgical history: Past Surgical History: Procedure Laterality Date CHOLECYSTECTOMY CYSTOCELE REPAIR 2020 LASIK 05/10/2010 myopia OU PRO COLONOSCOPY, DIAGNOSTIC N/A 06/22/2015 COLONOSCOPY, DIAGNOSTIC performed by Venice Meyer MD at [facility] ENDOSCOPY RECTOCELE REPAIR 2020 Allergies: Flagyl [metronidazole hcl] and Levaquin [levofloxacin] Medications: reviewed in the electronic medical record. Current Outpatient Medications on File Prior to Visit Medication Sig Dispense Refill buPROPion SR (Wellbutrin [...] by mouth daily. No current facility-administered medications on file prior to visit. Social history: reports that she has never smoked. She has never used smokeless tobacco. She reports current alcohol use of about 14.0 standard drinks of alcohol per week. She reports that she does not use drugs. Family medical history: No family history on file. Patient denies a family history of: colorectal cancer, colorectal polyps, diverticular disease, Crohn disease, and ulcerative colitis. Patient admits a family history of: none. Physical exam: Vitals: Blood pressure 148/74, pulse 56, resp. rate 15, height 160 cm (5' 2.99), weight 80.3 kg (177 lb 1.6 oz), SpO2 100%. BMI: Body mass index is 31.38 kg/m??. General Appearance: well developed and well nourished Neuro: awake, alert and oriented to person, place and time no acute distress Psych: appropriate mood and affect Eyes: extra ocular muscles intact, pupils equally reactive to light and accomodation ENT: neck supple, no lyphadenopathy noted CV: regular rate and rhythm Resp: non-labored without adventitous sounds Lymph: no edema noted Abdomen: soft, non-tender, and not distended, no masses or organomegaly Ext: no cyanosis Labs: reviewed. Endoscopy: reviewed. 01/17/24 Path: reviewed. 01/17/24 A. COLON, RANDOM BIOPSIES: - Benign colonic mucosa with no significant pathologic change. - No evidence of microscopic colitis. Imaging: reviewed. 04/27/24 IMPRESSION: 1. Long segment sigmoid diverticulitis and proctitis without perforation nor abscess. 2. Mural heterogeneous enhancement and nodular thickening at the low rectum is concerning for a mass lesion and consideration for direct visualization to rule out malignancy is recommended. 3. Ascending colitis. 06/11/2024 4:27 PM COREFO Responses Incontinence Scale 11.11 Social Impact Scale 44.44 Frequency Scale 12.5 Stool Releated Aspects 41.67 Medication Scale 66.67 Total COREFO Score 32.69 The COREFO questionnaire is a validated questionnaire with 27 questions to assess colorectal functional outcome. Patients are asked to consider the two week period prior before filling out the questionnaire. Category scores range from zero to 100. A total score is calculated from the categories above, also ranging from zero to 100. A higher score represents an increased level of functional disturbance. Impression/Plan: Adelaida Lundy is a 68 y.o. female with several episodes of uncomplicated diverticulitis with associated C. difficile infection and irritable bowel syndrome. She associates the majority of her bowel function changes in terms of the caliber of her stool to her rectocele repair in 2020. 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 We do comprehensive discussion regarding the risk, benefits, and alternatives to surgical intervention, given that she has fairly substantial bowel dysfunctionit is likely that sigmoidectomy would improve her quality of life. She has no obstructive symptoms and her recent colonoscopy was complete. We came to the agreement that we would begin with evaluation of the distal rectum for stenosis related to her prior rectocele repair before discussing potential abdominal surgical intervention, I have low suspicion of this however given the ability to retroflex on her prior colonoscopy though this would not rule out potential anal stenosis. All of her questions were answered to her satisfaction I will see her next for evaluation under anesthesia. Rich Johnson MD MSc FACS FASCRS military lawyer Division of Colon and Rectal Surgery [facility] Pager [phone] documented in this encounter Plan of Treatment Upcoming Encounters Date Type Department Care Team (Late st Contact Info) Description 07/18/2024 2:00 PM EST Office [place] [address] Rich Johnson MD [facility] [place] [address] Scheduled Referrals Name Type Priority Associated Diagnoses Orde r Schedule Referral to Colorectal Surgery Outpatient Referral Routine Diverticulitis of large intestine without perforation or abscess without bleeding Ordered: 04/28/2024 documented as of this encounter Visit Diagnoses Diagnosis Diverticulitis of colon Diverticulitis of colon (without mention of hemorrhage) documented in this encounter Care Teams Pocketbook Maker Relationship Specialty Start Date End Date Yadi Steel MD [address] [place] [address] PCP - General Family Medicine 12/04/23 documented as of this encounter
--- OUTSIDE RECORDS SUMMARY | 2024-07-17 01:46 | XMS_ITS | Encounter Summary ---
Author Organization [facility] [place] [address] Care Team Providers Care Corset Fitter Name Role Phone Unknown Primary Care Provider Unavailabl e Encounter Details Date Type Department Care Team (Late st Contact Info) Description 08/03/2022 Ancillary Procedure Radiology Library at [facility] [place] [address] Zacarias Corrales MD [facility] [place] [address] Social History Tobacco Use Types Packs/Day Years [...] PM EST Office Visit General Surgery at [facility] [place] [phone] Rich Johnson MD [facility] [place] [address] documented as of this encounter Procedures Procedure Name Priority Date/Time Associated Diagnosis Comments FILM LIBRARY STORAGE ONLY MR SHOULDER Routine 08/03/2022 12:00 AM EST documented in this encounter Results * Film Library- Storage Only MR Shoulder (08/03/2022 12:00 AM EST) Narrative SOFÍA CHAVARRIA - 08/21/2023 9:58 PM EDT This exam is auto-finalizing. It's purpose is for storage only. Zacarias Corrales MD [facility] FILM LIBRARY ORD ERABLES Performing Organization Address City/State/[facility] Co de Phone Number [place], [place] documented in this encounter Visit Diagnoses Not on filedocumented in this encounter Care Teams Corset Fitter Relationship Specialty Start Date End Date Unknown None PCP - General 12/15/20 09/13/22 documented as of this encounter
--- OUTSIDE RECORDS SUMMARY | 2024-07-17 01:46 | XMS_ITS | Encounter Summary ---
Author Organization [facility] [place] [address] Care Team Providers Care Commercial Lines Insurance Agent Name Role Phone Catracho Perea MD Primary Care Provider [phone] Encounter Details Date Type Department Care Team (Late st Contact Info) Description 06/22/2015 [place] [address] Bakari Delgado III, MD [address] [place], [place] [phone] Social History Tobacco Use Types Packs/Day Years [...] PM EST Office [place] [phone] Rich Johnson MD [facility] [address] [place] [address] documented as of this encounter Procedures Procedure Name Priority Date/Time Associated Diagnosis Comments COLONOSCOPY Routine 06/22/2015 11:37 AM EST documented in this encounter Results * COLONOSCOPY (06/22/2015 11:37 AM EST) COLONOSCOPY [facility] Patient Name: Adelaida Lundy ? Procedure Date: 06/22/2015 11:37 AM ? N: [id number] ? Date of : 1955 ? Age: 59 ? Order #: [id number] ? Procedure: ? Colonoscopy Indications: ? Screening for colorectal malignant ? neoplasm Providers: ? Venice Meyer MD, Martina Estrada RN, ? Alex Coello, Customer Sales Consultant Referring MD: ?Bakari Delgado MD, Catracho Coleman [...] on filedocumented in this encounter Care Teams Commercial Lines Insurance Agent Relationship Specialty Start Date End Date Catracho Perea MD [address] [place] [address] PCP - General Family Medicine 06/19/15 07/09/19 documented as of this encounter
--- OUTSIDE RECORDS SUMMARY | 2024-07-17 01:46 | XMS_ITS | Encounter Summary ---
Author Organization [facility] Address [address] [place] [address] Care Team Providers Care Scrap Bunch Maker Name Role Phone Unavailable Primary Care Provider Unavailabl e Encounter Details Date Type Department Care Team (Late st Contact Info) Description 03/27/2006 Results Only [facility] [address] [place] [address] Annie Tran, [address] [place] [address] Social History Tobacco Use Types [...] ? ADELAIDA LUNDY ? Accession #: ? [id number] : ? 1955 (Age: 50) ??F ?Collect Date: ? 03/27/2006 Location: ? [facility] ? Receive Date: ? 03/28/2006 Provider: ?ANNIE TRAN CUSTOMS AND IMMIGRATION OFFICER Copy to: ? Specimen/Source: ?ThinPrep Pap Test, Cervix/Endocervix, processed on 9Flava ThinPrep Imaging System, with manual evaluation Last [...] RUSH GARZA 03/27/2006 03/28/2006 us Annie Tran CUSTOMS AND IMMIGRATION OFFICER PATHOLOGY ORDERABLES Final R esult RUSH GARZA [address] [place] [address] documented in this encounter Visit Diagnoses Not on filedocumented in this encounter
--- OUTSIDE RECORDS SUMMARY | 2024-07-17 01:46 | XMS_ITS | Encounter Summary ---
Author Organization [facility] [place] [address] Care Team Providers Care Porter Luggage Name Role Phone Bakari Delgado MD Primary Care Provider [phone] Encounter Details Date Type Department Care Team (Late st Contact Info) Description 04/10/2013 [place] [phone] Catracho Perea MD [address] [place], [place] [id number] Social History Tobacco Use Types Packs/Day Years [...] PM EST Office Visit [place] [address] Rich Johnson MD [facility] [place] [address] documented as of this encounter Procedures Procedure [...] use of intravenous contrast on 03/28/2013 at [facility]. Findings The ventricles remain normal [...] use of intravenous contrast on 03/28/2013 at [facility]. Findings The ventricles remain normal [...] on filedocumented in this encounter Care Teams Porter Luggage Relationship Specialty Start Date End Date Bakari Delgado MD [address] [place] [address] PCP - General 05/04/10 06/18/15 documented as of this encounter
--- OUTSIDE RECORDS SUMMARY | 2024-07-17 01:47 | XMS_ITS | Encounter Summary ---
Author Organization [facility] Address [facility] [place] [address] Care Team Providers Care Carroting Machine Operator Name Role Phone Bakari Delgado MD Primary Care Provider [phone] Encounter Details Date Type Department Care Team (Late st Contact Info) Description 05/17/2010 11:15 AM EST Office Visit [facility] [place] [address] Shun Canales MD [facility] [place] [place] [address] Discharge Disposition: Home Social History Tobacco Use [...] PM EST Office Visit [place] [address] Rich Johnson MD [facility] [place] [address] documented as of this encounter Visit Diagnoses Not on filedocumented in this encounter Care Teams Carroting Machine Operator Relationship Specialty Start Date End Date Bakari Delgado MD [address] [place] [address] PCP - General 05/04/10 06/18/15 documented as of this encounter
--- OUTSIDE RECORDS SUMMARY | 2024-07-17 01:47 | XMS_ITS | Encounter Summary ---
Author Organization [facility] Address [facility] [place] [address] Care Team Providers Care Lug Breaker And Wire Puller Name Role Phone Bakari Delgado MD Primary Care Provider [phone] Encounter Details Date Type Department Care Team (Late st Contact Info) Description 06/21/2010 11:00 AM EST Office Visit [facility] [place] [address] Shun Canales MD [facility] [place] [address] Discharge Disposition: Home Social History Tobacco Use [...] PM EST Office [place] [address] Rich Johnson MD [facility] [place] [address] documented as of this encounter Visit Diagnoses Not on filedocumented in this encounter Care Teams Lug Breaker And Wire Puller Relationship Specialty Start Date End Date Bakari Delgado MD [address] [place] [address] PCP - General 05/04/10 06/18/15 documented as of this encounter
--- OUTSIDE RECORDS SUMMARY | 2024-07-17 01:47 | XMS_ITS | Encounter Summary ---
Author Organization [facility] Address [facility] [place] [address] Care Team Providers Care Bus Transportation Manager Name Role Phone Bakari Delgado MD Primary Care Provider [phone] Encounter Details Date Type Department Care Team (Late st Contact Info) Description 08/19/2010 11:00 AM EST Office Visit [facility] [place] [address] Shun Canales MD [facility] [place] [address] Discharge Disposition: Home Social History Tobacco Use [...] PM EST Office [place] [address] Rich Johnson MD [facility] [address] documented as of this encounter Visit Diagnoses Not on filedocumented in this encounter Care Teams Bus Transportation Manager Relationship Specialty Start Date End Date Bakari Delgado MD [address] [place] [address] PCP - General 05/04/10 06/18/15 documented as of this encounter
--- OUTSIDE RECORDS SUMMARY | 2024-07-17 01:47 | XMS_ITS | Encounter Summary ---
Author Organization [facility] Address [facility] [place] [address] Care Team Providers Care Solid Plasterer Name Role Phone Bakari Delgado MD Primary Care Provider [phone] Encounter Details Date Type Department Care Team (Late st Contact Info) Description 05/10/2010 2:00 PM EST Procedure visit [facility] [place] [address] Shun Canales MD [facility] [place] [address] Social History Tobacco Use Types Packs/Day Years [...] PM EST Office [place] [address] Rich Johnson MD [facility] [place] [address] documented as of this encounter Visit Diagnoses Not on filedocumented in this encounter Care Teams Solid Plasterer Relationship Specialty Start Date End Date Bakari Delgado MD [address] [place] [address] PCP - General 05/04/10 06/18/15 documented as of this encounter
--- OUTSIDE RECORDS SUMMARY | 2024-07-17 01:47 | XMS_ITS | Encounter Summary ---
Author Organization [facility] Address [facility] [place] [address] Care Team Providers Care Second Helper Name Role Phone Bakari Delgado MD Primary Care Provider [phone] Encounter Details Date Type Department Care Team (Late st Contact Info) Description 05/11/2010 3:45 PM EST Office Visit [facility] [place] [address] Shun Canales MD [facility] [place] [address] Social History Tobacco Use Types Packs/Day Years [...] PM EST Office [place] [address] Rich Johnson MD [facility] [place] [address] documented as of this encounter Visit Diagnoses Not on filedocumented in this encounter Care Teams Second Helper Relationship Specialty Start Date End Date Bakari Delgado MD [address] [place] [address] PCP - General 05/04/10 06/18/15 documented as of this encounter
--- OUTSIDE RECORDS SUMMARY | 2024-07-17 01:47 | XMS_ITS | Encounter Summary ---
Author Organization [facility] Address [facility] [place] [address] Care Team Providers Care Water Resource Engineer Name Role Phone Jeannette Herman APRN Primary Care Provider [phone] Encounter Details Date Type Department Care Team (Late st Contact Info) Description 04/27/2006 Orders Only Dermatology at [place] [address] [facility] [place] [address] Blake Malave MD [address] [facility] [place] [address] Social History Tobacco Use Types Packs/Day Years [...] PM EST Office [place] [address] Rich Johnson MD [facility] [place] [address] documented as of this encounter Procedures Procedure Name Priority Date/Time Associated Diagnosis Comments SURGICAL PATHOLOGY REPORT Routine 04/27/2006 8:41 PM EST documented in this encounter Results * Surgical Pathology Report (04/27/2006 8:41 PM EST) Surgical Pathology Report [id number] ? Location: The signing pathologist has (i) [...] CR-0 04/28/06 ALEX 04/28/06 Verified by: ? Buhpinder Nair MD ?Dermatopathol ogist ?(Electronic Signature) The [...] on filedocumented in this encounter Care Teams Water Resource Engineer Relationship Specialty Start Date End Date Jeannette Herman APRN [address] [place] [address] PCP - General Family Medicine 09/14/22 12/03/23 documented as of this encounter
--- OUTSIDE RECORDS SUMMARY | 2024-07-17 01:47 | XMS_ITS | Encounter Summary ---
Author Organization [facility] Address [facility] [place] [address] Care Team Providers Care Youth Career Specialist Name Role Phone Jeannette Herman APRN Primary Care Provider [phone] Encounter Details Date Type Department Care Team (Late st Contact Info) Description 05/11/2006 Orders Only Dermatology at [place] [address] [facility] [place] [address] Blake Malave MD [address] [facility] [place] [address] Social History Tobacco Use Types Packs/Day Years [...] PM EST Office [place] [address] Rich Johnson MD [facility] [place] [address] documented as of this encounter Procedures Procedure Name Priority Date/Time Associated Diagnosis Comments SURGICAL PATHOLOGY REPORT Routine 05/11/2006 5:34 PM EST documented in this encounter Results * Surgical Pathology Report (05/11/2006 5:34 PM EST) Surgical Pathology Report [id number] ? Location: The signing pathologist has (i) [...] on filedocumented in this encounter Care Teams Youth Career Specialist Relationship Specialty Start Date End Date Jeannette Herman APRN [address] [place] [address] PCP - General Family Medicine 09/14/22 12/03/23 documented as of this encounter
--- OUTSIDE RECORDS SUMMARY | 2024-07-17 01:47 | XMS_ITS | Encounter Summary ---
Author Organization [facility] Address [facility] [place] [address] Care Team Providers Care Petroleum Refinery Worker Name Role Phone Bakari Delgado MD Primary Care Provider [phone] Encounter Details Date Type Department Care Team (Late st Contact Info) Description 08/27/2010 9:27 AM EDT - 08/27/2010 11:05 AM EDT Emergency [place] [address] Heladio Hameed MD [facility] [place] [address] Discharge Disposition: Home Social History Tobacco Use [...] PM EST Office [place] [address] Rich Johnson MD [facility] [place] [address] documented as of this encounter Visit Diagnoses Not on filedocumented in this encounter Care Teams Petroleum Refinery Worker Relationship Specialty Start Date End Date Bakari Delgado MD [address] [place] [address] PCP - General 05/04/10 06/18/15 documented as of this encounter
--- OUTSIDE RECORDS SUMMARY | 2024-07-17 01:47 | XMS_ITS | Encounter Summary ---
Author Organization [facility] Address [facility] [place] [address] Care Team Providers Care Community Center Coordinator Name Role Phone Unavailable Primary Care Provider Unavailabl e Encounter Details Date Type Department Care Team (Late st Contact Info) Description 04/30/2010 10:30 AM EST Surgical Consult [facility] [place] [address] Shun Canales MD [facility] [place] [address] Social History Tobacco Use Types Packs/Day Years [...] PM EST Office [place] [address] Rich Johnson MD [facility] [place] [address] documented as of this encounter Visit Diagnoses Not on filedocumented in this encounter
--- OUTSIDE RECORDS SUMMARY | 2024-07-17 01:47 | XMS_ITS | Encounter Summary ---
Author Organization [facility] [place] [address] Care Team Providers Care Chief Business Officer Name Role Phone Bakari Delgado MD Primary Care Provider Encounter Details Date Type Department Care Team (Late st Contact Info) Description 08/27/2010 [place] [address] Kraig Lorenz PA [address] [place] [address] Social History Tobacco Use Types Packs/Day Years [...] PM EST Office [place] [address] Rich Johnson MD [facility] [place] [address] documented as of this encounter Procedures Procedure [...] on filedocumented in this encounter Care Teams Chief Business Officer Relationship Specialty Start Date End Date Bakari Delgado MD [address] [place] [address] PCP - General 05/04/10 06/18/15 documented as of this encounter
[2024-07-17 14:12] LABS: Hemoglobin A1C 5.4 % (<5.7)
[2024-07-18 12:05] LABS: Albumin 58.1 % (55.8-66.1); Albumin g/dL 4.6 g/dL (3.6-5.2); Total Protein 7.9 g/dL (6.3-8.2)
== END 2024-07-17 01:06 | disposition home or self-care (01) ==
LOC: LBO 01:06
PROVIDERS: PCP Nurse Practitioner Family; Visit Provider Psychiatry & Neurology Neurology
DX: G62.9 Polyneuropathy, unspecified (principal); R73.9 Hyperglycemia, unspecified
CPT/HCPCS: 36415; 83036; 84165

== ENCOUNTER 2024-07-31 11:26 | Outpatient (CLI) | payer MEDICARE, BC, SELFPAY ==
--- NOTE | 2024-07-31 11:15 | DI.MRI_ITS ---
Exam(s) MR BRAIN WO EXAM: MR BRAIN WO CLINICAL HISTORY: ?MS, PAESTHESIA OF SKIN, R20.2 TECHNIQUE: Multiplanar multisequence MRI of the brain was performed. COMPARISON: MR MRI - BRAIN WO CONTRAST from 03/28/2013 FINDINGS: The examination is limited due to patient motion artifact. VENTRICLES AND EXTRA AXIAL SPACES: Normal in size and morphology for the patient's age. MIDLINE SHIFT: None. CEREBRAL PARENCHYMA: No focus of restricted diffusion to suggest acute infarct. No space-occupying le cameron identified. There again seen several hyperintense foci in the white matter on the FLAIR and T2 w eighted images. They have shown some increase in number compared to the prior examination. There has been interval increase in size of a lesion in the periventricular white matter adjacent to the right lateral ventricle anteriorly. HEMORRHAGE: None. BRAINSTEM/CEREBELLUM: Normal. CALVARIUM: Normal. VISUALIZED PARANASAL SINUSES/MASTOIDS:Clear. YOMBA SHOSHONE OF [place]: Normal flow void. PITUITARY GLAND: Unremarkable. OTHER FINDINGS: None. IMPRESSION: 1. Slight interval increase in number of white matter lesions since 03/28/2013. This may reflect yeast supervisor marely microvascular ischemic disease. Other demyelinating causes cannot be entirely excluded, particula rly given the new periventricular lesion adjacent to the right lateral ventricle. DATA REPOSITORY:
== END 2024-07-31 11:46 ==
LOC: DI 11:28
PROVIDERS: PCP Nurse Practitioner Family; Visit Provider Psychiatry & Neurology Neurology
DX: R20.2 Paresthesia of skin (principal)
CPT/HCPCS: 70551

== ENCOUNTER → 2024-10-14 11:12 | Outpatient (BNVA) | payer MEDICARE, BC, SELFPAY | PROVIDERS: PCP Nurse Practitioner Family; Referring Provider Nurse Practitioner Family; Visit Provider Psychiatry & Neurology Neurology | DX: R20.2 Paresthesia of skin (principal); R25.1 Tremor, unspecified; G62.9 Polyneuropathy, unspecified; R26.89 Other abnormalities of gait and mobility; I10 Essential (primary) hypertension | CPT/HCPCS: 99214 ==

== ENCOUNTER → 2024-10-14 13:54 | Outpatient (BNVA) | payer MEDICARE, BC, SELFPAY | PROVIDERS: PCP Nurse Practitioner Family; Referring Provider Nurse Practitioner Family; Visit Provider Podiatrist | DX: L60.0 Ingrowing nail (principal); G57.62 Lesion of plantar nerve, left lower limb; L60.3 Nail dystrophy; B35.1 Tinea unguium; M20.41 Other hammer toe(s) (acquired), right foot | CPT/HCPCS: 11750; 99214 ==

== ENCOUNTER → 2024-10-17 14:43 | Outpatient (BNVA) | payer MEDICARE, BC, SELFPAY | PROVIDERS: PCP Nurse Practitioner Family; Referring Provider Nurse Practitioner Family; Visit Provider Podiatrist | DX: L60.0 Ingrowing nail (principal); G57.62 Lesion of plantar nerve, left lower limb; M20.41 Other hammer toe(s) (acquired), right foot; B35.1 Tinea unguium; L60.3 Nail dystrophy | CPT/HCPCS: 99024 ==

== ENCOUNTER → 2024-11-12 14:19 | Outpatient (BNVA) | payer MEDICARE, BC, SELFPAY | PROVIDERS: PCP Nurse Practitioner Family; Referring Provider Nurse Practitioner Family; Visit Provider Podiatrist | DX: L60.0 Ingrowing nail (principal); G57.62 Lesion of plantar nerve, left lower limb; M20.41 Other hammer toe(s) (acquired), right foot; L60.3 Nail dystrophy; B35.1 Tinea unguium | CPT/HCPCS: 99213 ==

== ENCOUNTER 2024-11-26 14:47 | Outpatient (REF) | payer MEDICARE, BC, SELFPAY ==
[2024-11-26 15:48] LABS: Absolute Basophil Count 0.07 10^3/uL (0.0-0.2); Absolute Eosinophil Count 0.12 10^3/uL (0.0-0.7); Absolute Lymphocyte Count 1.44 10^3/uL (1.2-3.4); Absolute Monocyte Count 0.44 10^3/uL (0.1-0.8); Absolute Neutrophil Count 1.58 10^3/uL (1.2-6.7); Basophils % 1.9 %; Eosinophils % 3.3 %; HCT 40.2 % (36.0-46.0); HGB 13.5 g/dL (11.2-15.7); Lymphocytes % 39.5 %; MCH 29.5 pg (27.0-33.0); MCHC 33.6 % (32.0-36.0); MCV 88 fL (80-95); MPV 9.4 fL (8.0-11.0); Monocytes % 12.1 %; Neutrophils % 43.2 %; Platelet Count 433 10^3/uL (130-400); RBC 4.58 10^6/uL (3.93-5.22); RDW 12.8 % (11.7-14.6); RDW-SD 41.4 fL; WBC 3.65 10^3/uL (4.4-10.8)
[2024-11-26 16:14] LABS: ALT 21 U/L (14-59); AST 20 U/L (15-37); Albumin 3.9 g/dL (3.4-5.0); Alkaline Phosphatase 58 U/L (46-116); Anion Gap 6.3 mmol/L (3-11); BUN 11 mg/dL (7-18); Bilirubin, Total 0.5 mg/dL (0.2-1.0); CO2 30.7 mmol/L (21.0-32.0); CREATININE 0.8 mg/dL (0.55-1.02); Calcium 9.3 mg/dL (8.5-10.1); Chloride 101 mmol/L (98-107); Estimated GFR 80.21 (mL/min/1.73m2); Glucose 88 mg/dL (74-106); Magnesium 2.1 mg/dL (1.8-2.4); Potassium 4.8 mmol/L (3.5-5.1); Sodium 138 mmol/L (136-145); TSH (W/Ref FT4) 1.98 uIU/mL (0.36-3.74); Total Protein 7.5 g/dL (6.4-8.2)
== END 2024-11-26 14:48 | disposition home or self-care (01) ==
LOC: NCHCN 14:47
PROVIDERS: PCP Nurse Practitioner Family; Visit Provider Nurse Practitioner Family
DX: R19.7 Diarrhea, unspecified (principal)
CPT/HCPCS: 80053; 83735; 84443; 85025

== ENCOUNTER 2025-04-10 12:49 | Outpatient (REF) | payer MEDICARE, BC, SELFPAY ==
[2025-04-10 15:11] LABS: Abs Immature Grans 0.00 10^3/uL (0.0-0.06); HCT 40.9 % (36.0-46.0); HGB 13.9 g/dL (11.2-15.7); Immature Grans % 0.0 %; MCH 29.7 pg (27.0-33.0); MCHC 34.0 % (32.0-36.0); MCV 87 fL (80-95); MPV 9.1 fL (8.0-11.0); Platelet Count 386 10^3/uL (130-400); RBC 4.68 10^6/uL (3.93-5.22); RDW 13.0 % (11.7-14.6); RDW-SD 41.8 fL; WBC 4.03 10^3/uL (4.4-10.8)
[2025-04-10 18:11] LABS: EPI 027-NAP1-B1 PRESUMPTIVE NEGATIVE
== END 2025-04-10 12:50 | disposition home or self-care (01) ==
LOC: NCHCN 12:49
PROVIDERS: PCP Nurse Practitioner Family; Visit Provider Nurse Practitioner Family
DX: R10.9 Unspecified abdominal pain (principal)
CPT/HCPCS: 85025